=== PATIENT | male | born 1975 ===

== ENCOUNTER 2017-11-13 18:44 | Emergency (ER) | payer OTHER ==
[2017-11-13 18:44] VITALS: BMI 48.2
--- NOTE | 2017-11-13 19:42 | ED PDOC ---
HPI: General Adult Time Seen by Provider: 11/13/17 19:01 Chief Complaint (Nursing): Medical Clearance Chief Complaint (Provider): Brought in by [place] Police for Clearance History Per: Patient History/Exam Limitations: no limitations Onset/Duration Of Symptoms: Days Additional Complaint(s): 42 yo male wiht HTN, DM and osteomyolitis brought in by police for clearance for [facility]. Pt states he was at [facility] and getting IV andtibiocis twice a day. Officer asks if patient can have PICC line removed to be incarcerated. Pt reports improvement in right 3rd toe. PT denies HI/SI. Past Medical History Reviewed: Historical Data, Nursing Documentation, Vital Signs Vital Signs: Last Vital Signs Temp 98.5 F 11/13/17 18:51 Pulse 88 11/13/17 18:51 Resp 16 11/13/17 18:51 BP 141/104 H 11/13/17 18:51 Pulse Ox 97 11/13/17 18:51 - Medical History PMH: Arthritis (hands), Asthma, Bronchitis, CVA (3x), Diabetes, HTN, Hypercholesterolemia Denies: Depression, Hepatitis, Chronic Kidney Disease, Sexually Transmitted Disease - Surgical History Surgical History: Denies: Pacemaker - Family History Family History: States: Diabetes, Hypertension - Living Arrangements Living Arrangements: With Family - Social History Current smoker - smoking cessation education provided: No - Immunization History Hx Tetanus Toxoid Vaccination: Yes Hx Influenza Vaccination: Yes Hx Pneumococcal Vaccination: Yes - Home Medications Home Medications: Ambulatory Orders Medication Instructions Recorded Methadone 150 mg PO DAILY 05/26/17 - Allergies Allergies/Adverse Reactions: Allergies Allergy/AdvReac Type Severity Reaction Status Date / Time morphine AdvReac ITCHING Verified 11/13/17 18:51 Review of Systems ROS Statement: Except As Marked, All Systems Reviewed And Found Negative Constitutional: Negative for: Fever Musculoskeletal: Positive for: Other Physical Exam - Reviewed Nursing Documentation Reviewed: Yes Vital Signs Reviewed: Yes - Physical Exam Appears: Positive for: Well, Non-toxic, No Acute Distress Head Exam: Positive for: ATRAUMATIC, NORMAL INSPECTION, NORMOCEPHALIC Skin: Positive for: Warm. Negative for: Normal Color (erythema of the right 3rd toe without drainage ) Eye Exam: Positive for: Normal appearance ENT: Positive for: Normal ENT Inspection Neck: Positive for: Normal, Painless ROM Cardiovascular/Chest: Positive for: Regular Rate, Rhythm Respiratory: Positive for: Normal Breath Sounds. Negative for: Accessory Muscle Use, Respiratory Distress Back: Positive for: Normal Inspection Extremity: Positive for: Normal ROM Neurologic/Psych: Positive for: Alert, Oriented - ECG O2 Sat by Pulse Oximetry: 97 Medical Decision Making Medical Decision Making: Flora discussed case with Charge Nurse (Ranulfo) in the medical unit at the [facility]. Pt able to go to the medical unit for continued antibiotics. PICC line to remain in place. Disposition - Clinical Impression Clinical Impression: Osteomyelitis - Patient ED Disposition Is Patient to be Admitted: No - Disposition Disposition: Discharged/Transfer to Law Enforcement Disposition Time: 20:16 Condition: STABLE Additional Instructions: Please continue antibiotic, cefepime IV, twice a day. Pt is medically and psychiatrically cleared for incarceration on the medical unit to continue administration of IV antibiotics. Instructions: General (DC), Osteomyelitis (DC)
[2017-11-13 20:20] VITALS: RESP 18; TEMP 98.4
[2017-11-13 22:55] VITALS: BP 135/85; PULSE 83; O2SAT 98
== END 2017-11-13 21:29 ==
LOC: H.ER 18:44
DX: M86.9 Osteomyelitis, unspecified (principal); E11.69 Type 2 diabetes mellitus with other specified complication; E78.00 Pure hypercholesterolemia, unspecified; I10 Essential (primary) hypertension; J45.909 Unspecified asthma, uncomplicated; Z86.73 Personal history of transient ischemic attack (TIA), and cerebral infarction without residual deficits; Z88.5 Allergy status to narcotic agent

== ENCOUNTER 2017-11-14 | Inpatient (IN) | payer OTHER ==
[2017-11-14] VITALS: BMI 48.2
--- NOTE | 2017-11-14 00:22 | ED PDOC ---
Lower Extremity Pain/Injury Time Seen by Provider: 11/14/17 00:07 Chief Complaint (Nursing): Medical Clearance Chief Complaint (Provider): Medical Clearance History Per: Patient History/Exam Limitations: no limitations Onset/Duration Of Symptoms: Hrs ([employer]) Additional Complaint(s): 42 year old male with a history of HTN, DM, and morbid obesity reports to the ED for medical clearance. Patient was recently admitted to [facility] , diagnosed with osteomyelitis of right foot. He was placed at [facility] for IV antibiotic treatment via PICC and is prescribed cefepime 2 mg Q12 daily. correction staff called the police when he left the facility to smoke. Law enforcement arrested patient on outstanding warrants and brought him to [facility]. Arrangements were made to treat him with IV antibiotics but decided he should be referred to [facility] for treatment. He denies any other medical complaints. PMD: Dr. Semaj Xavier Past Medical History Reviewed: Historical Data, Nursing Documentation, Vital Signs Vital Signs: Last Vital Signs Temp 98.4 F 11/14/17 00:03 Pulse 90 11/14/17 00:03 Resp 16 11/14/17 00:03 BP 151/84 H 11/14/17 00:03 Pulse Ox 98 11/14/17 00:03 - Medical History PMH: Arthritis (hands), Asthma, Bronchitis, CVA (3x), Diabetes, HTN, Hypercholesterolemia Denies: Depression, Hepatitis, Chronic Kidney Disease, Sexually Transmitted Disease - Surgical History Surgical History: Denies: Pacemaker Other surgeries: LLE below the knee amputation - Family History Family History: States: Diabetes, Hypertension - Social History Current smoker - smoking cessation education provided: Yes Drugs: Other (heroin, methadone dependance ) - Immunization History Hx Tetanus Toxoid Vaccination: Yes Hx Influenza Vaccination: Yes Hx Pneumococcal Vaccination: Yes - Home Medications Home Medications: Ambulatory Orders Medication Instructions Recorded Methadone 150 mg PO DAILY PRN 05/26/17 Acetaminophen [Tylenol 325mg tab] 650 mg PO Q4H 11/14/17 Albuterol/Ipratropium [Duoneb 3 3 ml INH Q6H 11/14/17 mg/0.5 mg (3 ml) UD] Allopurinol [Zyloprim] 300 mg PO DAILY 11/14/17 Aluminum Hydroxide [Aluminum 30 ml PO Q4H 11/14/17 Hydroxide] Amlodipine Besylate/Benazepril 5 mg PO Q12H 11/14/17 [Amlodipine-Benazepril 2.5-10] Bacitracin Ointment [Bacitracin] 500 unit TOP QSHIFT 11/14/17 Cefepime IV 2 gm in NS [Maxipime 2 gm IV Q12H 11/14/17 2gm] Clonidine HCl [Catapres] 0.2 mg PO Q8H 11/14/17 DULoxetine [Cymbalta] 60 mg PO DAILY 11/14/17 Dicloxacillin Sodium 500 mg PO Q6H 11/14/17 [Dicloxacillin Sodium] Enoxaparin Sodium [Enoxaparin 40 mg SQ DAILY 11/14/17 Sodium] Gabapentin [Neurontin] 300 mg PO TID 11/14/17 Gemfibrozil [Lopid] 600 mg PO BID 11/14/17 Insulin Aspart [Novolog Flexpen] 100 units SQ AC 11/14/17 Insulin Detemir [Levemir] 100 unit SC Q12H 11/14/17 Lidocaine 5% [Lidoderm] 1 patch TOP Q12H 11/14/17 Lipase/Protease/Amylase [Creon Dr 1 cap PO TID 11/14/17 6,000 Units Capsule] Losartan Potassium [Losartan 50 mg PO Q12H 11/14/17 Potassium] Magnesium Hydroxide [Milk of 30 ml PO DAILY 11/14/17 Magnesia] Probenecid/Colchicine 1 each PO DAILY 11/14/17 [Probenecid-Colchicine Tabs] Silver Sulfadiazine 1% [Silvadene 1 appl TOP DAILY 11/14/17 1%] - Allergies Allergies/Adverse Reactions: Allergies Allergy/AdvReac Type Severity Reaction Status Date / Time morphine AdvReac ITCHING Verified 11/14/17 00:03 - Laboratory Results Result Diagrams: 11/14/17 01:00 11/14/17 01:00 - ECG O2 Sat by Pulse Oximetry: 98 (RA) Pulse Ox Interpretation: Normal Medical Decision Making Medical Decision Making: Time: 00:08 Initial Impression: 42 y/o male needing IV antibiotics treatment Initial Plan: --EKG --Alcohol Serum --CMP --Urine Drug Screen --Lact acid, plasma --CBC with differentials --PTT --Prothrombin --CXR --Cefepime 2mg IVBP Q12 Time: 00:26 --Podiatry Consult --Case discussed with Jamison Walker, nurse practioner at [place]. Patient was under Dr. Ria Cueto's care at [facility]. Scribe Attestation: Documented by Paris Melgar, acting as a scribe for Tim Da Silva MD Provider Scribe Attestation: All medical record entries made by the Scribe were at my direction and personally dictated by me. I have reviewed the chart and agree that the record accurately reflects my personal performance of the history, physical exam, medical decision making, and the department course for this patient. I have also personally directed, reviewed, and agree with the discharge instructions and disposition. Disposition - Clinical Impression Clinical Impression: Osteomyelitis - Patient ED Disposition Is Patient to be Admitted: Yes Comment: Saniya Walker NP. [facility] Group Doctor Will See Patient In The: Hospital - Disposition Disposition Time: 00:00 Condition: FAIR
[2017-11-14] MEDS ORDERED: Cefepime 2 GM in Sodium Chloride 0.9% 100 ML IVPB STA (00:25)
[2017-11-14 00:55] LABS: BARBITURATES, UR NEGATIVE (NEGATIVE); PHENCYCLIDINE, UR NEGATIVE (NEGATIVE)
[2017-11-14 00:56] LABS: BENZODIAZEPINES, UR NEGATIVE (NEGATIVE); OPIATES, UR NEGATIVE (NEGATIVE)
[2017-11-14 01:28] LABS: BASO % 0.9 % (0.0-2.0); EOS % 0.8 % (0.0-4.0); HEMOGLOBIN 10.8 g/dL (12.0-18.0); LYMPH # 1.1 K/uL (1.0-4.3); LYMPH % 21.8 % (20.0-40.0); MEAN CELL VOLUME 83.8 fl (80.0-94.0); MEAN CORPUSCULAR HEMOGLOBIN 27.3 pg (27.0-31.0); MEAN CORPUSCULAR HGB CONC 32.6 g/dL (33.0-37.0); MEAN PLATELET VOLUME 8.9 fl (7.2-11.7); MONO # 0.3 K/uL (0.0-0.8); MONO % 6.2 % (0.0-10.0); NEUT # 3.6 K/uL (1.8-7.0); NEUT % 70.3 % (50.0-75.0); RBC 3.97 Mil/uL (4.40-5.90); RED CELL DISTRIBUTION WIDTH 15.6 % (11.5-14.5); WHITE BLOOD COUNT 5.1 K/uL (4.8-10.8)
[2017-11-14 01:37] LABS: INR 1.1 (0.9-1.2); PARTIAL THROMBOPLASTIN TIME 38.8 Seconds (25.6-37.1); PROTHROMBIN TIME 12.5 Seconds (9.8-13.1)
[2017-11-14 01:39] LABS: ALB/GLOB RATIO 0.9 (1.0-2.1); ALBUMIN 3.5 g/dL (3.5-5.0); ALT/SGPT 24 U/L (21-72); AST/SGOT 21 U/L (17-59); BLOOD UREA NITROGEN 26 mg/dl (9-20); CALCIUM 9.4 mg/dL (8.4-10.2); GFR AFRICAN-AMERICAN > 60; GFR NON-AFRICAN AMERICAN > 60
--- NOTE | 2017-11-14 05:31 | PCM.RRT ---
<lFash Cedeno - Last Filed: 11/14/17 05:32> Plan - Assessment of Findings&Treatment Plan [employer]CIAL [employer]STRUCTION SUPERINTENDENT Time: 04:59 COMMERCIAL CONSTRUCTION SUPERINTENDENT Location: [facility] [employer] SUPERINTENDENT Arrival: 05:00 [employer]ERCIAL CONSTRUCTION SUPERINTENDENT Reason: Hypertension S: 42 yo M with pmhx of HTN, DM, Asthma, CVA x3 and L lower extremity amputation was recently transferred from the ER and found to have Elevated BP. Pt denied Chest pain, headaches, blurred vision, epigastric pain O: BP: 229/114. Repeat was 205/159; Manual was 210/110. [employer]ER[employer]STRUCTION SUPERINTENDENT Vitals: HR: 87 RR: 18 General: AAOx3 HEENT: normocephalic, atraumatic, EOMI Cardiac: S1 S2 Resp: clear to auscultation bilaterally Abdo: soft, nontender with active bowel sounds L Lower extremity: amputation COMMERCIAL CONSTRUCTION SUPERINTENDENT intervention: A/P: 42 yo M with pmhx of HTN, DM, Asthma, CVA x3 and L lower extremity amputation; found to have HTN -EKG ordered and read by Dr. Ferrell -Reggie and allergies reviewed with nurses -Clonidine: 0.2 mg ordered and administered -Of note; tox screen positive for: methadone and cocaine COMMERCIAL CONSTRUCTION SUPERINTENDENT Outcome: BP lowered with no CP/CASE/SOB/blurred vision, or epigastric pain COMMERCIAL [employer]STRUCTION SUPERINTENDENT vitals: 147/101, 87 bpm, 98% on RA, RR: 16 COMMERCIAL CONSTRUCTION SUPERINTENDENT end: 05:07 COMMERCIAL CONSTRUCTION SUPERINTENDENT Leader: Dr. Ferrell COMMERCIAL CONSTRUCTION SUPERINTENDENT residents: Flash Cedeno MD PGY1; Naa Brantley MD PGY2 <Pawan Ferrell - Last Filed: 11/14/17 05:49> COMMERCIAL CONSTRUCTION SUPERINTENDENT Nurse Assessment - Vital Signs Vital Signs: Rapid Response Vital Sign Blood Pressure 174/99 Pulse Rate 99 Respiratory Rate 15 Temperature 98.3 F Oxygen Saturation 100 - Vital Signs at end of COMMERCIAL CONSTRUCTION SUPERINTENDENT Vital Signs at end of COMMERCIAL CONSTRUCTION SUPERINTENDENT: Rapid Response End Vital Sign Blood Pressure 147/101 Pulse Rate 99 Respiratory Rate 14 Temperature 98.2 F O2 Sat by Pulse Oximetry 99
[2017-11-14] MEDS ORDERED: METHADONE 150 MG PO PRN (06:28)
[2017-11-14] MEDS ORDERED: BENAZEPRIL PO SCH (06:30)
[2017-11-14] MEDS ORDERED: Bacitracin 500 Units/gm Oint Foilpak UD TOP SCH (06:30)
[2017-11-14] MEDS ORDERED: INSULIN DETEMIR 100 UNIT SC SCH (06:30)
[2017-11-14] MEDS ORDERED: AMLODIPINE BESYLATE PO SCH (06:30)
[2017-11-14] MEDS ORDERED: Albuterol-Ipratrop 3 mg / 0.5 (3 ml) UD INH SCH (06:30)
[2017-11-14] MEDS ORDERED: ALUMINUM HYDROXIDE 320 MG/5 ML PO PRN (06:30)
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
--- NOTE | 2017-11-14 07:47 | RAD ---
HISTORY: admit COMPARISON: No prior. FINDINGS: LUNGS: Portable chest 01/18/2016. PLEURA: No significant pleural effusion identified, no pneumothorax apparent. CARDIOVASCULAR: Normal. OSSEOUS STRUCTURES: No significant abnormalities. VISUALIZED UPPER ABDOMEN: Normal. OTHER FINDINGS: None. IMPRESSION: No interval acute cardiopulmonary disease appreciated.
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
[2017-11-14] MEDS: Insulin Detemir 100 Units/ml Inj SC SCH ×2 (10:30→21:28)
[2017-11-14] MEDS: Amylase/Lipase/Protease 5,000 Units ECC PO SCH ×3 (11:12→17:02)
[2017-11-14] MEDS: Lidocaine 5% Patch TD SCH ×2 (11:26→18:59)
[2017-11-14] MEDS: Magnesium Hydroxide Susp 30 ml UD PO SCH (11:29)
[2017-11-14] MEDS: Enoxaparin 40 mg Syringe SC SCH (11:32)
[2017-11-14] MEDS: Cefepime 2 GM in Sodium Chloride 0.9% 100 ML IVPB SCH ×2 (12:06→21:15)
[2017-11-14] MEDS: Insulin Lispro (humaLOG) 100 Units/ml Inj SC SCH ×2 (12:52→17:06)
[2017-11-14] MEDS: Silver Sulfadiazine 1% Cream (20 gm) TOP SCH (17:05)
--- NOTE | 2017-11-14 17:07 | CARD ---
APPROVED REPORT EKG Measurement Heart [id number] <Conclusion> Poor data quality, interpretation may be adversely affected Normal sinus rhythm Prolonged QT Abnormal ECG
--- NOTE | 2017-11-14 17:08 | CARD ---
APPROVED REPORT EKG Measurement Heart [id number] <Conclusion> Normal sinus rhythm Prolonged QT Abnormal ECG
[2017-11-14] MEDS: Albuterol-Ipratrop 3 mg / 0.5 (3 ml) UD INH SCH (19:10)
[2017-11-15] MEDS: Albuterol-Ipratrop 3 mg / 0.5 (3 ml) UD INH SCH ×4 (01:54→19:18)
[2017-11-15] MEDS: Lidocaine 5% Patch TD SCH ×2 (06:55→18:47)
--- NOTE | 2017-11-15 08:00 | RAD ---
PROCEDURE: Right Foot Radiographs. HISTORY: 3rd digit ulcer COMPARISON: None. FINDINGS: BONES: Erosive changes are identified the distal segment of proximal phalanx right 3rd digit this patient with the right 3rd digit ulcer. The pattern is therefore suspicious for osteomyelitis. No other cortical loss is appreciate throughout the remainder of the right foot including the middle phalanx right 3rd digit. No definite subluxation or dislocation. MRI may be useful for greater characterization. Mild soft tissue edema is seen throughout the right 3rd digit without emphysematous changes, best seen in the frontal view. OTHER FINDINGS: None. IMPRESSION: Erosive changes at the proximal phalanx right 3rd digit suggest osteomyelitis. Diffuse soft tissue edema seen throughout the right 3rd digit as well. Further clinical correlation is recommended. MRI is available for further characterization as clinically warranted.
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
[2017-11-15] MEDS: Insulin Lispro (humaLOG) 100 Units/ml Inj SC SCH ×3 (08:46→17:48)
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
[2017-11-15] MEDS: Amylase/Lipase/Protease 5,000 Units ECC PO SCH ×3 (10:30→18:43)
[2017-11-15] MEDS: Enoxaparin 40 mg Syringe SC SCH (10:31)
[2017-11-15] MEDS: Insulin Detemir 100 Units/ml Inj SC SCH ×2 (10:43→21:46)
[2017-11-15] MEDS: Magnesium Hydroxide Susp 30 ml UD PO SCH (10:47)
[2017-11-15] MEDS: Silver Sulfadiazine 1% Cream (20 gm) TOP SCH (10:47)
[2017-11-15] MEDS: Cefepime 2 GM in Sodium Chloride 0.9% 100 ML IVPB SCH ×2 (11:08→21:43)
[2017-11-16] MEDS: Albuterol-Ipratrop 3 mg / 0.5 (3 ml) UD INH SCH ×4 (02:10→19:02)
[2017-11-16] MEDS: Lidocaine 5% Patch TD SCH ×2 (06:14→17:59)
[2017-11-16] MEDS: Insulin Lispro (humaLOG) 100 Units/ml Inj SC SCH ×3 (06:33→17:15)
--- NOTE | 2017-11-16 07:51 | CP.PCM.PN ---
Subjective - Date & Time of Evaluation Date of Evaluation: 11/16/17 Time of Evaluation: 08:20 - Subjective Subjective: patient doing well. Remains in bed with corrections officers at bedside. no fever, chills, nausea, vomiting or diarrhea. Denies any complaints at this time. left aka noted, no tremors while pt is sleeping Objective - Vital Signs/Intake and Output Vital Signs (last 24 hours): Temp Pulse Resp BP Pulse Ox 97.7 F 74 20 156/74 H 97 11/15/17 23:31 11/16/17 06:13 11/15/17 23:31 11/16/17 06:13 11/15/17 23:31 - Medications Medications: Current Medications Acetaminophen (Tylenol 325mg Tab) 650 mg PO Q4 PRN PRN Reason: T>100.4 Albuterol/Ipratropium (Duoneb 3 Mg/0.5 Mg (3 Ml) Ud) 3 ml INH RQ6 [facility] Last Admin: 11/16/17 07:14 Dose: Not Given Allopurinol (Zyloprim) 300 mg PO DAILY [facility] Last Admin: 11/15/17 10:32 Dose: 300 mg Aluminum Hydroxide (Amphogel) 640 mg PO Q6 PRN PRN Reason: Indigestion Amlodipine Besylate (Norvasc) 5 mg PO Q12 [facility] Last Admin: 11/15/17 21:45 Dose: 5 mg Amylase (Pancrease 05353 U-5000 U-[id number] U) 5,000 unit PO TID [facility] Last Admin: 11/15/17 18:43 Dose: 5,000 unit Bacitracin (Bacitracin) 1 ea TOP QSHIFT [facility] Clonidine HCl (Catapres) 0.2 mg PO Q8H [facility] Last Admin: 11/16/17 06:11 Dose: 0.2 mg Colchicine (Colocrys) 0.6 mg PO DAILY [facility] Last Admin: 11/15/17 10:30 Dose: 0.6 mg Dicloxacillin Sodium (Dynapen) 500 mg PO Q6 [facility] Last Admin: 11/16/17 04:11 Dose: 500 mg Duloxetine HCl (Cymbalta) 60 mg PO DAILY [facility] Last Admin: 11/15/17 10:30 Dose: 60 mg Enoxaparin Sodium (Lovenox) 40 mg SC DAILY [facility] Last Admin: 11/15/17 10:31 Dose: 40 mg Gabapentin (Neurontin) 300 mg PO TID [facility] Last Admin: 11/15/17 18:48 Dose: 300 mg Gemfibrozil (Lopid) 600 mg PO BID [facility] Last Admin: 11/15/17 18:46 Dose: 600 mg Cefepime HCl 2 gm/ Sodium (Chloride) 100 mls @ 100 mls/hr IVPB Q12 [facility] PRN Reason: Protocol Last Admin: 11/15/17 21:43 Dose: 100 mls/hr Insulin Detemir (Levemir) 20 units SC Q12H [facility] Last Admin: 11/15/17 21:46 Dose: 20 units Insulin Human Lispro (Humalog) 0 units SC AC [facility] PRN Reason: Protocol Last Admin: 11/16/17 06:33 Dose: 2 units Lidocaine (Lidoderm) 1 ea TD Q12H [facility] Last Admin: 11/16/17 06:14 Dose: 1 ea Losartan Potassium (Cozaar) 50 mg PO Q12H [facility] Last Admin: 11/16/17 06:13 Dose: 50 mg Magnesium Hydroxide (Milk Of Magnesia) 30 ml PO DAILY [facility] Last Admin: 11/15/17 10:47 Dose: 30 ml Methadone HCl (Methadone) 150 mg PO DAILY [facility] Last Admin: 11/15/17 11:06 Dose: 150 mg Nystatin (Nystop Topical Powder) 1 applic TOP TID [facility] Last Admin: 11/15/17 21:57 Dose: Not Given Probenecid (Probenecid) 500 mg PO DAILY [facility] Last Admin: 11/15/17 10:29 Dose: 500 mg Silver Sulfadiazine (Silvadene 1% 20 Gm) 1 ea TOP DAILY [facility] Last Admin: 11/15/17 10:47 Dose: 1 applic - Labs Labs: 11/14/17 01:00 11/14/17 01:00 PT 12.5 Seconds (9.8-13.1) 11/14/17 01:00 INR 1.1 (0.9-1.2) 11/14/17 01:00 APTT 38.8 Seconds (25.6-37.1) H 11/14/17 01:00 - Constitutional Appears: Well, Non-toxic, No Acute Distress - Head Exam Head Exam: ATRAUMATIC, NORMAL INSPECTION, NORMOCEPHALIC - Eye Exam Eye Exam: EOMI, Normal appearance, PERRL Pupil Exam: NORMAL ACCOMODATION, PERRL - ENT Exam ENT Exam: Mucous Membranes Moist, Normal Exam - Neck Exam Neck Exam: Full ROM, Normal Inspection. absent: Lymphadenopathy - Respiratory Exam Respiratory Exam: Clear to Ausculation Bilateral, NORMAL BREATHING PATTERN - Cardiovascular Exam Cardiovascular Exam: REGULAR RHYTHM, RRR, +S1, +S2. absent: Murmur - GI/Abdominal Exam GI & Abdominal Exam: Soft, Normal Bowel Sounds. absent: Tenderness - Extremities Exam Extremities Exam: Full ROM, Normal Capillary Refill, Normal Inspection. absent : Joint Swelling, Pedal Edema Additional comments: dsg to r foot c/d/i - Back Exam Back Exam: NORMAL INSPECTION - Neurological Exam Neurological Exam: Abnormal Gait, Alert, Awake, CN II-XII Intact, Oriented x3 - Psychiatric Exam Psychiatric exam: Normal Affect, Normal Mood - Skin Skin Exam: Dry, Intact, Normal Color, Warm Assessment and Plan (1) DVT prophylaxis Status: Acute (2) Osteomyelitis Status: Acute (3) Diabetes mellitus type 2, uncontrolled Status: Acute - Assessment and Plan (Free Text) Assessment: (1) DVT prophylaxis Assessment and Plan: lovenox no scd/ae hose r/t infectious process Status: Acute (2) Osteomyelitis Assessment and Plan: cefepeime 2 gm podiatry to follow xr w/ om still, mri for saturday Status: Acute (3) Diabetes mellitus type 2, uncontrolled Assessment and Plan: novolog ss, fsbg dietary control home meds Status: Acute 4-tremor/cva-cont home meds, glucose control
[2017-11-16] MEDS: Insulin Detemir 100 Units/ml Inj SC SCH ×2 (08:24→21:02)
[2017-11-16] MEDS: Enoxaparin 40 mg Syringe SC SCH (08:25)
[2017-11-16] MEDS: Cefepime 2 GM in Sodium Chloride 0.9% 100 ML IVPB SCH ×2 (08:26→21:58)
[2017-11-16] MEDS: Magnesium Hydroxide Susp 30 ml UD PO SCH (08:28)
[2017-11-16] MEDS: Amylase/Lipase/Protease 5,000 Units ECC PO SCH ×3 (08:30→17:18)
[2017-11-16] MEDS: Silver Sulfadiazine 1% Cream (20 gm) TOP SCH (08:31)
--- NOTE | 2017-11-16 14:04 | CP.PCM.PN ---
Subjective - Date & Time of Evaluation Date of Evaluation: 11/16/17 Time of Evaluation: 14:02 - Subjective Subjective: 42 y/o male seen at bedside this afternoon regarding right foot 3rd digit ulcer with osteomyelitis. Patient is seen resting comfortably in bed, in NAD, and AA0x3. Patient reports that he slept fine. No acute overnight events. Denies any pain at this time to his right foot. Denies F/C/N/V/CP/SOB. Dressing remains clean and intact to right foot Objective - Vital Signs/Intake and Output Vital Signs (last 24 hours): Temp Pulse Resp BP Pulse Ox 98.2 F 78 20 145/68 99 11/16/17 08:01 11/16/17 08:28 11/16/17 08:01 11/16/17 08:28 11/16/17 08:01 - Medications Medications: Current Medications Acetaminophen (Tylenol 325mg Tab) 650 mg PO Q4 PRN PRN Reason: T>100.4 Albuterol/Ipratropium (Duoneb 3 Mg/0.5 Mg (3 Ml) Ud) 3 ml INH RQ6 [facility] Last Admin: 11/16/17 13:03 Dose: 3 ml Allopurinol (Zyloprim) 300 mg PO DAILY [facility] Last Admin: 11/16/17 08:31 Dose: 300 mg Aluminum Hydroxide (Amphogel) 640 mg PO Q6 PRN PRN Reason: Indigestion Amlodipine Besylate (Norvasc) 5 mg PO Q12 [facility] Last Admin: 11/16/17 08:28 Dose: 5 mg Amylase (Pancrease 69573 U-5000 U-[id number] U) 5,000 unit PO TID [facility] Last Admin: 11/16/17 12:14 Dose: 5,000 unit Bacitracin (Bacitracin) 1 ea TOP QSHIFT [facility] Clonidine HCl (Catapres) 0.2 mg PO Q8H [facility] Last Admin: 11/16/17 06:11 Dose: 0.2 mg Colchicine (Colocrys) 0.6 mg PO DAILY [facility] Last Admin: 11/16/17 08:21 Dose: 0.6 mg Dicloxacillin Sodium (Dynapen) 500 mg PO Q6 [facility] Last Admin: 11/16/17 09:49 Dose: 500 mg Duloxetine HCl (Cymbalta) 60 mg PO DAILY [facility] Last Admin: 11/16/17 08:22 Dose: 60 mg Enoxaparin Sodium (Lovenox) 40 mg SC DAILY [facility] Last Admin: 11/16/17 08:25 Dose: 40 mg Gabapentin (Neurontin) 300 mg PO TID [facility] Last Admin: 11/16/17 12:14 Dose: 300 mg Gemfibrozil (Lopid) 600 mg PO BID [facility] Last Admin: 11/16/17 08:25 Dose: 600 mg Cefepime HCl 2 gm/ Sodium (Chloride) 100 mls @ 100 mls/hr IVPB Q12 [facility] PRN Reason: Protocol Last Admin: 11/16/17 08:26 Dose: 100 mls/hr Insulin Detemir (Levemir) 20 units SC Q12H [facility] Last Admin: 11/16/17 08:24 Dose: 20 units Insulin Human Lispro (Humalog) 0 units SC AC [facility] PRN Reason: Protocol Last Admin: 11/16/17 12:22 Dose: 4 units Lidocaine (Lidoderm) 1 ea TD Q12H [facility] Last Admin: 11/16/17 06:14 Dose: 1 ea Losartan Potassium (Cozaar) 50 mg PO Q12H [facility] Last Admin: 11/16/17 06:13 Dose: 50 mg Magnesium Hydroxide (Milk Of Magnesia) 30 ml PO DAILY [facility] Last Admin: 11/16/17 08:28 Dose: 30 ml Methadone HCl (Methadone) 150 mg PO DAILY [facility] Last Admin: 11/16/17 08:26 Dose: 150 mg Nystatin (Nystop Topical Powder) 1 applic TOP TID [facility] Last Admin: 11/15/17 21:57 Dose: Not Given Probenecid (Probenecid) 500 mg PO DAILY [facility] Last Admin: 11/16/17 08:30 Dose: 500 mg Silver Sulfadiazine (Silvadene 1% 20 Gm) 1 ea TOP DAILY [facility] Last Admin: 11/16/17 08:31 Dose: 1 applic - Labs Labs: 11/14/17 01:00 11/14/17 01:00 PT 12.5 Seconds (9.8-13.1) 11/14/17 01:00 INR 1.1 (0.9-1.2) 11/14/17 01:00 APTT 38.8 Seconds (25.6-37.1) H 11/14/17 01:00 - Constitutional Appears: Well, Non-toxic, No Acute Distress - Extremities Exam Additional comments: Dressing intact to R foot 3rd toe with mild serosanguinous strikethrough noted VASC: DP and PT palpation, CFT < 3 seconds x 5 digits, temperature gradient WNL , very mild nonpitting localized edema noted to the 3rd digit ORTHO: left AKA noted, tenderness with palpation to the third digit NEURO: gross sensation intact and protective sensation diminished DERM: circular ulceration noted to the dorsum of the right 3rd digit measuring approximately 1 cm x 1 cm x .2 cm, wound base mainly granular, no notable erythema (<.5 cm in margins), no streaking, no tunneling, no undermining, no purulence, no malodor, no bone exposed noted. Hyperpigmented skin discoloration/ noted to the entire 3rd digit - Neurological Exam Neurological Exam: Alert, Awake, Oriented x3 - Psychiatric Exam Psychiatric exam: Normal Affect, Normal Mood Assessment and Plan - Assessment and Plan (Free Text) Assessment: 42M with right foot 3rd digit ulcer with osteomyelitis Plan: Patient seen and evaluated Discussed plan with attending Dr. Rose Right foot X-ray reviewed - erosive changes noted to 3rd digit proximal phalanx suggestive of osteomyelitis Podiatry recommending surgical intervention at this time to remove infected bone Pt refusing surgery at this time, states he wishes to continue course of IV abx , but will consider the option MRI to be performed Saturday for further evaluation of extent of osteomyelitis Will continue provide local wound care while patient receives IV abx Cleansed ulceration with saline solution and applied Silvadene, 4x4 gauze and paper tape dressing Patient may be full WB to the right foot with use of surgical shoe
[2017-11-17] MEDS: Albuterol-Ipratrop 3 mg / 0.5 (3 ml) UD INH SCH ×4 (01:23→19:15)
[2017-11-17] MEDS: Lidocaine 5% Patch TD SCH (06:20)
[2017-11-17 07:39] LABS: EOS % 0.9 % (0.0-4.0); HEMOGLOBIN 11.1 g/dL (12.0-18.0); LYMPH # 1.4 K/uL (1.0-4.3); MEAN CORPUSCULAR HEMOGLOBIN 27.3 pg (27.0-31.0); MEAN CORPUSCULAR HGB CONC 32.5 g/dL (33.0-37.0); MEAN PLATELET VOLUME 8.9 fl (7.2-11.7); MONO # 0.5 K/uL (0.0-0.8); MONO % 12.1 % (0.0-10.0); NEUT # 1.8 K/uL (1.8-7.0); NRBC % 0.1 % (0.0-0.0); RBC 4.05 Mil/uL (4.40-5.90); RED CELL DISTRIBUTION WIDTH 15.4 % (11.5-14.5); WHITE BLOOD COUNT 3.7 K/uL (4.8-10.8)
[2017-11-17 08:00] LABS: ALB/GLOB RATIO 0.9 (1.0-2.1); ALBUMIN 3.5 g/dL (3.5-5.0); ALT/SGPT 34 U/L (21-72); AST/SGOT 26 U/L (17-59); BLOOD UREA NITROGEN 22 mg/dl (9-20); CALCIUM 9.2 mg/dL (8.4-10.2); GFR AFRICAN-AMERICAN > 60; GFR NON-AFRICAN AMERICAN > 60
[2017-11-17] MEDS: Silver Sulfadiazine 1% Cream (20 gm) TOP SCH (09:36)
[2017-11-17] MEDS: Enoxaparin 40 mg Syringe SC SCH (09:37)
[2017-11-17] MEDS: Insulin Detemir 100 Units/ml Inj SC SCH ×2 (09:40→23:08)
[2017-11-17] MEDS: Insulin Lispro (humaLOG) 100 Units/ml Inj SC SCH ×3 (09:40→19:16)
[2017-11-17] MEDS: Amylase/Lipase/Protease 5,000 Units ECC PO SCH ×3 (09:44→16:04)
[2017-11-17] MEDS: Cefepime 2 GM in Sodium Chloride 0.9% 100 ML IVPB SCH ×2 (09:46→23:04)
[2017-11-17] MEDS: Magnesium Hydroxide Susp 30 ml UD PO SCH (09:47)
--- NOTE | 2017-11-17 11:41 | CP.PCM.PN ---
Subjective - Date & Time of Evaluation Date of Evaluation: 11/17/17 Time of Evaluation: 11:41 - Subjective Subjective: 42 y/o male seen today regarding right foot 3rd digit dorsal PIPJ ulcer with osteomyelitis. Patient is seen resting comfortably in bed, in NAD, and AA0x3. Police at bedside for monitoring. Patient reports that he slept ok and has no pain in the right foot. No acute overnight events. Denies F/C/N/V/CP/SOB. Dressing remains clean and intact to right foot Objective - Vital Signs/Intake and Output Vital Signs (last 24 hours): Temp Pulse Resp BP Pulse Ox 98.4 F 68 20 149/57 L 99 11/17/17 08:23 11/17/17 08:23 11/17/17 08:23 11/17/17 09:43 11/17/17 08:23 - Medications Medications: Current Medications Acetaminophen (Tylenol 325mg Tab) 650 mg PO Q4 PRN PRN Reason: T>100.4 Albuterol/Ipratropium (Duoneb 3 Mg/0.5 Mg (3 Ml) Ud) 3 ml INH RQ6 [facility] Last Admin: 11/17/17 07:41 Dose: 3 ml Allopurinol (Zyloprim) 300 mg PO DAILY [facility] Last Admin: 11/17/17 09:44 Dose: 300 mg Aluminum Hydroxide (Amphogel) 640 mg PO Q6 PRN PRN Reason: Indigestion Amlodipine Besylate (Norvasc) 5 mg PO Q12 [facility] Last Admin: 11/17/17 09:43 Dose: 5 mg Amylase (Pancrease 62229 U-5000 U-[id number] U) 5,000 unit PO TID [facility] Last Admin: 11/17/17 09:44 Dose: 5,000 unit Bacitracin (Bacitracin) 1 ea TOP QSHIFT [facility] Last Admin: 11/17/17 09:42 Dose: 1 ea Clonidine HCl (Catapres) 0.2 mg PO Q8H [facility] Last Admin: 11/17/17 06:19 Dose: 0.2 mg Colchicine (Colocrys) 0.6 mg PO DAILY [facility] Last Admin: 11/17/17 09:43 Dose: 0.6 mg Dicloxacillin Sodium (Dynapen) 500 mg PO Q6 [facility] Last Admin: 11/17/17 09:42 Dose: 500 mg Duloxetine HCl (Cymbalta) 60 mg PO DAILY [facility] Last Admin: 11/17/17 09:44 Dose: 60 mg Enoxaparin Sodium (Lovenox) 40 mg SC DAILY [facility] Last Admin: 11/17/17 09:37 Dose: 40 mg Gabapentin (Neurontin) 300 mg PO TID [facility] Last Admin: 11/17/17 09:42 Dose: 300 mg Gemfibrozil (Lopid) 600 mg PO BID [facility] Last Admin: 11/17/17 09:37 Dose: 600 mg Cefepime HCl 2 gm/ Sodium (Chloride) 100 mls @ 100 mls/hr IVPB Q12 [facility] PRN Reason: Protocol Last Admin: 11/17/17 09:46 Dose: 100 mls/hr Insulin Detemir (Levemir) 20 units SC Q12H [facility] Last Admin: 11/17/17 09:40 Dose: 20 units Insulin Human Lispro (Humalog) 0 units SC AC [facility] PRN Reason: Protocol Last Admin: 11/17/17 09:40 Dose: 4 units Lidocaine (Lidoderm) 1 ea TD Q12H [facility] Last Admin: 11/17/17 06:20 Dose: Not Given Losartan Potassium (Cozaar) 50 mg PO Q12H [facility] Last Admin: 11/17/17 06:19 Dose: 50 mg Magnesium Hydroxide (Milk Of Magnesia) 30 ml PO DAILY [facility] Last Admin: 11/17/17 09:47 Dose: Not Given Methadone HCl (Methadone) 150 mg PO DAILY [facility] Last Admin: 11/17/17 09:32 Dose: 150 mg Nystatin (Nystop Topical Powder) 1 applic TOP TID [facility] Last Admin: 11/17/17 09:35 Dose: 1 applic Probenecid (Probenecid) 500 mg PO DAILY [facility] Last Admin: 11/17/17 09:42 Dose: 500 mg Silver Sulfadiazine (Silvadene 1% 20 Gm) 1 ea TOP DAILY [facility] Last Admin: 11/17/17 09:36 Dose: 1 applic - Labs Labs: 11/17/17 05:20 11/17/17 05:20 PT 12.5 Seconds (9.8-13.1) 11/14/17 01:00 INR 1.1 (0.9-1.2) 11/14/17 01:00 APTT 38.8 Seconds (25.6-37.1) H 11/14/17 01:00 - Constitutional Appears: Well, Non-toxic, No Acute Distress - Extremities Exam Additional comments: Dressing intact to R foot 3rd toe with mild serosanguinous strikethrough noted VASC: DP and PT palpation, CFT < 3 seconds x 5 digits, temperature gradient WNL , very mild nonpitting localized edema noted to the 3rd digit ORTHO: left AKA noted, tenderness with palpation to the third digit NEURO: gross sensation intact and protective sensation diminished DERM: circular ulceration noted to the dorsum of the right 3rd digit measuring approximately 1 cm x 1 cm x .2 cm, wound base mainly granular, no notable erythema (<.5 cm in margins), no streaking, no tunneling, no undermining, no purulence, no malodor, no bone exposed noted. Hyperpigmented skin discoloration/ noted to the entire 3rd digit - Neurological Exam Neurological Exam: Alert, Awake, Oriented x3 - Psychiatric Exam Psychiatric exam: Normal Affect, Normal Mood Assessment and Plan - Assessment and Plan (Free Text) Assessment: 42 y/o male with right foot 3rd digit dorsal PIPJ ulcer with osteomyelitis Plan: Patient seen and evaluated Discussed plan with attending Dr. Rose Right foot X-ray reviewed - erosive changes noted to 3rd digit proximal phalanx suggestive of osteomyelitis Podiatry recommending surgical intervention at this time to remove infected bone Pt states he is considering his treatment options on IV abx vs amputation Will undergo MRI tomorrow for further evaluation Podiatry to continue provide local wound care with Silvadene, 4x4 gauze to right 3rd toe Patient may be full WB to the right foot with use of surgical shoe Will continue to follow patient in house
--- NOTE | 2017-11-17 13:15 | CP.PCM.PN ---
Subjective - Date & Time of Evaluation Date of Evaluation: 11/17/17 Time of Evaluation: 13:14 - Subjective Subjective: pt doing well, glucose still elevated. tremor noted. corrections officers at bedside. podiatry recommending amputation of r foot 3rd digit vs further anbx. mri for am. no f/c, n/v/d. labs noted. a1c pending Objective - Vital Signs/Intake and Output Vital Signs (last 24 hours): Temp Pulse Resp BP Pulse Ox 98.4 F 68 20 149/57 L 99 11/17/17 08:23 11/17/17 08:23 11/17/17 08:23 11/17/17 09:43 11/17/17 08:23 - Medications Medications: Current Medications Acetaminophen (Tylenol 325mg Tab) 650 mg PO Q4 PRN PRN Reason: T>100.4 Albuterol/Ipratropium (Duoneb 3 Mg/0.5 Mg (3 Ml) Ud) 3 ml INH RQ6 [facility] Last Admin: 11/17/17 07:41 Dose: 3 ml Allopurinol (Zyloprim) 300 mg PO DAILY [facility] Last Admin: 11/17/17 09:44 Dose: 300 mg Aluminum Hydroxide (Amphogel) 640 mg PO Q6 PRN PRN Reason: Indigestion Amlodipine Besylate (Norvasc) 5 mg PO Q12 [facility] Last Admin: 11/17/17 09:43 Dose: 5 mg Amylase (Pancrease 97679 U-5000 U-40144 U) 5,000 unit PO TID [facility] Last Admin: 11/17/17 12:23 Dose: 5,000 unit Bacitracin (Bacitracin) 1 ea TOP QSHIFT [facility] Last Admin: 11/17/17 09:42 Dose: 1 ea Clonidine HCl (Catapres) 0.2 mg PO Q8H [facility] Last Admin: 11/17/17 06:19 Dose: 0.2 mg Colchicine (Colocrys) 0.6 mg PO DAILY [facility] Last Admin: 11/17/17 09:43 Dose: 0.6 mg Dicloxacillin Sodium (Dynapen) 500 mg PO Q6 [facility] Last Admin: 11/17/17 09:42 Dose: 500 mg Duloxetine HCl (Cymbalta) 60 mg PO DAILY [facility] Last Admin: 11/17/17 09:44 Dose: 60 mg Enoxaparin Sodium (Lovenox) 40 mg SC DAILY [facility] Last Admin: 11/17/17 09:37 Dose: 40 mg Gabapentin (Neurontin) 300 mg PO TID [facility] Last Admin: 11/17/17 12:22 Dose: 300 mg Gemfibrozil (Lopid) 600 mg PO BID [facility] Last Admin: 11/17/17 09:37 Dose: 600 mg Cefepime HCl 2 gm/ Sodium (Chloride) 100 mls @ 100 mls/hr IVPB Q12 [facility] PRN Reason: Protocol Last Admin: 11/17/17 09:46 Dose: 100 mls/hr Insulin Detemir (Levemir) 20 units SC Q12H [facility] Last Admin: 11/17/17 09:40 Dose: 20 units Insulin Human Lispro (Humalog) 0 units SC AC [facility] PRN Reason: Protocol Last Admin: 11/17/17 12:23 Dose: 3 units Lidocaine (Lidoderm) 1 ea TD Q12H [facility] Last Admin: 11/17/17 06:20 Dose: Not Given Losartan Potassium (Cozaar) 50 mg PO Q12H [facility] Last Admin: 11/17/17 06:19 Dose: 50 mg Magnesium Hydroxide (Milk Of Magnesia) 30 ml PO DAILY [facility] Last Admin: 11/17/17 09:47 Dose: Not Given Methadone HCl (Methadone) 150 mg PO DAILY [facility] Last Admin: 11/17/17 09:32 Dose: 150 mg Nystatin (Nystop Topical Powder) 1 applic TOP TID [facility] Last Admin: 11/17/17 09:35 Dose: 1 applic Probenecid (Probenecid) 500 mg PO DAILY [facility] Last Admin: 11/17/17 09:42 Dose: 500 mg Silver Sulfadiazine (Silvadene 1% 20 Gm) 1 ea TOP DAILY [facility] Last Admin: 11/17/17 09:36 Dose: 1 applic - Labs Labs: 11/17/17 05:20 11/17/17 05:20 PT 12.5 Seconds (9.8-13.1) 11/14/17 01:00 INR 1.1 (0.9-1.2) 11/14/17 01:00 APTT 38.8 Seconds (25.6-37.1) H 11/14/17 01:00 - Constitutional Appears: Well, Non-toxic, No Acute Distress - Head Exam Head Exam: ATRAUMATIC, NORMAL INSPECTION, NORMOCEPHALIC - Eye Exam Eye Exam: EOMI, Normal appearance, PERRL Pupil Exam: NORMAL ACCOMODATION, PERRL - ENT Exam ENT Exam: Mucous Membranes Moist, Normal Exam - Neck Exam Neck Exam: Full ROM, Normal Inspection. absent: Lymphadenopathy - Respiratory Exam Respiratory Exam: Clear to Ausculation Bilateral, NORMAL BREATHING PATTERN - Cardiovascular Exam Cardiovascular Exam: REGULAR RHYTHM, +S1, +S2. absent: Murmur - GI/Abdominal Exam GI & Abdominal Exam: Soft, Normal Bowel Sounds. absent: Tenderness - Extremities Exam Extremities Exam: Full ROM, Normal Capillary Refill, Normal Inspection. absent : Joint Swelling, Pedal Edema Additional comments: r foot 3rd digit dsg c/d/i. per podiatry note still w/ ulceration - Back Exam Back Exam: NORMAL INSPECTION - Neurological Exam Neurological Exam: Abnormal Gait, Alert, Awake, CN II-XII Intact, Oriented x3 - Psychiatric Exam Psychiatric exam: Normal Affect, Normal Mood - Skin Skin Exam: Dry, Intact, Normal Color, Warm Assessment and Plan (1) DVT prophylaxis Status: Acute (2) Osteomyelitis Status: Acute (3) Diabetes mellitus type 2, uncontrolled Status: Acute - Assessment and Plan (Free Text) Assessment: (1) DVT prophylaxis Assessment and Plan: lovenox no scd/ae hose r/t infectious process Status: Acute (2) Osteomyelitis Assessment and Plan: cefepeime 2 gm podiatry to follow xr w/ om still, mri for saturday d/c at [facility] amputation vs anbx. pt will "think about it" Status: Acute (3) Diabetes mellitus type 2, uncontrolled Assessment and Plan: novolog ss, fsbg dietary control home meds Status: Acute 4-tremor/cva-cont home meds, glucose control
[2017-11-18] MEDS: Albuterol-Ipratrop 3 mg / 0.5 (3 ml) UD INH SCH ×4 (01:15→19:06)
[2017-11-18] MEDS: Lidocaine 5% Patch TD SCH (06:36)
--- NOTE | 2017-11-18 07:11 | CP.PCM.PN ---
Subjective - Date & Time of Evaluation Date of Evaluation: 11/18/17 Time of Evaluation: 08:14 - Subjective Subjective: patient doing well no f/c nvd pensing mri today. dsg c/d/i glucose noted Objective - Vital Signs/Intake and Output Vital Signs (last 24 hours): Temp Pulse Resp BP Pulse Ox 97.7 F 66 19 114/65 95 11/18/17 00:00 11/18/17 05:32 11/18/17 00:00 11/18/17 05:32 11/18/17 00:00 - Medications Medications: Current Medications Acetaminophen (Tylenol 325mg Tab) 650 mg PO Q4 PRN PRN Reason: T>100.4 Albuterol/Ipratropium (Duoneb 3 Mg/0.5 Mg (3 Ml) Ud) 3 ml INH RQ6 [facility] Last Admin: 11/18/17 01:15 Dose: 3 ml Allopurinol (Zyloprim) 300 mg PO DAILY [facility] Last Admin: 11/17/17 09:44 Dose: 300 mg Aluminum Hydroxide (Amphogel) 640 mg PO Q6 PRN PRN Reason: Indigestion Amlodipine Besylate (Norvasc) 5 mg PO Q12 [facility] Last Admin: 11/17/17 23:05 Dose: 5 mg Amylase (Pancrease 04990 U-5000 U-[id number] U) 5,000 unit PO TID [facility] Last Admin: 11/17/17 16:04 Dose: 5,000 unit Bacitracin (Bacitracin) 1 ea TOP QSHIFT [facility] Last Admin: 11/17/17 09:42 Dose: 1 ea Clonidine HCl (Catapres) 0.2 mg PO Q8H [facility] Last Admin: 11/18/17 05:32 Dose: 0.2 mg Colchicine (Colocrys) 0.6 mg PO DAILY [facility] Last Admin: 11/17/17 09:43 Dose: 0.6 mg Dicloxacillin Sodium (Dynapen) 500 mg PO Q6 [facility] Last Admin: 11/18/17 05:31 Dose: 500 mg Duloxetine HCl (Cymbalta) 60 mg PO DAILY [facility] Last Admin: 11/17/17 09:44 Dose: 60 mg Enoxaparin Sodium (Lovenox) 40 mg SC DAILY [facility] Last Admin: 11/17/17 09:37 Dose: 40 mg Gabapentin (Neurontin) 300 mg PO TID [facility] Last Admin: 11/17/17 16:04 Dose: 300 mg Gemfibrozil (Lopid) 600 mg PO BID [facility] Last Admin: 11/17/17 16:04 Dose: 600 mg Cefepime HCl 2 gm/ Sodium (Chloride) 100 mls @ 100 mls/hr IVPB Q12 [facility] PRN Reason: Protocol Last Admin: 11/17/17 23:04 Dose: 100 mls/hr Insulin Detemir (Levemir) 20 units SC Q12H [facility] Last Admin: 11/17/17 23:08 Dose: 20 units Insulin Human Lispro (Humalog) 0 units SC AC [facility] PRN Reason: Protocol Last Admin: 11/17/17 19:16 Dose: Not Given Lidocaine (Lidoderm) 1 ea TD Q12H [facility] Last Admin: 11/18/17 06:36 Dose: Not Given Losartan Potassium (Cozaar) 50 mg PO Q12H [facility] Last Admin: 11/18/17 05:31 Dose: 50 mg Magnesium Hydroxide (Milk Of Magnesia) 30 ml PO DAILY [facility] Last Admin: 11/17/17 09:47 Dose: Not Given Methadone HCl (Methadone) 150 mg PO DAILY [facility] Last Admin: 11/17/17 09:32 Dose: 150 mg Nystatin (Nystop Topical Powder) 1 applic TOP TID [facility] Last Admin: 11/17/17 16:05 Dose: 1 applic Probenecid (Probenecid) 500 mg PO DAILY [facility] Last Admin: 11/17/17 09:42 Dose: 500 mg Silver Sulfadiazine (Silvadene 1% 20 Gm) 1 ea TOP DAILY [facility] Last Admin: 11/17/17 09:36 Dose: 1 applic - Labs Labs: 11/17/17 05:20 11/17/17 05:20 PT 12.5 Seconds (9.8-13.1) 11/14/17 01:00 INR 1.1 (0.9-1.2) 11/14/17 01:00 APTT 38.8 Seconds (25.6-37.1) H 11/14/17 01:00 - Constitutional Appears: Well, Non-toxic, No Acute Distress - Head Exam Head Exam: ATRAUMATIC, NORMAL INSPECTION, NORMOCEPHALIC - Eye Exam Eye Exam: EOMI, Normal appearance, PERRL Pupil Exam: NORMAL ACCOMODATION, PERRL - ENT Exam ENT Exam: Mucous Membranes Moist, Normal Exam - Neck Exam Neck Exam: Full ROM, Normal Inspection. absent: Lymphadenopathy - Respiratory Exam Respiratory Exam: Clear to Ausculation Bilateral, NORMAL BREATHING PATTERN - Cardiovascular Exam Cardiovascular Exam: REGULAR RHYTHM, RRR, +S1, +S2. absent: Murmur - GI/Abdominal Exam GI & Abdominal Exam: Soft, Normal Bowel Sounds. absent: Tenderness - Extremities Exam Extremities Exam: Full ROM, Normal Capillary Refill, Normal Inspection. absent : Joint Swelling, Pedal Edema Additional comments: dsg c/d/i - Back Exam Back Exam: NORMAL INSPECTION - Neurological Exam Neurological Exam: Abnormal Gait, Alert, Awake, CN II-XII Intact, Oriented x3 - Psychiatric Exam Psychiatric exam: Normal Affect, Normal Mood - Skin Skin Exam: Dry, Intact, Normal Color, Warm Assessment and Plan (1) DVT prophylaxis Status: Acute (2) Osteomyelitis Status: Acute (3) Diabetes mellitus type 2, uncontrolled Status: Acute - Assessment and Plan (Free Text) Assessment: (1) DVT prophylaxis Assessment and Plan: lovenox no scd/ae hose r/t infectious process Status: Acute (2) Osteomyelitis Assessment and Plan: cefepeime 2 gm podiatry to follow xr w/ om still, mri for saturday d/c at [facility] amputation vs anbx. pt will "think about it" Status: Acute (3) Diabetes mellitus type 2, uncontrolled Assessment and Plan: novolog ss, fsbg dietary control home meds incr levemir to 25u bid Status: Acute 4-tremor/cva-cont home meds, glucose control
[2017-11-18] MEDS: Insulin Lispro (humaLOG) 100 Units/ml Inj SC SCH ×3 (08:35→17:17)
[2017-11-18] MEDS: Enoxaparin 40 mg Syringe SC SCH (08:37)
[2017-11-18] MEDS: Cefepime 2 GM in Sodium Chloride 0.9% 100 ML IVPB SCH ×2 (08:37→22:11)
[2017-11-18] MEDS: Amylase/Lipase/Protease 5,000 Units ECC PO SCH ×3 (08:39→17:18)
[2017-11-18] MEDS: Silver Sulfadiazine 1% Cream (20 gm) TOP SCH (08:39)
[2017-11-18] MEDS: Insulin Detemir 100 Units/ml Inj SC SCH ×2 (09:30→22:14)
--- NOTE | 2017-11-18 13:53 | CP.PCM.PN ---
Subjective - Date & Time of Evaluation Date of Evaluation: 11/18/17 Time of Evaluation: 13:00 - Subjective Subjective: Podiatry Progress Note- Dr. Rose 42 year old male seen and evaluated with attending Dr. Rose for right foot 3rd digit dorsal PIPJ ulcer with osteomyelitis. Patient is seen resting comfortably in bed, in NAD, and AA0x3. Denies acute events overnight. Patient reports that he is considering his treatment options including conservative treatment and amputation 3rd digit vs partial resection of the infected bone. Patient reports he is considering amputation and would like time to finalize his decision. Denies F/C/N/V/CP/SOB. Dressing remains clean and intact to right foot Objective - Vital Signs/Intake and Output Vital Signs (last 24 hours): Temp Pulse Resp BP Pulse Ox 97.6 F 61 20 127/81 97 11/18/17 09:00 11/18/17 09:00 11/18/17 09:00 11/18/17 09:00 11/18/17 09:00 - Medications Medications: Current Medications Acetaminophen (Tylenol 325mg Tab) 650 mg PO Q4 PRN PRN Reason: T>100.4 Albuterol/Ipratropium (Duoneb 3 Mg/0.5 Mg (3 Ml) Ud) 3 ml INH RQ6 [facility] Last Admin: 11/18/17 13:33 Dose: Not Given Allopurinol (Zyloprim) 300 mg PO DAILY [facility] Last Admin: 11/18/17 08:39 Dose: 300 mg Aluminum Hydroxide (Amphogel) 640 mg PO Q6 PRN PRN Reason: Indigestion Amlodipine Besylate (Norvasc) 5 mg PO Q12 [facility] Last Admin: 11/18/17 08:38 Dose: 5 mg Amylase (Pancrease 08091 [id number] [id number] U) 5,000 unit PO TID [facility] Last Admin: 11/18/17 12:33 Dose: 5,000 unit Bacitracin (Bacitracin) 1 ea TOP QSHIFT [facility] Last Admin: 11/17/17 09:42 Dose: 1 ea Clonidine HCl (Catapres) 0.2 mg PO Q8H [facility] Last Admin: 11/18/17 05:32 Dose: 0.2 mg Colchicine (Colocrys) 0.6 mg PO DAILY [facility] Last Admin: 11/18/17 08:34 Dose: 0.6 mg Dicloxacillin Sodium (Dynapen) 500 mg PO Q6 [facility] Last Admin: 11/18/17 11:41 Dose: 500 mg Duloxetine HCl (Cymbalta) 60 mg PO DAILY [facility] Last Admin: 11/18/17 08:34 Dose: 60 mg Enoxaparin Sodium (Lovenox) 40 mg SC DAILY [facility] Last Admin: 11/18/17 08:37 Dose: 40 mg Gabapentin (Neurontin) 300 mg PO TID [facility] Last Admin: 11/18/17 12:32 Dose: 300 mg Gemfibrozil (Lopid) 600 mg PO BID [facility] Last Admin: 11/18/17 08:37 Dose: 600 mg Cefepime HCl 2 gm/ Sodium (Chloride) 100 mls @ 100 mls/hr IVPB Q12 [facility] PRN Reason: Protocol Last Admin: 11/18/17 08:37 Dose: 100 mls/hr Insulin Detemir (Levemir) 25 units SC Q12H [facility] Last Admin: 11/18/17 09:30 Dose: 25 u Insulin Human Lispro (Humalog) 0 units SC AC [facility] PRN Reason: Protocol Last Admin: 11/18/17 12:32 Dose: 3 units Losartan Potassium (Cozaar) 50 mg PO Q12H [facility] Last Admin: 11/18/17 05:31 Dose: 50 mg Magnesium Hydroxide (Milk Of Magnesia) 30 ml PO DAILY [facility] Last Admin: 11/17/17 09:47 Dose: Not Given Methadone HCl (Methadone) 150 mg PO DAILY [facility] Last Admin: 11/18/17 08:42 Dose: 150 mg Nystatin (Nystop Topical Powder) 1 applic TOP TID [facility] Last Admin: 11/18/17 12:33 Dose: 1 applic Probenecid (Probenecid) 500 mg PO DAILY [facility] Last Admin: 11/18/17 08:39 Dose: 500 mg Silver Sulfadiazine (Silvadene 1% 20 Gm) 1 ea TOP DAILY [facility] Last Admin: 11/18/17 08:39 Dose: 1 applic - Labs Labs: 11/17/17 05:20 11/17/17 05:20 PT 12.5 Seconds (9.8-13.1) 11/14/17 01:00 INR 1.1 (0.9-1.2) 11/14/17 01:00 APTT 38.8 Seconds (25.6-37.1) H 11/14/17 01:00 - Constitutional Appears: Well, Non-toxic, No Acute Distress - Extremities Exam Extremities Exam: absent: Calf Tenderness Additional comments: Dressing intact to R foot 3rd toe with mild serosanguinous strikethrough noted VASC: DP and PT palpation, CFT < 3 seconds x 5 digits, temperature gradient WNL , very mild nonpitting localized edema noted to the 3rd digit ORTHO: left AKA noted, tenderness with palpation to the third digit NEURO: gross sensation intact and protective sensation diminished DERM: circular ulceration noted to the dorsum of the right 3rd digit measuring approximately 1 cm x 1 cm x .2 cm, wound base mainly granular, no notable erythema (<.5 cm in margins), no streaking, no tunneling, no undermining, no purulence, no malodor, no bone exposed noted. Hyperpigmented skin discoloration/ noted to the entire 3rd digit - Neurological Exam Neurological Exam: Alert, Awake, Oriented x3 - Psychiatric Exam Psychiatric exam: Normal Affect, Normal Mood Assessment and Plan - Assessment and Plan (Free Text) Assessment: 42 y/o male with right foot 3rd digit dorsal PIPJ ulcer with osteomyelitis Plan: Patient seen and evaluated Discussed plan with attending Dr. Rose Right foot X-ray reviewed - erosive changes noted to 3rd digit proximal phalanx suggestive of osteomyelitis Podiatry recommending surgical intervention at this time to remove infected bone Pt states he is considering his treatment options on IV abx vs amputation MRI ordered Podiatry to continue provide local wound care with Silvadene, 4x4 gauze to right 3rd toe Patient may be full WB to the right foot with use of surgical shoe Will continue to follow patient in house
[2017-11-18] MEDS: Magnesium Hydroxide Susp 30 ml UD PO SCH (17:19)
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
[2017-11-19] MEDS: Albuterol-Ipratrop 3 mg / 0.5 (3 ml) UD INH SCH ×4 (01:01→19:06)
[2017-11-19] MEDS: Insulin Lispro (humaLOG) 100 Units/ml Inj SC SCH ×3 (07:30→16:59)
[2017-11-19] MEDS: Insulin Detemir 100 Units/ml Inj SC SCH ×2 (08:20→20:41)
--- NOTE | 2017-11-19 08:57 | CP.PCM.PN ---
Subjective - Date & Time of Evaluation Date of Evaluation: 11/19/17 Time of Evaluation: 08:55 - Subjective Subjective: pt doing well, feels tired. no f/c, n/v/d. no new complaints to foot. unable to tolerate mri yesterday r/t tremor. cardio clearance obtained and pt is for mri w / sedation today. ID consult ordered nad is pending. pt still unsure about amputation Objective - Vital Signs/Intake and Output Vital Signs (last 24 hours): Temp Pulse Resp BP Pulse Ox 98.3 F 64 20 148/87 92 L 11/19/17 06:00 11/19/17 08:00 11/19/17 08:00 11/19/17 08:00 11/19/17 08:00 - Medications Medications: Current Medications Acetaminophen (Tylenol 325mg Tab) 650 mg PO Q4 PRN PRN Reason: T>100.4 Albuterol/Ipratropium (Duoneb 3 Mg/0.5 Mg (3 Ml) Ud) 3 ml INH RQ6 [facility] Last Admin: 11/19/17 07:17 Dose: 3 ml Allopurinol (Zyloprim) 300 mg PO DAILY [facility] Last Admin: 11/18/17 08:39 Dose: 300 mg Aluminum Hydroxide (Amphogel) 640 mg PO Q6 PRN PRN Reason: Indigestion Amlodipine Besylate (Norvasc) 5 mg PO Q12 [facility] Last Admin: 11/18/17 22:10 Dose: 5 mg Amylase (Pancrease 65007 U-5000 U-[id number] U) 5,000 unit PO TID [facility] Last Admin: 11/18/17 17:18 Dose: 5,000 unit Bacitracin (Bacitracin) 1 ea TOP QSHIFT [facility] Last Admin: 11/17/17 09:42 Dose: 1 ea Clonidine HCl (Catapres) 0.2 mg PO Q8H [facility] Last Admin: 11/19/17 06:44 Dose: 0.2 mg Colchicine (Colocrys) 0.6 mg PO DAILY [facility] Last Admin: 11/18/17 08:34 Dose: 0.6 mg Dicloxacillin Sodium (Dynapen) 500 mg PO Q6 [facility] Last Admin: 11/19/17 06:44 Dose: 500 mg Duloxetine HCl (Cymbalta) 60 mg PO DAILY [facility] Last Admin: 11/18/17 08:34 Dose: 60 mg Enoxaparin Sodium (Lovenox) 40 mg SC DAILY [facility] Last Admin: 11/18/17 08:37 Dose: 40 mg Gabapentin (Neurontin) 300 mg PO TID [facility] Last Admin: 11/18/17 17:18 Dose: 300 mg Gemfibrozil (Lopid) 600 mg PO BID [facility] Last Admin: 11/18/17 17:18 Dose: 600 mg Cefepime HCl 2 gm/ Sodium (Chloride) 100 mls @ 100 mls/hr IVPB Q12 [facility] PRN Reason: Protocol Last Admin: 11/18/17 22:11 Dose: 100 mls/hr Insulin Detemir (Levemir) 25 units SC Q12H [facility] Last Admin: 11/18/17 22:14 Dose: 25 u Insulin Human Lispro (Humalog) 0 units SC AC [facility] PRN Reason: Protocol Last Admin: 11/18/17 17:17 Dose: 2 units Losartan Potassium (Cozaar) 50 mg PO Q12H [facility] Last Admin: 11/19/17 06:44 Dose: 50 mg Magnesium Hydroxide (Milk Of Magnesia) 30 ml PO DAILY [facility] Last Admin: 11/18/17 17:19 Dose: Not Given Methadone HCl (Methadone) 150 mg PO DAILY [facility] Last Admin: 11/18/17 08:42 Dose: 150 mg Nystatin (Nystop Topical Powder) 1 applic TOP TID [facility] Last Admin: 11/18/17 17:18 Dose: Not Given Probenecid (Probenecid) 500 mg PO DAILY [facility] Last Admin: 11/18/17 08:39 Dose: 500 mg Silver Sulfadiazine (Silvadene 1% 20 Gm) 1 ea TOP DAILY [facility] Last Admin: 11/18/17 08:39 Dose: 1 applic - Labs Labs: 11/17/17 05:20 11/17/17 05:20 PT 12.5 Seconds (9.8-13.1) 11/14/17 01:00 INR 1.1 (0.9-1.2) 11/14/17 01:00 APTT 38.8 Seconds (25.6-37.1) H 11/14/17 01:00 - Constitutional Appears: Well, Non-toxic, No Acute Distress, Chronically Ill - Head Exam Head Exam: ATRAUMATIC, NORMAL INSPECTION, NORMOCEPHALIC - Eye Exam Eye Exam: EOMI, Normal appearance, PERRL Pupil Exam: NORMAL ACCOMODATION, PERRL - ENT Exam ENT Exam: Mucous Membranes Moist, Normal Exam - Neck Exam Neck Exam: Full ROM, Normal Inspection. absent: Lymphadenopathy - Respiratory Exam Respiratory Exam: Clear to Ausculation Bilateral, NORMAL BREATHING PATTERN - Cardiovascular Exam Cardiovascular Exam: REGULAR RHYTHM, RRR, +S1, +S2. absent: Murmur - GI/Abdominal Exam GI & Abdominal Exam: Soft, Normal Bowel Sounds. absent: Tenderness - Extremities Exam Extremities Exam: Full ROM, Normal Capillary Refill, Normal Inspection. absent : Joint Swelling, Pedal Edema - Back Exam Back Exam: NORMAL INSPECTION - Neurological Exam Neurological Exam: Alert, Awake, CN II-XII Intact, Normal Gait, Oriented x3 - Psychiatric Exam Psychiatric exam: Normal Affect, Normal Mood - Skin Skin Exam: Dry, Intact, Normal Color, Warm Assessment and Plan (1) DVT prophylaxis Status: Acute (2) Osteomyelitis Status: Acute (3) Diabetes mellitus type 2, uncontrolled Status: Acute - Assessment and Plan (Free Text) Assessment: (1) DVT prophylaxis Assessment and Plan: lovenox no scd/ae hose r/t infectious process Status: Acute (2) Osteomyelitis Assessment and Plan: cefepeime 2 gm podiatry to follow xr w/ om still, mri w/ sedation today, cardio cleared d/c at [facility] amputation vs anbx. pt will "think about it"-still unsure Status: Acute (3) Diabetes mellitus type 2, uncontrolled Assessment and Plan: novolog ss, fsbg dietary control home meds incr levemir to 25u bid Status: Acute 4-tremor/cva-cont home meds, glucose control
[2017-11-19] MEDS: Cefepime 2 GM in Sodium Chloride 0.9% 100 ML IVPB SCH ×2 (10:18→20:41)
[2017-11-19] MEDS: Amylase/Lipase/Protease 5,000 Units ECC PO SCH ×3 (10:19→16:54)
[2017-11-19] MEDS: Magnesium Hydroxide Susp 30 ml UD PO SCH (10:22)
[2017-11-19] MEDS: Enoxaparin 40 mg Syringe SC SCH (10:23)
[2017-11-19] MEDS: Silver Sulfadiazine 1% Cream (20 gm) TOP SCH (10:26)
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
[2017-11-19] MEDS ORDERED: Propofol 10 mg/ml Inj (20 ML) ONE (10:45)
[2017-11-19] MEDS ORDERED: Etomidate 20 mg/10ml Inj IV ONE (10:45)
[2017-11-19] MEDS ORDERED: Midazolam 5 MG/ML ONE (10:46)
[2017-11-19] MEDS ORDERED: Ketamine 50 mg/ml Inj (10 ml) ONE (10:46)
--- NOTE | 2017-11-19 12:10 | CP.PCM.PN ---
Subjective - Date & Time of Evaluation Date of Evaluation: 11/19/17 Time of Evaluation: 07:30 - Subjective Subjective: Podiatry Progress Note- Dr. Rose 42 year old male seen and evaluated for right foot 3rd digit dorsal PIPJ ulcer with osteomyelitis. Patient is seen resting comfortably in bed. Denies acute events overnight. Patient has not decided his treatment options: wound care and IV abx vs amputation/resection of the infected bone with abx. Denies F/C/N/V/CP/ SOB. Dressing remains clean and intact to right foot. Will be going for a MRI in AM Objective - Vital Signs/Intake and Output Vital Signs (last 24 hours): Temp Pulse Resp BP Pulse Ox 98.3 F 64 20 148/87 92 L 11/19/17 06:00 11/19/17 10:25 11/19/17 08:00 11/19/17 10:25 11/19/17 08:00 - Medications Medications: Current Medications Acetaminophen (Tylenol 325mg Tab) 650 mg PO Q4 PRN PRN Reason: T>100.4 Albuterol/Ipratropium (Duoneb 3 Mg/0.5 Mg (3 Ml) Ud) 3 ml INH RQ6 [facility] Last Admin: 11/19/17 07:17 Dose: 3 ml Allopurinol (Zyloprim) 300 mg PO DAILY [facility] Last Admin: 11/19/17 10:21 Dose: 300 mg Aluminum Hydroxide (Amphogel) 640 mg PO Q6 PRN PRN Reason: Indigestion Amlodipine Besylate (Norvasc) 5 mg PO Q12 [facility] Last Admin: 11/19/17 10:25 Dose: 5 mg Amylase (Pancrease [id number] U-5000 U-[id number] U) 5,000 unit PO TID [facility] Last Admin: 11/19/17 10:19 Dose: 5,000 unit Bacitracin (Bacitracin) 1 ea TOP QSHIFT [facility] Last Admin: 11/17/17 09:42 Dose: 1 ea Clonidine HCl (Catapres) 0.2 mg PO Q8H [facility] Last Admin: 11/19/17 06:44 Dose: 0.2 mg Colchicine (Colocrys) 0.6 mg PO DAILY [facility] Last Admin: 11/19/17 10:20 Dose: 0.6 mg Dicloxacillin Sodium (Dynapen) 500 mg PO Q6 [facility] Last Admin: 11/19/17 10:19 Dose: 500 mg Duloxetine HCl (Cymbalta) 60 mg PO DAILY [facility] Last Admin: 11/19/17 10:19 Dose: 60 mg Enoxaparin Sodium (Lovenox) 40 mg SC DAILY [facility] Last Admin: 11/19/17 10:23 Dose: 40 mg Gabapentin (Neurontin) 300 mg PO TID [facility] Last Admin: 11/19/17 10:21 Dose: 300 mg Gemfibrozil (Lopid) 600 mg PO BID [facility] Last Admin: 11/19/17 10:20 Dose: 600 mg Cefepime HCl 2 gm/ Sodium (Chloride) 100 mls @ 100 mls/hr IVPB Q12 [facility] PRN Reason: Protocol Last Admin: 11/19/17 10:18 Dose: 100 mls/hr Insulin Detemir (Levemir) 25 units SC Q12H [facility] Last Admin: 11/19/17 08:20 Dose: Not Given Insulin Human Lispro (Humalog) 0 units SC AC [facility] PRN Reason: Protocol Last Admin: 11/18/17 17:17 Dose: 2 units Losartan Potassium (Cozaar) 50 mg PO Q12H [facility] Last Admin: 11/19/17 06:44 Dose: 50 mg Magnesium Hydroxide (Milk Of Magnesia) 30 ml PO DAILY [facility] Last Admin: 11/19/17 10:22 Dose: 30 ml Methadone HCl (Methadone) 150 mg PO DAILY [facility] Last Admin: 11/19/17 09:43 Dose: 150 mg Nystatin (Nystop Topical Powder) 1 applic TOP TID [facility] Last Admin: 11/19/17 10:26 Dose: 1 applic Probenecid (Probenecid) 500 mg PO DAILY [facility] Last Admin: 11/19/17 10:20 Dose: 500 mg Silver Sulfadiazine (Silvadene 1% 20 Gm) 1 ea TOP DAILY [facility] Last Admin: 11/19/17 10:26 Dose: 1 applic - Labs Labs: 11/17/17 05:20 11/17/17 05:20 PT 12.5 Seconds (9.8-13.1) 11/14/17 01:00 INR 1.1 (0.9-1.2) 11/14/17 01:00 APTT 38.8 Seconds (25.6-37.1) H 11/14/17 01:00 - Constitutional Appears: Well, Non-toxic, No Acute Distress - Extremities Exam Extremities Exam: absent: Calf Tenderness Additional comments: Dressing intact to R foot 3rd toe with mild serosanguinous strikethrough noted VASC: DP and PT palpation, CFT < 3 seconds x 5 digits, temperature gradient WNL , very mild nonpitting localized edema noted to the 3rd digit ORTHO: left AKA noted, tenderness with palpation to the third digit NEURO: gross sensation intact and protective sensation diminished DERM: circular ulceration noted to the dorsum of the right 3rd digit measuring approximately 1 cm x 1 cm x .2 cm, wound base mainly granular, no notable erythema (<.5 cm in margins), no streaking, no tunneling, no undermining, no purulence, no malodor, no bone exposed noted. Hyperpigmented skin discoloration/ noted to the entire 3rd digit - Neurological Exam Neurological Exam: Alert, Awake, Oriented x3 - Psychiatric Exam Psychiatric exam: Normal Affect, Normal Mood Assessment and Plan - Assessment and Plan (Free Text) Assessment: 42 y/o male with right foot 3rd digit dorsal PIPJ ulcer with osteomyelitis Plan: Patient seen and evaluated Discussed plan with attending Dr. Rose Right foot X-ray reviewed - erosive changes noted to 3rd digit proximal phalanx suggestive of osteomyelitis Podiatry recommending surgical intervention at this time to remove infected bone Pt states he is considering his treatment options on IV abx vs amputation MRI ordered Podiatry to continue provide local wound care with Silvadene, 4x4 gauze to right 3rd toe Patient may be full WB to the right foot with use of surgical shoe Will continue to follow patient in house
[2017-11-19] MEDS ORDERED: Sodium Chloride 0.9% 250 ML IV ONE (12:20)
--- NOTE | 2017-11-19 16:15 | MRI ---
PROCEDURE: RIGHT FOOT MRI WITHOUT CONTRAST HISTORY: osteomilitis COMPARISON: Right Foot radiographs 11/14/2017. TECHNIQUE: Multiplanar multisequential MR imaging of the right foot is performed without intravenous contrast. Exam includes the forefoot midfoot and the anterior portion of the hindfoot. FINDINGS: There is abnormal increased long TR signal identified at the proximal, middle and distal phalanges of the 3rd digit with cortical loss of the tip of the proximal phalanx representing erosive change. Local soft tissue edema is included in this pattern including the dermis without definite abscess formation. The findings positive for osteomyelitis here. No additional osteomyelitis pattern throughout the remainder of the forefoot or the midfoot. The anterior segment of the hindfoot is also not inflammatory. Cellulitis soft tissue changes are seen at the mid to lateral dorsal forefoot with remaining dermal and subcutaneous soft tissues normal. An MR sensitive markers and placed at the dorsal medial forefoot in the plane of the distal metatarsals with no suspicious bony findings underlying it. The 3rd digit findings described above are separate from this area. Degenerative cortical sclerosis and joint space narrowing appears minimal at the talonavicular and tibiotalar joints with remaining joints unremarkable. Tenosynovitis is identified affecting the flexor digitorum longus tendon with remaining tendons unremarkable including the extensor tendon complex. Plantar fascia appears unremarkable grossly. IMPRESSION: In the proper clinical setting, the findings are compatible with osteomyelitis of the 3rd digit diffusely including erosive changes at the distal segment proximal phalanx as suspected in prior right foot radiograph 11/14/2017. Mild dorsal soft tissue cellulitis pattern without abscess. Tenosynovitis flexor digitorum longus tendon.
[2017-11-20] MEDS: Albuterol-Ipratrop 3 mg / 0.5 (3 ml) UD INH SCH ×5 (01:03→19:08)
[2017-11-20 06:42] LABS: HEMOGLOBIN 10.7 g/dL (12.0-18.0); MEAN CELL VOLUME 84.2 fl (80.0-94.0); MEAN CORPUSCULAR HEMOGLOBIN 27.8 pg (27.0-31.0); MEAN CORPUSCULAR HGB CONC 33.1 g/dL (33.0-37.0); RBC 3.83 Mil/uL (4.40-5.90); RED CELL DISTRIBUTION WIDTH 15.2 % (11.5-14.5); WHITE BLOOD COUNT 4.1 K/uL (4.8-10.8)
[2017-11-20 07:45] LABS: BLOOD UREA NITROGEN 43 mg/dl (9-20); CALCIUM 9.1 mg/dL (8.4-10.2); GFR AFRICAN-AMERICAN > 60; GFR NON-AFRICAN AMERICAN > 60
--- NOTE | 2017-11-20 08:24 | CP.PCM.PN ---
Subjective - Date & Time of Evaluation Date of Evaluation: 11/20/17 Time of Evaluation: 08:26 - Subjective Subjective: pt doing well. no complaints. mri noted. podiatry and ID consultnoted. no f/c n/v/d. bw noted, elev bun/k noted. Objective - Vital Signs/Intake and Output Vital Signs (last 24 hours): Temp Pulse Resp BP Pulse Ox 98.2 F 69 19 145/89 99 11/20/17 00:40 11/20/17 05:56 11/20/17 00:40 11/20/17 05:56 11/20/17 00:40 - Medications Medications: Current Medications Acetaminophen (Tylenol 325mg Tab) 650 mg PO Q4 PRN PRN Reason: T>100.4 Albuterol/Ipratropium (Duoneb 3 Mg/0.5 Mg (3 Ml) Ud) 3 ml INH RQ6 [facility] Last Admin: 11/20/17 07:47 Dose: 3 ml Allopurinol (Zyloprim) 300 mg PO DAILY [facility] Last Admin: 11/19/17 10:21 Dose: 300 mg Aluminum Hydroxide (Amphogel) 640 mg PO Q6 PRN PRN Reason: Indigestion Amlodipine Besylate (Norvasc) 5 mg PO Q12 [facility] Last Admin: 11/19/17 20:40 Dose: 5 mg Amylase (Pancrease 92816 U-5000 U-[id number] U) 5,000 unit PO TID [facility] Last Admin: 11/19/17 16:54 Dose: 5,000 unit Bacitracin (Bacitracin) 1 ea TOP QSHIFT [facility] Last Admin: 11/17/17 09:42 Dose: 1 ea Clonidine HCl (Catapres) 0.2 mg PO Q8H [facility] Last Admin: 11/20/17 05:56 Dose: 0.2 mg Colchicine (Colocrys) 0.6 mg PO DAILY [facility] Last Admin: 11/19/17 10:20 Dose: 0.6 mg Dicloxacillin Sodium (Dynapen) 500 mg PO Q6 [facility] Last Admin: 11/20/17 04:04 Dose: 500 mg Duloxetine HCl (Cymbalta) 60 mg PO DAILY [facility] Last Admin: 11/19/17 10:19 Dose: 60 mg Enoxaparin Sodium (Lovenox) 40 mg SC DAILY [facility] Last Admin: 11/19/17 10:23 Dose: 40 mg Gabapentin (Neurontin) 300 mg PO TID [facility] Last Admin: 11/19/17 16:56 Dose: 300 mg Gemfibrozil (Lopid) 600 mg PO BID [facility] Last Admin: 11/19/17 16:56 Dose: 600 mg Cefepime HCl 2 gm/ Sodium (Chloride) 100 mls @ 100 mls/hr IVPB Q12 [facility] PRN Reason: Protocol Last Admin: 11/19/17 20:41 Dose: 100 mls/hr Sodium Chloride (Sodium Chloride 0.9%) 1,000 mls @ 100 mls/hr IV .Q10H [facility] Stop: 11/21/17 08:11 Insulin Detemir (Levemir) 25 units SC Q12H [facility] Last Admin: 11/19/17 20:41 Dose: 25 u Insulin Human Lispro (Humalog) 0 units SC AC [facility] PRN Reason: Protocol Last Admin: 11/19/17 16:59 Dose: 4 units Losartan Potassium (Cozaar) 50 mg PO Q12H [facility] Last Admin: 11/20/17 05:56 Dose: 50 mg Magnesium Hydroxide (Milk Of Magnesia) 30 ml PO DAILY [facility] Last Admin: 11/19/17 10:22 Dose: 30 ml Methadone HCl (Methadone) 150 mg PO DAILY [facility] Last Admin: 11/19/17 09:43 Dose: 150 mg Nystatin (Nystop Topical Powder) 1 applic TOP TID [facility] Last Admin: 11/19/17 16:54 Dose: 1 applic Probenecid (Probenecid) 500 mg PO DAILY [facility] Last Admin: 11/19/17 10:20 Dose: 500 mg Silver Sulfadiazine (Silvadene 1% 20 Gm) 1 ea TOP DAILY [facility] Last Admin: 11/19/17 10:26 Dose: 1 applic - Labs Labs: 11/20/17 05:45 11/20/17 05:45 PT 12.5 Seconds (9.8-13.1) 11/14/17 01:00 INR 1.1 (0.9-1.2) 11/14/17 01:00 APTT 38.8 Seconds (25.6-37.1) H 11/14/17 01:00 - Constitutional Appears: Well, Non-toxic, No Acute Distress - Head Exam Head Exam: ATRAUMATIC, NORMAL INSPECTION, NORMOCEPHALIC - Eye Exam Eye Exam: EOMI, Normal appearance, PERRL Pupil Exam: NORMAL ACCOMODATION, PERRL - ENT Exam ENT Exam: Mucous Membranes Moist, Normal Exam - Neck Exam Neck Exam: Full ROM, Normal Inspection. absent: Lymphadenopathy - Respiratory Exam Respiratory Exam: Clear to Ausculation Bilateral, NORMAL BREATHING PATTERN - Cardiovascular Exam Cardiovascular Exam: REGULAR RHYTHM, RRR, +S1, +S2. absent: Murmur - GI/Abdominal Exam GI & Abdominal Exam: Soft, Normal Bowel Sounds. absent: Tenderness - Extremities Exam Extremities Exam: Full ROM, Normal Capillary Refill, Normal Inspection. absent : Joint Swelling, Pedal Edema Additional comments: dsg to r foot c/d/i left aka noted - Back Exam Back Exam: NORMAL INSPECTION - Neurological Exam Neurological Exam: Abnormal Gait, Alert, Awake, CN II-XII Intact, Oriented x3 - Psychiatric Exam Psychiatric exam: Normal Affect, Normal Mood - Skin Skin Exam: Dry, Intact, Normal Color, Warm Assessment and Plan (1) DVT prophylaxis Assessment & Plan: scd and aehose lovenox Status: Acute (2) Osteomyelitis Assessment & Plan: cont anbx for now Podiatry/ID mri and xr noted. pt considering amputation, wishes to talk to [facility] Status: Acute (3) Diabetes mellitus type 2, uncontrolled Assessment & Plan: riss, homd meds, diet control levemir fsbg Status: Acute (4) Tremor Assessment & Plan: glucose control chronic from 3x cva Status: Acute (5) Hyperkalemia Assessment & Plan: ?? r/t dehydration. saline then repeat bmp. kayexalate prn Status: Acute (6) Dehydration Assessment & Plan: ivf repeta bw 1600 Status: Acute (7) PAD (peripheral artery disease) Status: Acute
[2017-11-20] MEDS: Enoxaparin 40 mg Syringe SC SCH (08:57)
[2017-11-20] MEDS: Cefepime 2 GM in Sodium Chloride 0.9% 100 ML IVPB SCH ×2 (08:57→20:36)
[2017-11-20] MEDS: Magnesium Hydroxide Susp 30 ml UD PO SCH ×2 (08:58→09:33)
[2017-11-20] MEDS: Amylase/Lipase/Protease 5,000 Units ECC PO SCH ×3 (09:00→17:21)
[2017-11-20] MEDS: Insulin Lispro (humaLOG) 100 Units/ml Inj SC SCH ×3 (09:09→17:20)
[2017-11-20] MEDS: Insulin Detemir 100 Units/ml Inj SC SCH ×2 (09:25→20:37)
--- NOTE | 2017-11-20 10:57 | CP.PCM.PN ---
Subjective - Date & Time of Evaluation Date of Evaluation: 11/20/17 Time of Evaluation: 07:00 - Subjective Subjective: Podiatry Progress Note- Dr. Rose 42 year old male seen and evaluated for right foot 3rd digit dorsal PIPJ ulcer with osteomyelitis. Patient is seen resting comfortably in bed. Denies acute events overnight. Patient reports he wants to continue IV abx and conservative treatment for his osteomyelitis. Reports wants to speak to family members prior amputation, but at this time would like to continue conservative treatment. No other pedal complaints. Denies nausea, fever, shortness of breath , chest pain or chills. Objective - Vital Signs/Intake and Output Vital Signs (last 24 hours): Temp Pulse Resp BP Pulse Ox 98.3 F 87 20 120/75 97 11/20/17 08:38 11/20/17 08:59 11/20/17 08:38 11/20/17 08:59 11/20/17 08:38 - Medications Medications: Current Medications Acetaminophen (Tylenol 325mg Tab) 650 mg PO Q4 PRN PRN Reason: T>100.4 Albuterol/Ipratropium (Duoneb 3 Mg/0.5 Mg (3 Ml) Ud) 3 ml INH RQ6 [facility] Last Admin: 11/20/17 07:47 Dose: 3 ml Allopurinol (Zyloprim) 300 mg PO DAILY [facility] Last Admin: 11/20/17 09:00 Dose: 300 mg Aluminum Hydroxide (Amphogel) 640 mg PO Q6 PRN PRN Reason: Indigestion Amlodipine Besylate (Norvasc) 5 mg PO Q12 [facility] Last Admin: 11/20/17 08:59 Dose: 5 mg Amylase (Pancrease 69110 U-5000 U-[id number] U) 5,000 unit PO TID [facility] Last Admin: 11/20/17 09:00 Dose: 5,000 unit Bacitracin (Bacitracin) 1 ea TOP QSHIFT [facility] Last Admin: 11/17/17 09:42 Dose: 1 ea Clonidine HCl (Catapres) 0.2 mg PO Q8H [facility] Last Admin: 11/20/17 05:56 Dose: 0.2 mg Colchicine (Colocrys) 0.6 mg PO DAILY [facility] Last Admin: 11/20/17 08:55 Dose: 0.6 mg Dicloxacillin Sodium (Dynapen) 500 mg PO Q6 [facility] Last Admin: 11/20/17 09:01 Dose: 500 mg Duloxetine HCl (Cymbalta) 60 mg PO DAILY [facility] Last Admin: 11/20/17 08:55 Dose: 60 mg Enoxaparin Sodium (Lovenox) 40 mg SC DAILY [facility] Last Admin: 11/20/17 08:57 Dose: 40 mg Gabapentin (Neurontin) 300 mg PO TID [facility] Last Admin: 11/20/17 08:58 Dose: 300 mg Gemfibrozil (Lopid) 600 mg PO BID [facility] Last Admin: 11/20/17 08:57 Dose: 600 mg Cefepime HCl 2 gm/ Sodium (Chloride) 100 mls @ 100 mls/hr IVPB Q12 [facility] PRN Reason: Protocol Last Admin: 11/20/17 08:57 Dose: 100 mls/hr Sodium Chloride (Sodium Chloride 0.9%) 1,000 mls @ 100 mls/hr IV .Q10H [facility] Stop: 11/21/17 08:11 Insulin Detemir (Levemir) 25 units SC Q12H [facility] Last Admin: 11/20/17 09:25 Dose: 25 u Insulin Human Lispro (Humalog) 0 units SC AC [facility] PRN Reason: Protocol Last Admin: 11/20/17 09:09 Dose: 4 units Losartan Potassium (Cozaar) 50 mg PO Q12H [facility] Last Admin: 11/20/17 05:56 Dose: 50 mg Magnesium Hydroxide (Milk Of Magnesia) 30 ml PO DAILY [facility] Last Admin: 11/20/17 09:33 Dose: Not Given Methadone HCl (Methadone) 150 mg PO DAILY [facility] Last Admin: 11/20/17 09:16 Dose: 150 mg Nystatin (Nystop Topical Powder) 1 applic TOP TID [facility] Last Admin: 11/20/17 09:00 Dose: 1 applic Probenecid (Probenecid) 500 mg PO DAILY [facility] Last Admin: 11/20/17 09:00 Dose: 500 mg Silver Sulfadiazine (Silvadene 1% 20 Gm) 1 ea TOP DAILY [facility] Last Admin: 11/19/17 10:26 Dose: 1 applic - Labs Labs: 11/20/17 05:45 11/20/17 05:45 PT 12.5 Seconds (9.8-13.1) 11/14/17 01:00 INR 1.1 (0.9-1.2) 11/14/17 01:00 APTT 38.8 Seconds (25.6-37.1) H 11/14/17 01:00 - Constitutional Appears: Well, Non-toxic, No Acute Distress - Extremities Exam Extremities Exam: Calf Tenderness Additional comments: Dressing intact to R foot 3rd toe with mild serosanguinous strikethrough noted VASC: DP and PT palpation, CFT < 3 seconds x 5 digits, temperature gradient WNL , very mild nonpitting localized edema noted to the 3rd digit ORTHO: left AKA noted, tenderness with palpation to the third digit NEURO: gross sensation intact and protective sensation diminished DERM: circular ulceration noted to the dorsum of the right 3rd digit measuring approximately 1 cm x 1 cm x .2 cm, wound base mainly granular, no notable erythema (<.5 cm in margins), no streaking, no tunneling, no undermining, no purulence, no malodor, no bone exposed noted. Hyperpigmented skin discoloration/ noted to the entire 3rd digit - Neurological Exam Neurological Exam: Alert, Awake, Oriented x3 - Psychiatric Exam Psychiatric exam: Normal Affect, Normal Mood Assessment and Plan - Assessment and Plan (Free Text) Assessment: 42 y/o male with right foot 3rd digit dorsal PIPJ ulcer with osteomyelitis Plan: Patient seen and evaluated Discussed plan with attending Dr. Rose Right foot X-ray reviewed - erosive changes noted to 3rd digit proximal phalanx suggestive of osteomyelitis MRI-osteomyelitis of 3rd digit diffusely including erosive changes at the distal segment proximal phalanx Podiatry recommending surgical intervention at this time to remove infected bone Pt reports he wants continue IV abx at this time with no amputation. Podiatry to continue provide local wound care with Silvadene, 4x4 gauze to right 3rd toe while in house Patient may be full WB to the right foot with use of surgical shoe Will continue to follow patient in house Patient may follow up with Dr. Rose as outpatient in podiatry clinic Please call for an appointment Continue to change dressing daily with saroj and dsd.
--- NOTE | 2017-11-20 12:24 | CP.PCM.PN ---
Subjective - Date & Time of Evaluation Date of Evaluation: 11/20/17 Time of Evaluation: 08:00 - Subjective Subjective: no change afeb refusing amputation Objective - Vital Signs/Intake and Output Vital Signs (last 24 hours): Temp Pulse Resp BP Pulse Ox 98.3 F 87 20 120/75 97 11/20/17 08:38 11/20/17 08:59 11/20/17 08:38 11/20/17 08:59 11/20/17 08:38 - Medications Medications: Current Medications Acetaminophen (Tylenol 325mg Tab) 650 mg PO Q4 PRN PRN Reason: T>100.4 Albuterol/Ipratropium (Duoneb 3 Mg/0.5 Mg (3 Ml) Ud) 3 ml INH RQ6 [facility] Last Admin: 11/20/17 07:47 Dose: 3 ml Allopurinol (Zyloprim) 300 mg PO DAILY [facility] Last Admin: 11/20/17 09:00 Dose: 300 mg Aluminum Hydroxide (Amphogel) 640 mg PO Q6 PRN PRN Reason: Indigestion Amlodipine Besylate (Norvasc) 5 mg PO Q12 [facility] Last Admin: 11/20/17 08:59 Dose: 5 mg Amylase (Pancrease 43489 U-5000 U-[id number] U) 5,000 unit PO TID [facility] Last Admin: 11/20/17 09:00 Dose: 5,000 unit Bacitracin (Bacitracin) 1 ea TOP QSHIFT [facility] Last Admin: 11/17/17 09:42 Dose: 1 ea Clonidine HCl (Catapres) 0.2 mg PO Q8H [facility] Last Admin: 11/20/17 05:56 Dose: 0.2 mg Colchicine (Colocrys) 0.6 mg PO DAILY [facility] Last Admin: 11/20/17 08:55 Dose: 0.6 mg Dicloxacillin Sodium (Dynapen) 500 mg PO Q6 [facility] Last Admin: 11/20/17 09:01 Dose: 500 mg Duloxetine HCl (Cymbalta) 60 mg PO DAILY [facility] Last Admin: 11/20/17 08:55 Dose: 60 mg Enoxaparin Sodium (Lovenox) 40 mg SC DAILY [facility] Last Admin: 11/20/17 08:57 Dose: 40 mg Gabapentin (Neurontin) 300 mg PO TID [facility] Last Admin: 11/20/17 08:58 Dose: 300 mg Gemfibrozil (Lopid) 600 mg PO BID [facility] Last Admin: 11/20/17 08:57 Dose: 600 mg Cefepime HCl 2 gm/ Sodium (Chloride) 100 mls @ 100 mls/hr IVPB Q12 [facility] PRN Reason: Protocol Last Admin: 11/20/17 08:57 Dose: 100 mls/hr Sodium Chloride (Sodium Chloride 0.9%) 1,000 mls @ 100 mls/hr IV .Q10H [facility] Stop: 11/21/17 08:11 Insulin Detemir (Levemir) 25 units SC Q12H [facility] Last Admin: 11/20/17 09:25 Dose: 25 u Insulin Human Lispro (Humalog) 0 units SC AC [facility] PRN Reason: Protocol Last Admin: 11/20/17 09:09 Dose: 4 units Losartan Potassium (Cozaar) 50 mg PO Q12H [facility] Last Admin: 11/20/17 05:56 Dose: 50 mg Magnesium Hydroxide (Milk Of Magnesia) 30 ml PO DAILY [facility] Last Admin: 11/20/17 09:33 Dose: Not Given Methadone HCl (Methadone) 150 mg PO DAILY [facility] Last Admin: 11/20/17 09:16 Dose: 150 mg Nystatin (Nystop Topical Powder) 1 applic TOP TID [facility] Last Admin: 11/20/17 09:00 Dose: 1 applic Probenecid (Probenecid) 500 mg PO DAILY [facility] Last Admin: 11/20/17 09:00 Dose: 500 mg Silver Sulfadiazine (Silvadene 1% 20 Gm) 1 ea TOP DAILY [facility] Last Admin: 11/19/17 10:26 Dose: 1 applic - Labs Labs: 11/20/17 05:45 11/20/17 05:45 PT 12.5 Seconds (9.8-13.1) 11/14/17 01:00 INR 1.1 (0.9-1.2) 11/14/17 01:00 APTT 38.8 Seconds (25.6-37.1) H 11/14/17 01:00 - Constitutional Appears: Non-toxic, Chronically Ill - Head Exam Head Exam: NORMOCEPHALIC - Eye Exam Eye Exam: PERRL - ENT Exam ENT Exam: Mucous Membranes Dry - Neck Exam Neck Exam: absent: Lymphadenopathy - Respiratory Exam Respiratory Exam: Decreased Breath Sounds - Cardiovascular Exam Cardiovascular Exam: REGULAR RHYTHM - GI/Abdominal Exam GI & Abdominal Exam: Distended - Rectal Exam Rectal Exam: Deferred - Exam Exam: NORMAL INSPECTION - Extremities Exam Extremities Exam: Pedal Edema Additional comments: left aka - Back Exam Back Exam: absent: CVA tenderness (L), CVA tenderness (R) Assessment and Plan (1) Osteomyelitis Status: Acute (2) PAD (peripheral artery disease) Status: Acute - Assessment and Plan (Free Text) Assessment: cont iv rx cefepime for now needs amp of digit but refuses [facility] with [facility] therapy once a day- cubicin IV and Cipro PO ? no available cultures poor prognosis await vascular input
[2017-11-20] MEDS: Sodium Chloride 0.9% 1,000 ML IV SCH (13:40)
[2017-11-20] MEDS: Silver Sulfadiazine 1% Cream (20 gm) TOP SCH (13:41)
[2017-11-21] MEDS: Albuterol-Ipratrop 3 mg / 0.5 (3 ml) UD INH SCH ×4 (02:41→19:11)
[2017-11-21] MEDS: Sodium Chloride 0.9% 1,000 ML IV SCH (04:00)
[2017-11-21 06:22] LABS: BASO % 0.9 % (0.0-2.0); EOS # 0.1 K/uL (0.0-0.7); EOS % 1.7 % (0.0-4.0); HEMOGLOBIN 10.4 g/dL (12.0-18.0); LYMPH # 1.8 K/uL (1.0-4.3); LYMPH % 38.2 % (20.0-40.0); MEAN CELL VOLUME 83.2 fl (80.0-94.0); MEAN CORPUSCULAR HEMOGLOBIN 27.9 pg (27.0-31.0); MEAN CORPUSCULAR HGB CONC 33.6 g/dL (33.0-37.0); MEAN PLATELET VOLUME 9.3 fl (7.2-11.7); MONO # 0.5 K/uL (0.0-0.8); MONO % 10.1 % (0.0-10.0); NEUT # 2.3 K/uL (1.8-7.0); NEUT % 49.1 % (50.0-75.0); NRBC % 0.1 % (0.0-0.0); RBC 3.72 Mil/uL (4.40-5.90); RED CELL DISTRIBUTION WIDTH 15.6 % (11.5-14.5); WHITE BLOOD COUNT 4.6 K/uL (4.8-10.8)
[2017-11-21 06:24] LABS: BLOOD UREA NITROGEN 51 mg/dl (9-20); CALCIUM 9.3 mg/dL (8.4-10.2); GFR AFRICAN-AMERICAN > 60; GFR NON-AFRICAN AMERICAN > 60
[2017-11-21] MEDS ORDERED: Sod Polystyrene Sulf 15 gm/60 ml Susp PO ONE (06:29)
--- NOTE | 2017-11-21 07:53 | CP.PCM.PN ---
Subjective - Date & Time of Evaluation Date of Evaluation: 11/21/17 Time of Evaluation: 07:53 - Subjective Subjective: remains as assessed. no f/c, n/v/d. k 5.2 pt still thinking about amputation. all consults appriciated Objective - Vital Signs/Intake and Output Vital Signs (last 24 hours): Temp Pulse Resp BP Pulse Ox 97.7 F 70 18 115/73 95 11/21/17 00:18 11/21/17 06:09 11/21/17 00:18 11/21/17 06:09 11/21/17 00:18 - Medications Medications: Current Medications Acetaminophen (Tylenol 325mg Tab) 650 mg PO Q4 PRN PRN Reason: T>100.4 Albuterol/Ipratropium (Duoneb 3 Mg/0.5 Mg (3 Ml) Ud) 3 ml INH RQ6 [facility] Last Admin: 11/21/17 07:13 Dose: 3 ml Allopurinol (Zyloprim) 300 mg PO DAILY [facility] Last Admin: 11/20/17 09:00 Dose: 300 mg Aluminum Hydroxide (Amphogel) 640 mg PO Q6 PRN PRN Reason: Indigestion Amlodipine Besylate (Norvasc) 5 mg PO Q12 [facility] Last Admin: 11/20/17 20:36 Dose: 5 mg Amylase (Pancrease 63961 U-5000 U-[id number] U) 5,000 unit PO TID [facility] Last Admin: 11/20/17 17:21 Dose: 5,000 unit Bacitracin (Bacitracin) 1 ea TOP QSHIFT [facility] Last Admin: 11/17/17 09:42 Dose: 1 ea Clonidine HCl (Catapres) 0.2 mg PO Q8H [facility] Last Admin: 11/21/17 06:09 Dose: 0.2 mg Colchicine (Colocrys) 0.6 mg PO DAILY [facility] Last Admin: 11/20/17 08:55 Dose: 0.6 mg Dicloxacillin Sodium (Dynapen) 500 mg PO Q6 [facility] Last Admin: 11/21/17 04:31 Dose: 500 mg Duloxetine HCl (Cymbalta) 60 mg PO DAILY [facility] Last Admin: 11/20/17 08:55 Dose: 60 mg Enoxaparin Sodium (Lovenox) 40 mg SC DAILY [facility] Last Admin: 11/20/17 08:57 Dose: 40 mg Gabapentin (Neurontin) 300 mg PO TID [facility] Last Admin: 11/20/17 17:21 Dose: 300 mg Gemfibrozil (Lopid) 600 mg PO BID [facility] Last Admin: 11/20/17 17:22 Dose: 600 mg Cefepime HCl 2 gm/ Sodium (Chloride) 100 mls @ 100 mls/hr IVPB Q12 [facility] PRN Reason: Protocol Last Admin: 11/20/17 20:36 Dose: 100 mls/hr Sodium Chloride (Sodium Chloride 0.9%) 1,000 mls @ 100 mls/hr IV .Q10H [facility] Stop: 11/21/17 08:11 Last Admin: 11/21/17 04:00 Dose: Not Given Insulin Detemir (Levemir) 25 units SC Q12H [facility] Last Admin: 11/20/17 20:37 Dose: 25 u Insulin Human Lispro (Humalog) 0 units SC AC [facility] PRN Reason: Protocol Last Admin: 11/20/17 17:20 Dose: 3 units Losartan Potassium (Cozaar) 50 mg PO Q12H [facility] Last Admin: 11/21/17 06:09 Dose: 50 mg Magnesium Hydroxide (Milk Of Magnesia) 30 ml PO DAILY [facility] Last Admin: 11/20/17 09:33 Dose: Not Given Methadone HCl (Methadone) 150 mg PO DAILY [facility] Last Admin: 11/20/17 09:16 Dose: 150 mg Nystatin (Nystop Topical Powder) 1 applic TOP TID [facility] Last Admin: 11/20/17 17:22 Dose: 1 applic Probenecid (Probenecid) 500 mg PO DAILY [facility] Last Admin: 11/20/17 09:00 Dose: 500 mg Silver Sulfadiazine (Silvadene 1% 20 Gm) 1 ea TOP DAILY [facility] Last Admin: 11/20/17 13:41 Dose: 1 applic - Labs Labs: 11/21/17 05:30 11/21/17 05:30 PT 12.5 Seconds (9.8-13.1) 11/14/17 01:00 INR 1.1 (0.9-1.2) 11/14/17 01:00 APTT 38.8 Seconds (25.6-37.1) H 11/14/17 01:00 - Constitutional Appears: Well, Non-toxic, No Acute Distress - Head Exam Head Exam: ATRAUMATIC, NORMAL INSPECTION, NORMOCEPHALIC - Eye Exam Eye Exam: EOMI, Normal appearance, PERRL Pupil Exam: NORMAL ACCOMODATION, PERRL - ENT Exam ENT Exam: Mucous Membranes Moist, Normal Exam - Neck Exam Neck Exam: Full ROM, Normal Inspection. absent: Lymphadenopathy - Respiratory Exam Respiratory Exam: Clear to Ausculation Bilateral, NORMAL BREATHING PATTERN - Cardiovascular Exam Cardiovascular Exam: REGULAR RHYTHM, RRR, +S1, +S2. absent: Murmur - GI/Abdominal Exam GI & Abdominal Exam: Soft, Normal Bowel Sounds. absent: Tenderness - Extremities Exam Extremities Exam: Full ROM, Normal Capillary Refill, Normal Inspection. absent : Joint Swelling, Pedal Edema Additional comments: dsg to rfoot c/d/i left aka noted - Back Exam Back Exam: NORMAL INSPECTION - Neurological Exam Neurological Exam: Alert, Awake, CN II-XII Intact, Normal Gait, Oriented x3 - Psychiatric Exam Psychiatric exam: Normal Affect, Normal Mood - Skin Skin Exam: Dry, Intact, Normal Color, Warm Assessment and Plan (1) DVT prophylaxis Status: Acute (2) Osteomyelitis Status: Acute (3) Diabetes mellitus type 2, uncontrolled Status: Acute (4) Tremor Status: Acute (5) Hyperkalemia Status: Acute (6) Dehydration Status: Acute (7) PAD (peripheral artery disease) Status: Acute - Assessment and Plan (Free Text) Assessment: (1) DVT prophylaxis Assessment & Plan: scd and aehose lovenox Status: Acute (2) Osteomyelitis Assessment & Plan: cont anbx for now Podiatry/ID mri and xr noted. pt considering amputation, wishes to talk to family first Status: Acute (3) Diabetes mellitus type 2, uncontrolled Assessment & Plan: riss, homd meds, diet control levemir fsbg Status: Acute (4) Tremor Assessment & Plan: glucose control chronic from 3x cva Status: Acute (5) Hyperkalemia Assessment & Plan: ?? r/t dehydration. saline then repeat bmp. kayexalate Status: Acute (6) Dehydration Assessment & Plan: ivf Status: Acute (7) PAD (peripheral artery disease) cardio vascular prn Status: Acute
[2017-11-21] MEDS: Insulin Lispro (humaLOG) 100 Units/ml Inj SC SCH ×3 (08:34→17:45)
[2017-11-21] MEDS: Insulin Detemir 100 Units/ml Inj SC SCH ×2 (08:36→21:13)
[2017-11-21] MEDS: Enoxaparin 40 mg Syringe SC SCH (08:38)
[2017-11-21] MEDS: Amylase/Lipase/Protease 5,000 Units ECC PO SCH ×3 (08:39→17:47)
[2017-11-21] MEDS: Cefepime 2 GM in Sodium Chloride 0.9% 100 ML IVPB SCH ×2 (08:44→21:22)
--- NOTE | 2017-11-21 09:04 | PQF DECUBI ---
Saniya Walker TELEHEALTH DIRECTOR, In agreement with measurement superintendent and or Wound engine house helper as listed below?: 11/15 measurement superintendent: Pressure Ulcer Assessment t: Lt. Posterior Buttock: Partial thickness loss of dermis presenting as a shallow open ulcer 11/15 Wound RN: presents to unit with small open wound to his left medial buttocks possibly caused by moisture 11/18 Wound RN: Right medial buttock has a 1 cm wound that patient states was an abscess that was I&D'ed and hasn't fully healed OR: Disagree OR: Other explanation of clinical finding H and P: Skin Exam: Dry, Intact, Normal Color, Warm This form is a permanent part of the medical record Clarification of your documentation is requested to better reflect the severity of illness and intensity of treatment of your patient. Indicators present [] Documented diagnosis of decubitus/pressure ulcer agree w/ wound RN note of wounds to b/l buttocks Location in the medical record that reflects the above clinical findings: [] Treatment Provided: PHYSICIAN'S RESPONSE Based on your medical judgment can you define the stage of the decubitus/ pressure ulcer as: Present On Admission [] Stage 1 Pressure Ulcer: Specify Location: [] Yes [] No Intact Skin with non-blanching erhythema (reddened area on skin) Painful or Itchy When compared to adjacent tissue may be firmer/softer or warmer/cooler [] Stage 2 Pressure Ulcer: Specify Location: xYes []No Partial thickness loss of dermis Abrasion, blister or shallow open crater Red/pink wound bed without slough [] Stage 3 Pressure Ulcer: Specify Location: []Yes [] No Full thickness skin loss (bone, tendon, muscle are not exposed) Damage or necrosis into subcutaneous soft tissues Slough present but does not obscure the depth of tissue loss Undermining and/or tunneling [] Stage 4 Pressure Ulcer: Specify Location: []Yes [] No Full thickness skin loss with exposed bone, tendon or muscle Slough Undermining and/or tunneling Extend into muscle and/or supporting structure (e.g. fascia, tendon, or joint capsule) [] Unstageable: Specify Location: [] []Yes [] No per wound nurse appers to be moisture wound and old I/D site. no obvious pressure sores. woulds were present on arrival In responding to this query, please exercise your independent professional judgment. The fact that a question is asked does not imply that any particular answer is desired or expected. Thank you for your clarification on this documentation. If you have any questions please call. * Thank you, Beatriz Castro RN ext. #[phone] [facility]TD[facility]
[2017-11-21] MEDS: Magnesium Hydroxide Susp 30 ml UD PO SCH (10:26)
[2017-11-21] MEDS: Silver Sulfadiazine 1% Cream (20 gm) TOP SCH (10:26)
--- NOTE | 2017-11-21 12:08 | CP.PCM.PN ---
Subjective - Date & Time of Evaluation Date of Evaluation: 11/21/17 Time of Evaluation: 08:00 - Subjective Subjective: Podiatry Progress Note- Dr. Rose 42 year old male seen and evaluated for right foot 3rd digit dorsal PIPJ ulcer with osteomyelitis. Patient is seen resting comfortably in bed, in NAD, and AA0x3. Patient reports he still wants to continue conservative treatment, however reports thinking about amputation. Will speak to family members to discuss. No other pedal complaints. Denies nausea, fever, shortness of breath, chest pain or chills. Objective - Vital Signs/Intake and Output Vital Signs (last 24 hours): Temp Pulse Resp BP Pulse Ox 98.6 F 70 20 121/78 98 11/21/17 08:18 11/21/17 08:38 11/21/17 08:18 11/21/17 08:38 11/21/17 08:18 - Medications Medications: Current Medications Acetaminophen (Tylenol 325mg Tab) 650 mg PO Q4 PRN PRN Reason: T>100.4 Albuterol/Ipratropium (Duoneb 3 Mg/0.5 Mg (3 Ml) Ud) 3 ml INH RQ6 [facility] Last Admin: 11/21/17 07:13 Dose: 3 ml Allopurinol (Zyloprim) 300 mg PO DAILY [facility] Last Admin: 11/21/17 08:40 Dose: 300 mg Aluminum Hydroxide (Amphogel) 640 mg PO Q6 PRN PRN Reason: Indigestion Amlodipine Besylate (Norvasc) 5 mg PO Q12 [facility] Last Admin: 11/21/17 08:38 Dose: 5 mg Amylase (Pancrease 96879 U-5000 U-[id number] U) 5,000 unit PO TID [facility] Last Admin: 11/21/17 08:39 Dose: 5,000 unit Bacitracin (Bacitracin) 1 ea TOP QSHIFT [facility] Last Admin: 11/17/17 09:42 Dose: 1 ea Clonidine HCl (Catapres) 0.2 mg PO Q8H [facility] Last Admin: 11/21/17 06:09 Dose: 0.2 mg Colchicine (Colocrys) 0.6 mg PO DAILY [facility] Last Admin: 11/21/17 10:24 Dose: 0.6 mg Dicloxacillin Sodium (Dynapen) 500 mg PO Q6 [facility] Last Admin: 11/21/17 10:24 Dose: 500 mg Duloxetine HCl (Cymbalta) 60 mg PO DAILY [facility] Last Admin: 11/21/17 08:33 Dose: 60 mg Enoxaparin Sodium (Lovenox) 40 mg SC DAILY [facility] Last Admin: 11/21/17 08:38 Dose: 40 mg Gabapentin (Neurontin) 300 mg PO TID [facility] Last Admin: 11/21/17 08:38 Dose: 300 mg Gemfibrozil (Lopid) 600 mg PO BID [facility] Last Admin: 11/21/17 08:37 Dose: 600 mg Cefepime HCl 2 gm/ Sodium (Chloride) 100 mls @ 100 mls/hr IVPB Q12 [facility] PRN Reason: Protocol Last Admin: 11/21/17 08:44 Dose: 100 mls/hr Insulin Detemir (Levemir) 25 units SC Q12H [facility] Last Admin: 11/21/17 08:36 Dose: 25 u Insulin Human Lispro (Humalog) 0 units SC AC [facility] PRN Reason: Protocol Last Admin: 11/21/17 08:34 Dose: 2 units Losartan Potassium (Cozaar) 50 mg PO Q12H [facility] Last Admin: 11/21/17 06:09 Dose: 50 mg Magnesium Hydroxide (Milk Of Magnesia) 30 ml PO DAILY [facility] Last Admin: 11/21/17 10:26 Dose: Not Given Methadone HCl (Methadone) 150 mg PO DAILY [facility] Last Admin: 11/21/17 10:24 Dose: 150 mg Nystatin (Nystop Topical Powder) 1 applic TOP TID [facility] Last Admin: 11/21/17 08:39 Dose: 1 applic Probenecid (Probenecid) 500 mg PO DAILY [facility] Last Admin: 11/21/17 08:40 Dose: 500 mg Silver Sulfadiazine (Silvadene 1% 20 Gm) 1 ea TOP DAILY [facility] Last Admin: 11/21/17 10:26 Dose: 1 applic - Labs Labs: 11/21/17 05:30 11/21/17 05:30 PT 12.5 Seconds (9.8-13.1) 11/14/17 01:00 INR 1.1 (0.9-1.2) 11/14/17 01:00 APTT 38.8 Seconds (25.6-37.1) H 11/14/17 01:00 - Constitutional Appears: Well, Non-toxic, No Acute Distress - Extremities Exam Extremities Exam: absent: Calf Tenderness Additional comments: Dressing intact to R foot 3rd toe with mild serosanguinous strikethrough noted VASC: DP and PT palpable, CFT < 3 seconds x 5 digits, temperature gradient WNL, very mild nonpitting localized edema noted to the 3rd digit ORTHO: left AKA noted, tenderness with palpation to the third digit NEURO: gross sensation intact and protective sensation diminished DERM: circular ulceration noted to the dorsum of the right 3rd digit measuring approximately 1 cm x 1 cm x .2 cm, wound base mainly granular with fibrotic tissue noted, there was a bony fragment from the proximal phalanx protruding from the distal aspect of the wound, maceration noted to the periwound, no notable erythema (<.5 cm in margins), no streaking, no tunneling, no undermining , no purulence, no malodor, no bone exposed noted. Hyperpigmented skin discoloration/noted to the entire 3rd digit - Neurological Exam Neurological Exam: Alert, Awake, Oriented x3 - Psychiatric Exam Psychiatric exam: Normal Affect, Normal Mood Assessment and Plan - Assessment and Plan (Free Text) Assessment: 42 y/o male with right foot 3rd digit dorsal PIPJ ulcer with osteomyelitis Plan: Patient seen and evaluated Discussed plan with attending Dr. Rose Right foot X-ray reviewed - erosive changes noted to 3rd digit proximal phalanx suggestive of osteomyelitis MRI-osteomyelitis of 3rd digit diffusely including erosive changes at the distal segment proximal phalanx Podiatry recommending surgical intervention at this time to remove infected bone Pt reports he wants continue IV abx at this time with no amputation. Cleansed ulceration with saline. Bony fragment chip that was protruding from ulceration site was removed during flushing of the wound. Explained to patient given bone infection, bone quality is poor with bony erosion and bone breakdown. Patient understands. Reports no pain with flushing, Dressed ulceration with thin layer of silvadene, dsd, and tape Podiatry to continue provide local wound care with Silvadene, 4x4 gauze to right 3rd toe while in house Will order Santyl for the wound Patient may be full WB to the right foot with use of surgical shoe Will continue to follow patient in house Patient may follow up with Dr. Rose as outpatient in podiatry clinic Please call for an appointment Continue to change dressing daily with scarlet.
[2017-11-22] MEDS: Albuterol-Ipratrop 3 mg / 0.5 (3 ml) UD INH SCH ×4 (00:59→19:27)
[2017-11-22 06:59] LABS: BLOOD UREA NITROGEN 45 mg/dl (9-20); CALCIUM 9.1 mg/dL (8.4-10.2); GFR AFRICAN-AMERICAN > 60; GFR NON-AFRICAN AMERICAN > 60
[2017-11-22] MEDS ORDERED: Sod Polystyrene Sulf 15 gm/60 ml Susp PO ONE (07:33)
[2017-11-22] MEDS ORDERED: Insulin Detemir 100 Units/ml Inj SC SCH ×2 (07:45→22:00)
--- NOTE | 2017-11-22 08:50 | CP.PCM.PN ---
Subjective - Date & Time of Evaluation Date of Evaluation: 11/22/17 Time of Evaluation: 08:48 - Subjective Subjective: pt doing well. no f/c, n/v/d.bw noted. k 5.3. gluocse 300s pt agreeable to amputation r foot 3rd digit. for picc line revision today Objective - Vital Signs/Intake and Output Vital Signs (last 24 hours): Temp Pulse Resp BP Pulse Ox 98.1 F 62 20 112/76 99 11/22/17 08:17 11/22/17 08:17 11/22/17 08:17 11/22/17 08:17 11/22/17 08:17 - Medications Medications: Current Medications Acetaminophen (Tylenol 325mg Tab) 650 mg PO Q4 PRN PRN Reason: T>100.4 Albuterol/Ipratropium (Duoneb 3 Mg/0.5 Mg (3 Ml) Ud) 3 ml INH RQ6 [facility] Last Admin: 11/22/17 07:38 Dose: 3 ml Allopurinol (Zyloprim) 300 mg PO DAILY [facility] Last Admin: 11/21/17 08:40 Dose: 300 mg Aluminum Hydroxide (Amphogel) 640 mg PO Q6 PRN PRN Reason: Indigestion Amlodipine Besylate (Norvasc) 5 mg PO Q12 [facility] Last Admin: 11/21/17 21:25 Dose: 5 mg Amylase (Pancrease 02387 U-5000 U-[id number] U) 5,000 unit PO TID [facility] Last Admin: 11/21/17 17:47 Dose: 5,000 unit Bacitracin (Bacitracin) 1 ea TOP QSHIFT [facility] Last Admin: 11/17/17 09:42 Dose: 1 ea Clonidine HCl (Catapres) 0.2 mg PO Q8H [facility] Last Admin: 11/22/17 06:25 Dose: 0.2 mg Colchicine (Colocrys) 0.6 mg PO DAILY [facility] Last Admin: 11/21/17 10:24 Dose: 0.6 mg Dicloxacillin Sodium (Dynapen) 500 mg PO Q6 [facility] Last Admin: 11/22/17 04:15 Dose: 500 mg Duloxetine HCl (Cymbalta) 60 mg PO DAILY [facility] Last Admin: 11/21/17 08:33 Dose: 60 mg Enoxaparin Sodium (Lovenox) 40 mg SC DAILY [facility] Last Admin: 11/21/17 08:38 Dose: 40 mg Gabapentin (Neurontin) 300 mg PO TID [facility] Last Admin: 11/21/17 17:47 Dose: 300 mg Gemfibrozil (Lopid) 600 mg PO BID [facility] Last Admin: 11/21/17 17:48 Dose: 600 mg Cefepime HCl 2 gm/ Sodium (Chloride) 100 mls @ 100 mls/hr IVPB Q12 [facility] PRN Reason: Protocol Last Admin: 11/21/17 21:22 Dose: 100 mls/hr Sodium Chloride (Sodium Chloride 0.9%) 1,000 mls @ 100 mls/hr IV .Q10H [facility] Stop: 11/23/17 07:33 Insulin Detemir (Levemir) 30 units SC Q12H [facility] Insulin Human Lispro (Humalog) 0 units SC AC [facility] PRN Reason: Protocol Last Admin: 11/21/17 17:45 Dose: 3 units Losartan Potassium (Cozaar) 50 mg PO Q12H [facility] Last Admin: 11/22/17 06:25 Dose: 50 mg Magnesium Hydroxide (Milk Of Magnesia) 30 ml PO DAILY [facility] Last Admin: 11/21/17 10:26 Dose: Not Given Methadone HCl (Methadone) 150 mg PO DAILY [facility] Last Admin: 11/21/17 10:24 Dose: 150 mg Nystatin (Nystop Topical Powder) 1 applic TOP TID [facility] Last Admin: 11/21/17 17:47 Dose: 1 applic Probenecid (Probenecid) 500 mg PO DAILY [facility] Last Admin: 11/21/17 08:40 Dose: 500 mg Silver Sulfadiazine (Silvadene 1% 20 Gm) 1 ea TOP DAILY [facility] Last Admin: 11/21/17 10:26 Dose: 1 applic - Labs Labs: 11/21/17 05:30 11/22/17 05:55 PT 12.5 Seconds (9.8-13.1) 11/14/17 01:00 INR 1.1 (0.9-1.2) 11/14/17 01:00 APTT 38.8 Seconds (25.6-37.1) H 11/14/17 01:00 - Constitutional Appears: Well, Non-toxic, No Acute Distress - Head Exam Head Exam: ATRAUMATIC, NORMAL INSPECTION, NORMOCEPHALIC - Eye Exam Eye Exam: EOMI, Normal appearance, PERRL Pupil Exam: NORMAL ACCOMODATION, PERRL - ENT Exam ENT Exam: Mucous Membranes Moist, Normal Exam - Neck Exam Neck Exam: Full ROM, Normal Inspection. absent: Lymphadenopathy - Respiratory Exam Respiratory Exam: Clear to Ausculation Bilateral, NORMAL BREATHING PATTERN - Cardiovascular Exam Cardiovascular Exam: REGULAR RHYTHM, +S1, +S2. absent: Murmur - GI/Abdominal Exam GI & Abdominal Exam: Soft, Normal Bowel Sounds. absent: Tenderness - Extremities Exam Extremities Exam: Full ROM, Normal Capillary Refill, Normal Inspection. absent : Joint Swelling, Pedal Edema Additional comments: dsg c/d/i left aka noted - Back Exam Back Exam: NORMAL INSPECTION - Neurological Exam Neurological Exam: Abnormal Gait, Alert, Awake, CN II-XII Intact, Oriented x3 - Psychiatric Exam Psychiatric exam: Normal Affect, Normal Mood - Skin Skin Exam: Dry, Intact, Normal Color, Warm Assessment and Plan (1) DVT prophylaxis Status: Acute (2) Osteomyelitis Status: Acute (3) Diabetes mellitus type 2, uncontrolled Status: Acute (4) Tremor Status: Acute (5) Hyperkalemia Status: Acute (6) Dehydration Status: Acute (7) PAD (peripheral artery disease) Status: Acute - Assessment and Plan (Free Text) Assessment: (1) DVT prophylaxis Assessment & Plan: scd and aehose lovenox Status: Acute (2) Osteomyelitis Assessment & Plan: cont anbx for now Podiatry/ID mri and xr noted. pt agree to amputation Status: Acute (3) Diabetes mellitus type 2, uncontrolled Assessment & Plan: riss, homd meds, diet control levemir fsbg endo Status: Acute (4) Tremor Assessment & Plan: glucose control chronic from 3x cva Status: Acute (5) Hyperkalemia Assessment & Plan: ?? r/t dehydration. saline kayexalate monitor bmp Status: Acute (6) Dehydration Assessment & Plan: ivf Status: Acute (7) PAD (peripheral artery disease) cardio vascular prn Status: Acute
[2017-11-22] MEDS: Amylase/Lipase/Protease 5,000 Units ECC PO SCH ×3 (08:53→17:19)
[2017-11-22] MEDS: Enoxaparin 40 mg Syringe SC SCH (08:55)
[2017-11-22] MEDS: Insulin Lispro (humaLOG) 100 Units/ml Inj SC SCH ×4 (08:57→21:47)
[2017-11-22] MEDS: Magnesium Hydroxide Susp 30 ml UD PO SCH (09:04)
[2017-11-22] MEDS: Cefepime 2 GM in Sodium Chloride 0.9% 100 ML IVPB SCH ×2 (09:05→21:45)
--- NOTE | 2017-11-22 12:02 | CP.PCM.PN ---
Subjective - Date & Time of Evaluation Date of Evaluation: 11/22/17 Time of Evaluation: 08:00 - Subjective Subjective: undecided on surgery Objective - Vital Signs/Intake and Output Vital Signs (last 24 hours): Temp Pulse Resp BP Pulse Ox 98.1 F 62 20 112/76 99 11/22/17 08:17 11/22/17 08:52 11/22/17 08:17 11/22/17 08:52 11/22/17 08:17 - Medications Medications: Current Medications Acetaminophen (Tylenol 325mg Tab) 650 mg PO Q4 PRN PRN Reason: T>100.4 Albuterol/Ipratropium (Duoneb 3 Mg/0.5 Mg (3 Ml) Ud) 3 ml INH RQ6 [facility] Last Admin: 11/22/17 07:38 Dose: 3 ml Allopurinol (Zyloprim) 300 mg PO DAILY [facility] Last Admin: 11/22/17 08:53 Dose: 300 mg Aluminum Hydroxide (Amphogel) 640 mg PO Q6 PRN PRN Reason: Indigestion Amlodipine Besylate (Norvasc) 5 mg PO Q12 [facility] Last Admin: 11/22/17 08:52 Dose: 5 mg Amylase (Pancrease 99413 U-5000 U-[id number] U) 5,000 unit PO TID [facility] Last Admin: 11/22/17 08:53 Dose: 5,000 unit Bacitracin (Bacitracin) 1 ea TOP QSHIFT [facility] Last Admin: 11/17/17 09:42 Dose: 1 ea Clonidine HCl (Catapres) 0.2 mg PO Q8H [facility] Last Admin: 11/22/17 06:25 Dose: 0.2 mg Colchicine (Colocrys) 0.6 mg PO DAILY [facility] Last Admin: 11/22/17 08:50 Dose: 0.6 mg Dicloxacillin Sodium (Dynapen) 500 mg PO Q6 [facility] Last Admin: 11/22/17 08:59 Dose: 500 mg Duloxetine HCl (Cymbalta) 60 mg PO DAILY [facility] Last Admin: 11/21/17 08:33 Dose: 60 mg Enoxaparin Sodium (Lovenox) 40 mg SC DAILY [facility] Last Admin: 11/22/17 08:55 Dose: 40 mg Gabapentin (Neurontin) 300 mg PO TID [facility] Last Admin: 11/22/17 08:52 Dose: 300 mg Gemfibrozil (Lopid) 600 mg PO BID [facility] Last Admin: 11/22/17 08:52 Dose: 600 mg Cefepime HCl 2 gm/ Sodium (Chloride) 100 mls @ 100 mls/hr IVPB Q12 [facility] PRN Reason: Protocol Last Admin: 11/22/17 09:05 Dose: 100 mls/hr Sodium Chloride (Sodium Chloride 0.9%) 1,000 mls @ 100 mls/hr IV .Q10H [facility] Stop: 11/23/17 07:33 Insulin Detemir (Levemir) 30 units SC Q12H [facility] Last Admin: 11/22/17 08:54 Dose: 30 u Insulin Human Lispro (Humalog) 0 units SC AC [facility] PRN Reason: Protocol Last Admin: 11/22/17 08:57 Dose: Not Given Losartan Potassium (Cozaar) 50 mg PO Q12H [facility] Last Admin: 11/22/17 06:25 Dose: 50 mg Magnesium Hydroxide (Milk Of Magnesia) 30 ml PO DAILY [facility] Last Admin: 11/22/17 09:04 Dose: Not Given Methadone HCl (Methadone) 150 mg PO DAILY [facility] Last Admin: 11/22/17 09:03 Dose: 150 mg Nystatin (Nystop Topical Powder) 1 applic TOP TID [facility] Last Admin: 11/22/17 08:53 Dose: 1 applic Probenecid (Probenecid) 500 mg PO DAILY [facility] Last Admin: 11/22/17 08:53 Dose: 500 mg Silver Sulfadiazine (Silvadene 1% 20 Gm) 1 ea TOP DAILY [facility] Last Admin: 11/21/17 10:26 Dose: 1 applic - Labs Labs: 11/21/17 05:30 11/22/17 05:55 PT 12.5 Seconds (9.8-13.1) 11/14/17 01:00 INR 1.1 (0.9-1.2) 11/14/17 01:00 APTT 38.8 Seconds (25.6-37.1) H 11/14/17 01:00 - Constitutional Appears: Non-toxic, Chronically Ill - Eye Exam Eye Exam: PERRL - ENT Exam ENT Exam: Mucous Membranes Dry - Neck Exam Neck Exam: absent: Lymphadenopathy - Respiratory Exam Respiratory Exam: Decreased Breath Sounds - Cardiovascular Exam Cardiovascular Exam: REGULAR RHYTHM - GI/Abdominal Exam GI & Abdominal Exam: Distended, Soft - Rectal Exam Rectal Exam: Deferred - Exam Exam: NORMAL INSPECTION - Extremities Exam Extremities Exam: Pedal Edema Additional comments: left aka - Back Exam Back Exam: absent: CVA tenderness (L), CVA tenderness (R) - Neurological Exam Neurological Exam: Alert, Awake, CN II-XII Intact - Psychiatric Exam Psychiatric exam: Normal Mood - Skin Skin Exam: Dry Assessment and Plan (1) Osteomyelitis Status: Acute (2) PAD (peripheral artery disease) Status: Acute - Assessment and Plan (Free Text) Assessment: cont iv rx for now
[2017-11-22] MEDS ORDERED: Lidocaine 1% Inj (20ml) ONE (13:30)
--- NOTE | 2017-11-22 14:01 | PCM.SURG1 ---
Surgeon's Initial Post Op Note - Surgeon's Notes Surgeon: Roman Bedolla MD Extruder Operator: None Type of Anesthesia: Local Pre-Operative Diagnosis: PICC malfunction Operative Findings: indwelling LUE PICC. duplicated SVC. exchange for new 4 ku[place]i single lumen PICC. catheter length: 47 cm. catheter tip: LEFT cavoatrial junction Post-Operative Diagnosis: same Operation Performed: LUE PICC Exchange Specimen/Specimens Removed: n/a Estimated Blood Loss: EBL {In ML}: 3 Date of Surgery/Procedure: 11/22/17 Time of Surgery/Procedure: 13:45
[2017-11-22] MEDS: Sodium Chloride 0.9% 1,000 ML IV SCH ×3 (14:53→17:20)
[2017-11-22] MEDS: Silver Sulfadiazine 1% Cream (20 gm) TOP SCH (14:56)
--- NOTE | 2017-11-22 16:20 | VASCULAR ---
PROCEDURE: PERIPHERALLY INSERTED CENTRAL VENOUS CATHETER INSERTION CLINICAL HISTORY: 42-year-old male requiring testing director intravenous antibiotics with PICC malfunction is referred to Interventional Radiology for PICC assessment of possible replacement. COMPARISON: None. PROCEDURE: 1. Focused ultrasound of the left upper extremity vasculature. 2. Ultrasound-guided access. 3. Insertion of peripherally inserted central venous catheter. 4. Fluoroscopic localization of catheter tip. PRE-PROCEDURE FINDINGS: 1. Indwelling left upper extremity PICC with catheter tip in duplicated left-sided SVC. 2. Patent left basilic vein. POST-PROCEDURE FINDINGS: 1. Placement of 4 Malagasy single-lumen PICC. 2. Catheter length: 47 cm. 3. Catheter tip at cavoatrial junction. INTERVENTIONAL RADIOLOGIST: Roman Bedolla M.D. (the attending was present for the entire procedure) ANESTHESIA: None. MEDICATION: Lidocaine 1% for local subcutaneous analgesia. COMPLICATIONS: None. RADIATION DOSE: Fluoroscopy Time: 60.1 seconds Cumulative Dose: 17.39 mGy PROCEDURE DESCRIPTION AND FINDINGS: The risks, benefits, alternatives and possible complications of the procedure were fully discussed; all questions were answered and informed consent was obtained. The patient was brought into the interventional suite and a pre-procedure 'time-out' was performed. The patient was placed on the fluoroscopy table in the supine position. The left upper extremity was prepped and draped in the usual sterile fashion. Maximum sterile barrier precautions were maintained throughout the entire procedure. Preliminary fluoroscopic inspector plating image demonstrates an indwelling left upper extremity. The catheter tip in the distal portion of a duplicated left-sided IVC. Attempts to pass 0.018 guidewire through the indwelling PICC were unsuccessful. Focused ultrasound images of the left upper extremity vasculature demonstrate patency of the left basilic vein. Following subcutaneous infiltration of 1% lidocaine for local analgesia, under ultrasound guidance, a 21-gauge needle was advanced into the left basilic vein with real-time visualization of needle entry. The ultrasound images were permanently recorded and submitted to the PACS. A 0.018 guidewire was advanced centrally to the cavoatrial junction. A 4.5 Malagasy peel-away sheath was advanced over the guidewire. After obtaining length measurement, a 4 Malagasy single-lumen PICC was placed with the tip of the catheter at the cavoatrial junction. The total length of the catheter is 47 cm. The hub of the PICC was secured to the skin using a sterile adhesive bandage. The patient tolerated the procedure well without immediate post-procedure complications and was transferred back to the floor in stable condition. IMPRESSION: SUCCESSFUL INSERTION OF LEFT UPPER EXTREMITY PICC. PICC OK TO USE.
[2017-11-22] MEDS ORDERED: Insulin Lispro (humaLOG) 100 Units/ml Inj SC SCH (16:30)
[2017-11-22] MEDS: Insulin Detemir 100 Units/ml Inj SC SCH (22:34)
[2017-11-23] MEDS: Albuterol-Ipratrop 3 mg / 0.5 (3 ml) UD INH SCH ×4 (02:11→18:59)
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
[2017-11-23] MEDS: Sodium Chloride 0.9% 1,000 ML IV SCH (04:41)
[2017-11-23 04:54] LABS: HEMOGLOBIN 10.1 g/dL (12.0-18.0); MEAN CELL VOLUME 84.5 fl (80.0-94.0); MEAN CORPUSCULAR HEMOGLOBIN 27.4 pg (27.0-31.0); MEAN CORPUSCULAR HGB CONC 32.4 g/dL (33.0-37.0); RBC 3.69 Mil/uL (4.40-5.90); RED CELL DISTRIBUTION WIDTH 15.4 % (11.5-14.5)
[2017-11-23 05:38] LABS: ALBUMIN 3.4 g/dL (3.5-5.0); ALT/SGPT 27 U/L (21-72); AST/SGOT 29 U/L (17-59); BLOOD UREA NITROGEN 42 mg/dl (9-20); CALCIUM 9.3 mg/dL (8.4-10.2); GFR AFRICAN-AMERICAN > 60; GFR NON-AFRICAN AMERICAN > 60
[2017-11-23] MEDS ORDERED: Sod Polystyrene Sulf 15 gm/60 ml Susp PO ONE (06:54)
[2017-11-23] MEDS: Insulin Lispro (humaLOG) 100 Units/ml Inj SC SCH ×7 (06:58→22:07)
[2017-11-23] MEDS: Enoxaparin 40 mg Syringe SC SCH (09:02)
[2017-11-23] MEDS: Amylase/Lipase/Protease 5,000 Units ECC PO SCH ×3 (09:03→17:25)
[2017-11-23] MEDS: Silver Sulfadiazine 1% Cream (20 gm) TOP SCH (09:05)
[2017-11-23] MEDS: Cefepime 2 GM in Sodium Chloride 0.9% 100 ML IVPB SCH ×2 (09:07→20:58)
--- NOTE | 2017-11-23 09:38 | CP.PCM.PN ---
Subjective - Date & Time of Evaluation Date of Evaluation: 11/23/17 Time of Evaluation: 09:37 - Subjective Subjective: pt doing well. no f/c, n/v/d. k still 5.3 pt has not had bm for amputation mon/tu, cardi clearance on file. pt in no distress. glucose noted. endo consult noted. pod consult appriciated. Objective - Vital Signs/Intake and Output Vital Signs (last 24 hours): Temp Pulse Resp BP Pulse Ox 97.8 F 72 18 156/82 H 100 11/23/17 09:00 11/23/17 09:04 11/23/17 09:00 11/23/17 09:04 11/23/17 09:00 - Medications Medications: Current Medications Acetaminophen (Tylenol 325mg Tab) 650 mg PO Q4 PRN PRN Reason: T>100.4 Albuterol/Ipratropium (Duoneb 3 Mg/0.5 Mg (3 Ml) Ud) 3 ml INH RQ6 [facility] Last Admin: 11/23/17 07:45 Dose: 3 ml Allopurinol (Zyloprim) 300 mg PO DAILY [facility] Last Admin: 11/23/17 09:04 Dose: 300 mg Aluminum Hydroxide (Amphogel) 640 mg PO Q6 PRN PRN Reason: Indigestion Amlodipine Besylate (Norvasc) 5 mg PO Q12 [facility] Last Admin: 11/23/17 09:04 Dose: 5 mg Amylase (Pancrease 71562 U-5000 U-[id number] U) 5,000 unit PO TID [facility] Last Admin: 11/23/17 09:03 Dose: 5,000 unit Bacitracin (Bacitracin) 1 ea TOP QSHIFT [facility] Last Admin: 11/17/17 09:42 Dose: 1 ea Clonidine HCl (Catapres) 0.2 mg PO Q8H [facility] Last Admin: 11/23/17 06:53 Dose: 0.2 mg Colchicine (Colocrys) 0.6 mg PO DAILY [facility] Last Admin: 11/23/17 09:10 Dose: 0.6 mg Dicloxacillin Sodium (Dynapen) 500 mg PO Q6 [facility] Last Admin: 11/23/17 09:03 Dose: 500 mg Docusate Sodium (Colace) 100 mg PO BID [facility] Last Admin: 11/23/17 09:02 Dose: 100 mg Duloxetine HCl (Cymbalta) 60 mg PO DAILY [facility] Last Admin: 11/23/17 09:04 Dose: 60 mg Enoxaparin Sodium (Lovenox) 40 mg SC DAILY [facility] Last Admin: 11/23/17 09:02 Dose: 40 mg Gabapentin (Neurontin) 300 mg PO TID [facility] Last Admin: 11/23/17 09:03 Dose: 300 mg Gemfibrozil (Lopid) 600 mg PO BID [facility] Last Admin: 11/22/17 17:23 Dose: 600 mg Cefepime HCl 2 gm/ Sodium (Chloride) 100 mls @ 100 mls/hr IVPB Q12 [facility] PRN Reason: Protocol Last Admin: 11/23/17 09:07 Dose: 100 mls/hr Insulin Detemir (Levemir) 20 units SC HS [facility] Last Admin: 11/22/17 22:34 Dose: Not Given Insulin Human Lispro (Humalog) 0 units SC ACHS [facility] PRN Reason: Protocol Last Admin: 11/23/17 06:58 Dose: Not Given Insulin Human Lispro (Humalog) 6 units SC AC [facility] Last Admin: 11/23/17 09:13 Dose: 6 units Losartan Potassium (Cozaar) 50 mg PO Q12H [facility] Last Admin: 11/23/17 06:51 Dose: 50 mg Magnesium Hydroxide (Milk Of Magnesia) 30 ml PO DAILY [facility] Last Admin: 11/22/17 09:04 Dose: Not Given Methadone HCl (Methadone) 150 mg PO DAILY [facility] Last Admin: 11/23/17 09:06 Dose: 150 mg Nystatin (Nystop Topical Powder) 1 applic TOP TID [facility] Last Admin: 11/23/17 09:05 Dose: 1 applic Probenecid (Probenecid) 500 mg PO DAILY [facility] Last Admin: 11/23/17 09:04 Dose: 500 mg Silver Sulfadiazine (Silvadene 1% 20 Gm) 1 ea TOP DAILY [facility] Last Admin: 11/23/17 09:05 Dose: 1 applic - Labs Labs: 11/23/17 04:50 11/23/17 04:50 PT 12.5 Seconds (9.8-13.1) 11/14/17 01:00 INR 1.1 (0.9-1.2) 11/14/17 01:00 APTT 38.8 Seconds (25.6-37.1) H 11/14/17 01:00 - Constitutional Appears: Well, Non-toxic, No Acute Distress - Head Exam Head Exam: ATRAUMATIC, NORMAL INSPECTION, NORMOCEPHALIC - Eye Exam Eye Exam: EOMI, Normal appearance, PERRL Pupil Exam: NORMAL ACCOMODATION, PERRL - ENT Exam ENT Exam: Mucous Membranes Moist, Normal Exam - Neck Exam Neck Exam: Full ROM, Normal Inspection. absent: Lymphadenopathy - Respiratory Exam Respiratory Exam: Clear to Ausculation Bilateral, NORMAL BREATHING PATTERN - Cardiovascular Exam Cardiovascular Exam: REGULAR RHYTHM, RRR, +S1, +S2. absent: Murmur - GI/Abdominal Exam GI & Abdominal Exam: Soft, Normal Bowel Sounds. absent: Tenderness - Extremities Exam Extremities Exam: Full ROM, Normal Capillary Refill, Normal Inspection. absent : Joint Swelling, Pedal Edema Additional comments: dsg r foot c/d/i left aka - Back Exam Back Exam: NORMAL INSPECTION - Neurological Exam Neurological Exam: Abnormal Gait, Alert, Awake, CN II-XII Intact, Oriented x3 - Psychiatric Exam Psychiatric exam: Normal Affect, Normal Mood - Skin Skin Exam: Dry, Intact, Normal Color, Warm Assessment and Plan (1) DVT prophylaxis Status: Acute (2) Osteomyelitis Status: Acute (3) Diabetes mellitus type 2, uncontrolled Status: Acute (4) Tremor Status: Acute (5) Hyperkalemia Status: Acute (6) Dehydration Status: Acute (7) PAD (peripheral artery disease) Status: Acute - Assessment and Plan (Free Text) Assessment: (1) DVT prophylaxis Assessment & Plan: scd and aehose lovenox Status: Acute (2) Osteomyelitis Assessment & Plan: cont anbx for now Podiatry/ID mri and xr noted. pt agree to amputation to be scheduled m/tu Status: Acute (3) Diabetes mellitus type 2, uncontrolled Assessment & Plan: riss, homd meds, diet control levemir fsbg endo Status: Acute (4) Tremor Assessment & Plan: glucose control chronic from 3x cva Status: Acute (5) Hyperkalemia Assessment & Plan: ?? r/t dehydration. saline kayexalate monitor bmp if no reduction in k tomorrow am, will get specialist consult Status: Acute (6) Dehydration Assessment & Plan: ivf Status: Acute (7) PAD (peripheral artery disease) cardio vascular prn Status: Acute
--- NOTE | 2017-11-23 09:46 | CP.PCM.PN ---
Subjective - Date & Time of Evaluation Date of Evaluation: 11/23/17 Time of Evaluation: 09:42 - Subjective Subjective: Podiatry Progress Note- Dr. Rose 42 year old male seen and evaluated for right foot 3rd digit dorsal PIPJ ulcer with osteomyelitis. Patient is seen resting comfortably in bed, in NAD, and AA0x3. Denies of any pain today. No F/N/V/C/SOB/CP/headache. No other pedal complains at this time. Objective - Vital Signs/Intake and Output Vital Signs (last 24 hours): Temp Pulse Resp BP Pulse Ox 97.8 F 72 18 156/82 H 100 11/23/17 09:00 11/23/17 09:04 11/23/17 09:00 11/23/17 09:04 11/23/17 09:00 - Medications Medications: Current Medications Acetaminophen (Tylenol 325mg Tab) 650 mg PO Q4 PRN PRN Reason: T>100.4 Albuterol/Ipratropium (Duoneb 3 Mg/0.5 Mg (3 Ml) Ud) 3 ml INH RQ6 [facility] Last Admin: 11/23/17 07:45 Dose: 3 ml Allopurinol (Zyloprim) 300 mg PO DAILY [facility] Last Admin: 11/23/17 09:04 Dose: 300 mg Aluminum Hydroxide (Amphogel) 640 mg PO Q6 PRN PRN Reason: Indigestion Amlodipine Besylate (Norvasc) 5 mg PO Q12 [facility] Last Admin: 11/23/17 09:04 Dose: 5 mg Amylase (Pancrease 23349 U-5000 U-85052 U) 5,000 unit PO TID [facility] Last Admin: 11/23/17 09:03 Dose: 5,000 unit Bacitracin (Bacitracin) 1 ea TOP QSHIFT [facility] Last Admin: 11/17/17 09:42 Dose: 1 ea Clonidine HCl (Catapres) 0.2 mg PO Q8H [facility] Last Admin: 11/23/17 06:53 Dose: 0.2 mg Colchicine (Colocrys) 0.6 mg PO DAILY [facility] Last Admin: 11/23/17 09:10 Dose: 0.6 mg Dicloxacillin Sodium (Dynapen) 500 mg PO Q6 [facility] Last Admin: 11/23/17 09:03 Dose: 500 mg Docusate Sodium (Colace) 100 mg PO BID [facility] Last Admin: 11/23/17 09:02 Dose: 100 mg Duloxetine HCl (Cymbalta) 60 mg PO DAILY [facility] Last Admin: 11/23/17 09:04 Dose: 60 mg Gabapentin (Neurontin) 300 mg PO TID [facility] Last Admin: 11/23/17 09:03 Dose: 300 mg Gemfibrozil (Lopid) 600 mg PO BID [facility] Last Admin: 11/22/17 17:23 Dose: 600 mg Cefepime HCl 2 gm/ Sodium (Chloride) 100 mls @ 100 mls/hr IVPB Q12 [facility] PRN Reason: Protocol Last Admin: 11/23/17 09:07 Dose: 100 mls/hr Insulin Detemir (Levemir) 20 units SC HS [facility] Last Admin: 11/22/17 22:34 Dose: Not Given Insulin Human Lispro (Humalog) 0 units SC ACHS [facility] PRN Reason: Protocol Last Admin: 11/23/17 06:58 Dose: Not Given Insulin Human Lispro (Humalog) 6 units SC AC [facility] Last Admin: 11/23/17 09:13 Dose: 6 units Losartan Potassium (Cozaar) 50 mg PO Q12H [facility] Last Admin: 11/23/17 06:51 Dose: 50 mg Magnesium Hydroxide (Milk Of Magnesia) 30 ml PO DAILY [facility] Last Admin: 11/22/17 09:04 Dose: Not Given Methadone HCl (Methadone) 150 mg PO DAILY [facility] Last Admin: 11/23/17 09:06 Dose: 150 mg Nystatin (Nystop Topical Powder) 1 applic TOP TID [facility] Last Admin: 11/23/17 09:05 Dose: 1 applic Probenecid (Probenecid) 500 mg PO DAILY [facility] Last Admin: 11/23/17 09:04 Dose: 500 mg Silver Sulfadiazine (Silvadene 1% 20 Gm) 1 ea TOP DAILY [facility] Last Admin: 11/23/17 09:05 Dose: 1 applic - Labs Labs: 11/23/17 04:50 11/23/17 04:50 PT 12.5 Seconds (9.8-13.1) 11/14/17 01:00 INR 1.1 (0.9-1.2) 11/14/17 01:00 APTT 38.8 Seconds (25.6-37.1) H 11/14/17 01:00 - Constitutional Appears: Well, Non-toxic, No Acute Distress - Extremities Exam Additional comments: Dressing intact to R foot 3rd toe with mild serosanguinous strikethrough noted VASC: DP and PT palpable, CFT < 3 seconds x 5 digits, temperature gradient WNL, very mild nonpitting localized edema noted to the 3rd digit ORTHO: left AKA noted, tenderness with palpation to the third digit NEURO: gross sensation intact and protective sensation diminished DERM: circular ulceration noted to the dorsum of the right 3rd digit measuring approximately 1 cm x 1 cm x .2 cm, wound base mainly granular with fibrotic tissue noted, there was a bony fragment from the proximal phalanx protruding from the distal aspect of the wound, maceration noted to the periwound, no notable erythema (<.5 cm in margins), no streaking, no tunneling, no undermining , no purulence, no malodor, no bone exposed noted. Hyperpigmented skin discoloration/noted to the entire 3rd digit - Neurological Exam Neurological Exam: Alert, Awake, Oriented x3 - Psychiatric Exam Psychiatric exam: Normal Affect, Normal Mood Assessment and Plan - Assessment and Plan (Free Text) Assessment: 42 y/o male with right foot 3rd digit dorsal PIPJ ulcer with osteomyelitis Plan: Patient seen and evaluated Discussed plan with attending Dr. Rose Right foot X-ray reviewed - erosive changes noted to 3rd digit proximal phalanx suggestive of osteomyelitis MRI-osteomyelitis of 3rd digit diffusely including erosive changes at the distal segment proximal phalanx Podiatry recommending surgical intervention at this time to remove infected bone - Pt reports he wants continue IV abx at this time with no amputation. Podiatry to continue provide local wound care with Silvadene, 4x4 gauze to right 3rd toe while in house Patient may be full WB to the right foot with use of surgical shoe Will continue to follow patient in house Patient to follow up with Dr. Rose as outpatient in podiatry clinic up on discharge
[2017-11-23] MEDS: Magnesium Hydroxide Susp 30 ml UD PO SCH (11:12)
--- NOTE | 2017-11-23 19:18 | PN ---
DATE: 11/23/2017 ENDO FOLLOWUP NOTE LOCATION: In room 658. SUBJECTIVE: This is a 42-year-old male with recent uncontrolled type 2 insulin-requiring diabetes, presenting here with marked hyperglycemic accelerations and is now being followed closely for metabolic management. He is undergoing IV antibiotic management and local debridement for right foot osteomyelitis as noted thereof. His oral intake remains quite variable as per the nursing staff and today's glucose values are fluctuating, but improved and have ranged from 179 to 236 mg/dL. His latest chemistry showed a BUN of 42, sodium 139, potassium 5.3, chloride 104, CO2 of 25, glucose 221 and creatinine 1. His TSH is 4.95, which is actually slightly elevated. ASSESSMENT: This is a 42-year-old male with recent uncontrolled type 2 insulin-requiring diabetes with marked hyperglycemic accelerations with intercurrent uncontrolled type 2 insulin-requiring diabetes as noted above. He also has ongoing intravenous antibiotics for right foot cellulitis as noted thereof. PLAN OF MANAGEMENT: We will modify his current insulin regimen and lower the Humalog down to 6 units subcu t.i.d. before meals as ordered and we will lower also the Levemir to 20 units subcu at bedtime daily to start tonight. We will modify the Humalog insulin as given with a very low dose algorithm to obviate hypoglycemia and detailed orders have been given. We will obtain serial chemistries and supplement accordingly needed. We will follow. Gaye Llamas MD
[2017-11-23] MEDS: Insulin Detemir 100 Units/ml Inj SC SCH (22:07)
[2017-11-24] MEDS: Albuterol-Ipratrop 3 mg / 0.5 (3 ml) UD INH SCH ×4 (01:27→19:22)
[2017-11-24 05:19] LABS: BASO % 0.7 % (0.0-2.0); EOS # 0.1 K/uL (0.0-0.7); EOS % 3.3 % (0.0-4.0); HEMOGLOBIN 10.1 g/dL (12.0-18.0); LYMPH # 1.5 K/uL (1.0-4.3); LYMPH % 39.2 % (20.0-40.0); MEAN CELL VOLUME 84.3 fl (80.0-94.0); MEAN CORPUSCULAR HEMOGLOBIN 27.5 pg (27.0-31.0); MEAN CORPUSCULAR HGB CONC 32.6 g/dL (33.0-37.0); MEAN PLATELET VOLUME 9.4 fl (7.2-11.7); MONO # 0.3 K/uL (0.0-0.8); MONO % 9.1 % (0.0-10.0); NEUT # 1.8 K/uL (1.8-7.0); NEUT % 47.7 % (50.0-75.0); RBC 3.67 Mil/uL (4.40-5.90); RED CELL DISTRIBUTION WIDTH 15.2 % (11.5-14.5); WHITE BLOOD COUNT 3.8 K/uL (4.8-10.8)
[2017-11-24 05:27] LABS: ALB/GLOB RATIO 0.9 (1.0-2.1); ALBUMIN 3.2 g/dL (3.5-5.0); ALT/SGPT 27 U/L (21-72); AST/SGOT 28 U/L (17-59); BLOOD UREA NITROGEN 26 mg/dl (9-20); GFR AFRICAN-AMERICAN > 60; GFR NON-AFRICAN AMERICAN > 60
[2017-11-24] MEDS: Insulin Lispro (humaLOG) 100 Units/ml Inj SC SCH ×7 (08:32→21:36)
[2017-11-24] MEDS: Cefepime 2 GM in Sodium Chloride 0.9% 100 ML IVPB SCH ×2 (08:33→21:38)
[2017-11-24] MEDS: Magnesium Hydroxide Susp 30 ml UD PO SCH (08:34)
[2017-11-24] MEDS: Amylase/Lipase/Protease 5,000 Units ECC PO SCH ×3 (08:36→17:07)
[2017-11-24] MEDS: Silver Sulfadiazine 1% Cream (20 gm) TOP SCH (08:36)
--- NOTE | 2017-11-24 10:55 | CP.PCM.PN ---
Subjective - Date & Time of Evaluation Date of Evaluation: 11/24/17 Time of Evaluation: 10:53 - Subjective Subjective: pt doing well. no f/c, n/v/d. k remains 5.3 no bm no s/s hyperkalemia glucos enoted. no complaints/distress. Objective - Vital Signs/Intake and Output Vital Signs (last 24 hours): Temp Pulse Resp BP Pulse Ox 97.8 F 62 20 149/81 99 11/24/17 09:01 11/24/17 09:01 11/24/17 09:01 11/24/17 09:01 11/24/17 09:01 - Medications Medications: Current Medications Acetaminophen (Tylenol 325mg Tab) 650 mg PO Q4 PRN PRN Reason: T>100.4 Albuterol/Ipratropium (Duoneb 3 Mg/0.5 Mg (3 Ml) Ud) 3 ml INH RQ6 [facility] Last Admin: 11/24/17 07:13 Dose: 3 ml Allopurinol (Zyloprim) 300 mg PO DAILY [facility] Last Admin: 11/24/17 08:37 Dose: 300 mg Aluminum Hydroxide (Amphogel) 640 mg PO Q6 PRN PRN Reason: Indigestion Amlodipine Besylate (Norvasc) 5 mg PO Q12 [facility] Last Admin: 11/24/17 08:34 Dose: 5 mg Amylase (Pancrease 12068 U-5000 U-[id number] U) 5,000 unit PO TID [facility] Last Admin: 11/24/17 08:36 Dose: 5,000 unit Bacitracin (Bacitracin) 1 ea TOP QSHIFT [facility] Last Admin: 11/17/17 09:42 Dose: 1 ea Clonidine HCl (Catapres) 0.2 mg PO Q8H [facility] Last Admin: 11/24/17 05:40 Dose: 0.2 mg Colchicine (Colocrys) 0.6 mg PO DAILY [facility] Last Admin: 11/24/17 08:28 Dose: 0.6 mg Dicloxacillin Sodium (Dynapen) 500 mg PO Q6 [facility] Last Admin: 11/24/17 09:21 Dose: 500 mg Docusate Sodium (Colace) 100 mg PO BID [facility] Last Admin: 11/24/17 08:28 Dose: 100 mg Duloxetine HCl (Cymbalta) 60 mg PO DAILY [facility] Last Admin: 11/24/17 08:30 Dose: 60 mg Gabapentin (Neurontin) 300 mg PO TID [facility] Last Admin: 11/24/17 08:34 Dose: 300 mg Gemfibrozil (Lopid) 600 mg PO BID [facility] Last Admin: 11/24/17 08:33 Dose: 600 mg Cefepime HCl 2 gm/ Sodium (Chloride) 100 mls @ 100 mls/hr IVPB Q12 [facility] PRN Reason: Protocol Last Admin: 11/24/17 08:33 Dose: 100 mls/hr Sodium Chloride (Sodium Chloride 0.9%) 1,000 mls @ 100 mls/hr IV .Q10H [facility] Stop: 11/25/17 09:50 Insulin Detemir (Levemir) 20 units SC HS [facility] Last Admin: 11/23/17 22:07 Dose: 20 units Insulin Human Lispro (Humalog) 0 units SC ACHS [facility] PRN Reason: Protocol Last Admin: 11/24/17 08:32 Dose: Not Given Insulin Human Lispro (Humalog) 6 units SC AC [facility] Last Admin: 11/24/17 08:32 Dose: 6 units Losartan Potassium (Cozaar) 50 mg PO Q12@0600,1800 [facility] Last Admin: 11/24/17 05:40 Dose: 50 mg Magnesium Hydroxide (Milk Of Magnesia) 30 ml PO DAILY [facility] Last Admin: 11/24/17 08:34 Dose: Not Given Methadone HCl (Methadone) 150 mg PO DAILY [facility] Last Admin: 11/24/17 08:27 Dose: 150 mg Nystatin (Nystop Topical Powder) 1 applic TOP TID [facility] Last Admin: 11/24/17 08:36 Dose: Not Given Probenecid (Probenecid) 500 mg PO DAILY [facility] Last Admin: 11/24/17 08:36 Dose: 500 mg Silver Sulfadiazine (Silvadene 1% 20 Gm) 1 ea TOP DAILY [facility] Last Admin: 11/24/17 08:36 Dose: 1 applic - Labs Labs: 11/24/17 05:00 11/24/17 05:00 PT 12.5 Seconds (9.8-13.1) 11/14/17 01:00 INR 1.1 (0.9-1.2) 11/14/17 01:00 APTT 38.8 Seconds (25.6-37.1) H 11/14/17 01:00 - Constitutional Appears: Well, Non-toxic, No Acute Distress - Head Exam Head Exam: ATRAUMATIC, NORMAL INSPECTION, NORMOCEPHALIC - Eye Exam Eye Exam: EOMI, Normal appearance, PERRL Pupil Exam: NORMAL ACCOMODATION, PERRL - ENT Exam ENT Exam: Mucous Membranes Moist, Normal Exam - Neck Exam Neck Exam: Full ROM, Normal Inspection. absent: Lymphadenopathy - Respiratory Exam Respiratory Exam: Clear to Ausculation Bilateral, NORMAL BREATHING PATTERN - Cardiovascular Exam Cardiovascular Exam: REGULAR RHYTHM, RRR, +S1, +S2. absent: Murmur - GI/Abdominal Exam GI & Abdominal Exam: Soft, Normal Bowel Sounds. absent: Tenderness - Extremities Exam Extremities Exam: Full ROM, Normal Capillary Refill, Normal Inspection. absent : Joint Swelling, Pedal Edema - Back Exam Back Exam: NORMAL INSPECTION - Neurological Exam Neurological Exam: Abnormal Gait, Alert, Awake, CN II-XII Intact, Oriented x3 - Psychiatric Exam Psychiatric exam: Normal Affect, Normal Mood - Skin Skin Exam: Dry, Intact, Normal Color, Warm Assessment and Plan (1) DVT prophylaxis Status: Acute (2) Osteomyelitis Status: Acute (3) Diabetes mellitus type 2, uncontrolled Status: Acute (4) Tremor Status: Acute (5) Hyperkalemia Status: Acute (6) Dehydration Status: Acute (7) PAD (peripheral artery disease) Status: Acute - Assessment and Plan (Free Text) Assessment: (1) DVT prophylaxis Assessment & Plan: scd and aehose lovenox-hold for surgery Status: Acute (2) Osteomyelitis Assessment & Plan: cont anbx for now Podiatry/ID mri and xr noted. pt agree to amputation to be scheduled m/tu Status: Acute (3) Diabetes mellitus type 2, uncontrolled Assessment & Plan: riss, homd meds, diet control levemir fsbg endo Status: Acute (4) Tremor Assessment & Plan: glucose control chronic from 3x cva Status: Acute (5) Hyperkalemia Assessment & Plan: ?? r/t dehydration. saline kayexalate give x 3 doses monitor bmp if no reduction in k tomorrow am, will get specialist consult no muscle cramping or any other complaint Status: Acute (6) Dehydration Assessment & Plan: ivf Status: Acute (7) PAD (peripheral artery disease) cardio vascular prn Status: Acute
[2017-11-24] MEDS: Sodium Chloride 0.9% 1,000 ML IV SCH ×2 (11:06→21:24)
--- NOTE | 2017-11-24 12:52 | CP.PCM.PN ---
Subjective - Date & Time of Evaluation Date of Evaluation: 11/24/17 Time of Evaluation: 06:00 - Subjective Subjective: afeb on iv rx for possible amputation Objective - Vital Signs/Intake and Output Vital Signs (last 24 hours): Temp Pulse Resp BP Pulse Ox 97.8 F 62 20 149/81 99 11/24/17 09:01 11/24/17 09:01 11/24/17 09:01 11/24/17 09:01 11/24/17 09:01 - Medications Medications: Current Medications Acetaminophen (Tylenol 325mg Tab) 650 mg PO Q4 PRN PRN Reason: T>100.4 Albuterol/Ipratropium (Duoneb 3 Mg/0.5 Mg (3 Ml) Ud) 3 ml INH RQ6 [facility] Last Admin: 11/24/17 07:13 Dose: 3 ml Allopurinol (Zyloprim) 300 mg PO DAILY [facility] Last Admin: 11/24/17 08:37 Dose: 300 mg Aluminum Hydroxide (Amphogel) 640 mg PO Q6 PRN PRN Reason: Indigestion Amlodipine Besylate (Norvasc) 5 mg PO Q12 [facility] Last Admin: 11/24/17 08:34 Dose: 5 mg Amylase (Pancrease 64961 U-5000 U-23027 U) 5,000 unit PO TID [facility] Last Admin: 11/24/17 12:42 Dose: 5,000 unit Bacitracin (Bacitracin) 1 ea TOP QSHIFT [facility] Last Admin: 11/17/17 09:42 Dose: 1 ea Clonidine HCl (Catapres) 0.2 mg PO Q8H [facility] Last Admin: 11/24/17 05:40 Dose: 0.2 mg Colchicine (Colocrys) 0.6 mg PO DAILY [facility] Last Admin: 11/24/17 08:28 Dose: 0.6 mg Dicloxacillin Sodium (Dynapen) 500 mg PO Q6 [facility] Last Admin: 11/24/17 09:21 Dose: 500 mg Docusate Sodium (Colace) 100 mg PO BID [facility] Last Admin: 11/24/17 08:28 Dose: 100 mg Duloxetine HCl (Cymbalta) 60 mg PO DAILY [facility] Last Admin: 11/24/17 08:30 Dose: 60 mg Gabapentin (Neurontin) 300 mg PO TID [facility] Last Admin: 11/24/17 12:41 Dose: 300 mg Gemfibrozil (Lopid) 600 mg PO BID [facility] Last Admin: 11/24/17 08:33 Dose: 600 mg Cefepime HCl 2 gm/ Sodium (Chloride) 100 mls @ 100 mls/hr IVPB Q12 [facility] PRN Reason: Protocol Last Admin: 11/24/17 08:33 Dose: 100 mls/hr Sodium Chloride (Sodium Chloride 0.9%) 1,000 mls @ 100 mls/hr IV .Q10H [facility] Stop: 11/25/17 09:50 Last Admin: 11/24/17 11:06 Dose: 100 mls/hr Insulin Detemir (Levemir) 20 units SC HS [facility] Last Admin: 11/23/17 22:07 Dose: 20 units Insulin Human Lispro (Humalog) 0 units SC ACHS [facility] PRN Reason: Protocol Last Admin: 11/24/17 12:41 Dose: Not Given Insulin Human Lispro (Humalog) 6 units SC AC [facility] Last Admin: 11/24/17 12:40 Dose: 6 units Losartan Potassium (Cozaar) 50 mg PO Q12@0600,1800 [facility] Last Admin: 11/24/17 05:40 Dose: 50 mg Magnesium Hydroxide (Milk Of Magnesia) 30 ml PO DAILY [facility] Last Admin: 11/24/17 08:34 Dose: Not Given Methadone HCl (Methadone) 150 mg PO DAILY [facility] Last Admin: 11/24/17 08:27 Dose: 150 mg Nystatin (Nystop Topical Powder) 1 applic TOP TID [facility] Last Admin: 11/24/17 12:42 Dose: Not Given Probenecid (Probenecid) 500 mg PO DAILY [facility] Last Admin: 11/24/17 08:36 Dose: 500 mg Silver Sulfadiazine (Silvadene 1% 20 Gm) 1 ea TOP DAILY [facility] Last Admin: 11/24/17 08:36 Dose: 1 applic - Labs Labs: 11/24/17 05:00 11/24/17 05:00 PT 12.5 Seconds (9.8-13.1) 11/14/17 01:00 INR 1.1 (0.9-1.2) 11/14/17 01:00 APTT 38.8 Seconds (25.6-37.1) H 11/14/17 01:00 - Constitutional Appears: Non-toxic - Head Exam Head Exam: NORMOCEPHALIC - Eye Exam Eye Exam: PERRL - ENT Exam ENT Exam: Mucous Membranes Dry - Neck Exam Neck Exam: absent: Lymphadenopathy - Respiratory Exam Respiratory Exam: Decreased Breath Sounds - Cardiovascular Exam Cardiovascular Exam: REGULAR RHYTHM - GI/Abdominal Exam GI & Abdominal Exam: Distended Assessment and Plan (1) Osteomyelitis Status: Acute (2) PAD (peripheral artery disease) Status: Acute
--- NOTE | 2017-11-24 13:32 | CP.PCM.PN ---
Subjective - Date & Time of Evaluation Date of Evaluation: 11/24/17 Time of Evaluation: 13:30 - Subjective Subjective: Podiatry Progress Note- Dr. Rose 42 year old male seen and evaluated for right foot 3rd digit dorsal PIPJ ulcer with osteomyelitis. Patient is seen resting comfortably in bed, in NAD, and AA0x3. Denies of any pain today. Reports that he does not want surgery at this time. No F/N/V/C/SOB/CP/headache. No other pedal complains at this time. Objective - Vital Signs/Intake and Output Vital Signs (last 24 hours): Temp Pulse Resp BP Pulse Ox 97.8 F 62 20 149/81 99 11/24/17 09:01 11/24/17 09:01 11/24/17 09:01 11/24/17 09:01 11/24/17 09:01 - Medications Medications: Current Medications Acetaminophen (Tylenol 325mg Tab) 650 mg PO Q4 PRN PRN Reason: T>100.4 Albuterol/Ipratropium (Duoneb 3 Mg/0.5 Mg (3 Ml) Ud) 3 ml INH RQ6 [facility] Last Admin: 11/24/17 13:01 Dose: Not Given Allopurinol (Zyloprim) 300 mg PO DAILY [facility] Last Admin: 11/24/17 08:37 Dose: 300 mg Aluminum Hydroxide (Amphogel) 640 mg PO Q6 PRN PRN Reason: Indigestion Amlodipine Besylate (Norvasc) 5 mg PO Q12 [facility] Last Admin: 11/24/17 08:34 Dose: 5 mg Amylase (Pancrease 92367 U-5000 [id number] U) 5,000 unit PO TID [facility] Last Admin: 11/24/17 12:42 Dose: 5,000 unit Bacitracin (Bacitracin) 1 ea TOP QSHIFT [facility] Last Admin: 11/17/17 09:42 Dose: 1 ea Clonidine HCl (Catapres) 0.2 mg PO Q8H [facility] Last Admin: 11/24/17 05:40 Dose: 0.2 mg Colchicine (Colocrys) 0.6 mg PO DAILY [facility] Last Admin: 11/24/17 08:28 Dose: 0.6 mg Dicloxacillin Sodium (Dynapen) 500 mg PO Q6 [facility] Last Admin: 11/24/17 09:21 Dose: 500 mg Docusate Sodium (Colace) 100 mg PO BID [facility] Last Admin: 11/24/17 08:28 Dose: 100 mg Duloxetine HCl (Cymbalta) 60 mg PO DAILY [facility] Last Admin: 11/24/17 08:30 Dose: 60 mg Gabapentin (Neurontin) 300 mg PO TID [facility] Last Admin: 11/24/17 12:41 Dose: 300 mg Gemfibrozil (Lopid) 600 mg PO BID [facility] Last Admin: 11/24/17 08:33 Dose: 600 mg Cefepime HCl 2 gm/ Sodium (Chloride) 100 mls @ 100 mls/hr IVPB Q12 [facility] PRN Reason: Protocol Last Admin: 11/24/17 08:33 Dose: 100 mls/hr Sodium Chloride (Sodium Chloride 0.9%) 1,000 mls @ 100 mls/hr IV .Q10H [facility] Stop: 11/25/17 09:50 Last Admin: 11/24/17 11:06 Dose: 100 mls/hr Insulin Detemir (Levemir) 20 units SC HS [facility] Last Admin: 11/23/17 22:07 Dose: 20 units Insulin Human Lispro (Humalog) 0 units SC ACHS [facility] PRN Reason: Protocol Last Admin: 11/24/17 12:41 Dose: Not Given Insulin Human Lispro (Humalog) 6 units SC AC [facility] Last Admin: 11/24/17 12:40 Dose: 6 units Losartan Potassium (Cozaar) 50 mg PO Q12@0600,1800 [facility] Last Admin: 11/24/17 05:40 Dose: 50 mg Magnesium Hydroxide (Milk Of Magnesia) 30 ml PO DAILY [facility] Last Admin: 11/24/17 08:34 Dose: Not Given Methadone HCl (Methadone) 150 mg PO DAILY [facility] Last Admin: 11/24/17 08:27 Dose: 150 mg Nystatin (Nystop Topical Powder) 1 applic TOP TID [facility] Last Admin: 11/24/17 12:42 Dose: Not Given Probenecid (Probenecid) 500 mg PO DAILY [facility] Last Admin: 11/24/17 08:36 Dose: 500 mg Silver Sulfadiazine (Silvadene 1% 20 Gm) 1 ea TOP DAILY [facility] Last Admin: 11/24/17 08:36 Dose: 1 applic - Labs Labs: 11/24/17 05:00 11/24/17 05:00 PT 12.5 Seconds (9.8-13.1) 11/14/17 01:00 INR 1.1 (0.9-1.2) 11/14/17 01:00 APTT 38.8 Seconds (25.6-37.1) H 11/14/17 01:00 - Constitutional Appears: Well, Non-toxic, No Acute Distress - Extremities Exam Additional comments: Dressing intact to R foot 3rd toe with mild serosanguinous strikethrough noted VASC: DP and PT palpable, CFT < 3 seconds x 5 digits, temperature gradient WNL, very mild nonpitting localized edema noted to the 3rd digit ORTHO: left AKA noted, tenderness with palpation to the third digit NEURO: gross sensation intact and protective sensation diminished DERM: circular ulceration noted to the dorsum of the right 3rd digit measuring approximately 1 cm x 1 cm x .2 cm, wound base mainly granular with fibrotic tissue noted, there was a bony fragment from the proximal phalanx protruding from the distal aspect of the wound, maceration noted to the periwound, no notable erythema (<.5 cm in margins), no streaking, no tunneling, no undermining , no purulence, no malodor, no bone exposed noted. Hyperpigmented skin discoloration/noted to the entire 3rd digit - Neurological Exam Neurological Exam: Alert, Awake, Oriented x3 - Psychiatric Exam Psychiatric exam: Normal Affect, Normal Mood Assessment and Plan - Assessment and Plan (Free Text) Assessment: 42 y/o male with right foot 3rd digit dorsal PIPJ ulcer with osteomyelitis Plan: Patient seen and evaluated Discussed plan with attending Dr. Rose Right foot X-ray reviewed - erosive changes noted to 3rd digit proximal phalanx suggestive of osteomyelitis MRI-osteomyelitis of 3rd digit diffusely including erosive changes at the distal segment proximal phalanx Podiatry recommending surgical intervention at this time to remove infected bone - Pt reports he wants continue IV abx at this time with no amputation. Podiatry to continue provide local wound care with Silvadene, 4x4 gauze to right 3rd toe while in house Patient may be full WB to the right foot with use of surgical shoe Will continue to follow patient in house Patient to follow up with Dr. Rose as outpatient in podiatry clinic up on discharge
[2017-11-24] MEDS ORDERED: Dextrose 5%/0.9% NS 1,000 ML IV SCH (18:30)
--- NOTE | 2017-11-24 18:44 | PN ---
DATE: 11/24/2017 ENDO FOLLOWUP NOTE LOCATION: In room 658. SUBJECTIVE: This is a 42-year-old male with recent uncontrolled type 2 insulin-requiring diabetes IV antibiotic and local debridement of his lower extremity osteomyelitis and is being followed closely now also for metabolic management. His glycemic levels are fluctuating, but improved and the glucose levels have ranged from 172 to 268 mg/dL. His latest chemistry showed a BUN of 26, sodium 138, potassium 5.3, chloride 102, CO2 of 25, glucose 175, and creatinine 0.8. ASSESSMENT AND PLAN: So at this time, we will continue the same basal and bolus insulin regimen to allow for dose equilibration and keep him on the Humalog given as 6 units subcu t.i.d. before meals as ordered. We will continue the Levemir given as 20 units subcu at bedtime daily as given. We will obtain serial chemistries and supplement accordingly as needed. We will follow up with you. Gaye Llamas MD
[2017-11-24] MEDS: Insulin Detemir 100 Units/ml Inj SC SCH (21:37)
[2017-11-25] MEDS: Albuterol-Ipratrop 3 mg / 0.5 (3 ml) UD INH SCH ×4 (02:39→19:24)
[2017-11-25] MEDS: Sodium Chloride 0.9% 1,000 ML IV SCH (06:08)
[2017-11-25 06:17] LABS: EOS # 0.1 K/uL (0.0-0.7); EOS % 2.5 % (0.0-4.0); LYMPH # 1.3 K/uL (1.0-4.3); LYMPH % 35.3 % (20.0-40.0); MEAN CELL VOLUME 83.6 fl (80.0-94.0); MEAN CORPUSCULAR HEMOGLOBIN 27.8 pg (27.0-31.0); MEAN CORPUSCULAR HGB CONC 33.2 g/dL (33.0-37.0); MEAN PLATELET VOLUME 9.5 fl (7.2-11.7); MONO # 0.3 K/uL (0.0-0.8); MONO % 8.1 % (0.0-10.0); NEUT % 53.1 % (50.0-75.0); NRBC % 0.1 % (0.0-0.0); RBC 3.58 Mil/uL (4.40-5.90); RED CELL DISTRIBUTION WIDTH 15.6 % (11.5-14.5); WHITE BLOOD COUNT 3.8 K/uL (4.8-10.8)
[2017-11-25 06:33] LABS: ALB/GLOB RATIO 0.9 (1.0-2.1); ALBUMIN 3.2 g/dL (3.5-5.0); ALT/SGPT 24 U/L (21-72); AST/SGOT 24 U/L (17-59); BLOOD UREA NITROGEN 22 mg/dl (9-20); GFR AFRICAN-AMERICAN > 60; GFR NON-AFRICAN AMERICAN > 60; INR 1.1 (0.9-1.2); PARTIAL THROMBOPLASTIN TIME 35.2 Seconds (25.6-37.1); PROTHROMBIN TIME 12.4 Seconds (9.8-13.1)
--- NOTE | 2017-11-25 06:56 | CP.PCM.PN ---
Subjective - Date & Time of Evaluation Date of Evaluation: 11/25/17 Time of Evaluation: 06:52 - Subjective Subjective: Podiatry progress note for Dr. Rose: 42 yo male seen and evaluated for right foot 3rd digit dorsal PIPJ ulcer w/ osteomyelitis. Patient is AAOx3, NAD, and resting comfortably in bed. Pt denies pain today and reports a hard piece of tissue came out of his wound overnight. He reports he does not want surgery at this time. Denies F/N//V/C/SOB/CP/ headache and has no other pedal complaints at this time. Dressing was not clean dry and intact on right foot as patient reports it came off while in bed overnight, nurse reports covering with 4x4 and tape overnight. Objective - Vital Signs/Intake and Output Vital Signs (last 24 hours): Temp Pulse Resp BP Pulse Ox 97.7 F 67 20 169/80 H 99 11/24/17 23:39 11/25/17 05:44 11/24/17 23:39 11/25/17 05:44 11/24/17 23:39 - Medications Medications: Current Medications Acetaminophen (Tylenol 325mg Tab) 650 mg PO Q4 PRN PRN Reason: T>100.4 Albuterol/Ipratropium (Duoneb 3 Mg/0.5 Mg (3 Ml) Ud) 3 ml INH RQ6 [facility] Last Admin: 11/25/17 02:39 Dose: Not Given Allopurinol (Zyloprim) 300 mg PO DAILY [facility] Last Admin: 11/24/17 08:37 Dose: 300 mg Aluminum Hydroxide (Amphogel) 640 mg PO Q6 PRN PRN Reason: Indigestion Amlodipine Besylate (Norvasc) 5 mg PO Q12 [facility] Last Admin: 11/24/17 21:38 Dose: 5 mg Amylase (Pancrease 32483 U-5000 U-70833 U) 5,000 unit PO TID [facility] Last Admin: 11/24/17 17:07 Dose: 5,000 unit Bacitracin (Bacitracin) 1 ea TOP QSHIFT [facility] Last Admin: 11/17/17 09:42 Dose: 1 ea Clonidine HCl (Catapres) 0.2 mg PO Q8H [facility] Last Admin: 11/25/17 05:44 Dose: 0.2 mg Colchicine (Colocrys) 0.6 mg PO DAILY [facility] Last Admin: 11/24/17 08:28 Dose: 0.6 mg Dicloxacillin Sodium (Dynapen) 500 mg PO Q6 [facility] Last Admin: 11/25/17 04:24 Dose: 500 mg Docusate Sodium (Colace) 100 mg PO BID [facility] Last Admin: 11/24/17 17:04 Dose: 100 mg Duloxetine HCl (Cymbalta) 60 mg PO DAILY [facility] Last Admin: 11/24/17 08:30 Dose: 60 mg Gabapentin (Neurontin) 300 mg PO TID [facility] Last Admin: 11/24/17 17:06 Dose: 300 mg Gemfibrozil (Lopid) 600 mg PO BID [facility] Last Admin: 11/24/17 17:06 Dose: 600 mg Cefepime HCl 2 gm/ Sodium (Chloride) 100 mls @ 100 mls/hr IVPB Q12 [facility] PRN Reason: Protocol Last Admin: 11/24/17 21:38 Dose: 100 mls/hr Sodium Chloride (Sodium Chloride 0.9%) 1,000 mls @ 100 mls/hr IV .Q10H [facility] Stop: 11/25/17 09:50 Last Admin: 11/25/17 06:08 Dose: Not Given Insulin Detemir (Levemir) 20 units SC HS [facility] Last Admin: 11/24/17 21:37 Dose: 20 units Insulin Human Lispro (Humalog) 0 units SC ACHS [facility] PRN Reason: Protocol Last Admin: 11/24/17 21:36 Dose: Not Given Insulin Human Lispro (Humalog) 6 units SC AC [facility] Last Admin: 11/24/17 17:06 Dose: 6 units Losartan Potassium (Cozaar) 50 mg PO Q12@0600,1800 [facility] Last Admin: 11/25/17 05:44 Dose: 50 mg Magnesium Hydroxide (Milk Of Magnesia) 30 ml PO DAILY [facility] Last Admin: 11/24/17 08:34 Dose: Not Given Methadone HCl (Methadone) 150 mg PO DAILY [facility] Last Admin: 11/24/17 08:27 Dose: 150 mg Nystatin (Nystop Topical Powder) 1 applic TOP TID [facility] Last Admin: 11/24/17 17:06 Dose: Not Given Probenecid (Probenecid) 500 mg PO DAILY [facility] Last Admin: 11/24/17 08:36 Dose: 500 mg Silver Sulfadiazine (Silvadene 1% 20 Gm) 1 ea TOP DAILY [facility] Last Admin: 11/24/17 08:36 Dose: 1 applic - Labs Labs: 11/25/17 05:35 11/25/17 05:35 PT 12.4 Seconds (9.8-13.1) 11/25/17 05:35 INR 1.1 (0.9-1.2) 11/25/17 05:35 APTT 35.2 Seconds (25.6-37.1) 11/25/17 05:35 - Constitutional Appears: Well, Non-toxic, No Acute Distress - Head Exam Head Exam: ATRAUMATIC, NORMOCEPHALIC - Extremities Exam Additional comments: Dressing not intact to R foot 3rd toe with mild serosanguinous strikethrough noted, 4x4 and tape applied by nurse overnight VASC: DP and PT palpable, CFT < 3 seconds x 5 digits, temperature gradient WNL, very mild nonpitting localized edema noted to the 3rd digit ORTHO: left AKA noted, tenderness with palpation to the third digit NEURO: gross sensation intact and protective sensation diminished DERM: circular ulceration noted to the dorsum of the right 3rd digit measuring approximately 1 cm x 1 cm x .2 cm, wound base mainly granular with fibrotic tissue noted, bony fragment from day prior came out and placed in cup at bedside by patient, maceration noted to the periwound, no notable erythema (<.5 cm in margins), no streaking, no tunneling, no undermining, no purulence, no malodor, no bone exposed noted. Hyperpigmented skin discoloration/noted to the entire 3rd digit - Psychiatric Exam Psychiatric exam: Normal Affect, Normal Mood Assessment and Plan - Assessment and Plan (Free Text) Assessment: 42 yo male with right foot 3rd digit dorsal PIPJ ulceration with osteomyelitis Plan: Patient seen and evaluated with Dr. Rose Right foot X-ray reviewed - erosive changes noted to 3rd digit proximal phalanx suggestive of osteomyelitis MRI-osteomyelitis of 3rd digit diffusely including erosive changes at the distal segment proximal phalanx Podiatry recommending surgical intervention at this time to remove infected bone - Pt reports he wants continue IV abx at this time with no amputation. Therefore, no surgical intervention planned at this time Podiatry to continue provide local wound care with Silvadene, 4x4 gauze to right 3rd toe while in house Patient may be full WB to the right foot with use of surgical shoe Will continue to follow patient in house Continue IV abx per ID Patient to follow up with Dr. Rose as outpatient in podiatry clinic upon discharge
--- NOTE | 2017-11-25 07:22 | CP.PCM.PN ---
Subjective - Date & Time of Evaluation Date of Evaluation: 11/25/17 Time of Evaluation: 07:22 - Subjective Subjective: pt doingw ell. no f/c, n/v/d. k down to 5.1 no s/s hyperkalemia. Objective - Vital Signs/Intake and Output Vital Signs (last 24 hours): Temp Pulse Resp BP Pulse Ox 97.7 F 67 20 169/80 H 99 11/24/17 23:39 11/25/17 05:44 11/24/17 23:39 11/25/17 05:44 11/24/17 23:39 - Medications Medications: Current Medications Acetaminophen (Tylenol 325mg Tab) 650 mg PO Q4 PRN PRN Reason: T>100.4 Albuterol/Ipratropium (Duoneb 3 Mg/0.5 Mg (3 Ml) Ud) 3 ml INH RQ6 [facility] Last Admin: 11/25/17 02:39 Dose: Not Given Allopurinol (Zyloprim) 300 mg PO DAILY [facility] Last Admin: 11/24/17 08:37 Dose: 300 mg Aluminum Hydroxide (Amphogel) 640 mg PO Q6 PRN PRN Reason: Indigestion Amlodipine Besylate (Norvasc) 5 mg PO Q12 [facility] Last Admin: 11/24/17 21:38 Dose: 5 mg Amylase (Pancrease 12076 U-5000 U-[id number] U) 5,000 unit PO TID [facility] Last Admin: 11/24/17 17:07 Dose: 5,000 unit Bacitracin (Bacitracin) 1 ea TOP QSHIFT [facility] Last Admin: 11/17/17 09:42 Dose: 1 ea Clonidine HCl (Catapres) 0.2 mg PO Q8H [facility] Last Admin: 11/25/17 05:44 Dose: 0.2 mg Colchicine (Colocrys) 0.6 mg PO DAILY [facility] Last Admin: 11/24/17 08:28 Dose: 0.6 mg Dicloxacillin Sodium (Dynapen) 500 mg PO Q6 [facility] Last Admin: 11/25/17 04:24 Dose: 500 mg Docusate Sodium (Colace) 100 mg PO BID [facility] Last Admin: 11/24/17 17:04 Dose: 100 mg Duloxetine HCl (Cymbalta) 60 mg PO DAILY [facility] Last Admin: 06/17/18 08:30 Dose: 60 mg Gabapentin (Neurontin) 300 mg PO TID [facility] Last Admin: 11/24/17 17:06 Dose: 300 mg Gemfibrozil (Lopid) 600 mg PO BID [facility] Last Admin: 11/24/17 17:06 Dose: 600 mg Cefepime HCl 2 gm/ Sodium (Chloride) 100 mls @ 100 mls/hr IVPB Q12 [facility] PRN Reason: Protocol Last Admin: 11/24/17 21:38 Dose: 100 mls/hr Sodium Chloride (Sodium Chloride 0.9%) 1,000 mls @ 100 mls/hr IV .Q10H [facility] Stop: 11/25/17 09:50 Last Admin: 11/25/17 06:08 Dose: Not Given Insulin Detemir (Levemir) 20 units SC HS [facility] Last Admin: 11/24/17 21:37 Dose: 20 units Insulin Human Lispro (Humalog) 0 units SC ACHS [facility] PRN Reason: Protocol Last Admin: 11/24/17 21:36 Dose: Not Given Insulin Human Lispro (Humalog) 6 units SC AC [facility] Last Admin: 11/24/17 17:06 Dose: 6 units Losartan Potassium (Cozaar) 50 mg PO Q12@0600,1800 [facility] Last Admin: 11/25/17 05:44 Dose: 50 mg Magnesium Hydroxide (Milk Of Magnesia) 30 ml PO DAILY [facility] Last Admin: 11/24/17 08:34 Dose: Not Given Methadone HCl (Methadone) 150 mg PO DAILY [facility] Last Admin: 11/24/17 08:27 Dose: 150 mg Nystatin (Nystop Topical Powder) 1 applic TOP TID [facility] Last Admin: 11/24/17 17:06 Dose: Not Given Probenecid (Probenecid) 500 mg PO DAILY [facility] Last Admin: 11/24/17 08:36 Dose: 500 mg Silver Sulfadiazine (Silvadene 1% 20 Gm) 1 ea TOP DAILY [facility] Last Admin: 11/24/17 08:36 Dose: 1 applic - Labs Labs: 11/25/17 05:35 11/25/17 05:35 PT 12.4 Seconds (9.8-13.1) 11/25/17 05:35 INR 1.1 (0.9-1.2) 11/25/17 05:35 APTT 35.2 Seconds (25.6-37.1) 11/25/17 05:35 - Constitutional Appears: Well, Non-toxic, No Acute Distress - Head Exam Head Exam: ATRAUMATIC, NORMAL INSPECTION, NORMOCEPHALIC - Eye Exam Eye Exam: EOMI, Normal appearance, PERRL Pupil Exam: NORMAL ACCOMODATION, PERRL - ENT Exam ENT Exam: Mucous Membranes Moist, Normal Exam - Neck Exam Neck Exam: Full ROM, Normal Inspection. absent: Lymphadenopathy - Respiratory Exam Respiratory Exam: Clear to Ausculation Bilateral, NORMAL BREATHING PATTERN - Cardiovascular Exam Cardiovascular Exam: REGULAR RHYTHM, RRR, +S1, +S2. absent: Murmur - GI/Abdominal Exam GI & Abdominal Exam: Soft, Normal Bowel Sounds. absent: Tenderness - Rectal Exam Rectal Exam: NORMAL INSPECTION - Extremities Exam Extremities Exam: Full ROM, Normal Capillary Refill, Normal Inspection. absent : Joint Swelling, Pedal Edema Additional comments: dsg c/d/i left aka - Back Exam Back Exam: NORMAL INSPECTION - Neurological Exam Neurological Exam: Abnormal Gait, Alert, Awake, CN II-XII Intact, Oriented x3 - Psychiatric Exam Psychiatric exam: Normal Affect, Normal Mood - Skin Skin Exam: Dry, Intact, Normal Color, Warm Assessment and Plan (1) DVT prophylaxis Status: Acute (2) Osteomyelitis Status: Acute (3) Diabetes mellitus type 2, uncontrolled Status: Acute (4) Tremor Status: Acute (5) Hyperkalemia Status: Acute (6) Dehydration Status: Acute (7) PAD (peripheral artery disease) Status: Acute - Assessment and Plan (Free Text) Assessment: (1) DVT prophylaxis Assessment & Plan: scd and aehose lovenox-hold for surgery Status: Acute (2) Osteomyelitis Assessment & Plan: cont anbx for now Podiatry/ID mri and xr noted. pt agree to amputation to be scheduled m/tu Status: Acute (3) Diabetes mellitus type 2, uncontrolled Assessment & Plan: riss, homd meds, diet control levemir fsbg endo Status: Acute (4) Tremor Assessment & Plan: glucose control chronic from 3x cva Status: Acute (5) Hyperkalemia Assessment & Plan: ?? r/t dehydration. saline kayexalate give x 3 doses monitor bmp trending down, will monitor no muscle cramping or any other complaint Status: Acute (6) Dehydration Assessment & Plan: ivf Status: Acute (7) PAD (peripheral artery disease) cardio vascular prn Status: Acute
[2017-11-25] MEDS: Cefepime 2 GM in Sodium Chloride 0.9% 100 ML IVPB SCH ×2 (08:17→21:47)
[2017-11-25] MEDS: Silver Sulfadiazine 1% Cream (20 gm) TOP SCH (08:21)
[2017-11-25] MEDS: Amylase/Lipase/Protease 5,000 Units ECC PO SCH ×3 (08:22→17:26)
[2017-11-25] MEDS: Insulin Lispro (humaLOG) 100 Units/ml Inj SC SCH ×7 (08:24→22:20)
[2017-11-25] MEDS: Magnesium Hydroxide Susp 30 ml UD PO SCH (08:28)
--- NOTE | 2017-11-25 11:37 | CP.PCM.PCO ---
Physician Communication Note - Physician Communication Note Physician Communication Note: Per Dr. Newman, patient will require IV Cefepime 2g Q12 hrs x 6 weeks
--- NOTE | 2017-11-25 18:37 | PN ---
DATE: 11/25/2017 This is a 42-year-old male presenting here with right foot cellulitis and underlying osteomyelitis and is now receiving intensive IV antibiotics with ongoing debridement and is also being followed closely for metabolic management. His glycemic levels are fluctuating but improved, and the latest glucose values have ranged from 152-260 mg/dL. His latest chemistry showed a BUN of 22, sodium 137, potassium 5.1, chloride 103, CO2 of 24, glucose 287, and creatinine 0.8. At this time, we will modify once again his basal and bolus insulin regimen and increase the Humalog to 80 units subcu t.i.d. before meals to start at dinnertime today as ordered. We will continue also the low-dose correction scale using Humalog insulin as given to obviate hypoglycemia and detailed orders have been given. We will increase and titrate his basal insulin with Levemir to be given as 26 units subcu at bedtime daily to start tonight. We will titrate incrementally as indicated to optimize metabolic control. We will obtain serial chemistries and supplement accordingly as needed. We will follow. Gaye Llamas MD
[2017-11-25] MEDS ORDERED: Insulin Detemir 100 Units/ml Inj SC SCH (22:00)
[2017-11-26] MEDS: Albuterol-Ipratrop 3 mg / 0.5 (3 ml) UD INH SCH ×3 (01:00→13:19)
[2017-11-26 06:10] LABS: BASO # 0.1 K/uL (0.0-0.2); EOS # 0.1 K/uL (0.0-0.7); EOS % 1.8 % (0.0-4.0); HEMOGLOBIN 10.5 g/dL (12.0-18.0); LYMPH # 1.5 K/uL (1.0-4.3); LYMPH % 30.9 % (20.0-40.0); MEAN CELL VOLUME 83.5 fl (80.0-94.0); MEAN CORPUSCULAR HEMOGLOBIN 27.4 pg (27.0-31.0); MEAN CORPUSCULAR HGB CONC 32.8 g/dL (33.0-37.0); MONO # 0.4 K/uL (0.0-0.8); MONO % 7.2 % (0.0-10.0); NEUT # 2.9 K/uL (1.8-7.0); NEUT % 59.1 % (50.0-75.0); RBC 3.83 Mil/uL (4.40-5.90); RED CELL DISTRIBUTION WIDTH 15.5 % (11.5-14.5)
[2017-11-26 06:20] LABS: ALB/GLOB RATIO 0.9 (1.0-2.1); ALBUMIN 3.3 g/dL (3.5-5.0); ALT/SGPT 24 U/L (21-72); AST/SGOT 23 U/L (17-59); BLOOD UREA NITROGEN 19 mg/dl (9-20); CALCIUM 9.2 mg/dL (8.4-10.2); GFR AFRICAN-AMERICAN > 60; GFR NON-AFRICAN AMERICAN > 60
[2017-11-26] MEDS: Insulin Lispro (humaLOG) 100 Units/ml Inj SC SCH ×6 (07:30→16:35)
[2017-11-26] MEDS: Amylase/Lipase/Protease 5,000 Units ECC PO SCH ×2 (08:28→12:44)
[2017-11-26] MEDS: Silver Sulfadiazine 1% Cream (20 gm) TOP SCH (08:29)
[2017-11-26] MEDS: Magnesium Hydroxide Susp 30 ml UD PO SCH (08:48)
--- NOTE | 2017-11-26 09:18 | CP.PCM.PN ---
Subjective - Date & Time of Evaluation Date of Evaluation: 11/26/17 Time of Evaluation: 09:17 - Subjective Subjective: pt doing well. nof /c, n/v/d. no change in status, k 5.0 now pt for dc today to longterm. per momo lucero MD can go on cipro po until iv cefepime ready spoke to pts mother phil, made aware of situation Objective - Vital Signs/Intake and Output Vital Signs (last 24 hours): Temp Pulse Resp BP Pulse Ox 97.4 F L 73 20 156/80 H 96 11/26/17 09:00 11/26/17 09:00 11/26/17 09:00 11/26/17 09:00 11/26/17 09:00 - Medications Medications: Current Medications Acetaminophen (Tylenol 325mg Tab) 650 mg PO Q4 PRN PRN Reason: T>100.4 Albuterol/Ipratropium (Duoneb 3 Mg/0.5 Mg (3 Ml) Ud) 3 ml INH RQ6 [facility] Last Admin: 11/26/17 07:22 Dose: 3 ml Allopurinol (Zyloprim) 300 mg PO DAILY [facility] Last Admin: 11/26/17 08:31 Dose: 300 mg Aluminum Hydroxide (Amphogel) 640 mg PO Q6 PRN PRN Reason: Indigestion Amlodipine Besylate (Norvasc) 5 mg PO Q12 [facility] Last Admin: 11/26/17 08:30 Dose: 5 mg Amylase (Pancrease 88802 U-5000 U-[id number] U) 5,000 unit PO TID [facility] Last Admin: 11/26/17 08:28 Dose: 5,000 unit Bacitracin (Bacitracin) 1 ea TOP QSHIFT [facility] Last Admin: 11/17/17 09:42 Dose: 1 ea Clonidine HCl (Catapres) 0.2 mg PO Q8H [facility] Last Admin: 11/26/17 05:54 Dose: 0.2 mg Colchicine (Colocrys) 0.6 mg PO DAILY [facility] Last Admin: 11/26/17 08:28 Dose: 0.6 mg Dicloxacillin Sodium (Dynapen) 500 mg PO Q6 [facility] Last Admin: 11/26/17 03:32 Dose: Not Given Docusate Sodium (Colace) 100 mg PO BID [facility] Last Admin: 11/26/17 08:29 Dose: 100 mg Duloxetine HCl (Cymbalta) 60 mg PO DAILY [facility] Last Admin: 11/26/17 08:29 Dose: 60 mg Gabapentin (Neurontin) 300 mg PO TID [facility] Last Admin: 11/26/17 08:28 Dose: 300 mg Gemfibrozil (Lopid) 600 mg PO BID [facility] Last Admin: 11/26/17 08:31 Dose: 600 mg Cefepime HCl 2 gm/ Sodium (Chloride) 100 mls @ 100 mls/hr IVPB Q12 [facility] PRN Reason: Protocol Last Admin: 11/25/17 21:47 Dose: 100 mls/hr Insulin Detemir (Levemir) 30 units SC HS [facility] Insulin Human Lispro (Humalog) 0 units SC ACHS [facility] PRN Reason: Protocol Last Admin: 11/25/17 22:20 Dose: Not Given Insulin Human Lispro (Humalog) 10 units SC AC [facility] Losartan Potassium (Cozaar) 50 mg PO Q12@0600,1800 [facility] Last Admin: 11/26/17 05:53 Dose: 50 mg Magnesium Hydroxide (Milk Of Magnesia) 30 ml PO DAILY [facility] Last Admin: 11/26/17 08:48 Dose: 30 ml Methadone HCl (Methadone) 150 mg PO DAILY [facility] Last Admin: 11/26/17 08:46 Dose: 150 mg Nystatin (Nystop Topical Powder) 1 applic TOP TID [facility] Last Admin: 11/26/17 08:31 Dose: 1 applic Probenecid (Probenecid) 500 mg PO DAILY [facility] Last Admin: 11/26/17 08:29 Dose: 500 mg Silver Sulfadiazine (Silvadene 1% 20 Gm) 1 ea TOP DAILY [facility] Last Admin: 11/26/17 08:29 Dose: 1 applic - Labs Labs: 11/26/17 05:55 11/26/17 05:55 PT 12.4 Seconds (9.8-13.1) 11/25/17 05:35 INR 1.1 (0.9-1.2) 11/25/17 05:35 APTT 35.2 Seconds (25.6-37.1) 11/25/17 05:35 - Constitutional Appears: Well, Non-toxic, No Acute Distress - Head Exam Head Exam: ATRAUMATIC, NORMAL INSPECTION, NORMOCEPHALIC - Eye Exam Eye Exam: EOMI, Normal appearance, PERRL Pupil Exam: NORMAL ACCOMODATION, PERRL - ENT Exam ENT Exam: Mucous Membranes Moist, Normal Exam - Neck Exam Neck Exam: Full ROM, Normal Inspection. absent: Lymphadenopathy - Respiratory Exam Respiratory Exam: Clear to Ausculation Bilateral, NORMAL BREATHING PATTERN - Cardiovascular Exam Cardiovascular Exam: REGULAR RHYTHM, RRR, +S1, +S2. absent: Murmur - GI/Abdominal Exam GI & Abdominal Exam: Soft, Normal Bowel Sounds. absent: Tenderness - Extremities Exam Extremities Exam: Full ROM, Normal Capillary Refill, Normal Inspection. absent : Joint Swelling, Pedal Edema - Back Exam Back Exam: NORMAL INSPECTION - Neurological Exam Neurological Exam: Alert, Awake, CN II-XII Intact, Normal Gait, Oriented x3 - Psychiatric Exam Psychiatric exam: Normal Affect, Normal Mood - Skin Skin Exam: Dry, Intact, Normal Color, Warm Assessment and Plan (1) DVT prophylaxis Status: Acute (2) Osteomyelitis Status: Acute (3) Diabetes mellitus type 2, uncontrolled Status: Acute (4) Tremor Status: Acute (5) Hyperkalemia Status: Acute (6) Dehydration Status: Acute (7) PAD (peripheral artery disease) Status: Acute - Assessment and Plan (Free Text) Assessment: (1) DVT prophylaxis Assessment & Plan: scd and aehose lovenox to be held starting wednesday 11/29 for surgery 12/02 Status: Acute (2) Osteomyelitis Assessment & Plan: cont anbx for now Podiatry/ID mri and xr noted. pt had refused surgery, to be operated outpt 12/02-saturday to be scheduled / Status: Acute (3) Diabetes mellitus type 2, uncontrolled Assessment & Plan: riss, homd meds, diet control levemir fsbg endo Status: Acute (4) Tremor Assessment & Plan: glucose control chronic from 3x cva Status: Acute (5) Hyperkalemia Assessment & Plan: resolved, cont k restriction and hydration Status: Acute (6) Dehydration Assessment & Plan: ivf Status: Acute (7) PAD (peripheral artery disease) cardio vascular prn Status: Acute
[2017-11-26] MEDS: Cefepime 2 GM in Sodium Chloride 0.9% 100 ML IVPB SCH (09:51)
--- NOTE | 2017-11-26 10:14 | CP.PCM.PN ---
Subjective - Date & Time of Evaluation Date of Evaluation: 11/26/17 Time of Evaluation: 08:00 - Subjective Subjective: for d/c to [facility] nad Objective - Vital Signs/Intake and Output Vital Signs (last 24 hours): Temp Pulse Resp BP Pulse Ox 97.4 F L 73 20 156/80 H 96 11/26/17 09:00 11/26/17 09:00 11/26/17 09:00 11/26/17 09:00 11/26/17 09:00 - Medications Medications: Current Medications Acetaminophen (Tylenol 325mg Tab) 650 mg PO Q4 PRN PRN Reason: T>100.4 Albuterol/Ipratropium (Duoneb 3 Mg/0.5 Mg (3 Ml) Ud) 3 ml INH RQ6 [facility] Last Admin: 11/26/17 07:22 Dose: 3 ml Allopurinol (Zyloprim) 300 mg PO DAILY [facility] Last Admin: 11/26/17 08:31 Dose: 300 mg Aluminum Hydroxide (Amphogel) 640 mg PO Q6 PRN PRN Reason: Indigestion Amlodipine Besylate (Norvasc) 5 mg PO Q12 [facility] Last Admin: 11/26/17 08:30 Dose: 5 mg Amylase (Pancrease 61654 U-5000 U-[id number] U) 5,000 unit PO TID [facility] Last Admin: 11/26/17 08:28 Dose: 5,000 unit Bacitracin (Bacitracin) 1 ea TOP QSHIFT [facility] Last Admin: 11/17/17 09:42 Dose: 1 ea Clonidine HCl (Catapres) 0.2 mg PO Q8H [facility] Last Admin: 11/26/17 05:54 Dose: 0.2 mg Colchicine (Colocrys) 0.6 mg PO DAILY [facility] Last Admin: 11/26/17 08:28 Dose: 0.6 mg Dicloxacillin Sodium (Dynapen) 500 mg PO Q6 [facility] Last Admin: 11/26/17 09:53 Dose: 500 mg Docusate Sodium (Colace) 100 mg PO BID [facility] Last Admin: 11/26/17 08:29 Dose: 100 mg Duloxetine HCl (Cymbalta) 60 mg PO DAILY [facility] Last Admin: 11/26/17 08:29 Dose: 60 mg Gabapentin (Neurontin) 300 mg PO TID [facility] Last Admin: 11/26/17 08:28 Dose: 300 mg Gemfibrozil (Lopid) 600 mg PO BID [facility] Last Admin: 11/26/17 08:31 Dose: 600 mg Cefepime HCl 2 gm/ Sodium (Chloride) 100 mls @ 100 mls/hr IVPB Q12 [facility] PRN Reason: Protocol Last Admin: 11/26/17 09:51 Dose: 100 mls/hr Insulin Detemir (Levemir) 30 units SC HS [facility] Insulin Human Lispro (Humalog) 0 units SC ACHS [facility] PRN Reason: Protocol Last Admin: 11/26/17 07:30 Dose: Not Given Insulin Human Lispro (Humalog) 10 units SC AC [facility] Losartan Potassium (Cozaar) 50 mg PO Q12@0600,1800 [facility] Last Admin: 11/26/17 05:53 Dose: 50 mg Magnesium Hydroxide (Milk Of Magnesia) 30 ml PO DAILY [facility] Last Admin: 11/26/17 08:48 Dose: 30 ml Methadone HCl (Methadone) 150 mg PO DAILY [facility] Last Admin: 11/26/17 08:46 Dose: 150 mg Nystatin (Nystop Topical Powder) 1 applic TOP TID [facility] Last Admin: 11/26/17 08:31 Dose: 1 applic Probenecid (Probenecid) 500 mg PO DAILY [facility] Last Admin: 11/26/17 08:29 Dose: 500 mg Silver Sulfadiazine (Silvadene 1% 20 Gm) 1 ea TOP DAILY [facility] Last Admin: 11/26/17 08:29 Dose: 1 applic - Labs Labs: 11/26/17 05:55 11/26/17 05:55 PT 12.4 Seconds (9.8-13.1) 11/25/17 05:35 INR 1.1 (0.9-1.2) 11/25/17 05:35 APTT 35.2 Seconds (25.6-37.1) 11/25/17 05:35 - Constitutional Appears: Non-toxic, Chronically Ill - Head Exam Head Exam: NORMOCEPHALIC - Eye Exam Eye Exam: PERRL - ENT Exam ENT Exam: Mucous Membranes Dry - Neck Exam Neck Exam: absent: Lymphadenopathy, Thyromegaly - Respiratory Exam Respiratory Exam: Decreased Breath Sounds Assessment and Plan (1) Osteomyelitis Status: Acute (2) PAD (peripheral artery disease) Status: Acute
--- NOTE | 2017-11-26 11:09 | CP.PCM.PN ---
Subjective - Date & Time of Evaluation Date of Evaluation: 11/26/17 Time of Evaluation: 11:06 - Subjective Subjective: Podiatry Progress Note for Dr. Rose 42M seen and evaluated at bedside for open ulceration with underlying OM of right third digit. Patient is AAO x 3 and NAD, resting in bed. States that overnight, two small pieces of bone came out of his ulcer site. States that pain is well controlled. Denies any new pedal complaints at this time. Denies any recent N/V/F/C/CP/SOB/D/posterior calf pain when squeezed Objective - Vital Signs/Intake and Output Vital Signs (last 24 hours): Temp Pulse Resp BP Pulse Ox 97.4 F L 73 20 156/80 H 96 11/26/17 09:00 11/26/17 09:00 11/26/17 09:00 11/26/17 09:00 11/26/17 09:00 - Medications Medications: Current Medications Acetaminophen (Tylenol 325mg Tab) 650 mg PO Q4 PRN PRN Reason: T>100.4 Albuterol/Ipratropium (Duoneb 3 Mg/0.5 Mg (3 Ml) Ud) 3 ml INH RQ6 [facility] Last Admin: 11/26/17 07:22 Dose: 3 ml Allopurinol (Zyloprim) 300 mg PO DAILY [facility] Last Admin: 11/26/17 08:31 Dose: 300 mg Aluminum Hydroxide (Amphogel) 640 mg PO Q6 PRN PRN Reason: Indigestion Amlodipine Besylate (Norvasc) 5 mg PO Q12 [facility] Last Admin: 11/26/17 08:30 Dose: 5 mg Amylase (Pancrease 32261 U-5000 U-[id number] U) 5,000 unit PO TID [facility] Last Admin: 11/26/17 08:28 Dose: 5,000 unit Bacitracin (Bacitracin) 1 ea TOP QSHIFT [facility] Last Admin: 11/17/17 09:42 Dose: 1 ea Clonidine HCl (Catapres) 0.2 mg PO Q8H [facility] Last Admin: 11/26/17 05:54 Dose: 0.2 mg Colchicine (Colocrys) 0.6 mg PO DAILY [facility] Last Admin: 11/26/17 08:28 Dose: 0.6 mg Dicloxacillin Sodium (Dynapen) 500 mg PO Q6 [facility] Last Admin: 11/26/17 09:53 Dose: 500 mg Docusate Sodium (Colace) 100 mg PO BID [facility] Last Admin: 11/26/17 08:29 Dose: 100 mg Duloxetine HCl (Cymbalta) 60 mg PO DAILY [facility] Last Admin: 11/26/17 08:29 Dose: 60 mg Gabapentin (Neurontin) 300 mg PO TID [facility] Last Admin: 11/26/17 08:28 Dose: 300 mg Gemfibrozil (Lopid) 600 mg PO BID [facility] Last Admin: 11/26/17 08:31 Dose: 600 mg Cefepime HCl 2 gm/ Sodium (Chloride) 100 mls @ 100 mls/hr IVPB Q12 [facility] PRN Reason: Protocol Last Admin: 11/26/17 09:51 Dose: 100 mls/hr Insulin Detemir (Levemir) 30 units SC HS [facility] Insulin Human Lispro (Humalog) 0 units SC ACHS [facility] PRN Reason: Protocol Last Admin: 11/26/17 07:30 Dose: Not Given Insulin Human Lispro (Humalog) 10 units SC AC [facility] Losartan Potassium (Cozaar) 50 mg PO Q12@0600,1800 [facility] Last Admin: 11/26/17 05:53 Dose: 50 mg Magnesium Hydroxide (Milk Of Magnesia) 30 ml PO DAILY [facility] Last Admin: 11/26/17 08:48 Dose: 30 ml Methadone HCl (Methadone) 150 mg PO DAILY [facility] Last Admin: 11/26/17 08:46 Dose: 150 mg Nystatin (Nystop Topical Powder) 1 applic TOP TID [facility] Last Admin: 11/26/17 08:31 Dose: 1 applic Probenecid (Probenecid) 500 mg PO DAILY [facility] Last Admin: 11/26/17 08:29 Dose: 500 mg Silver Sulfadiazine (Silvadene 1% 20 Gm) 1 ea TOP DAILY [facility] Last Admin: 11/26/17 08:29 Dose: 1 applic - Labs Labs: 11/26/17 05:55 11/26/17 05:55 PT 12.4 Seconds (9.8-13.1) 11/25/17 05:35 INR 1.1 (0.9-1.2) 11/25/17 05:35 APTT 35.2 Seconds (25.6-37.1) 11/25/17 05:35 - Constitutional Appears: Well, Non-toxic, No Acute Distress - Head Exam Head Exam: ATRAUMATIC, NORMOCEPHALIC - Extremities Exam Additional comments: RLE focused exam: Dressing C/D/I to right foot VASC: DP and PT palpable, CFT < 3 seconds x 5 digits, temperature gradient WNL, very mild nonpitting localized edema noted to the 3rd digit periwound area ORTHO: left AKA noted, tenderness with palpation to the right third digit NEURO: Epicritic and protective sensation grossly diminished b/l DERM: circular ulceration noted to the dorsum of the right 3rd digit measuring approximately 1 cm x 1 cm x .2 cm, wound base mainly granular with fibrotic tissue noted, two new bony fragments from overnight placed in cup at bedside by patient, maceration noted to the periwound, no notable erythema (<.5 cm in margins), no streaking, no tunneling, no undermining, no purulence, no malodor, no bone exposed noted. Hyperpigmented skin discoloration/noted to the entire 3rd digit - Neurological Exam Neurological Exam: Alert, Awake, Oriented x3 - Psychiatric Exam Psychiatric exam: Normal Affect, Normal Mood Assessment and Plan - Assessment and Plan (Free Text) Assessment: 42M seen and evaluated at bedside for open ulceration with underlying OM of right third digit Plan: Patient seen and evaluated Plan discussed with Dr. Rose Afebrile, absent leukocytosis Continue IV abx per ID Right foot X-ray reviewed - erosive changes noted to 3rd digit proximal phalanx suggestive of osteomyelitis MRI-osteomyelitis of 3rd digit diffusely including erosive changes at the distal segment proximal phalanx No surgical intervention planned at this time Wound dressed with Telfa, gauze and tape Podiatry will continue to follow while patient in house Patient will need to follow up for wound care after discharge
--- NOTE | 2017-11-26 14:57 | CP.PCM.DIS ---
Provider - Provider Date of Admission: 11/14/17 00:09 Attending physician: Miranda Rivers MD Time Spent in preparation of Discharge (in minutes): 30 Diagnosis - Discharge Diagnosis (1) DVT prophylaxis Status: Acute (2) Osteomyelitis Status: Acute (3) Diabetes mellitus type 2, uncontrolled Status: Acute (4) Tremor Status: Acute (5) Hyperkalemia Status: Acute (6) Dehydration Status: Acute (7) PAD (peripheral artery disease) Status: Acute Hospital Course - Lab Results Lab Results: Micro Results 11/14/17 01:15 Blood Blood Culture - Final NO GROWTH AFTER 5 DAYS 11/14/17 01:15 Blood Gram Stain - Final TEST NOT PERFORMED 11/14/17 01:00 Blood Blood Culture - Final NO GROWTH AFTER 5 DAYS 11/14/17 01:00 Blood Gram Stain - Final TEST NOT PERFORMED Most Recent Lab Values WBC 5.0 K/uL (4.8-10.8) 11/26/17 05:55 RBC 3.83 Mil/uL (4.40-5.90) L 11/26/17 05:55 Hgb 10.5 g/dL (12.0-18.0) L 11/26/17 05:55 Hct 32.0 % (35.0-51.0) L 11/26/17 05:55 MCV 83.5 fl (80.0-94.0) 11/26/17 05:55 MCH 27.4 pg (27.0-31.0) 11/26/17 05:55 MCHC 32.8 g/dL (33.0-37.0) L 11/26/17 05:55 RDW 15.5 % (11.5-14.5) H 11/26/17 05:55 Plt Count 150 K/uL (130-400) 11/26/17 05:55 MPV 9.0 fl (7.2-11.7) 11/26/17 05:55 Neut % (Auto) 59.1 % (50.0-75.0) 11/26/17 05:55 Lymph % (Auto) 30.9 % (20.0-40.0) 11/26/17 05:55 Leon % (Auto) 7.2 % (0.0-10.0) 11/26/17 05:55 Eos % (Auto) 1.8 % (0.0-4.0) 11/26/17 05:55 Baso % (Auto) 1.0 % (0.0-2.0) 11/26/17 05:55 Neut # (Auto) 2.9 K/uL (1.8-7.0) 11/26/17 05:55 Lymph # (Auto) 1.5 K/uL (1.0-4.3) 11/26/17 05:55 Leon # (Auto) 0.4 K/uL (0.0-0.8) 11/26/17 05:55 Eos # (Auto) 0.1 K/uL (0.0-0.7) 11/26/17 05:55 Baso # (Auto) 0.1 K/uL (0.0-0.2) 11/26/17 05:55 PT 12.4 Seconds (9.8-13.1) 11/25/17 05:35 INR 1.1 (0.9-1.2) 11/25/17 05:35 APTT 35.2 Seconds (25.6-37.1) 11/25/17 05:35 Sodium 137 mmol/l (132-148) 11/26/17 05:55 Potassium 5.0 MMOL/L (3.6-5.0) 11/26/17 05:55 Chloride 103 mmol/L (98-107) 11/26/17 05:55 Carbon Dioxide 24 mmol/L (22-30) 11/26/17 05:55 Anion Gap 15 (10-20) 11/26/17 05:55 BUN 19 mg/dl (9-20) 11/26/17 05:55 Creatinine 0.7 mg/dl (0.8-1.5) L 11/26/17 05:55 Est GFR ( Amer) > 60 11/26/17 05:55 Est GFR (Non-Af Amer) > 60 11/26/17 05:55 POC Glucose (mg/dL) 229 mg/dL (65-110) H 11/26/17 10:52 Random Glucose 278 mg/dL (75-110) H 11/26/17 05:55 Hemoglobin A1c 8.8 % (4.2-6.5) H 11/16/17 05:20 Lactic Acid 1.2 MMOL/L (0.7-2.1) 11/14/17 01:00 Calcium 9.2 mg/dL (8.4-10.2) 11/26/17 05:55 Total Bilirubin 0.5 mg/dl (0.2-1.3) 11/26/17 05:55 AST 23 U/L (17-59) 11/26/17 05:55 ALT 24 U/L (21-72) 11/26/17 05:55 Alkaline Phosphatase 108 U/L (38-126) 11/26/17 05:55 Total Protein 6.9 G/DL (6.3-8.2) 11/26/17 05:55 Albumin 3.3 g/dL (3.5-5.0) L 11/26/17 05:55 Globulin 3.6 gm/dL (2.2-3.9) 11/26/17 05:55 Albumin/Globulin Ratio 0.9 (1.0-2.1) L 11/26/17 05:55 Triglycerides 132 mg/DL (0-149) 11/23/17 04:50 Cholesterol 189 mg/dL (0-199) 11/23/17 04:50 LDL Cholesterol Direct 104 mg/dL (0-129) 11/23/17 04:50 HDL Cholesterol 25 MG/DL (30-70) L 11/23/17 04:50 TSH 3rd Generation 4.95 mIU/ML (0.46-4.68) H 11/23/17 04:50 Urine Opiates Screen Negative (NEGATIVE) 11/14/17 00:30 Urine Methadone Screen Positive (NEGATIVE) H 11/14/17 00:30 Ur Barbiturates Screen Negative (NEGATIVE) 11/14/17 00:30 Ur Phencyclidine Scrn Negative (NEGATIVE) 11/14/17 00:30 Ur Amphetamines Screen Negative (NEGATIVE) 11/14/17 00:30 U Benzodiazepines Scrn Negative (NEGATIVE) 11/14/17 00:30 U Oth Cocaine Metabols Positive (NEGATIVE) H 11/14/17 00:30 U Cannabinoids Screen Negative (NEGATIVE) 11/14/17 00:30 Alcohol, Quantitative < 10 mg/dl (0-10) 11/14/17 01:00 - Hospital Course Hospital Course: iv anbx podiatry ID and cardio consults wound care Discharge Exam - Head Exam Head Exam: ATRAUMATIC, NORMOCEPHALIC Discharge Plan - Discharge Medications Prescriptions: Ciprofloxacin HCl [Cipro] 500 mg PO BID #10 tab Insulin Aspart [Novolog] 10 units SC AC #10 ml - Follow Up Plan Condition: FAIR Disposition: HOME/ ROUTINE Instructions: Osteomyelitis (DC) Additional Instructions: pt for outpt surgery-r foot 3rd digit amputation saturday 12/02 w/ dr donny nichole final dx r foot 3rd digit osteomyelitis, uncontrolled dm2, hyperkalemia-resolved , morbid obesity meds per med rec, cont anbx x 6 wks-cefepime 2gm iv q12 x 6 wks Referrals: Semaj Xavier DO [Non-Staff] - Donny Nichole DPM [Staff Provider] -
[2017-11-26 16:52] VITALS: BP 134/86; PULSE 96; RESP 18; TEMP 98.2; O2SAT 98
--- NOTE | 2017-11-26 17:59 | PN ---
DATE: 11/26/2017 ENDOCRINOLOGY FOLLOWUP NOTE LOCATION: In room 658. SUBJECTIVE: This is a 42-year-old male with recent uncontrolled type-2 insulin-requiring diabetes, currently undergoing IV antibiotic management for lower extremity osteomyelitis and is now being followed closely for metabolic management. His glycemic levels are fluctuating, but improved and the latest glucose levels have ranged from 163 to 192 and 280 mg/dL. LABORATORY DATA: His latest chemistry showed a BUN of 19, sodium 137, potassium 5, chloride 103, CO2 of 24, glucose 278, and creatinine 0.7. ASSESSMENT AND PLAN: So at this time, we will modify once again his basal and bolus insulin regimen to allow for dose equilibration and increase the Humalog to 10 units subcutaneous t.i.d. before meals to start today as ordered. We will also increase the basal insulin with Levemir to be given as 30 units subcutaneous at bedtime daily to start tonight. We will titrate incremental as indicated to optimize metabolic control. We will follow. Gaye Llamas MD
[2017-11-26] MEDS ORDERED: Insulin Detemir 100 Units/ml Inj SC SCH (22:00)
== END 2017-11-26 17:30 | DRG 566 ==
LOC: H.ER → H.ERHOLD 00:09 → H.MEDSURG1 04:41
PROVIDERS: ADMIT Family Medicine; ATTEND Family Medicine
PROC: BQ3LZZZ Magnetic Resonance Imaging (MRI) of Right Foot (ICD-10-PCS; 2017-11-19)
PROC: 02HV33Z Insertion of Infusion Device into Superior Vena Cava, Percutaneous Approach (ICD-10-PCS; principal; 2017-11-21)
PROC: B548ZZA Ultrasonography of Superior Vena Cava, Guidance (ICD-10-PCS; 2017-11-21)
PROC: 3E04329 Introduction of Other Anti-infective into Central Vein, Percutaneous Approach (ICD-10-PCS; 2017-11-21)
DX: E11.69 Type 2 diabetes mellitus with other specified complication (principal); M86.171 Other acute osteomyelitis, right ankle and foot; E11.51 Type 2 diabetes mellitus with diabetic peripheral angiopathy without gangrene; E87.5 Hyperkalemia; L97.519 Non-pressure chronic ulcer of other part of right foot with unspecified severity; E11.319 Type 2 diabetes mellitus with unspecified diabetic retinopathy without macular edema; E86.0 Dehydration; F11.20 Opioid dependence, uncomplicated; E11.621 Type 2 diabetes mellitus with foot ulcer; E11.65 Type 2 diabetes mellitus with hyperglycemia; E11.42 Type 2 diabetes mellitus with diabetic polyneuropathy; E66.01 Morbid (severe) obesity due to excess calories; Z68.35 Body mass index [BMI] 35.0-35.9, adult; E78.5 Hyperlipidemia, unspecified; I10 Essential (primary) hypertension; J45.909 Unspecified asthma, uncomplicated; E78.00 Pure hypercholesterolemia, unspecified; Z89.612 Acquired absence of left leg above knee; F17.210 Nicotine dependence, cigarettes, uncomplicated; Z79.4 Long term (current) use of insulin; Z86.73 Personal history of transient ischemic attack (TIA), and cerebral infarction without residual deficits; Z88.6 Allergy status to analgesic agent

== ENCOUNTER 2017-11-28 18:16 | Inpatient (IN) | payer OTHER ==
[2017-11-28 18:16] VITALS: BMI 48.2
--- NOTE | 2017-11-28 18:40 | ED PDOC ---
Lower Extremity Pain/Injury Time Seen by Provider: 11/28/17 18:38 Chief Complaint (Nursing): Lower Extremity Problem/Injury Chief Complaint (Provider): right foot infection History Per: Patient (42 y/o male h/o DM h/o osteomyelitis recently discharged from hospital 11/26/2017 after admission with iv antibiotic therapy and ID evaluation. Patient was to continue cefipime 2gm iv q6/ and cipro po. Sent from facility at [facility] for treatment due to not having antibiotics available.) Past Medical History Reviewed: Historical Data, Nursing Documentation, Vital Signs Vital Signs: Last Vital Signs Temp 98.4 F 11/28/17 18:18 Pulse 96 H 11/28/17 18:18 Resp 18 11/28/17 18:18 BP 149/107 H 11/28/17 18:18 Pulse Ox 98 11/28/17 18:18 - Medical History PMH: Arthritis (hands), Asthma, Bronchitis, CVA (3x), Diabetes, HTN, Hypercholesterolemia Denies: Depression, Hepatitis, Chronic Kidney Disease, Sexually Transmitted Disease - Surgical History Surgical History: Denies: Pacemaker - Family History Family History: States: Diabetes, Hypertension - Immunization History Hx Tetanus Toxoid Vaccination: Yes Hx Influenza Vaccination: Yes Hx Pneumococcal Vaccination: Yes - Home Medications Home Medications: Ambulatory Orders Medication Instructions Recorded Acetaminophen [Tylenol 325mg tab] 650 mg PO Q4H PRN 11/14/17 Allopurinol [Zyloprim] 300 mg PO DAILY 11/14/17 Bacitracin Ointment [Bacitracin] 1 appl TOP Q12 11/14/17 Cefepime IV 2 gm in NS [Maxipime 2 gm IV Q12H 11/14/17 2gm] DULoxetine [Cymbalta] 60 mg PO DAILY 11/14/17 Dicloxacillin Sodium 500 mg PO Q6H 11/14/17 Gabapentin [Neurontin] 300 mg PO TID 11/14/17 Gemfibrozil [Lopid] 600 mg PO BID 11/14/17 Lipase/Protease/Amylase [Creon Dr 1 cap PO TID 11/14/17 6,000 Units Capsule] Losartan Potassium 50 mg PO Q12H 11/14/17 Magnesium Hydroxide [Milk of 30 ml PO DAILY 11/14/17 Magnesia] Probenecid/Colchicine 1 tab PO DAILY 11/14/17 [Probenecid-Colchicine Tabs] Silver Sulfadiazine 1% [Silvadene 1 appl TOP DAILY 11/14/17 1%] Ciprofloxacin HCl [Cipro] 500 mg PO BID #10 tab 11/26/17 Docusate [Colace] 100 mg PO BID cap 11/26/17 Insulin Aspart [Novolog] 10 units SC AC #10 ml 11/26/17 Insulin Detemir [Levemir] 30 units SC HS vial 11/26/17 Methadone 150 mg PO DAILY tab 11/26/17 Nystatin [Nystop Topical Powder] 1 applic TOP TID bottle 11/26/17 Albuterol 0.083% [Albuterol 0.083% 3 ml IH Q6 PRN 11/28/17 Inhal Melonie (2.5 mg/3 ml) UD] Bismuth Subsalicylate 30 ml PO BID PRN 11/28/17 [Pepto-Bismol] Folic Acid [Folic Acid] 1 mg PO DAILY 11/28/17 Ibuprofen [Motrin Tab] 400 mg PO BID PRN 11/28/17 Loperamide [Imodium] 2 mg PO BID PRN 11/28/17 Multivitamin [Multi-Vitamin Daily] 1 tab PO DAILY 11/28/17 amLODIPine [Norvasc] 5 mg PO DAILY 11/28/17 chlordiazePOXIDE [Librium] 50 mg PO BID 11/28/17 - Allergies Allergies/Adverse Reactions: Allergies Allergy/AdvReac Type Severity Reaction Status Date / Time morphine AdvReac ITCHING Verified 11/14/17 00:03 Review of Systems ROS Statement: Except As Marked, All Systems Reviewed And Found Negative Physical Exam - Reviewed Nursing Documentation Reviewed: Yes Vital Signs Reviewed: Yes - Physical Exam Appears: Positive for: Well, Non-toxic, No Acute Distress Head Exam: Positive for: ATRAUMATIC, NORMAL INSPECTION, NORMOCEPHALIC Skin: Positive for: Normal Color, Warm, DRY Eye Exam: Positive for: EOMI, Normal appearance, PERRL ENT: Positive for: Normal ENT Inspection Neck: Positive for: Normal, Painless ROM Cardiovascular/Chest: Positive for: Regular Rate, Rhythm Respiratory: Positive for: CNT, Normal Breath Sounds Gastrointestinal/Abdominal: Positive for: Normal Exam, Soft Back: Positive for: Normal Inspection Extremity: Positive for: Normal ROM Neurologic/Psych: Positive for: Alert, Oriented - Laboratory Results Result Diagrams: 11/28/17 19:20 11/28/17 19:20 - ECG O2 Sat by Pulse Oximetry: 98 - Progress ED Course And Treament: SEEN BY PODIATRY RECOMMENDS IV ANTIBIOTICS CEFEPIME 2 GM IV ORDERED; DILAUDID 0.5 MG IV X 1 DOSE D/W DR. HALL Disposition - Clinical Impression Clinical Impression: Osteomyelitis - Patient ED Disposition Is Patient to be Admitted: Yes - Disposition Disposition Time: 20:54 Condition: FAIR Forms: [employer] ([place]ron[place]) - Pt Status Changed To: Hospital Disposition Of: Observation
[2017-11-28] MEDS ORDERED: Cefepime 2 GM in Sodium Chloride 0.9% 100 ML IVPB ONE (19:00)
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
[2017-11-28 19:34] LABS: VENOUS BLOOD GAS BASE EXCESS -0.8 mmol/L (0.0-2.0); VENOUS BLOOD GAS PCO2 41 mmHg (40-60); VENOUS BLOOD GAS PO2 54 mm/Hg (30-55); VENOUS BLOOD PH 7.38 (7.32-7.43)
[2017-11-28 19:38] LABS: BASO # 0.1 K/uL (0.0-0.2); BASO % 0.9 % (0.0-2.0); EOS # 0.1 K/uL (0.0-0.7); EOS % 1.1 % (0.0-4.0); HEMOGLOBIN 11.3 g/dL (12.0-18.0); LYMPH # 1.6 K/uL (1.0-4.3); LYMPH % 26.8 % (20.0-40.0); MEAN CELL VOLUME 82.7 fl (80.0-94.0); MEAN CORPUSCULAR HEMOGLOBIN 27.3 pg (27.0-31.0); MEAN PLATELET VOLUME 9.2 fl (7.2-11.7); MONO # 0.4 K/uL (0.0-0.8); MONO % 6.8 % (0.0-10.0); NEUT # 3.9 K/uL (1.8-7.0); NEUT % 64.4 % (50.0-75.0); RBC 4.14 Mil/uL (4.40-5.90); RED CELL DISTRIBUTION WIDTH 15.3 % (11.5-14.5)
[2017-11-28 19:49] LABS: BLOOD UREA NITROGEN 30 mg/dl (9-20); CALCIUM 9.4 mg/dL (8.4-10.2); GFR AFRICAN-AMERICAN > 60; GFR NON-AFRICAN AMERICAN > 60
[2017-11-28] MEDS ORDERED: HYDROmorphone 0.5 mg/0.5 ml ISec IVP STA (19:59)
[2017-11-28] MEDS ORDERED: Cefepime 2 GM in Sodium Chloride 0.9% 100 ML IVPB SCH (22:00)
[2017-11-28] MEDS ORDERED: Bismuth Subsalicylate 262 mg Chew Tab PO PRN (22:48)
[2017-11-29] MEDS ORDERED: HYDROmorphone 0.5 mg/0.5 ml ISec IVP ONE (01:01)
[2017-11-29] MEDS: Sodium Chloride 0.9% 1,000 ML IV SCH ×3 (01:13→18:54)
[2017-11-29 06:42] LABS: HEMOGLOBIN 10.5 g/dL (12.0-18.0); MEAN CELL VOLUME 83.8 fl (80.0-94.0); MEAN CORPUSCULAR HEMOGLOBIN 27.5 pg (27.0-31.0); MEAN CORPUSCULAR HGB CONC 32.8 g/dL (33.0-37.0); RBC 3.81 Mil/uL (4.40-5.90); RED CELL DISTRIBUTION WIDTH 15.1 % (11.5-14.5); WHITE BLOOD COUNT 5.2 K/uL (4.8-10.8)
[2017-11-29 06:58] LABS: ALBUMIN 3.3 g/dL (3.5-5.0); ALT/SGPT 27 U/L (21-72); AST/SGOT 29 U/L (17-59); BLOOD UREA NITROGEN 29 mg/dl (9-20); CALCIUM 8.9 mg/dL (8.4-10.2); GFR AFRICAN-AMERICAN > 60; GFR NON-AFRICAN AMERICAN > 60
--- NOTE | 2017-11-29 07:37 | RAD ---
PROCEDURE: Right Foot Radiographs. HISTORY: foot pain COMPARISON: Right foot 11/14/2017. FINDINGS: BONES: Further erosive changes are identified with the distal epiphysis and metaphysis proximal phalanx right 3rd digit nearly completely eroded. Mild erosion is developing at the base of the middle phalanx 2nd digit. A small chronic erosion is seen the distal segment proximal phalanx right great toe. No acute fracture dislocation appreciable. Local soft tissues reflect trace emphysematous changes at the proximal 3rd digit. JOINTS: As above. SOFT TISSUES: As above. OTHER FINDINGS: None. IMPRESSION: Further erosive changes are developing surrounding the PIP joint right 3rd digit as discussed above with local soft tissue emphysema. Findings suggest osteomyelitis persisting. Alternatively, there may have been postoperative change. Clinically correlate further.
--- NOTE | 2017-11-29 08:18 | CARD ---
APPROVED REPORT EKG Measurement Heart [id number] <Conclusion> Normal sinus rhythm Cannot rule out Anterior infarct, age undetermined(poor R wave progression V2 to V3) Prolonged QT Abnormal ECG
--- NOTE | 2017-11-29 08:35 | RAD ---
HISTORY: routine COMPARISON: Portable chest 11/14/2017. FINDINGS: LUNGS: No active pulmonary disease. Diminished inspiratory volume noted. PLEURA: No significant pleural effusion identified, no pneumothorax apparent. CARDIOVASCULAR: Normal. OSSEOUS STRUCTURES: No significant abnormalities. VISUALIZED UPPER ABDOMEN: Normal. OTHER FINDINGS: None. IMPRESSION: Diminished inspiratory volume. No acute infiltrate, pleural effusion or pneumothorax identified. No pulmonary vascular congestion.
[2017-11-29] MEDS: Bacitracin OINT 15GM TOP SCH (08:41)
[2017-11-29] MEDS: Insulin Lispro (humaLOG) 100 Units/ml Inj SC SCH ×4 (08:44→22:30)
[2017-11-29] MEDS: Enoxaparin 40 mg Syringe SC SCH (08:46)
[2017-11-29] MEDS: Cefepime 2 GM in Sodium Chloride 0.9% 100 ML IVPB SCH ×2 (08:47→21:57)
[2017-11-29] MEDS: Amylase/Lipase/Protease 5,000 Units ECC PO SCH ×3 (08:52→17:03)
[2017-11-29] MEDS: Silver Sulfadiazine 1% Cream (20 gm) TOP SCH (08:53)
[2017-11-29] MEDS: Multivitamin With Minerals Tab PO SCH (08:54)
[2017-11-29] MEDS ORDERED: MULTIVITAMIN PO SCH (09:00)
[2017-11-29] MEDS ORDERED: Cefepime 2 GM in Sodium Chloride 0.9% 100 ML IVPB SCH (10:00)
[2017-11-29] MEDS: Magnesium Hydroxide Susp 30 ml UD PO SCH (10:23)
--- NOTE | 2017-11-29 11:18 | CP.PCM.PN ---
Subjective - Date & Time of Evaluation Date of Evaluation: 11/29/17 Time of Evaluation: 11:16 - Subjective Subjective: Podiatry Progress Note - Dr. Rose 42M seen and evaluated for right 3rd digit wound with underlying osteomyelitis. Patient was sent from [facility] for treatment of IV antibiotics as facility did not have the antibiotics available. Per chart, patient was to continue antibiotics for 6 weeks, Cefepime 2g IV q12 and follow up for outpatient surgery on 12/02/17 right foot 3rd digit amputation. At present, patient complains of 8/10 pain localized to 3rd digit, worsened since he was discharged. Denies N/V/F/D/C/SOB. Offers no other complaints. Objective - Vital Signs/Intake and Output Vital Signs (last 24 hours): Temp Pulse Resp BP Pulse Ox 97.3 F L 87 20 185/98 H 97 11/29/17 08:39 11/29/17 08:51 11/29/17 08:39 11/29/17 08:51 11/29/17 08:39 - Medications Medications: Current Medications Albuterol Sulfate (Albuterol 0.083% Inhal Melonie (2.5 Mg/3 Ml) Ud) 2.5 mg INH Q6H PRN PRN Reason: Cough Allopurinol (Zyloprim) 300 mg PO DAILY [facility] Last Admin: 11/29/17 08:54 Dose: 300 mg Amlodipine Besylate (Norvasc) 5 mg PO DAILY [facility] Last Admin: 11/29/17 08:51 Dose: 5 mg Amylase (Pancrease 27326 U-5000 U-16550 U) 5,000 unit PO TID [facility] Last Admin: 11/29/17 08:52 Dose: 5,000 unit Bacitracin (Bacitracin Oint) 1 applic TOP DAILY [facility] Last Admin: 11/29/17 08:41 Dose: 1 applic Dicloxacillin Sodium (Dynapen) 500 mg PO Q6H [facility] PRN Reason: Protocol Last Admin: 11/29/17 06:16 Dose: 500 mg Docusate Sodium (Colace) 100 mg PO BID [facility] Last Admin: 11/29/17 08:42 Dose: 100 mg Duloxetine HCl (Cymbalta) 60 mg PO TID [facility] Last Admin: 11/29/17 08:43 Dose: 60 mg Enoxaparin Sodium (Lovenox) 40 mg SC DAILY [facility] PRN Reason: Protocol Last Admin: 11/29/17 08:46 Dose: 40 mg Gabapentin (Neurontin) 300 mg PO TID [facility] Last Admin: 11/29/17 08:50 Dose: 300 mg Gemfibrozil (Lopid) 600 mg PO BID [facility] Last Admin: 11/29/17 10:22 Dose: 600 mg Sodium Chloride (Sodium Chloride 0.9%) 1,000 mls @ 100 mls/hr IV .Q10H [facility] Stop: 11/29/17 23:54 Last Admin: 11/29/17 08:54 Dose: Not Given Cefepime HCl 2 gm/ Sodium (Chloride) 100 mls @ 100 mls/hr IVPB Q12 [facility] PRN Reason: Protocol Last Admin: 11/29/17 08:47 Dose: 100 mls/hr Insulin Detemir (Levemir) 30 units SC HS [facility] Insulin Human Lispro (Humalog) 0 units SC ACHS [facility] PRN Reason: Protocol Last Admin: 11/29/17 08:44 Dose: 3 units Losartan Potassium (Cozaar) 50 mg PO Q12H [facility] Last Admin: 11/29/17 01:12 Dose: Not Given Magnesium Hydroxide (Milk Of Magnesia) 15 ml PO DAILY [facility] Last Admin: 11/29/17 10:23 Dose: 15 ml Methadone HCl (Methadone) 150 mg PO DAILY [facility] Last Admin: 11/29/17 08:48 Dose: 150 mg Multivitamins/Minerals (Therapeutic-M Tab) 1 tab PO DAILY [facility] Last Admin: 11/29/17 08:54 Dose: 1 tab Nystatin (Nystop Topical Powder) 1 applic TOP TID [facility] Last Admin: 11/29/17 08:51 Dose: 1 applic Probenecid (Probenecid) 500 mg PO DAILY [facility] Last Admin: 11/29/17 08:53 Dose: 500 mg Silver Sulfadiazine (Silvadene 1% 20 Gm) 1 ea TOP DAILY [facility] Last Admin: 11/29/17 08:53 Dose: 1 applic - Labs Labs: 11/29/17 06:31 11/29/17 06:31 - Constitutional Appears: Well, Non-toxic, No Acute Distress - Head Exam Head Exam: ATRAUMATIC, NORMOCEPHALIC - Extremities Exam Additional comments: RLE focused physical exam: VASC: DP and PT palpable, CFT < 3 seconds x 5 digits, temperature gradient WNL, mild nonpitting edema localized to 3rd digit ORTHO: left AKA noted, tenderness with palpation to the right third digit NEURO: Epicritic and protective sensation grossly diminished DERM: circular full-thickness ulceration noted to the dorsum of the right 3rd digit measuring approximately 1 cm x 1 cm x 0.2 cm, wound base 100% granular, erythema noted to entire 3rd digit, no streaking, no tunneling, no undermining, no purulence, no malodor. no other lesions present. - Neurological Exam Neurological Exam: Alert, Awake, Oriented x3 - Psychiatric Exam Psychiatric exam: Normal Affect, Normal Mood Assessment and Plan - Assessment and Plan (Free Text) Assessment: 42M with right 3rd digit ulceration with underlying osteomyelitis Plan: Patient seen and evaluated Discussed with attending, Dr. Rose Afebrile, WBC WNL 5.2 Right foot XR reviewed: erosive changes noted to 3rd digit proximal phalanx Continuation of IV abx, Cefepime 2g IV q12 Pain control per medicine Plan for OR Saturday right 3rd digit amputation Wound cleansed with saline and dressed with EVANS ngo Podiatry will continue to follow
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
[2017-11-29] MEDS ORDERED: Insulin Lispro (humaLOG) 100 Units/ml Inj SC SCH (16:30)
--- NOTE | 2017-11-29 21:39 | CON ---
DATE: 11/29/2017 ENDOCRINOLOGY CONSULT LOCATION: Room 658. HISTORY OF PRESENT ILLNESS: This is a 42-year-old male with known history of type 2 insulin-requiring diabetes who was transferred here from the [facility] for management of osteomyelitis with IV antibiotics and also possibly scheduled for a right third toe amputation this coming week and is being referred now for diabetic evaluation because of persistent hyperglycemic accelerations as noted thereof. PAST MEDICAL HISTORY: As mentioned above, history of type 2 insulin-requiring diabetes, currently on a combination of Levemir given as 30 units at bedtime with Humalog given three times a day as ordered. History of hypertension and dyslipidemia, history of diabetic retinopathy and polyneuropathy. He also has a previous history of CVA with transient ischemic event, history of coronary artery disease and peripheral arterial disease and vasculopathy. He also has a prior left below-knee amputation as noted. FAMILY HISTORY: Positive for hypertension and diabetes. SOCIAL HISTORY: The patient has a supportive family. Has known history of polysubstance abuse with nicotine dependence and smokes a pack a day for many years. He also has significant history of heroin and cocaine abuse and currently on methadone maintenance program. REVIEW OF SYSTEMS: As mentioned above. Admits to generalized body weakness with episodic dizziness and lightheadedness, worse on the day of admission. No chest pains, palpitations or PND. His oral intake is variable with occasional dyspepsia and vague upper abdominal pain. Also admits to marked polyuria, nocturia and polydipsia with lower extremity painful paresthesias. PHYSICAL EXAMINATION: GENERAL: This is an overweight male in no apparent distress with a blood pressure of 140/80, pulse of 70 beats per minute regular, temperature 98, respirations 20. Height is 6 feet 2 inches 2. Weight is 274 pounds. HEENT: Head is normocephalic. Eyes anicteric with pink conjunctivae. Funduscopy is not possible at this time. Ears, nose and throat otherwise normal. NECK: Supple. Thyroid gland is normal in size. No carotid bruits or cervical adenopathy. CARDIOPULMONARY: Some adynamic precordium. S1, S2 are rapid and regular. LUNGS: Clear to auscultation. ABDOMEN: Flat, soft with positive bowel sounds. EXTREMITIES: No peripheral edema. Pulses are +2 bilaterally. The left below-knee amputation stump is healed, and the right foot shows evidence of cellulitis with gangrene in the right third toe as noted. LABORATORY DATA: His chemistry showed a BUN of 29, sodium 139, potassium 4.3, chloride 102, CO2 of 28, glucose 283 and creatinine 1. ASSESSMENT: This is a 42-year-old male with uncontrolled and decompensated type 2 insulin-requiring diabetes with marked hyperglycemic accelerations related to a subtherapeutic insulin regimen with superimposed acute osteomyelitis in the right third toe and scheduled for possible amputation thereof. He also has diabetic microvascular complications of retinopathy and polyneuropathy with macrovascular complications of cerebrovascular disease, coronary artery disease and peripheral arterial disease and vasculopathy. PLAN OF MANAGEMENT: As discussed with the patient and staff. We will modify his current insulin regimen to a more physiologic basal and bolus insulin drug combination as ordered. We will start Humalog given as 80 units subcu t.i.d. before meals to start today. We will modify the coverage scale to obviate hypoglycemia and detailed orders have been given. We will also continue the basal insulin given as Levemir at 30 units subcu at bedtime daily, and we will titrate incrementally as indicated to optimize metabolic control. We will obtain serial chemistries and supplement accordingly as needed. We will follow with you. aGye Llamas MD
[2017-11-29] MEDS ORDERED: Insulin Detemir 100 Units/ml Inj SC SCH (22:00)
[2017-11-30] MEDS: Insulin Lispro (humaLOG) 100 Units/ml Inj SC SCH ×7 (09:30→21:54)
[2017-11-30] MEDS: Cefepime 2 GM in Sodium Chloride 0.9% 100 ML IVPB SCH ×2 (09:35→21:51)
[2017-11-30] MEDS: Bacitracin OINT 15GM TOP SCH (09:38)
[2017-11-30] MEDS: Silver Sulfadiazine 1% Cream (20 gm) TOP SCH (09:38)
[2017-11-30] MEDS: Multivitamin With Minerals Tab PO SCH (09:40)
[2017-11-30] MEDS: Enoxaparin 40 mg Syringe SC SCH (09:41)
[2017-11-30] MEDS: Amylase/Lipase/Protease 5,000 Units ECC PO SCH ×3 (09:42→17:30)
[2017-11-30] MEDS: Magnesium Hydroxide Susp 30 ml UD PO SCH (09:49)
--- NOTE | 2017-11-30 10:56 | CP.PCM.PN ---
Subjective - Date & Time of Evaluation Date of Evaluation: 11/30/17 Time of Evaluation: 10:53 - Subjective Subjective: Podiatry Progress Note for Dr. Rose 42YO male seen and evaluated for right 3rd digit wound with underlying osteomyelitis. Per chart, patient was to continue antibiotics for 6 weeks, Cefepime 2g IV q12 and follow up for outpatient surgery on 12/02/17 right foot 3rd digit amputation. At present, patient complains of 8/10 pain localized to 3rd digit, worsened since he was discharged. Denies N/V/F/D/C/SOB. No other complaints. Objective - Vital Signs/Intake and Output Vital Signs (last 24 hours): Temp Pulse Resp BP Pulse Ox 97.5 F L 89 19 189/97 H 94 L 11/30/17 08:46 11/30/17 09:39 11/30/17 08:46 11/30/17 09:39 11/30/17 08:46 - Medications Medications: Current Medications Albuterol Sulfate (Albuterol 0.083% Inhal Melonie (2.5 Mg/3 Ml) Ud) 2.5 mg INH Q6H PRN PRN Reason: Cough Allopurinol (Zyloprim) 300 mg PO DAILY [facility] Last Admin: 11/30/17 09:42 Dose: 300 mg Amlodipine Besylate (Norvasc) 5 mg PO DAILY [facility] Last Admin: 11/30/17 09:39 Dose: 5 mg Amylase (Pancrease 52694 [id number] [id number] U) 5,000 unit PO TID [facility] Last Admin: 11/30/17 09:42 Dose: 5,000 unit Bacitracin (Bacitracin Oint) 1 applic TOP DAILY [facility] Last Admin: 11/30/17 09:38 Dose: 1 applic Docusate Sodium (Colace) 100 mg PO BID [facility] Last Admin: 11/30/17 09:40 Dose: 100 mg Duloxetine HCl (Cymbalta) 60 mg PO DAILY [facility] Last Admin: 11/30/17 09:40 Dose: 60 mg Enoxaparin Sodium (Lovenox) 40 mg SC DAILY [facility] PRN Reason: Protocol Last Admin: 11/30/17 09:41 Dose: 40 mg Gabapentin (Neurontin) 300 mg PO TID [facility] Last Admin: 11/30/17 09:38 Dose: 300 mg Gemfibrozil (Lopid) 600 mg PO BID [facility] Last Admin: 11/30/17 09:40 Dose: 600 mg Cefepime HCl 2 gm/ Sodium (Chloride) 100 mls @ 100 mls/hr IVPB Q12 [facility] PRN Reason: Protocol Last Admin: 11/30/17 09:35 Dose: 100 mls/hr Insulin Detemir (Levemir) 30 units SC HS [facility] Last Admin: 11/29/17 21:57 Dose: 40 u Insulin Human Lispro (Humalog) 0 units SC ACHS EVA PRN Reason: Protocol Last Admin: 11/30/17 09:30 Dose: Not Given Insulin Human Lispro (Humalog) 12 units SC AC [facility] Last Admin: 11/30/17 09:41 Dose: 12 units Losartan Potassium (Cozaar) 50 mg PO Q12H [facility] Last Admin: 11/29/17 22:00 Dose: 50 mg Magnesium Hydroxide (Milk Of Magnesia) 15 ml PO DAILY [facility] Last Admin: 11/30/17 09:49 Dose: Not Given Methadone HCl (Methadone) 150 mg PO DAILY [facility] Last Admin: 11/30/17 09:36 Dose: 150 mg Multivitamins/Minerals (Therapeutic-M Tab) 1 tab PO DAILY [facility] Last Admin: 11/30/17 09:40 Dose: 1 tab Nystatin (Nystop Topical Powder) 1 applic TOP TID [facility] Last Admin: 11/30/17 09:38 Dose: 1 unit Probenecid (Probenecid) 500 mg PO DAILY [facility] Last Admin: 11/30/17 09:42 Dose: 500 mg Silver Sulfadiazine (Silvadene 1% 20 Gm) 1 ea TOP DAILY [facility] Last Admin: 11/30/17 09:38 Dose: 1 applic - Labs Labs: 11/29/17 06:31 11/29/17 06:31 - Constitutional Appears: Well, Non-toxic, No Acute Distress - Head Exam Head Exam: ATRAUMATIC, NORMOCEPHALIC - Extremities Exam Additional comments: RLE focused physical exam: VASC: DP and PT palpable, CFT < 3 seconds x 5 digits, temperature gradient WNL, mild nonpitting edema localized to 3rd digit ORTHO: left above knee amputation noted, tenderness with palpation to the right third digit NEURO: Protective sensation grossly diminished DERM: circular full-thickness ulceration noted to the dorsum of the right 3rd digit measuring approximately 1 cm x 1 cm x 0.2 cm, wound base 100% granular, erythema and swelling noted to entire 3rd digit, no streaking, no tunneling, no undermining, no purulence, no malodor. no other lesions noted - Neurological Exam Neurological Exam: Alert, Awake, Normal Gait - Psychiatric Exam Psychiatric exam: Normal Affect, Normal Mood - Skin Skin Exam: Normal Color Assessment and Plan - Assessment and Plan (Free Text) Assessment: 42YO male with right 3rd digit ulceration with underlying osteomyelitis Plan: Patient seen and evaluated Discussed in detail with attending, Dr. Rose Chart, lab and vitals reviewed; Afebrile, WBC 5.2 Right foot XR reviewed: erosive changes noted to 3rd digit proximal phalanx Continuation of IV abx, Cefepime 2g IV q12 Pain control per medicine Plan for OR Saturday right 3rd digit amputation at 7:45 AM Wound dressed with telfa, gauze, and paper tape. Podiatry will continue to follow
--- NOTE | 2017-11-30 13:48 | PN ---
DATE: 11/30/2017 SUBJECTIVE: The patient is seen and examined. Interim events noted. Consults noted and appreciated. Infectious Disease followup and interventions noted and appreciated. The patient remains in regular medical floor with . The patient is sleepy, arousable, although does not want to get into conversation. According to nursing staff, the patient's pain was adequately controlled. PHYSICAL EXAMINATION: GENERAL: The patient is in no acute distress. VITAL SIGNS: Stable. HEART: S1 and S2, normal and regular. LUNGS: Good bilateral air exchange. ABDOMEN: Soft and nontender. EXTREMITIES: No calf swelling. No tenderness. No acute ischemia. [employer] AGENT: Exam is essentially unchanged. Surgical dressing. No . Rojelio Lentz MD
[2017-11-30 20:33] LABS: SQUAMOUS EPITHIAL 1 /hpf (0-5); URINE BILIRUBIN NEGATIVE (NEGATIVE); URINE BLOOD NEGATIVE (NEGATIVE); URINE CLARITY SLIGHTY-CLOUDY (Clear); URINE COLOR YELLOW (YELLOW); URINE GLUCOSE (UA) 150 mg/dL (Normal); URINE LEUKOCYTE ESTERASE SMALL Leu/uL (Negative); URINE PROTEIN >=500 mg/dL (NEGATIVE); URINE UROBILINOGEN 0.2-1.0 mg/dL (0.2-1.0)
[2017-11-30] MEDS: Insulin Detemir 100 Units/ml Inj SC SCH (21:52)
--- NOTE | 2017-11-30 23:20 | PN ---
DATE: 11/30/2017 LOCATION: Room 658. SUBJECTIVE: This is a 42-year-old male with recent uncontrolled type 2 insulin-requiring diabetes, currently receiving IV antibiotic management for lower extremity osteomyelitis on the right foot and associated local debridement procedures undertaken thereof. His glycemic levels are still fluctuating as noted and today's glucose levels have ranged from 206-210 and 232 mg/dL. LABORATORY DATA: His latest chemistry showed a BUN of 29, sodium 139, potassium 4.3, chloride 102, CO2 28, glucose 283 and creatinine 1. ASSESSMENT AND PLAN: So at this time, we will modify once again his basal and bolus insulin regimen and increase the Humalog to 14 units subcu t.i.d. before meals to start at dinnertime today as ordered. We will also increase his basal insulin to be given as Levemir at 34 units subcu at bedtime daily to start tonight. We will titrate incremental as indicated to optimize metabolic control. We will also continue the modified lower dose algorithm for the Humalog insulin coverage scale as given to obviate hypoglycemia. We will obtain serial chemistries and supplement accordingly needed. We will follow. Gaye Llamas MD
[2017-12-01 07:27] LABS: HEMOGLOBIN 10.2 g/dL (12.0-18.0); MEAN CELL VOLUME 83.6 fl (80.0-94.0); MEAN CORPUSCULAR HEMOGLOBIN 28.2 pg (27.0-31.0); MEAN CORPUSCULAR HGB CONC 33.7 g/dL (33.0-37.0); RBC 3.62 Mil/uL (4.40-5.90); RED CELL DISTRIBUTION WIDTH 15.2 % (11.5-14.5); WHITE BLOOD COUNT 5.7 K/uL (4.8-10.8)
[2017-12-01 07:32] LABS: ALB/GLOB RATIO 0.9 (1.0-2.1); ALBUMIN 3.2 g/dL (3.5-5.0); ALT/SGPT 28 U/L (21-72); AST/SGOT 25 U/L (17-59); BLOOD UREA NITROGEN 24 mg/dl (9-20); CALCIUM 8.9 mg/dL (8.4-10.2); GFR AFRICAN-AMERICAN > 60; GFR NON-AFRICAN AMERICAN > 60
[2017-12-01] MEDS: Insulin Lispro (humaLOG) 100 Units/ml Inj SC SCH ×7 (08:32→22:31)
[2017-12-01] MEDS: Enoxaparin 40 mg Syringe SC SCH (08:33)
[2017-12-01] MEDS: Cefepime 2 GM in Sodium Chloride 0.9% 100 ML IVPB SCH ×2 (09:36→21:58)
[2017-12-01] MEDS: Amylase/Lipase/Protease 5,000 Units ECC PO SCH ×3 (09:38→17:01)
[2017-12-01] MEDS: Silver Sulfadiazine 1% Cream (20 gm) TOP SCH (09:38)
[2017-12-01] MEDS: Multivitamin With Minerals Tab PO SCH (09:38)
[2017-12-01] MEDS: Magnesium Hydroxide Susp 30 ml UD PO SCH (10:18)
--- NOTE | 2017-12-01 11:10 | CP.PCM.PN ---
Subjective - Date & Time of Evaluation Date of Evaluation: 12/01/17 Time of Evaluation: 11:08 - Subjective Subjective: Podiatry Progress Note for attending, Dr. Rose 42 y/o male seen and evaluated for right 3rd digit wound with underlying osteomyelitis. Per chart, patient was to continue antibiotics for 6 weeks, Cefepime 2g IV q12 and follow up for outpatient surgery on 12/02/17 right foot 3rd digit amputation. Patient is now scheduled for surgery on at 7:[address] Rose. Patient instructed to be NPO after midnight. At present, patient complains of 8/10 pain localized to 3rd digit, worsened since he was discharged. Denies N/V/F/D/C/SOB. Patient denies any other pedal complaints at this time. Objective - Vital Signs/Intake and Output Vital Signs (last 24 hours): Temp Pulse Resp BP Pulse Ox 98.5 F 91 H 20 152/90 H 95 12/01/17 07:50 12/01/17 09:37 12/01/17 07:50 12/01/17 09:37 12/01/17 07:50 - Medications Medications: Current Medications Albuterol Sulfate (Albuterol 0.083% Inhal Melonie (2.5 Mg/3 Ml) Ud) 2.5 mg INH Q6H PRN PRN Reason: Cough Allopurinol (Zyloprim) 300 mg PO DAILY [facility] Last Admin: 12/01/17 09:38 Dose: 300 mg Amlodipine Besylate (Norvasc) 5 mg PO DAILY [facility] Last Admin: 12/01/17 09:37 Dose: 5 mg Amylase (Pancrease 10436 U-5000 [id number] U) 5,000 unit PO TID [facility] Last Admin: 12/01/17 09:38 Dose: 5,000 unit Bacitracin (Bacitracin Oint) 1 applic TOP DAILY [facility] Last Admin: 11/30/17 09:38 Dose: 1 applic Docusate Sodium (Colace) 100 mg PO BID [facility] Last Admin: 12/01/17 09:34 Dose: 100 mg Duloxetine HCl (Cymbalta) 60 mg PO DAILY [facility] Last Admin: 12/01/17 09:36 Dose: 60 mg Enoxaparin Sodium (Lovenox) 40 mg SC DAILY [facility] PRN Reason: Protocol Last Admin: 12/01/17 08:33 Dose: 40 mg Gabapentin (Neurontin) 300 mg PO TID [facility] Last Admin: 12/01/17 09:37 Dose: 300 mg Gemfibrozil (Lopid) 600 mg PO BID [facility] Last Admin: 12/01/17 09:36 Dose: 600 mg Cefepime HCl 2 gm/ Sodium (Chloride) 100 mls @ 100 mls/hr IVPB Q12 [facility] PRN Reason: Protocol Last Admin: 12/01/17 09:36 Dose: 100 mls/hr Insulin Detemir (Levemir) 34 units SC HS [facility] Last Admin: 11/30/17 21:52 Dose: 34 units Insulin Human Lispro (Humalog) 0 units SC ACHS [facility] PRN Reason: Protocol Last Admin: 12/01/17 08:33 Dose: Not Given Insulin Human Lispro (Humalog) 14 units SC AC [facility] Last Admin: 12/01/17 08:32 Dose: 14 units Losartan Potassium (Cozaar) 50 mg PO Q12H [facility] Last Admin: 11/30/17 22:00 Dose: 50 mg Magnesium Hydroxide (Milk Of Magnesia) 15 ml PO DAILY [facility] Last Admin: 12/01/17 10:18 Dose: Not Given Methadone HCl (Methadone) 150 mg PO DAILY [facility] Last Admin: 12/01/17 10:16 Dose: 150 mg Multivitamins/Minerals (Therapeutic-M Tab) 1 tab PO DAILY [facility] Last Admin: 12/01/17 09:38 Dose: 1 tab Nystatin (Nystop Topical Powder) 1 applic TOP TID [facility] Last Admin: 12/01/17 09:38 Dose: Not Given Probenecid (Probenecid) 500 mg PO DAILY [facility] Last Admin: 12/01/17 09:38 Dose: 500 mg Silver Sulfadiazine (Silvadene 1% 20 Gm) 1 ea TOP DAILY [facility] Last Admin: 12/01/17 09:38 Dose: 1 applic - Labs Labs: 12/01/17 05:30 12/01/17 05:30 - Constitutional Appears: Well, Non-toxic, No Acute Distress - Head Exam Head Exam: ATRAUMATIC, NORMOCEPHALIC - Extremities Exam Additional comments: Right Lower Extremity focused physical exam: VASC: DP and PT palpable, CFT < 3 seconds x 5 digits, temperature gradient WNL, mild nonpitting edema localized to 3rd digit NEURO: Protective sensation grossly diminished DERM: circular full-thickness ulceration noted to the dorsum of the right 3rd digit measuring approximately 1 cm x 1 cm x 0.2 cm, wound base 100% granular, erythema and swelling noted to entire 3rd digit, no streaking, no tunneling, no undermining, no purulence, no malodor. no other lesions noted ORTHO: left above knee amputation noted, tenderness with palpation to the right third digit - Neurological Exam Neurological Exam: Alert, Awake, Oriented x3 - Psychiatric Exam Psychiatric exam: Normal Affect, Normal Mood Assessment and Plan - Assessment and Plan (Free Text) Assessment: 42 y/o male seen and evaluated for right 3rd digit wound with underlying osteomyelitis. Plan: Patient seen and evaluated Discussed in detail with attending, Dr. Rose Chart, lab and vitals reviewed; Afebrile, WBC 5.7 (12/01/17) Right foot XR reviewed: erosive changes noted to 3rd digit proximal phalanx Wound dressed with telfa, gauze, and paper tape Continuation of IV abx, Cefepime 2g IV q12 Pain control per medicine Podiatry Plan: Patient scheduled for OR Saturday AM right 3rd digit amputation at 7:45 AM NPO order placed for patient Future Hold placed for Lovenox to be d/c prior to surgery Podiatry will continue to follow
--- NOTE | 2017-12-01 12:01 | CP.PCM.PN ---
Subjective - Date & Time of Evaluation Date of Evaluation: 12/01/17 Time of Evaluation: 10:00 - Subjective Subjective: pt scheduled for OR in am afeb on IV antibiotics Objective - Vital Signs/Intake and Output Vital Signs (last 24 hours): Temp Pulse Resp BP Pulse Ox 98.5 F 91 H 20 152/90 H 95 12/01/17 07:50 12/01/17 09:37 12/01/17 07:50 12/01/17 09:37 12/01/17 07:50 - Medications Medications: Current Medications Albuterol Sulfate (Albuterol 0.083% Inhal Melonie (2.5 Mg/3 Ml) Ud) 2.5 mg INH Q6H PRN PRN Reason: Cough Allopurinol (Zyloprim) 300 mg PO DAILY [facility] Last Admin: 12/01/17 09:38 Dose: 300 mg Amlodipine Besylate (Norvasc) 5 mg PO DAILY [facility] Last Admin: 12/01/17 09:37 Dose: 5 mg Amylase (Pancrease 45252 U-5000 U-[id number] U) 5,000 unit PO TID [facility] Last Admin: 12/01/17 09:38 Dose: 5,000 unit Bacitracin (Bacitracin Oint) 1 applic TOP DAILY [facility] Last Admin: 11/30/17 09:38 Dose: 1 applic Docusate Sodium (Colace) 100 mg PO BID [facility] Last Admin: 12/01/17 09:34 Dose: 100 mg Duloxetine HCl (Cymbalta) 60 mg PO DAILY [facility] Last Admin: 12/01/17 09:36 Dose: 60 mg Enoxaparin Sodium (Lovenox) 40 mg SC DAILY [facility] PRN Reason: Protocol Last Admin: 12/01/17 08:33 Dose: 40 mg Gabapentin (Neurontin) 300 mg PO TID [facility] Last Admin: 12/01/17 09:37 Dose: 300 mg Gemfibrozil (Lopid) 600 mg PO BID [facility] Last Admin: 12/01/17 09:36 Dose: 600 mg Cefepime HCl 2 gm/ Sodium (Chloride) 100 mls @ 100 mls/hr IVPB Q12 [facility] PRN Reason: Protocol Last Admin: 12/01/17 09:36 Dose: 100 mls/hr Insulin Detemir (Levemir) 34 units SC [facility] Last Admin: 11/30/17 21:52 Dose: 34 units Insulin Human Lispro (Humalog) 0 units SC ACHS [facility] PRN Reason: Protocol Last Admin: 12/01/17 08:33 Dose: Not Given Insulin Human Lispro (Humalog) 14 units SC AC [facility] Last Admin: 12/01/17 08:32 Dose: 14 units Losartan Potassium (Cozaar) 50 mg PO Q12H [facility] Last Admin: 11/30/17 22:00 Dose: 50 mg Magnesium Hydroxide (Milk Of Magnesia) 15 ml PO DAILY [facility] Last Admin: 12/01/17 10:18 Dose: Not Given Methadone HCl (Methadone) 150 mg PO DAILY [facility] Last Admin: 12/01/17 10:16 Dose: 150 mg Multivitamins/Minerals (Therapeutic-M Tab) 1 tab PO DAILY [facility] Last Admin: 12/01/17 09:38 Dose: 1 tab Nystatin (Nystop Topical Powder) 1 applic TOP TID [facility] Last Admin: 12/01/17 09:38 Dose: Not Given Probenecid (Probenecid) 500 mg PO DAILY [facility] Last Admin: 12/01/17 09:38 Dose: 500 mg Silver Sulfadiazine (Silvadene 1% 20 Gm) 1 ea TOP DAILY [facility] Last Admin: 12/01/17 09:38 Dose: 1 applic - Labs Labs: 12/01/17 05:30 12/01/17 05:30 - Constitutional Appears: Non-toxic, Chronically Ill - Head Exam Head Exam: NORMOCEPHALIC - Eye Exam Eye Exam: PERRL - ENT Exam ENT Exam: Mucous Membranes Dry - Neck Exam Neck Exam: absent: Lymphadenopathy - Respiratory Exam Respiratory Exam: Decreased Breath Sounds - Cardiovascular Exam Cardiovascular Exam: REGULAR RHYTHM - GI/Abdominal Exam GI & Abdominal Exam: Distended, Soft - Rectal Exam Rectal Exam: Deferred - Exam Exam: NORMAL INSPECTION - Extremities Exam Extremities Exam: Pedal Edema. absent: Tenderness Additional comments: left aka RLE focused physical exam: VASC: DP and PT palpable, CFT < 3 seconds x 5 digits, temperature gradient WNL, mild nonpitting edema localized to 3rd digit ORTHO: left above knee amputation noted, tenderness with palpation to the right third digit NEURO: Protective sensation grossly diminished DERM: circular full-thickness ulceration noted to the dorsum of the right 3rd digit measuring approximately 1 cm x 1 cm x 0.2 cm, wound base 100% granular, erythema and swelling noted to entire 3rd digit, no streaking, no tunneling, no undermining, no purulence, no malodor. no other lesions noted - Back Exam Back Exam: absent: CVA tenderness (L), CVA tenderness (R) - Neurological Exam Neurological Exam: Alert, Awake, Oriented x3 - Psychiatric Exam Psychiatric exam: Normal Mood - Skin Skin Exam: Dry Assessment and Plan (1) Osteomyelitis Status: Acute - Assessment and Plan (Free Text) Assessment: cont RX for 7 days post op
[2017-12-01] MEDS: Bacitracin OINT 15GM TOP SCH (17:02)
[2017-12-01] MEDS: Insulin Detemir 100 Units/ml Inj SC SCH (21:59)
[2017-12-02] MEDS: Potassium Ch 20mEq in D5-1/2NS 1,000 ML IV SCH ×2 (00:07→06:24)
[2017-12-02 06:27] LABS: HEMOGLOBIN 9.4 g/dL (12.0-18.0); MEAN CELL VOLUME 84.3 fl (80.0-94.0); MEAN CORPUSCULAR HEMOGLOBIN 28.2 pg (27.0-31.0); MEAN CORPUSCULAR HGB CONC 33.4 g/dL (33.0-37.0); RBC 3.33 Mil/uL (4.40-5.90); RED CELL DISTRIBUTION WIDTH 15.2 % (11.5-14.5); WHITE BLOOD COUNT 6.6 K/uL (4.8-10.8)
[2017-12-02 06:45] LABS: ALB/GLOB RATIO 0.9 (1.0-2.1); ALBUMIN 2.9 g/dL (3.5-5.0); ALT/SGPT 26 U/L (21-72); AST/SGOT 24 U/L (17-59); BLOOD UREA NITROGEN 29 mg/dl (9-20); CALCIUM 8.9 mg/dL (8.4-10.2); GFR AFRICAN-AMERICAN > 60; GFR NON-AFRICAN AMERICAN > 60
[2017-12-02] MEDS ORDERED: Propofol 10 mg/ml Inj (20 ML) ONE ×2 (07:21→08:20)
[2017-12-02] MEDS ORDERED: Midazolam 2 MG/2 ML VIAL ONE ×3 (07:21→08:37)
[2017-12-02] MEDS ORDERED: Rocuronium 10 mg/ml (5 ml) ONE (07:21)
[2017-12-02] MEDS ORDERED: ePHEDrine 50 mg/ml Inj ONE (07:21)
[2017-12-02] MEDS ORDERED: Succinylcholine 200 mg/10 ml Inj IV ONE (07:21)
[2017-12-02] MEDS ORDERED: Phenylephrine 10 mg/ml Inj ONE (07:22)
[2017-12-02] MEDS ORDERED: Lidocaine 2% MPF (5 ml) Inj ONE (07:30)
[2017-12-02] MEDS ORDERED: Bupivacaine HCl 0.5% PF (10 ml) Inj ONE (07:30)
[2017-12-02] MEDS: Insulin Lispro (humaLOG) 100 Units/ml Inj SC SCH ×7 (07:30→22:42)
[2017-12-02] MEDS ORDERED: Cefepime (Maxipime) 2 g Inj IVPB ONE (08:21)
[2017-12-02] MEDS ORDERED: Sodium Chloride 0.9% 500 ML IV ONE (08:50)
[2017-12-02] MEDS: Multivitamin With Minerals Tab PO SCH (09:00)
[2017-12-02] MEDS: Magnesium Hydroxide Susp 30 ml UD PO SCH (09:00)
[2017-12-02] MEDS: Amylase/Lipase/Protease 5,000 Units ECC PO SCH ×3 (09:00→17:44)
--- NOTE | 2017-12-02 09:09 | PN ---
DATE: 12/01/2017 SUBJECTIVE: The patient seen and examined. Interim events noted. Consults noted and appreciated. Podiatry followup and intervention noted and appreciated. The patient remains in regular medical floor . PHYSICAL EXAMINATION: GENERAL: The patient is in no acute distress. VITAL SIGNS: Stable. HEART: S1 and S2, normal and regular. LUNGS: Good bilateral air exchange. ABDOMEN: Soft, nontender. EXTREMITIES: The patient's foot is under podiatry dressing. Ulcer is healing. No sign of distal complication. No edema. No calf swelling. No tenderness. No acute ischemia. HEALTH CENTER ASSOCIATE: Essentially unchanged. DIAGNOSTIC DATA: Available diagnostic data reviewed. ASSESSMENT AND PLAN: Overall, the patient's general medical condition is stable. Plan as ordered.. Rojelio Lentz MD
--- NOTE | 2017-12-02 09:36 | PCM.SURG1 ---
Surgeon's Initial Post Op Note - Surgeon's Notes Surgeon: MARCIA BlancoM Lens Generator: Riddhi Simmons, PGY-2; Hermilo Crandall, PGY-2 Type of Anesthesia: IV Sedation, Local Anesthesia Administered By: Dr. Arti MD Pre-Operative Diagnosis: Right foot 3rd digit osteomyelitis Operative Findings: See dictation Post-Operative Diagnosis: Right foot 3rd digit osteomyelitis Operation Performed: Right foot 3rd digit partial amputation Specimen/Specimens Removed: right foot 3rd digit bone and soft tissue Estimated Blood Loss: EBL {In ML}: 1 Blood Products Given: N/A Drains Used: No Drains Post-Op Condition: Good Date of Surgery/Procedure: 12/02/17 Time of Surgery/Procedure: 09:36
[2017-12-02] MEDS ORDERED: HYDROmorphone 0.5 mg/0.5 ml ISec IVP PRN (09:46)
[2017-12-02] MEDS: Silver Sulfadiazine 1% Cream (20 gm) TOP SCH (11:03)
[2017-12-02] MEDS: Bacitracin OINT 15GM TOP SCH (12:45)
[2017-12-02] MEDS ORDERED: HYDROmorphone 1 mg/ml ISec IVP ONE (13:22)
--- NOTE | 2017-12-02 14:43 | RAD ---
PROCEDURE: Right Foot Radiographs. HISTORY: s/p right foot surgery COMPARISON: Right foot radiographs 11/28/2017. FINDINGS: BONES: Interval subtotal ostectomy of the right 3rd digit is appreciated with only the base of the proximal phalanx right 3rd digit remaining. JOINTS: Mild degenerative changes seen throughout the right foot otherwise. SOFT TISSUES: Limited postoperative edema identified at the operative site. . OTHER FINDINGS: None. IMPRESSION: Subtotal right 3rd digit amputation with limited local soft edema identified operative site.
[2017-12-02] MEDS: Albuterol 0.083% Inhal Sol (2.5 mg/3 mL) UD INH PRN (15:41)
[2017-12-02] MEDS ORDERED: Cefepime 2 GM in Sodium Chloride 0.9% 100 ML IVPB ONE (21:25)
[2017-12-02] MEDS ORDERED: Insulin Detemir 100 Units/ml Inj SC SCH (22:00)
--- NOTE | 2017-12-03 02:21 | PN ---
DATE: 12/02/2017 ENDO FOLLOWUP NOTE LOCATION: Room 658. SUBJECTIVE: This is a 42-year-old male with recent uncontrolled type 2 insulin-requiring diabetes, now being followed closely for metabolic management. He underwent today an amputation of the right third toe as noted thereof. LABORATORY DATA: His glycemic levels are fluctuating but improved, and the glucose values have ranged from 239 to 296 mg/dL. His latest chemistry showed a BUN of 29, sodium 139, potassium 4.3, chloride 102, CO2 of 28, glucose 283 and creatinine 1. The glucose levels overnight showed a glucose level of 193 to 217 mg/dL. ASSESSMENT AND PLAN: So at this time, we will modify once again his basal and bolus insulin regimen and increase the Humalog to 14 units subcu t.i.d. before meals to start today as ordered. We will also increase the basal insulin with Levemir to 38 units subcu at bedtime daily to start tonight. We will continue the low-dose correction scale using Humalog insulin as given. We will obtain serial chemistries and supplement accordingly as needed. We will follow with you. Gaye Llamas MD
[2017-12-03 06:02] LABS: HEMOGLOBIN 10.9 g/dL (12.0-18.0); MEAN CELL VOLUME 85.1 fl (80.0-94.0); MEAN CORPUSCULAR HEMOGLOBIN 28.1 pg (27.0-31.0); RBC 3.9 Mil/uL (4.40-5.90); RED CELL DISTRIBUTION WIDTH 15.4 % (11.5-14.5); WHITE BLOOD COUNT 6.9 K/uL (4.8-10.8)
[2017-12-03 06:24] LABS: ALBUMIN 3.7 g/dL (3.5-5.0); ALT/SGPT 22 U/L (21-72); AST/SGOT 25 U/L (17-59); BLOOD UREA NITROGEN 28 mg/dl (9-20); CALCIUM 9.5 mg/dL (8.4-10.2); GFR AFRICAN-AMERICAN > 60; GFR NON-AFRICAN AMERICAN > 60
[2017-12-03] MEDS: Albuterol 0.083% Inhal Sol (2.5 mg/3 mL) UD INH PRN (07:46)
[2017-12-03] MEDS: Insulin Lispro (humaLOG) 100 Units/ml Inj SC SCH ×7 (07:58→22:08)
[2017-12-03] MEDS: Bacitracin OINT 15GM TOP SCH (08:22)
[2017-12-03] MEDS: Multivitamin With Minerals Tab PO SCH (08:23)
[2017-12-03] MEDS: Amylase/Lipase/Protease 5,000 Units ECC PO SCH ×3 (08:23→16:43)
[2017-12-03] MEDS: Magnesium Hydroxide Susp 30 ml UD PO SCH (08:25)
--- NOTE | 2017-12-03 08:45 | PN ---
DATE: 12/02/2017 SUBJECTIVE: The patient is seen and examined. Interim events noted. Consult noted and appreciated. Podiatry followup and intervention noted and appreciated. The patient is scheduled for surgery today. The patient feels okay. Foot pain is present, but controlled. No complaint of chest pain, shortness of breath or palpitations. PHYSICAL EXAMINATION: GENERAL: The patient is in no acute distress. VITAL SIGNS: Stable. HEART: S1 and S2, normal and regular. LUNGS: Good bilateral air exchange. ABDOMEN: Soft . EXTREMITIES: The patient is status post amputation on left side. Right foot with open ulcer and osteomyelitis. No edema. No calf swelling. No tenderness. No acute ischemia. CENTRAL NERVOUS SYSTEM: Exam is essentially unchanged. DIAGNOSTIC DATA: Available diagnostic data reviewed. IMPRESSION AND PLAN: The patient is medically stable and in optimum condition for proposed surgery. There is no medical contraindication for same. The patient is at moderate surgical risk. Plan as ordered. Rojelio Lentz MD
[2017-12-03] MEDS: Cefepime 2 GM in Sodium Chloride 0.9% 100 ML IVPB SCH ×3 (09:00→20:40)
--- NOTE | 2017-12-03 09:10 | CP.PCM.PN ---
Subjective - Date & Time of Evaluation Date of Evaluation: 12/03/17 Time of Evaluation: 09:08 - Subjective Subjective: Podiatry Progress Note for Dr. Rose 42yo male seen 1 day s/p right 3rd digit amputation. Patient is AAO x 3 and NAD. Patient states that he is in 9/10 pain today but does not want to take any pain medication. He denies any other pedal complaints at this time. Denies N/V/F /SOB/CP/C. Per nursing patient was febrile overnight Objective - Vital Signs/Intake and Output Vital Signs (last 24 hours): Temp Pulse Resp BP Pulse Ox 98.8 F 117 H 19 166/75 H 92 L 12/03/17 08:05 12/03/17 08:25 12/03/17 08:05 12/03/17 08:25 12/03/17 08:05 - Medications Medications: Current Medications Acetaminophen (Tylenol 325mg Tab) 650 mg PO Q6 PRN PRN Reason: Pain, Mild (1-3) Albuterol/Ipratropium (Duoneb 3 Mg/0.5 Mg (3 Ml) Ud) 3 ml INH RQID [facility] Allopurinol (Zyloprim) 300 mg PO DAILY [facility] Last Admin: 12/03/17 08:23 Dose: 300 mg Amlodipine Besylate (Norvasc) 5 mg PO DAILY [facility] Last Admin: 12/03/17 08:25 Dose: 5 mg Amylase (Pancrease 12597 U-5000 U-[id number] U) 5,000 unit PO TID [facility] Last Admin: 12/03/17 08:23 Dose: 5,000 unit Bacitracin (Bacitracin Oint) 1 applic TOP DAILY [facility] Last Admin: 12/03/17 08:22 Dose: 1 applic Docusate Sodium (Colace) 100 mg PO BID [facility] Last Admin: 12/03/17 08:23 Dose: 100 mg Duloxetine HCl (Cymbalta) 60 mg PO DAILY [facility] Last Admin: 12/03/17 08:23 Dose: 60 mg Enoxaparin Sodium (Lovenox) 40 mg SC DAILY [facility] PRN Reason: Protocol Last Admin: 12/01/17 08:33 Dose: 40 mg Gabapentin (Neurontin) 300 mg PO TID [facility] Last Admin: 12/03/17 08:25 Dose: 300 mg Gemfibrozil (Lopid) 600 mg PO BID [facility] Last Admin: 12/03/17 08:24 Dose: 600 mg Cefepime HCl 2 gm/ Sodium (Chloride) 100 mls @ 100 mls/hr IVPB Q12 [facility] PRN Reason: Protocol Stop: 12/10/17 21:00 Insulin Detemir (Levemir) 38 units SC HS [facility] Last Admin: 12/02/17 22:41 Dose: 38 u Insulin Human Lispro (Humalog) 0 units SC ACHS [facility] PRN Reason: Protocol Last Admin: 12/03/17 07:58 Dose: Not Given Insulin Human Lispro (Humalog) 14 units SC AC [facility] Last Admin: 12/03/17 08:27 Dose: 14 u Losartan Potassium (Cozaar) 50 mg PO Q12H [facility] Last Admin: 12/02/17 22:01 Dose: 50 mg Magnesium Hydroxide (Milk Of Magnesia) 15 ml PO DAILY [facility] Last Admin: 12/03/17 08:25 Dose: Not Given Methadone HCl (Methadone) 150 mg PO DAILY [facility] Last Admin: 12/03/17 08:20 Dose: 150 mg Multivitamins/Minerals (Therapeutic-M Tab) 1 tab PO DAILY [facility] Last Admin: 12/03/17 08:23 Dose: 1 tab Nystatin (Nystop Topical Powder) 1 applic TOP TID [facility] Last Admin: 12/03/17 08:23 Dose: 1 unit Ondansetron HCl (Zofran Inj) 4 mg IVP Q4 PRN PRN Reason: Nausea/Vomiting Last Admin: 12/03/17 06:57 Dose: 4 mg Probenecid (Probenecid) 500 mg PO DAILY [facility] Last Admin: 12/03/17 08:23 Dose: 500 mg Silver Sulfadiazine (Silvadene 1% 20 Gm) 1 ea TOP DAILY [facility] Last Admin: 12/02/17 11:03 Dose: Not Given - Labs Labs: 12/03/17 05:30 12/03/17 05:30 - Constitutional Appears: Well, No Acute Distress - Head Exam Head Exam: ATRAUMATIC, NORMOCEPHALIC - Extremities Exam Additional comments: RLE focused exam: Vascular: DP and PT 2/4. CFT <3 seconds to all 4 digits, TG WNL, mild edema noted to surgical site Ortho: right 3rd digit amputation, left above knee amputation, mild tenderness to palpation around surgical incision WNL given postoperative status Neuro: Gross sensation intact, protective sensation diminished Derm: Sutures intact, skin edges well coapted with no signs of dehiscence, no clinical signs of infection, no malodor, no erythema, no purulence noted - Neurological Exam Neurological Exam: Alert, Awake, Oriented x3 - Psychiatric Exam Psychiatric exam: Normal Affect, Normal Mood Assessment and Plan - Assessment and Plan (Free Text) Assessment: 42yo male 1 day s/p right 3rd digit amputation. Plan: Patient seen and evaluated Pt febrile overnight, absent leukocytosis CXR - B/l [place] R>L Urine cx - no growth Discussed with Dr. Rose Surgical site dressed with Telfa, DSD, and WILNER Continue IV abx per ID Patient stable from podiatric [facility] Podiatry will continue to follow while patient in house
--- NOTE | 2017-12-03 09:19 | PN ---
DATE: 12/01/2017 ENDO FOLLOWUP NOTE SUBJECTIVE: This is a 42-year-old male with recent uncontrolled type 2 insulin requiring diabetes, now being referred for diabetic management. his glucose values have ranged from 137 to . At this time, we will continue the same on board with insulin regimen. keeping on the Humalog given as 14 units subcu t.i.d. before meals . We will continue the Levemir given as 24 units subcu at bedtime daily as given. We will continue using Humalog insulin as ordered. His on-boarding IV antibiotic management and management of right foot osteomyelitis debridement as I dictated previous. Gaye Llamas MD
[2017-12-03] MEDS: Enoxaparin 40 mg Syringe SC SCH (10:00)
[2017-12-03] MEDS: Silver Sulfadiazine 1% Cream (20 gm) TOP SCH (10:33)
--- NOTE | 2017-12-03 10:40 | RAD ---
HISTORY: Fever COMPARISON: Frontal chest radiograph 11/29/2017 FINDINGS: LUNGS: Bilateral mid to inferior pulmonary infiltrates are identified, right greater than left. PLEURA: No significant pleural effusion identified, no pneumothorax apparent. CARDIOVASCULAR: Normal. OSSEOUS STRUCTURES: No significant abnormalities. VISUALIZED UPPER ABDOMEN: Normal. OTHER FINDINGS: None. IMPRESSION: Bilateral pneumonia, right greater than left. No pleural effusion or pneumothorax bilaterally.
[2017-12-03] MEDS: Albuterol-Ipratrop 3 mg / 0.5 (3 ml) UD INH SCH ×3 (11:42→19:02)
--- NOTE | 2017-12-03 14:31 | PN ---
DATE: 12/03/2017 SUBJECTIVE: The patient seen and examined. Interim events noted. Consults noted and appreciated. Podiatry followup and intervention and surgery noted and appreciated. The patient is status post surgery. The patient does have significant pain, but the patient refuses to take pain medicine as he had promised his daughter that he will not take pain medication ever. No chest pain or shortness of breath. PHYSICAL EXAMINATION: GENERAL: The patient is in no acute distress. VITAL SIGNS: Stable. HEART: S1 and S2, normal and regular. LUNGS: Good bilateral air exchange. ABDOMEN: Soft, nontender. EXTREMITIES: The patient is status post amputation. No sign of acute complication. No edema, no calf swelling, no tenderness. No acute ischemia. POSTAL CLERK: Exam is essentially unchanged. DIAGNOSTIC DATA: Available diagnostic data reviewed. ASSESSMENT AND PLAN: Overall, the patient's general medical condition is stable. Plan as ordered. Rojelio Lentz MD
[2017-12-03] MEDS: Piperacillin/Tazobact 3.375 GM in Sodium Chloride 0.9% 100 ML IVPB SCH (16:42)
--- NOTE | 2017-12-03 17:44 | PN ---
DATE: 12/03/2017 ENDO FOLLOWUP NOTE LOCATION: In room 658. SUBJECTIVE: This is a 42-year-old male with recent uncontrolled type 2 insulin-requiring diabetes, now being followed closely for metabolic management. His glycemic levels are fluctuating, but much improved overnight as noted. His glucose levels have ranged from 176 to 195 mg/dL. His latest chemistry showed a BUN of 28, sodium 137, potassium 4.5, chloride 101, CO2 of 26, glucose 187, and creatinine 0.8. ASSESSMENT AND PLAN: So at this time, we will modify once again his basal and bolus insulin regimen and increase the Levemir given as overnight basal insulin to 40 units subcutaneously at bedtime daily to start tonight. We will continue the low-dose correction scale using Humalog insulin as given. We will also continue the prandial insulin given as Humalog at 14 units subcutaneously t.i.d. before meals as ordered. We will titrate incremental as indicated to optimize metabolic control. We will also obtain serial chemistries and supplement accordingly as needed. We will follow with you. Gaye Llamas MD
[2017-12-03] MEDS: Insulin Detemir 100 Units/ml Inj SC SCH (22:08)
[2017-12-04] MEDS: Piperacillin/Tazobact 3.375 GM in Sodium Chloride 0.9% 100 ML IVPB SCH ×3 (00:08→17:29)
[2017-12-04 06:02] LABS: BASO % 0.4 % (0.0-2.0); EOS % 0.6 % (0.0-4.0); HEMOGLOBIN 8.4 g/dL (12.0-18.0); LYMPH # 1.2 K/uL (1.0-4.3); LYMPH % 13.7 % (20.0-40.0); MEAN CELL VOLUME 84.2 fl (80.0-94.0); MEAN CORPUSCULAR HEMOGLOBIN 27.9 pg (27.0-31.0); MEAN CORPUSCULAR HGB CONC 33.2 g/dL (33.0-37.0); MEAN PLATELET VOLUME 9.2 fl (7.2-11.7); MONO # 0.6 K/uL (0.0-0.8); MONO % 6.4 % (0.0-10.0); NEUT % 78.9 % (50.0-75.0); RBC 3.02 Mil/uL (4.40-5.90); RED CELL DISTRIBUTION WIDTH 15.3 % (11.5-14.5); WHITE BLOOD COUNT 8.9 K/uL (4.8-10.8)
[2017-12-04 06:35] LABS: ALB/GLOB RATIO 0.9 (1.0-2.1); ALBUMIN 3.1 g/dL (3.5-5.0); ALT/SGPT 25 U/L (21-72); AST/SGOT 25 U/L (17-59); BLOOD UREA NITROGEN 42 mg/dl (9-20); CALCIUM 8.7 mg/dL (8.4-10.2); GFR AFRICAN-AMERICAN > 60; GFR NON-AFRICAN AMERICAN 51
[2017-12-04] MEDS: Albuterol-Ipratrop 3 mg / 0.5 (3 ml) UD INH SCH ×4 (07:51→19:03)
[2017-12-04] MEDS: Insulin Lispro (humaLOG) 100 Units/ml Inj SC SCH ×7 (08:40→22:19)
[2017-12-04] MEDS: Enoxaparin 40 mg Syringe SC SCH (08:40)
[2017-12-04] MEDS: Multivitamin With Minerals Tab PO SCH (08:42)
[2017-12-04] MEDS: Bacitracin OINT 15GM TOP SCH (08:42)
[2017-12-04] MEDS: Amylase/Lipase/Protease 5,000 Units ECC PO SCH ×3 (08:42→17:29)
[2017-12-04] MEDS: Cefepime 2 GM in Sodium Chloride 0.9% 100 ML IVPB SCH ×2 (08:44→20:50)
[2017-12-04] MEDS: Silver Sulfadiazine 1% Cream (20 gm) TOP SCH (08:46)
[2017-12-04] MEDS: Magnesium Hydroxide Susp 30 ml UD PO SCH (08:46)
--- NOTE | 2017-12-04 08:51 | CP.PCM.PN ---
Subjective - Date & Time of Evaluation Date of Evaluation: 12/04/17 Time of Evaluation: 08:48 - Subjective Subjective: Podiatry Progress Note for Dr. Rose 42 yo male seen 2 days s/p right 3rd digit amputation. Patient is AAO x 3 NAD and seen with an oxygen mask as he has developed pneumonia. Patient states that he is in 7/10 pain today. He denies any other pedal complaints at this time. Denies N/V/F/SOB/CP/C/pain on palpation to the right calf. Objective - Vital Signs/Intake and Output Vital Signs (last 24 hours): Temp Pulse Resp BP Pulse Ox 98.3 F 101 H 20 115/64 94 L 12/04/17 08:06 12/04/17 08:06 12/04/17 08:06 12/04/17 08:06 12/04/17 08:06 - Medications Medications: Current Medications Acetaminophen (Tylenol 325mg Tab) 650 mg PO Q6 PRN PRN Reason: Pain, Mild (1-3) Acetaminophen (Tylenol 325mg Tab) 650 mg PO Q6 PRN PRN Reason: Fever >100.4 F Last Admin: 12/03/17 09:59 Dose: 650 mg Albuterol/Ipratropium (Duoneb 3 Mg/0.5 Mg (3 Ml) Ud) 3 ml INH RQID [facility] Last Admin: 12/04/17 07:51 Dose: 3 ml Allopurinol (Zyloprim) 300 mg PO DAILY [facility] Last Admin: 12/03/17 08:23 Dose: 300 mg Amlodipine Besylate (Norvasc) 5 mg PO DAILY [facility] Last Admin: 12/03/17 08:25 Dose: 5 mg Amylase (Pancrease 61768 U-5000 U-[id number] U) 5,000 unit PO TID [facility] Last Admin: 12/03/17 16:43 Dose: 5,000 unit Bacitracin (Bacitracin Oint) 1 applic TOP DAILY [facility] Last Admin: 12/03/17 08:22 Dose: 1 applic Docusate Sodium (Colace) 100 mg PO BID [facility] Last Admin: 12/03/17 16:43 Dose: 100 mg Duloxetine HCl (Cymbalta) 60 mg PO DAILY [facility] Last Admin: 12/03/17 08:23 Dose: 60 mg Enoxaparin Sodium (Lovenox) 40 mg SC DAILY [facility] PRN Reason: Protocol Last Admin: 12/03/17 10:00 Dose: 40 mg Gabapentin (Neurontin) 300 mg PO TID [facility] Last Admin: 12/03/17 16:43 Dose: 300 mg Gemfibrozil (Lopid) 600 mg PO BID [facility] Last Admin: 12/03/17 16:43 Dose: 600 mg Cefepime HCl 2 gm/ Sodium (Chloride) 100 mls @ 100 mls/hr IVPB Q12 [facility] PRN Reason: Protocol Stop: 12/10/17 21:00 Last Admin: 12/03/17 20:40 Dose: 100 mls/hr Vancomycin HCl 1 gm/ Sodium (Chloride) 250 mls @ 166.667 mls/hr IVPB Q12 [facility] PRN Reason: Protocol Last Admin: 12/03/17 22:20 Dose: Not Given Piperacillin Sod/Tazobactam (Sod 3.375 gm/ Sodium Chloride) 100 mls @ 100 mls/ hr IVPB Q8 [facility] PRN Reason: Protocol Last Admin: 12/04/17 00:08 Dose: 100 mls/hr Insulin Detemir (Levemir) 40 units SC HS [facility] Last Admin: 12/03/17 22:08 Dose: 40 u Insulin Human Lispro (Humalog) 0 units SC ACHS [facility] PRN Reason: Protocol Last Admin: 12/03/17 22:08 Dose: Not Given Insulin Human Lispro (Humalog) 14 units SC AC [facility] Last Admin: 12/03/17 17:32 Dose: 14 u Losartan Potassium (Cozaar) 50 mg PO Q12H [facility] Last Admin: 12/03/17 22:11 Dose: 50 mg Magnesium Hydroxide (Milk Of Magnesia) 15 ml PO DAILY [facility] Last Admin: 12/03/17 08:25 Dose: Not Given Methadone HCl (Methadone) 150 mg PO DAILY [facility] Last Admin: 12/03/17 08:20 Dose: 150 mg Multivitamins/Minerals (Therapeutic-M Tab) 1 tab PO DAILY [facility] Last Admin: 12/03/17 08:23 Dose: 1 tab Nystatin (Nystop Topical Powder) 1 applic TOP TID [facility] Last Admin: 12/03/17 16:44 Dose: 1 unit Ondansetron HCl (Zofran Inj) 4 mg IVP Q4 PRN PRN Reason: Nausea/Vomiting Last Admin: 12/03/17 06:57 Dose: 4 mg Probenecid (Probenecid) 500 mg PO DAILY [facility] Last Admin: 12/03/17 08:23 Dose: 500 mg Silver Sulfadiazine (Silvadene 1% 20 Gm) 1 ea TOP DAILY [facility] Last Admin: 12/03/17 10:33 Dose: Not Given - Labs Labs: 12/04/17 04:35 12/04/17 04:35 - Constitutional Appears: Well, Non-toxic, No Acute Distress - Head Exam Head Exam: ATRAUMATIC, NORMOCEPHALIC - Extremities Exam Additional comments: Right LE focused exam Vascular: DP and PT 2/4. CFT <3 seconds to all 4 digits, temp gradient is warm to warm from proximal to distal, minimal edema to the third digit surgical site Ortho: right 3rd digit amputation, left above knee amputation, mild tenderness to palpation around surgical incision WNL given postoperative status Neuro: Gross sensation intact, protective sensation diminished Derm: Sutures intact and skin edges well coapted, there are no signs of dehiscence, drainage, tunneling, malodor, no clinical signs of infection noted - Neurological Exam Neurological Exam: Alert, Awake, Oriented x3 - Psychiatric Exam Psychiatric exam: Normal Affect, Normal Mood Assessment and Plan - Assessment and Plan (Free Text) Assessment: 42 yo patient 2 day s/p right 3rd digit amputation. Plan: Patient seen and evaluated Discussed plan in detail with Dr. Rose Patient temperature went down overnight, still mildly febrile, absent leukocytosis CXR - B/l [place] R>L Urine cx - no growth Surgical site dressed with Telfa, DSD, and WILNER Continue IV abx per ID Patient stable from podiatric [facility] Podiatry will continue to follow while patient in house
[2017-12-04] MEDS ORDERED: Sodium Chloride 3% for Inhalation 4 ML VIAL.NEB IH PRN (09:13)
--- NOTE | 2017-12-04 13:38 | CP.PCM.PN ---
Subjective - Date & Time of Evaluation Date of Evaluation: 12/04/17 Time of Evaluation: 08:00 - Subjective Subjective: fever s/p amputation right 4th toe awake alert NAD IV rx in progress Vanco on hold Objective - Vital Signs/Intake and Output Vital Signs (last 24 hours): Temp Pulse Resp BP Pulse Ox 98.3 F 85 20 110/56 L 94 L 12/04/17 08:06 12/04/17 12:50 12/04/17 08:06 12/04/17 12:50 12/04/17 08:06 - Medications Medications: Current Medications Acetaminophen (Tylenol 325mg Tab) 650 mg PO Q6 PRN PRN Reason: Pain, Mild (1-3) Acetaminophen (Tylenol 325mg Tab) 650 mg PO Q6 PRN PRN Reason: Fever >100.4 F Last Admin: 12/03/17 09:59 Dose: 650 mg Albuterol/Ipratropium (Duoneb 3 Mg/0.5 Mg (3 Ml) Ud) 3 ml INH RQID [facility] Last Admin: 12/04/17 11:47 Dose: Not Given Allopurinol (Zyloprim) 300 mg PO DAILY [facility] Last Admin: 12/04/17 08:42 Dose: 300 mg Amlodipine Besylate (Norvasc) 5 mg PO DAILY [facility] Last Admin: 12/04/17 08:43 Dose: 5 mg Amylase (Pancrease 94694 U-5000 U-[id number] U) 5,000 unit PO TID [facility] Last Admin: 12/04/17 12:51 Dose: 5,000 unit Bacitracin (Bacitracin Oint) 1 applic TOP DAILY [facility] Last Admin: 12/04/17 08:42 Dose: 1 applic Docusate Sodium (Colace) 100 mg PO BID [facility] Last Admin: 12/04/17 08:39 Dose: 100 mg Duloxetine HCl (Cymbalta) 60 mg PO DAILY [facility] Last Admin: 12/04/17 08:42 Dose: 60 mg Enoxaparin Sodium (Lovenox) 40 mg SC DAILY [facility] PRN Reason: Protocol Last Admin: 12/04/17 08:40 Dose: 40 mg Gabapentin (Neurontin) 300 mg PO TID [facility] Last Admin: 12/04/17 12:51 Dose: 300 mg Gemfibrozil (Lopid) 600 mg PO BID [facility] Last Admin: 12/04/17 08:40 Dose: 600 mg Cefepime HCl 2 gm/ Sodium (Chloride) 100 mls @ 100 mls/hr IVPB Q12 [facility] PRN Reason: Protocol Stop: 12/10/17 21:00 Last Admin: 12/04/17 08:44 Dose: 100 mls/hr Vancomycin HCl 1 gm/ Sodium (Chloride) 250 mls @ 166.667 mls/hr IVPB Q12 [facility] PRN Reason: Protocol Last Admin: 12/03/17 22:20 Dose: Not Given Piperacillin Sod/Tazobactam (Sod 3.375 gm/ Sodium Chloride) 100 mls @ 100 mls/ hr IVPB Q8 [facility] PRN Reason: Protocol Last Admin: 12/04/17 08:47 Dose: 100 mls/hr Insulin Detemir (Levemir) 40 units SC HS [facility] Last Admin: 12/03/17 22:08 Dose: 40 u Insulin Human Lispro (Humalog) 0 units SC ACHS [facility] PRN Reason: Protocol Last Admin: 12/04/17 12:50 Dose: Not Given Insulin Human Lispro (Humalog) 14 units SC AC [facility] Last Admin: 12/04/17 12:49 Dose: 14 u Losartan Potassium (Cozaar) 50 mg PO Q12H [facility] Last Admin: 12/04/17 12:50 Dose: 50 mg Magnesium Hydroxide (Milk Of Magnesia) 15 ml PO DAILY [facility] Last Admin: 12/04/17 08:46 Dose: Not Given Methadone HCl (Methadone) 150 mg PO DAILY [facility] Last Admin: 12/04/17 08:41 Dose: 150 mg Multivitamins/Minerals (Therapeutic-M Tab) 1 tab PO DAILY [facility] Last Admin: 12/04/17 08:42 Dose: 1 tab Nystatin (Nystop Topical Powder) 1 applic TOP TID [facility] Last Admin: 12/04/17 12:51 Dose: 1 unit Ondansetron HCl (Zofran Inj) 4 mg IVP Q4 PRN PRN Reason: Nausea/Vomiting Last Admin: 12/03/17 06:57 Dose: 4 mg Probenecid (Probenecid) 500 mg PO DAILY [facility] Last Admin: 12/04/17 08:42 Dose: 500 mg Silver Sulfadiazine (Silvadene 1% 20 Gm) 1 ea TOP DAILY [facility] Last Admin: 12/04/17 08:46 Dose: Not Given - Labs Labs: 12/04/17 04:35 12/04/17 04:35 - Constitutional Appears: Non-toxic, Chronically Ill - Head Exam Head Exam: NORMOCEPHALIC - Eye Exam Eye Exam: absent: Scleral icterus - ENT Exam ENT Exam: Mucous Membranes Dry - Neck Exam Neck Exam: absent: Lymphadenopathy - Respiratory Exam Respiratory Exam: Decreased Breath Sounds - Cardiovascular Exam Cardiovascular Exam: REGULAR RHYTHM - GI/Abdominal Exam GI & Abdominal Exam: Distended - Rectal Exam Rectal Exam: Deferred - Exam Exam: NORMAL INSPECTION - Extremities Exam Extremities Exam: absent: Pedal Edema - Back Exam Back Exam: absent: CVA tenderness (L), CVA tenderness (R) - Neurological Exam Neurological Exam: Alert, Awake, Oriented x3 - Psychiatric Exam Psychiatric exam: Normal Mood - Skin Skin Exam: Dry Assessment and Plan (1) Osteomyelitis Status: Acute - Assessment and Plan (Free Text) Assessment: hx CVA DM CKD CAD Left AKA right hemiparesis Right 4th toe OM post op fever await cultures cont iv antiibotics
--- NOTE | 2017-12-04 20:06 | PN ---
DATE: 12/04/2017 ENDOCRINOLOGY FOLLOW UP LOCATION: Room 658. SUBJECTIVE: This is a 42-year-old male with recent uncontrolled type 2 insulin-requiring diabetes, now being followed closely for metabolic management. He has ongoing IV antibiotics for right lower extremity osteomyelitis and underwent a right third toe amputation as noted thereof. His glycemic levels are fluctuating but improved, and the glucose levels have ranged from 97 to 108 and 187 mg/dL. His latest chemistry showed a BUN of 42, sodium 137, potassium 5.3, chloride 102, CO2 of 27, glucose 140, and creatinine 1.5. So at this time, we will continue the same basal and bolus insulin regimen to allow for dose equilibration and keep him on the Humalog given as 14 units subcutaneous t.i.d. before meals as ordered. We will also continue the basal insulin given as Levemir at 34 units subcutaneous at bedtime daily as given. So at this time, we will continue the Levemir given as 40 units subcutaneous at bedtime daily as given. We will titrate incremental as indicated to optimize metabolic control. We will follow up with you. Gaye Llamas MD
[2017-12-04] MEDS: Insulin Detemir 100 Units/ml Inj SC SCH (22:45)
[2017-12-05] MEDS: Piperacillin/Tazobact 3.375 GM in Sodium Chloride 0.9% 100 ML IVPB SCH ×3 (00:27→16:40)
--- NOTE | 2017-12-05 06:03 | CP.PCM.PN ---
<Naa Brantley - Last Filed: 12/05/17 06:22> Subjective - Date & Time of Evaluation Date of Evaluation: 12/04/17 Time of Evaluation: 07:35 - Subjective Subjective: Patient seen and examined at bedside with Dr. Lentz. POD# 2 s/p amputation of 3rd digit-right foot. Reports moderate pain from amputation site. Cough persists. Denies chest pain, SOB, fevers , chills or dysuria. Is tolerating PO diet. Patient refuses PO pain medication as he reports dependance to them in the past and does not want to ever take them again. Objective - Vital Signs/Intake and Output Vital Signs (last 24 hours): Temp Pulse Resp BP Pulse Ox 98.1 F 101 H 20 106/66 92 L 12/05/17 00:08 12/05/17 00:08 12/05/17 00:08 12/05/17 00:08 12/05/17 00:08 - Medications Medications: Current Medications Acetaminophen (Tylenol 325mg Tab) 650 mg PO Q6 PRN PRN Reason: Pain, Mild (1-3) Acetaminophen (Tylenol 325mg Tab) 650 mg PO Q6 PRN PRN Reason: Fever >100.4 F Last Admin: 12/03/17 09:59 Dose: 650 mg Albuterol/Ipratropium (Duoneb 3 Mg/0.5 Mg (3 Ml) Ud) 3 ml INH RQID [facility] Last Admin: 12/04/17 19:03 Dose: 3 ml Allopurinol (Zyloprim) 300 mg PO DAILY [facility] Last Admin: 12/04/17 08:42 Dose: 300 mg Amlodipine Besylate (Norvasc) 5 mg PO DAILY [facility] Last Admin: 12/04/17 08:43 Dose: 5 mg Amylase (Pancrease 66900 U-5000 U-[id number] U) 5,000 unit PO TID [facility] Last Admin: 12/04/17 17:29 Dose: 5,000 unit Bacitracin (Bacitracin Oint) 1 applic TOP DAILY [facility] Last Admin: 12/04/17 08:42 Dose: 1 applic Docusate Sodium (Colace) 100 mg PO BID [facility] Last Admin: 12/04/17 17:27 Dose: 100 mg Duloxetine HCl (Cymbalta) 60 mg PO DAILY [facility] Last Admin: 12/04/17 08:42 Dose: 60 mg Enoxaparin Sodium (Lovenox) 40 mg SC DAILY [facility] PRN Reason: Protocol Last Admin: 12/04/17 08:40 Dose: 40 mg Gabapentin (Neurontin) 300 mg PO TID [facility] Last Admin: 12/04/17 17:29 Dose: 300 mg Gemfibrozil (Lopid) 600 mg PO BID [facility] Last Admin: 12/04/17 17:29 Dose: 600 mg Cefepime HCl 2 gm/ Sodium (Chloride) 100 mls @ 100 mls/hr IVPB Q12 [facility] PRN Reason: Protocol Stop: 12/10/17 21:00 Last Admin: 12/04/17 20:50 Dose: 100 mls/hr Vancomycin HCl 1 gm/ Sodium (Chloride) 250 mls @ 166.667 mls/hr IVPB Q12 [facility] PRN Reason: Protocol Last Admin: 12/04/17 17:31 Dose: Not Given Piperacillin Sod/Tazobactam (Sod 3.375 gm/ Sodium Chloride) 100 mls @ 100 mls/ hr IVPB Q8 [facility] PRN Reason: Protocol Last Admin: 12/05/17 00:27 Dose: 100 mls/hr Insulin Detemir (Levemir) 40 units SC HS [facility] Last Admin: 12/04/17 22:45 Dose: 40 u Insulin Human Lispro (Humalog) 0 units SC ACHS [facility] PRN Reason: Protocol Last Admin: 12/04/17 22:19 Dose: Not Given Insulin Human Lispro (Humalog) 14 units SC AC [facility] Last Admin: 12/04/17 17:28 Dose: 14 u Losartan Potassium (Cozaar) 50 mg PO Q12H [facility] Last Admin: 12/04/17 22:37 Dose: 50 mg Magnesium Hydroxide (Milk Of Magnesia) 15 ml PO DAILY [facility] Last Admin: 12/04/17 08:46 Dose: Not Given Methadone HCl (Methadone) 150 mg PO DAILY [facility] Last Admin: 12/04/17 08:41 Dose: 150 mg Multivitamins/Minerals (Therapeutic-M Tab) 1 tab PO DAILY [facility] Last Admin: 12/04/17 08:42 Dose: 1 tab Nystatin (Nystop Topical Powder) 1 applic TOP TID [facility] Last Admin: 12/04/17 17:29 Dose: Not Given Ondansetron HCl (Zofran Inj) 4 mg IVP Q4 PRN PRN Reason: Nausea/Vomiting Last Admin: 12/03/17 06:57 Dose: 4 mg Probenecid (Probenecid) 500 mg PO DAILY [facility] Last Admin: 12/04/17 08:42 Dose: 500 mg Silver Sulfadiazine (Silvadene 1% 20 Gm) 1 ea TOP DAILY [facility] Last Admin: 12/04/17 08:46 Dose: Not Given - Labs Labs: 12/04/17 04:35 12/04/17 04:35 - Constitutional Appears: No Acute Distress - ENT Exam ENT Exam: Mucous Membranes Moist - Neck Exam Neck Exam: Full ROM - Respiratory Exam Respiratory Exam: Rales (mild bilateral lower lobe) - Cardiovascular Exam Cardiovascular Exam: REGULAR RHYTHM, +S1, +S2 - GI/Abdominal Exam GI & Abdominal Exam: Normal Bowel Sounds - Extremities Exam Extremities Exam: absent: Calf Tenderness, Pedal Edema Additional comments: Right foot-3rd digit amputation site clean/dry/intact, sutures in place - Neurological Exam Neurological Exam: Alert, Awake - Psychiatric Exam Psychiatric exam: Normal Affect, Normal Mood - Skin Skin Exam: Dry, Warm Assessment and Plan - Assessment and Plan (Free Text) Assessment: 42 yr old M POD # 2 s/p amputation of 3rd digit-right foot for osteomylitis with PMHx including IDDM type 2, CVA, HTN, HLD, hx of osteomyelitis s/p left AKA , methadone dependance. Patient has bilateral pneumonia, afebrile. Plan: -continue present management -ID on board, will follow recommendations -Podiatry on board, will follow recommendations -Endocrinology on board, will follow recommendations -f/u sputum culture -PT/OT <Rojelio Lentz K - Last Filed: 12/07/17 12:44> Objective - Vital Signs/Intake and Output Vital Signs (last 24 hours): Temp Pulse Resp BP Pulse Ox 98.1 F 99 H 20 138/90 96 12/07/17 00:42 12/06/17 16:10 12/07/17 00:42 12/07/17 00:42 12/07/17 00:42 - Medications Medications: Current Medications Acetaminophen (Tylenol 325mg Tab) 650 mg PO Q6 PRN PRN Reason: Pain, Mild (1-3) Acetaminophen (Tylenol 325mg Tab) 650 mg PO Q6 PRN PRN Reason: Fever >100.4 F Last Admin: 12/03/17 09:59 Dose: 650 mg Albuterol/Ipratropium (Duoneb 3 Mg/0.5 Mg (3 Ml) Ud) 3 ml INH RQID [facility] Last Admin: 12/07/17 11:20 Dose: Not Given Allopurinol (Zyloprim) 300 mg PO DAILY [facility] Last Admin: 12/07/17 08:39 Dose: 300 mg Amlodipine Besylate (Norvasc) 5 mg PO DAILY [facility] Last Admin: 12/06/17 08:24 Dose: 5 mg Amylase (Pancrease 48614 U-5000 U-[id number] U) 5,000 unit PO TID [facility] Last Admin: 12/07/17 08:39 Dose: 5,000 unit Bacitracin (Bacitracin Oint) 1 applic TOP DAILY [facility] Last Admin: 12/07/17 08:33 Dose: Not Given Docusate Sodium (Colace) 100 mg PO BID [facility] Last Admin: 12/07/17 08:33 Dose: 100 mg Duloxetine HCl (Cymbalta) 60 mg PO DAILY [facility] Last Admin: 12/07/17 08:34 Dose: 60 mg Enoxaparin Sodium (Lovenox) 40 mg SC DAILY [facility] PRN Reason: Protocol Last Admin: 12/07/17 08:37 Dose: 40 mg Gabapentin (Neurontin) 300 mg PO TID [facility] Last Admin: 12/07/17 08:38 Dose: 300 mg Gemfibrozil (Lopid) 600 mg PO BID [facility] Last Admin: 12/07/17 08:35 Dose: 600 mg Cefepime HCl 2 gm/ Sodium (Chloride) 100 mls @ 100 mls/hr IVPB Q12 [facility] PRN Reason: Protocol Stop: 12/10/17 21:00 Last Admin: 12/07/17 08:38 Dose: 100 mls/hr Vancomycin HCl 1 gm/ Sodium (Chloride) 250 mls @ 166.667 mls/hr IVPB Q12 [facility] PRN Reason: Protocol Last Admin: 12/04/17 17:31 Dose: Not Given Piperacillin Sod/Tazobactam (Sod 3.375 gm/ Sodium Chloride) 100 mls @ 100 mls/ hr IVPB Q8 [facility] PRN Reason: Protocol Last Admin: 12/07/17 10:00 Dose: 100 mls/hr Insulin Detemir (Levemir) 40 units SC HS [facility] Last Admin: 12/06/17 22:37 Dose: 40 u Insulin Human Lispro (Humalog) 0 units SC ACHS [facility] PRN Reason: Protocol Last Admin: 12/07/17 08:34 Dose: Not Given Insulin Human Lispro (Humalog) 12 units SC AC [facility] Last Admin: 12/07/17 08:35 Dose: 12 u Losartan Potassium (Cozaar) 50 mg PO Q12H [facility] Last Admin: 12/05/17 12:30 Dose: Not Given Magnesium Hydroxide (Milk Of Magnesia) 15 ml PO DAILY [facility] Last Admin: 12/07/17 08:43 Dose: 15 ml Methadone HCl (Methadone) 150 mg PO DAILY [facility] Last Admin: 12/07/17 08:44 Dose: 150 mg Multivitamins/Minerals (Therapeutic-M Tab) 1 tab PO DAILY [facility] Last Admin: 12/07/17 08:39 Dose: 1 tab Nystatin (Nystop Topical Powder) 1 applic TOP TID [facility] Last Admin: 12/07/17 08:40 Dose: 1 applic Ondansetron HCl (Zofran Inj) 4 mg IVP Q4 PRN PRN Reason: Nausea/Vomiting Last Admin: 12/03/17 06:57 Dose: 4 mg Probenecid (Probenecid) 500 mg PO DAILY [facility] Last Admin: 12/07/17 08:39 Dose: 500 mg Silver Sulfadiazine (Silvadene 1% 20 Gm) 1 ea TOP DAILY [facility] Last Admin: 12/07/17 08:39 Dose: Not Given - Labs Labs: 12/05/17 10:14 12/05/17 20:00 Assessment and Plan - Assessment and Plan (Free Text) Assessment: Patient was personally seen and examined by me in rounds with residents. Available labs and diagnostic data reviewed. Case, Patient's condition and management plan discussed with residents in rounds. Agree with resident's progress note. Plan: As ordered.
[2017-12-05] MEDS: Albuterol-Ipratrop 3 mg / 0.5 (3 ml) UD INH SCH ×4 (07:43→21:00)
[2017-12-05] MEDS: Insulin Lispro (humaLOG) 100 Units/ml Inj SC SCH ×7 (07:46→21:58)
--- NOTE | 2017-12-05 08:00 | OP ---
PROCEDURE DATE: 11/28/2017 PREOPERATIVE DIAGNOSIS: Chronic ulceration with osteomyelitis of third digit, right foot. POSTOPERATIVE DIAGNOSIS: Chronic ulceration with osteomyelitis of third digit, right foot. PROCEDURE PERFORMED: Partial amputation of third digit, right foot. SURGEON: Donny Rose DPM HAND COUNTER: Kiersten Simmons DPM, PGY-2; Ann Crandall DPM, PGY-2. ANESTHESIA ADMINISTERED BY: Dr. Dent. ANESTHESIA: MAC IV sedation with local injection. INDICATIONS: The patient is a 42-year-old male with the above-mentioned diagnosis. The patient has been admitted to the hospital for a chronic diabetic foot infection with osteomyelitis of his third digit, right foot. The patient requires surgical intervention at this time. All risks, benefits, and possible complications to the proposed procedure have been explained to the patient at length. The patient verbalizes understanding and wishes to proceed. All questions were answered. No guarantees were given nor implied. Consent was signed and n.p.o. was confirmed prior to bring the patient into the operating room. DESCRIPTION OF PROCEDURE: The patient was brought into the operating room and placed in the operating room table in a supine position. A well-padded pneumatic ankle tourniquet was applied in a supramalleolar position to the patient's right ankle. Once IV sedation was achieved, a local injection consisting of 20 mL of 0.5% Marcaine plain was introduced via local block fashion to the patient's right forefoot. Once local anesthesia was achieved, the foot was then prepped and draped in the usual sterile manner and the procedure was begun. Please note, the patient is receiving IV cefepime on the floor. DESCRIPTION OF PROCEDURE: Partial amputation of third digit, right foot. Our attention was now directed to the third digit of the patient's right foot with full-thickness ulceration measuring approximately 0.5 x 0.5 x 0.4 cm was appreciated to the dorsal aspect of the proximal intraphalangeal joint of the patient's third digit. At this time, using a marking pen, our incision was then drawn at the level of the proximal intraphalangeal joint. Next, using a #15 blade, a racket type incision was made at the level of the proximal intraphalangeal joint and the third digit was disarticulated at the proximal intraphalangeal joint with the bone sent for pathology and culture. It should be noted that excisional debridement was performed in order to remove all nonviable tissue from the ulceration site. There appeared to be no drainage nor any abscess at the level of the ulceration. Next, using a sagittal saw, the remainder of the proximal phalanx was then resected at the level of the base, which was then passed from the surgical field and also sent to pathology and culture, and the remaining base of the proximal phalanx of the third digit did appear to be healthy on inspection. Additionally, the third metatarsal head did appear to be healthy at this time. Next, Using a fresh #15 blade, the amputation site was debulked of soft tissue and the skin flaps were then able to be reapproximated. Prior to this, the surgical site was flushed with copious amounts of normal sterile saline solution. The tendons were then resected both dorsally and plantarly and allowed to contract proximally. The deep subcutaneous tissue was reapproximated and coapted using 2-0 and 3-0 Vicryl, subcuticular tissue was reapproximated using 4-0 Vicryl and skin edges were reapproximated using 3-0 Prolene suture. The surgical site was then dressed with Betadine-soaked Adaptic, 4 x 4 gauze, Kerlix, Coban, and WILNER bandage. Next, the ankle tourniquet was then deflated and there did appear to be adequate capillary refill time noted to all digits including the third digit application site. POSTOPERATIVE CONDITION: The patient tolerated the procedure and anesthesia well with no apparent complications or concerns. The patient was escorted from the OR to the recovery room with all vital signs stable and neurovascular structures intact. The patient will be seen and followed daily on the floors and will follow up with Dr. Rose as an outpatient. Kiersten Simmons DPM Donny Rose DPM [facility]
--- NOTE | 2017-12-05 08:21 | CP.PCM.PN ---
Subjective - Date & Time of Evaluation Date of Evaluation: 12/05/17 Time of Evaluation: 08:17 - Subjective Subjective: Podiatry Progress Note for attending Dr. Rose 42 Y/O male seen and evaluated at the bedside 3 days s/p right 3rd digit amputation. Patient is AAO x 3 and in no acute distress. Patient states that his pain went down and it's tolerable since last night. He denies any other pedal complaints at this time. Patient denies N/V/F/CP/C/pain on palpation to the right calf. Patient states that he didn't have any acute events since last night. Patent states that his SOB still present but improving since last night. Objective - Vital Signs/Intake and Output Vital Signs (last 24 hours): Temp Pulse Resp BP Pulse Ox 98.5 F 93 H 18 109/72 91 L 12/05/17 07:45 12/05/17 07:45 12/05/17 07:45 12/05/17 07:45 12/05/17 07:45 - Medications Medications: Current Medications Acetaminophen (Tylenol 325mg Tab) 650 mg PO Q6 PRN PRN Reason: Pain, Mild (1-3) Acetaminophen (Tylenol 325mg Tab) 650 mg PO Q6 PRN PRN Reason: Fever >100.4 F Last Admin: 12/03/17 09:59 Dose: 650 mg Albuterol/Ipratropium (Duoneb 3 Mg/0.5 Mg (3 Ml) Ud) [address] [facility] Last Admin: 12/05/17 07:43 Dose: 3 ml Allopurinol (Zyloprim) [address] [facility] Last Admin: 12/04/17 08:42 Dose: 300 mg Amlodipine Besylate (Norvasc) [address] [facility] Last Admin: 12/04/17 08:43 Dose: 5 mg Amylase (Pancrease 30834 U-5000 U-[id number] U) 5,[address] [facility] Last Admin: 12/04/17 17:29 Dose: 5,000 unit Bacitracin (Bacitracin Oint) [address] [facility] Last Admin: 12/04/17 08:42 Dose: 1 applic Docusate Sodium (Colace) [address] [facility] Last Admin: 12/04/17 17:27 Dose: 100 mg Duloxetine HCl (Cymbalta) [address] [facility] Last Admin: 12/04/17 08:42 Dose: 60 mg Enoxaparin Sodium (Lovenox) [address] [facility] PRN Reason: Protocol Last Admin: 12/04/17 08:40 Dose: 40 mg Gabapentin (Neurontin) [address] [facility] Last Admin: 12/04/17 17:29 Dose: 300 mg Gemfibrozil (Lopid) [address] [facility] Last Admin: 12/04/17 17:29 Dose: 600 mg Cefepime HCl 2 gm/ Sodium (Chloride) 100 mls @ 100 mls/hr IVPB Q12 [facility] PRN Reason: Protocol Stop: 12/10/17 21:00 Last Admin: 12/04/17 20:50 Dose: 100 mls/hr Vancomycin HCl 1 gm/ Sodium (Chloride) 250 mls @ 166.667 mls/hr IVPB Q12 [facility] PRN Reason: Protocol Last Admin: 12/04/17 17:31 Dose: Not Given Piperacillin Sod/Tazobactam (Sod 3.375 gm/ Sodium Chloride) 100 mls @ 100 mls/ hr IVPB Q8 [facility] PRN Reason: Protocol Last Admin: 12/05/17 00:27 Dose: 100 mls/hr Insulin Detemir (Levemir) [address] [facility] Last Admin: 12/04/17 22:45 Dose: 40 u Insulin Human Lispro (Humalog) [address] [facility] PRN Reason: Protocol Last Admin: 12/05/17 07:46 Dose: Not Given Insulin Human Lispro (Humalog) [address] [facility] Last Admin: 12/04/17 17:28 Dose: 14 u Losartan Potassium (Cozaar) [address] [facility] Last Admin: 12/04/17 22:37 Dose: 50 mg Magnesium Hydroxide (Milk Of Magnesia) [address] [facility] Last Admin: 12/04/17 08:46 Dose: Not Given Methadone HCl (Methadone) [address] [facility] Last Admin: 12/04/17 08:41 Dose: 150 mg Multivitamins/Minerals (Therapeutic-M Tab) [address] [facility] Last Admin: 12/04/17 08:42 Dose: 1 tab Nystatin (Nystop Topical Powder) [address] [facility] Last Admin: 12/04/17 17:29 Dose: Not Given Ondansetron HCl (Zofran Inj) 4 mg IVP Q4 PRN PRN Reason: Nausea/Vomiting Last Admin: 12/03/17 06:57 Dose: 4 mg Probenecid (Probenecid) [address] [facility] Last Admin: 12/04/17 08:42 Dose: 500 mg Silver Sulfadiazine (Silvadene 1% 20 Gm) [address] [facility] Last Admin: 12/04/17 08:46 Dose: Not Given - Labs Labs: 12/04/17 04:35 12/04/17 04:35 - Constitutional Appears: Well, Non-toxic, No Acute Distress - Head Exam Head Exam: ATRAUMATIC, NORMOCEPHALIC - Extremities Exam Additional comments: Right LE focused exam Vascular: DP/PT 2/4. Cap refill <3 seconds to all 4 digits, temp gradient is warm to warm from proximal to distal, minimal edema at the third digit surgical site. Neuro: Gross sensation intact, protective sensation diminished Derm: Sutures intact and skin edges well coapted, Wound looks clean with no signs of dehiscence, no drainage, no tunneling, no malodor, no signs of wound dehiscence, no erythema and no clinical signs of active bacterial infection. MSK: right 3rd digit amputation, left above knee amputation, mild tenderness to palpation around surgical incision WNL given postoperative status - Neurological Exam Neurological Exam: Alert, Awake, Oriented x3 - Psychiatric Exam Psychiatric exam: Normal Affect, Normal Mood Assessment and Plan - Assessment and Plan (Free Text) Assessment: 42 yo patient 3 day s/p right 3rd digit amputation. Plan: Patient seen and evaluated at the bedside Discussed plan in detail with Dr. Rose Afebrile, absent leukocytosis at last CBC CXR - B/l [place] R>L Urine cx - no growth Surgical site dressed using Telfa, DSD, and WILNER Continue IV abx per ID Patient stable from podiatric stanpoint. Podiatry will continue to follow while patient in house.
[2017-12-05] MEDS: Bacitracin OINT 15GM TOP SCH (09:01)
[2017-12-05] MEDS: Multivitamin With Minerals Tab PO SCH (09:02)
[2017-12-05] MEDS: Amylase/Lipase/Protease 5,000 Units ECC PO SCH ×3 (09:02→16:39)
[2017-12-05] MEDS: Silver Sulfadiazine 1% Cream (20 gm) TOP SCH (09:02)
[2017-12-05] MEDS: Enoxaparin 40 mg Syringe SC SCH (09:04)
[2017-12-05] MEDS: Magnesium Hydroxide Susp 30 ml UD PO SCH (09:04)
[2017-12-05] MEDS: Cefepime 2 GM in Sodium Chloride 0.9% 100 ML IVPB SCH ×2 (09:06→21:22)
[2017-12-05 10:32] LABS: MEAN CELL VOLUME 85.4 fl (80.0-94.0); MEAN CORPUSCULAR HEMOGLOBIN 28.2 pg (27.0-31.0); RBC 2.82 Mil/uL (4.40-5.90); RED CELL DISTRIBUTION WIDTH 15.5 % (11.5-14.5); WHITE BLOOD COUNT 7.9 K/uL (4.8-10.8)
[2017-12-05 11:05] LABS: BLOOD UREA NITROGEN 43 mg/dl (9-20); GFR AFRICAN-AMERICAN > 60; GFR NON-AFRICAN AMERICAN > 60
[2017-12-05] MEDS ORDERED: Sod Polystyrene Sulf 15 gm/60 ml Susp PO ONE (11:10)
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
--- NOTE | 2017-12-05 13:57 | CARD ---
APPROVED REPORT EKG Measurement Heart [id number] <Conclusion> Normal sinus rhythm Normal ECG
[2017-12-05] MEDS ORDERED: Iodixanol 320 MG/ML 100 ML BOTTLE IV ONE (13:59)
[2017-12-05] MEDS ORDERED: Sodium Chloride 0.9% 50 ML IV ONE (13:59)
--- NOTE | 2017-12-05 15:32 | CT ---
PROCEDURE: CT Chest with contrast (Pulmonary Angiogram) HISTORY: Low O2 saturations, s/p toe amputation, Pneumonia COMPARISON: Comparison chest 12/03/2014. TECHNIQUE: Contiguous helical/transaxial computed tomography images were obtained of the chest in the pulmonary arterial phase of enhancement. Coronal and sagittal reformatted images were created and reviewed. Intravenous contrast dose: 99 cc Visipaque 320 Radiation dose: Total exam DLP = 489.32 mGy-cm. This CT exam was performed using one or more of the following dose reduction techniques: Automated exposure control, adjustment of the mA and/or kV according to patient size, and/or use of iterative reconstruction technique. FINDINGS: In situ left-sided PICC line within left-sided SV of the C. PULMONARY ARTERIES: Note that evaluation of the pulmonary artery is somewhat limited due to suboptimal opacification and large body habitus. The visualized pulmonary trunk, right and left main, lobar, segmental and proximal subsegmental branches of the pulmonary arteries are relatively well opacified. Note that the mid and distal subsegmental branches poorly seen due to large body habitus and suboptimal opacification. AORTA: No acute findings. No thoracic aortic aneurysm. LUNGS: Patchy bilateral alveolar-type infiltrates seen within the lower and to a lesser degree upper lobes bilaterally (latter of which is more pronounced in the right upper compared to the left lower. PLEURAL SPACES: Unremarkable. No effusion or pneumothorax. HEART: Heart appears of mildly enlarged. No significant pericardial effusion LYMPH NODES: . There is enlarged sub carinal lymph node measuring approximate 3.7 cm in greatest dimension. Borderline/mildly enlarged arm right hilar lymph nodes with 2 measuring approximately 2.3 and 1.7 cm adjacent to the distal right pulmonary artery and distal aspect right mainstem bronchus/bronchus intermedius junction (anterior to posterior respectively). There is a left-sided hilar lymph node measuring 16 mm. These lymph nodes could be reactive however given concurrent of findings of bilateral infiltrates followup CT scan following treatment recommended to assess for improvement and/or resolution and however exclude other pathology including neoplastic adenopathy. BONES, CHEST WALL: Mild multilevel degenerative spondylosis of the thoracic and upper lumbar spine. . Chronic anterior wedge deformity T11 segment. OTHER FINDINGS: Spleen is mildly enlarged measuring approximately 15.4 cm in AP dimension. IMPRESSION: Suboptimal study. No definitive evidence of acute central pulmonary embolus. Left-sided SVC. Bilateral lower and to a lesser degree upper lobe infiltrates as described. There are enlarged mediastinal and bilateral hilar lymph nodes. . These lymph nodes could be reactive however given concurrent of findings of bilateral infiltrates however followup CT scan following treatment recommended to assess for improvement and/or resolution and exclude other pathology including neoplastic adenopathy. . Splenomegaly.
[2017-12-05 16:31] LABS: FOLATE 14.4 ng/mL
--- NOTE | 2017-12-05 19:52 | CP.PCM.PN ---
<Naa Brantley - Last Filed: 12/05/17 19:47> Subjective - Date & Time of Evaluation Date of Evaluation: 12/05/17 Time of Evaluation: 07:40 - Subjective Subjective: Patient seen and examined at bedside with Dr. Lentz. Reports right foot pain persists at 3rd toe amputation site. Cough has minimally improved. Patient is tolerating PO diet. Objective - Vital Signs/Intake and Output Vital Signs (last 24 hours): Temp Pulse Resp BP Pulse Ox 99.8 F H 102 H 20 151/76 H 90 L 12/05/17 16:06 12/05/17 16:06 12/05/17 16:06 12/05/17 16:06 12/05/17 16:06 - Medications Medications: Current Medications Acetaminophen (Tylenol 325mg Tab) 650 mg PO Q6 PRN PRN Reason: Pain, Mild (1-3) Acetaminophen (Tylenol 325mg Tab) 650 mg PO Q6 PRN PRN Reason: Fever >100.4 F Last Admin: 12/03/17 09:59 Dose: 650 mg Albuterol/Ipratropium (Duoneb 3 Mg/0.5 Mg (3 Ml) Ud) 3 ml INH RQID [facility] Last Admin: 12/05/17 16:04 Dose: 3 ml Allopurinol (Zyloprim) 300 mg PO DAILY [facility] Last Admin: 12/05/17 09:01 Dose: 300 mg Amlodipine Besylate (Norvasc) 5 mg PO DAILY [facility] Last Admin: 12/05/17 09:04 Dose: 5 mg Amylase (Pancrease 98449 U-5000 U-54797 U) 5,000 unit PO TID [facility] Last Admin: 12/05/17 16:39 Dose: 5,000 unit Bacitracin (Bacitracin Oint) 1 applic TOP DAILY [facility] Last Admin: 12/05/17 09:01 Dose: Not Given Docusate Sodium (Colace) 100 mg PO BID [facility] Last Admin: 12/05/17 16:38 Dose: 100 mg Duloxetine HCl (Cymbalta) 60 mg PO DAILY [facility] Last Admin: 12/05/17 09:03 Dose: 60 mg Enoxaparin Sodium (Lovenox) 40 mg SC DAILY [facility] PRN Reason: Protocol Last Admin: 12/05/17 09:04 Dose: 40 mg Gabapentin (Neurontin) 300 mg PO TID [facility] Last Admin: 12/05/17 16:39 Dose: 300 mg Gemfibrozil (Lopid) 600 mg PO BID [facility] Last Admin: 12/05/17 16:39 Dose: 600 mg Cefepime HCl 2 gm/ Sodium (Chloride) 100 mls @ 100 mls/hr IVPB Q12 [facility] PRN Reason: Protocol Stop: 12/10/17 21:00 Last Admin: 12/05/17 09:06 Dose: 100 mls/hr Vancomycin HCl 1 gm/ Sodium (Chloride) 250 mls @ 166.667 mls/hr IVPB Q12 [facility] PRN Reason: Protocol Last Admin: 12/04/17 17:31 Dose: Not Given Piperacillin Sod/Tazobactam (Sod 3.375 gm/ Sodium Chloride) 100 mls @ 100 mls/ hr IVPB Q8 [facility] PRN Reason: Protocol Last Admin: 12/05/17 16:40 Dose: 100 mls/hr Insulin Detemir (Levemir) 40 units SC HS [facility] Last Admin: 12/04/17 22:45 Dose: 40 u Insulin Human Lispro (Humalog) 0 units SC ACHS [facility] PRN Reason: Protocol Last Admin: 12/05/17 16:38 Dose: Not Given Insulin Human Lispro (Humalog) 14 units SC AC [facility] Last Admin: 12/05/17 16:39 Dose: 14 u Losartan Potassium (Cozaar) 50 mg PO Q12H [facility] Last Admin: 12/05/17 12:30 Dose: Not Given Magnesium Hydroxide (Milk Of Magnesia) 15 ml PO DAILY [facility] Last Admin: 12/05/17 09:04 Dose: Not Given Methadone HCl (Methadone) 150 mg PO DAILY [facility] Last Admin: 12/05/17 09:19 Dose: 150 mg Multivitamins/Minerals (Therapeutic-M Tab) 1 tab PO DAILY [facility] Last Admin: 12/05/17 09:02 Dose: 1 tab Nystatin (Nystop Topical Powder) 1 applic TOP TID [facility] Last Admin: 12/05/17 16:40 Dose: Not Given Ondansetron HCl (Zofran Inj) 4 mg IVP Q4 PRN PRN Reason: Nausea/Vomiting Last Admin: 12/03/17 06:57 Dose: 4 mg Probenecid (Probenecid) 500 mg PO DAILY [facility] Last Admin: 12/05/17 09:02 Dose: 500 mg Silver Sulfadiazine (Silvadene 1% 20 Gm) 1 ea TOP DAILY [facility] Last Admin: 12/05/17 09:02 Dose: Not Given - Labs Labs: 12/05/17 10:14 12/05/17 10:14 - Constitutional Appears: No Acute Distress - Head Exam Head Exam: NORMAL INSPECTION - Eye Exam Eye Exam: EOMI - ENT Exam ENT Exam: Mucous Membranes Moist - Neck Exam Neck Exam: Full ROM. absent: Lymphadenopathy - Respiratory Exam Respiratory Exam: NORMAL BREATHING PATTERN - Cardiovascular Exam Cardiovascular Exam: REGULAR RHYTHM - GI/Abdominal Exam GI & Abdominal Exam: Soft, Normal Bowel Sounds - Extremities Exam Additional comments: right foot-3rd digit amputation site clean/dry/intact, no erythema, sutures in place - Neurological Exam Neurological Exam: Alert, Awake - Psychiatric Exam Psychiatric exam: Normal Affect, Normal Mood - Skin Skin Exam: Dry, Warm Assessment and Plan - Assessment and Plan (Free Text) Assessment: 42 yr old M POD # 3 s/p amputation of 3rd digit-right foot for osteomylitis with PMHx including IDDM type 2, CVA, HTN, HLD, hx of osteomyelitis s/p left AKA , methadone dependance. Patient has bilateral pneumonia, afebrile, no leukocytosis. Plan: -Pulmonology consult appreciated -continue present management -ID on board: continue IV antibiotics -Podiatry on board, will follow recommendations -Endocrinology on board, will follow recommendations -sputum culture: few gram positive cocci -PT/OT <Lentz,Rojelio K - Last Filed: 12/07/17 12:49> Objective - Vital Signs/Intake and Output Vital Signs (last 24 hours): Temp Pulse Resp BP Pulse Ox 98.1 F 99 H 20 138/90 96 12/07/17 00:42 12/06/17 16:10 12/07/17 00:42 12/07/17 00:42 12/07/17 00:42 - Medications Medications: Current Medications Acetaminophen (Tylenol 325mg Tab) 650 mg PO Q6 PRN PRN Reason: Pain, Mild (1-3) Acetaminophen (Tylenol 325mg Tab) 650 mg PO Q6 PRN PRN Reason: Fever >100.4 F Last Admin: 12/03/17 09:59 Dose: 650 mg Albuterol/Ipratropium (Duoneb 3 Mg/0.5 Mg (3 Ml) Ud) 3 ml INH RQID [facility] Last Admin: 12/07/17 11:20 Dose: Not Given Allopurinol (Zyloprim) 300 mg PO DAILY [facility] Last Admin: 12/07/17 08:39 Dose: 300 mg Amlodipine Besylate (Norvasc) 5 mg PO DAILY [facility] Last Admin: 12/06/17 08:24 Dose: 5 mg Amylase (Pancrease 31213 U-5000 U-18161 U) 5,000 unit PO TID [facility] Last Admin: 12/07/17 08:39 Dose: 5,000 unit Bacitracin (Bacitracin Oint) 1 applic TOP DAILY [facility] Last Admin: 12/07/17 08:33 Dose: Not Given Docusate Sodium (Colace) 100 mg PO BID [facility] Last Admin: 12/07/17 08:33 Dose: 100 mg Duloxetine HCl (Cymbalta) 60 mg PO DAILY [facility] Last Admin: 12/07/17 08:34 Dose: 60 mg Enoxaparin Sodium (Lovenox) 40 mg SC DAILY [facility] PRN Reason: Protocol Last Admin: 12/07/17 08:37 Dose: 40 mg Gabapentin (Neurontin) 300 mg PO TID [facility] Last Admin: 12/07/17 08:38 Dose: 300 mg Gemfibrozil (Lopid) 600 mg PO BID [facility] Last Admin: 12/07/17 08:35 Dose: 600 mg Cefepime HCl 2 gm/ Sodium (Chloride) 100 mls @ 100 mls/hr IVPB Q12 [facility] PRN Reason: Protocol Stop: 12/10/17 21:00 Last Admin: 12/07/17 08:38 Dose: 100 mls/hr Vancomycin HCl 1 gm/ Sodium (Chloride) 250 mls @ 166.667 mls/hr IVPB Q12 [facility] PRN Reason: Protocol Last Admin: 12/04/17 17:31 Dose: Not Given Piperacillin Sod/Tazobactam (Sod 3.375 gm/ Sodium Chloride) 100 mls @ 100 mls/ hr IVPB Q8 [facility] PRN Reason: Protocol Last Admin: 12/07/17 10:00 Dose: 100 mls/hr Insulin Detemir (Levemir) 40 units SC [facility] Last Admin: 12/06/17 22:37 Dose: 40 u Insulin Human Lispro (Humalog) 0 units SC ACHS [facility] PRN Reason: Protocol Last Admin: 12/07/17 08:34 Dose: Not Given Insulin Human Lispro (Humalog) 12 units SC AC [facility] Last Admin: 12/07/17 08:35 Dose: 12 u Losartan Potassium (Cozaar) 50 mg PO Q12H [facility] Last Admin: 12/05/17 12:30 Dose: Not Given Magnesium Hydroxide (Milk Of Magnesia) 15 ml PO DAILY [facility] Last Admin: 12/07/17 08:43 Dose: 15 ml Methadone HCl (Methadone) 150 mg PO DAILY [facility] Last Admin: 12/07/17 08:44 Dose: 150 mg Multivitamins/Minerals (Therapeutic-M Tab) 1 tab PO DAILY [facility] Last Admin: 12/07/17 08:39 Dose: 1 tab Nystatin (Nystop Topical Powder) 1 applic TOP TID [facility] Last Admin: 12/07/17 08:40 Dose: 1 applic Ondansetron HCl (Zofran Inj) 4 mg IVP Q4 PRN PRN Reason: Nausea/Vomiting Last Admin: 12/03/17 06:57 Dose: 4 mg Probenecid (Probenecid) 500 mg PO DAILY [facility] Last Admin: 12/07/17 08:39 Dose: 500 mg Silver Sulfadiazine (Silvadene 1% 20 Gm) 1 ea TOP DAILY [facility] Last Admin: 12/07/17 08:39 Dose: Not Given - Labs Labs: 12/05/17 10:14 12/05/17 20:00 Assessment and Plan - Assessment and Plan (Free Text) Assessment: Patient was personally seen and examined by me in rounds with residents. Available labs and diagnostic data reviewed. Case, Patient's condition and management plan discussed with residents in rounds. Agree with resident's progress note. Plan: As ordered.
--- NOTE | 2017-12-05 20:04 | PN ---
DATE: 12/05/2017 ENDO FOLLOWUP NOTE LOCATION: Room 658. SUBJECTIVE: This is a 42-year-old male with recent uncontrolled type 2 insulin-requiring diabetes with ongoing IV antibiotic management for lower extremity osteomyelitis with a recent right third toe amputation and is now being followed closely for metabolic management. His glycemic levels are fluctuating but improved and the latest glucose levels today have ranged from 135 to 256 mg/dL. His latest chemistry showed a BUN of 43, sodium 141, potassium 6.2, chloride 103, CO2 of 26, glucose 206, and creatinine 1.3. So at this time, we will continue the same basal and bolus insulin regimen to allow for dose equilibration and keep him on the Humalog given as 14 units subcu three times daily before meals to start today as ordered. We will also continue the basal insulin given as Levemir at 40 units subcu at bedtime daily as ordered. We will continue the low-dose correction scale using Humalog insulin as given. We will obtain serial chemistries and supplement accordingly as needed. We will follow. Gaye Llamas MD
[2017-12-05] MEDS: Insulin Detemir 100 Units/ml Inj SC SCH (21:57)
[2017-12-06] MEDS: Piperacillin/Tazobact 3.375 GM in Sodium Chloride 0.9% 100 ML IVPB SCH ×3 (00:06→17:05)
[2017-12-06] MEDS: Albuterol-Ipratrop 3 mg / 0.5 (3 ml) UD INH SCH ×4 (07:28→20:11)
--- NOTE | 2017-12-06 07:47 | CP.PCM.PN ---
<Naa Brantley - Last Filed: 12/06/17 17:47> Subjective - Date & Time of Evaluation Date of Evaluation: 12/06/17 Time of Evaluation: 07:47 - Subjective Subjective: Patient seen and examined at bedside with Dr. Lentz. Reports mild discomfort of right foot at amputation site and radiating to 2nd toe. Denies fevers, chills, SOB, weakness. Cough has improved. Objective - Vital Signs/Intake and Output Vital Signs (last 24 hours): Temp Pulse Resp BP Pulse Ox 98.2 F 97 H 18 131/87 93 L 12/06/17 00:01 12/06/17 00:01 12/06/17 00:01 12/06/17 00:01 12/06/17 00:01 - Medications Medications: Current Medications Acetaminophen (Tylenol 325mg Tab) 650 mg PO Q6 PRN PRN Reason: Pain, Mild (1-3) Acetaminophen (Tylenol 325mg Tab) 650 mg PO Q6 PRN PRN Reason: Fever >100.4 F Last Admin: 12/03/17 09:59 Dose: 650 mg Albuterol/Ipratropium (Duoneb 3 Mg/0.5 Mg (3 Ml) Ud) 3 ml INH RQID [facility] Last Admin: 12/06/17 07:28 Dose: 3 ml Allopurinol (Zyloprim) 300 mg PO DAILY [facility] Last Admin: 12/05/17 09:01 Dose: 300 mg Amlodipine Besylate (Norvasc) 5 mg PO DAILY [facility] Last Admin: 12/05/17 09:04 Dose: 5 mg Amylase (Pancrease 31581 U-5000 U-58621 U) 5,000 unit PO TID [facility] Last Admin: 12/05/17 16:39 Dose: 5,000 unit Bacitracin (Bacitracin Oint) 1 applic TOP DAILY [facility] Last Admin: 12/05/17 09:01 Dose: Not Given Docusate Sodium (Colace) 100 mg PO BID [facility] Last Admin: 12/05/17 16:38 Dose: 100 mg Duloxetine HCl (Cymbalta) 60 mg PO DAILY [facility] Last Admin: 12/05/17 09:03 Dose: 60 mg Enoxaparin Sodium (Lovenox) 40 mg SC DAILY [facility] PRN Reason: Protocol Last Admin: 12/05/17 09:04 Dose: 40 mg Gabapentin (Neurontin) 300 mg PO TID [facility] Last Admin: 12/05/17 16:39 Dose: 300 mg Gemfibrozil (Lopid) 600 mg PO BID [facility] Last Admin: 12/05/17 16:39 Dose: 600 mg Cefepime HCl 2 gm/ Sodium (Chloride) 100 mls @ 100 mls/hr IVPB Q12 [facility] PRN Reason: Protocol Stop: 12/10/17 21:00 Last Admin: 12/05/17 21:22 Dose: 100 mls/hr Vancomycin HCl 1 gm/ Sodium (Chloride) 250 mls @ 166.667 mls/hr IVPB Q12 [facility] PRN Reason: Protocol Last Admin: 12/04/17 17:31 Dose: Not Given Piperacillin Sod/Tazobactam (Sod 3.375 gm/ Sodium Chloride) 100 mls @ 100 mls/ hr IVPB Q8 [facility] PRN Reason: Protocol Last Admin: 12/06/17 00:06 Dose: 100 mls/hr Insulin Detemir (Levemir) 40 units SC [facility] Last Admin: 12/05/17 21:57 Dose: 40 u Insulin Human Lispro (Humalog) 0 units SC ACHS [facility] PRN Reason: Protocol Last Admin: 12/05/17 21:58 Dose: Not Given Insulin Human Lispro (Humalog) 12 units SC AC [facility] Losartan Potassium (Cozaar) 50 mg PO Q12H [facility] Last Admin: 12/05/17 12:30 Dose: Not Given Magnesium Hydroxide (Milk Of Magnesia) 15 ml PO DAILY [facility] Last Admin: 12/05/17 09:04 Dose: Not Given Methadone HCl (Methadone) 150 mg PO DAILY [facility] Last Admin: 12/05/17 09:19 Dose: 150 mg Multivitamins/Minerals (Therapeutic-M Tab) 1 tab PO DAILY [facility] Last Admin: 12/05/17 09:02 Dose: 1 tab Nystatin (Nystop Topical Powder) 1 applic TOP TID [facility] Last Admin: 12/05/17 16:40 Dose: Not Given Ondansetron HCl (Zofran Inj) 4 mg IVP Q4 PRN PRN Reason: Nausea/Vomiting Last Admin: 12/03/17 06:57 Dose: 4 mg Probenecid (Probenecid) 500 mg PO DAILY [facility] Last Admin: 12/05/17 09:02 Dose: 500 mg Silver Sulfadiazine (Silvadene 1% 20 Gm) 1 ea TOP DAILY [facility] Last Admin: 12/05/17 09:02 Dose: Not Given - Labs Labs: 12/05/17 10:14 12/05/17 20:00 - Constitutional Appears: No Acute Distress - Head Exam Head Exam: ATRAUMATIC, NORMOCEPHALIC - ENT Exam ENT Exam: Mucous Membranes Moist - Respiratory Exam Respiratory Exam: NORMAL BREATHING PATTERN - Cardiovascular Exam Cardiovascular Exam: REGULAR RHYTHM - GI/Abdominal Exam GI & Abdominal Exam: Normal Bowel Sounds - Extremities Exam Extremities Exam: absent: Normal Inspection (right foot-3rd digit amputation site clean and dry) - Neurological Exam Neurological Exam: Alert, Awake, Oriented x3 - Psychiatric Exam Psychiatric exam: Normal Affect, Normal Mood - Skin Skin Exam: Dry, Warm Assessment and Plan - Assessment and Plan (Free Text) Assessment: 42 yr old M POD # 4 s/p amputation of 3rd digit-right foot for osteomylitis with PMHx including IDDM type 2, CVA, HTN, HLD, hx of osteomyelitis s/p left AKA , methadone dependance. Patient has bilateral pneumonia, afebrile, no leukocytosis. Plan: -Pulmonology consult appreciated -continue present management -ID on board: continue IV antibiotics, PICC to be removed -Podiatry on board, will follow recommendations -Endocrinology on board, will follow recommendations -sputum culture: few gram positive cocci -PT/OT <Rojelio Lentz K - Last Filed: 12/07/17 12:52> Objective - Vital Signs/Intake and Output Vital Signs (last 24 hours): Temp Pulse Resp BP Pulse Ox 98.1 F 99 H 20 138/90 96 12/07/17 00:42 12/06/17 16:10 12/07/17 00:42 12/07/17 00:42 12/07/17 00:42 - Medications Medications: Current Medications Acetaminophen (Tylenol 325mg Tab) 650 mg PO Q6 PRN PRN Reason: Pain, Mild (1-3) Acetaminophen (Tylenol 325mg Tab) 650 mg PO Q6 PRN PRN Reason: Fever >100.4 F Last Admin: 12/03/17 09:59 Dose: 650 mg Albuterol/Ipratropium (Duoneb 3 Mg/0.5 Mg (3 Ml) Ud) 3 ml INH RQID [facility] Last Admin: 12/07/17 11:20 Dose: Not Given Allopurinol (Zyloprim) 300 mg PO DAILY [facility] Last Admin: 12/07/17 08:39 Dose: 300 mg Amlodipine Besylate (Norvasc) 5 mg PO DAILY [facility] Last Admin: 12/06/17 08:24 Dose: 5 mg Amylase (Pancrease 81650 U-5000 U-19878 U) 5,000 unit PO TID [facility] Last Admin: 12/07/17 08:39 Dose: 5,000 unit Bacitracin (Bacitracin Oint) 1 applic TOP DAILY [facility] Last Admin: 12/07/17 08:33 Dose: Not Given Docusate Sodium (Colace) 100 mg PO BID [facility] Last Admin: 12/07/17 08:33 Dose: 100 mg Duloxetine HCl (Cymbalta) 60 mg PO DAILY [facility] Last Admin: 12/07/17 08:34 Dose: 60 mg Enoxaparin Sodium (Lovenox) 40 mg SC DAILY [facility] PRN Reason: Protocol Last Admin: 12/07/17 08:37 Dose: 40 mg Gabapentin (Neurontin) 300 mg PO TID [facility] Last Admin: 12/07/17 08:38 Dose: 300 mg Gemfibrozil (Lopid) 600 mg PO BID [facility] Last Admin: 12/07/17 08:35 Dose: 600 mg Cefepime HCl 2 gm/ Sodium (Chloride) 100 mls @ 100 mls/hr IVPB Q12 [facility] PRN Reason: Protocol Stop: 12/10/17 21:00 Last Admin: 12/07/17 08:38 Dose: 100 mls/hr Vancomycin HCl 1 gm/ Sodium (Chloride) 250 mls @ 166.667 mls/hr IVPB Q12 [facility] PRN Reason: Protocol Last Admin: 12/04/17 17:31 Dose: Not Given Piperacillin Sod/Tazobactam (Sod 3.375 gm/ Sodium Chloride) 100 mls @ 100 mls/ hr IVPB Q8 [facility] PRN Reason: Protocol Last Admin: 12/07/17 10:00 Dose: 100 mls/hr Insulin Detemir (Levemir) 40 units SC [facility] Last Admin: 12/06/17 22:37 Dose: 40 u Insulin Human Lispro (Humalog) 0 units SC ACHS [facility] PRN Reason: Protocol Last Admin: 12/07/17 08:34 Dose: Not Given Insulin Human Lispro (Humalog) 12 units SC AC [facility] Last Admin: 12/07/17 08:35 Dose: 12 u Losartan Potassium (Cozaar) 50 mg PO Q12H [facility] Last Admin: 12/05/17 12:30 Dose: Not Given Magnesium Hydroxide (Milk Of Magnesia) 15 ml PO DAILY [facility] Last Admin: 12/07/17 08:43 Dose: 15 ml Methadone HCl (Methadone) 150 mg PO DAILY [facility] Last Admin: 12/07/17 08:44 Dose: 150 mg Multivitamins/Minerals (Therapeutic-M Tab) 1 tab PO DAILY [facility] Last Admin: 12/07/17 08:39 Dose: 1 tab Nystatin (Nystop Topical Powder) 1 applic TOP TID [facility] Last Admin: 12/07/17 08:40 Dose: 1 applic Ondansetron HCl (Zofran Inj) 4 mg IVP Q4 PRN PRN Reason: Nausea/Vomiting Last Admin: 12/03/17 06:57 Dose: 4 mg Probenecid (Probenecid) 500 mg PO DAILY [facility] Last Admin: 12/07/17 08:39 Dose: 500 mg Silver Sulfadiazine (Silvadene 1% 20 Gm) 1 ea TOP DAILY [facility] Last Admin: 12/07/17 08:39 Dose: Not Given - Labs Labs: 12/05/17 10:14 12/05/17 20:00 Assessment and Plan - Assessment and Plan (Free Text) Assessment: Patient was personally seen and examined by me in rounds with residents. Available labs and diagnostic data reviewed. Case, Patient's condition and management plan discussed with residents in rounds. Agree with resident's progress note. Plan: As ordered.
--- NOTE | 2017-12-06 08:11 | CP.PCM.PN ---
Subjective - Date & Time of Evaluation Date of Evaluation: 12/06/17 Time of Evaluation: 08:08 - Subjective Subjective: Podiatry Progress Note for Dr. Rose 42yo male 4 days s/p right 3rd digit amputation. Patient is AAOx3 and in NAD. He states that he is having mild pain to the top of his right foot by his first and second toe. He denies any acute events overnight. He denies any other pedal complaints at this time. Denies N/V/F/SOB/CP/C. Objective - Vital Signs/Intake and Output Vital Signs (last 24 hours): Temp Pulse Resp BP Pulse Ox 98.2 F 97 H 18 131/87 93 L 12/06/17 00:01 12/06/17 00:01 12/06/17 00:01 12/06/17 00:01 12/06/17 00:01 - Medications Medications: Current Medications Acetaminophen (Tylenol 325mg Tab) 650 mg PO Q6 PRN PRN Reason: Pain, Mild (1-3) Acetaminophen (Tylenol 325mg Tab) 650 mg PO Q6 PRN PRN Reason: Fever >100.4 F Last Admin: 12/03/17 09:59 Dose: 650 mg Albuterol/Ipratropium (Duoneb 3 Mg/0.5 Mg (3 Ml) Ud) 3 ml INH RQID [facility] Last Admin: 12/06/17 07:28 Dose: 3 ml Allopurinol (Zyloprim) 300 mg PO DAILY [facility] Last Admin: 12/05/17 09:01 Dose: 300 mg Amlodipine Besylate (Norvasc) 5 mg PO DAILY [facility] Last Admin: 12/05/17 09:04 Dose: 5 mg Amylase (Pancrease 90000 U-5000 [id number] U) 5,000 unit PO TID [facility] Last Admin: 12/05/17 16:39 Dose: 5,000 unit Bacitracin (Bacitracin Oint) 1 applic TOP DAILY [facility] Last Admin: 12/05/17 09:01 Dose: Not Given Docusate Sodium (Colace) 100 mg PO BID [facility] Last Admin: 12/05/17 16:38 Dose: 100 mg Duloxetine HCl (Cymbalta) 60 mg PO DAILY [facility] Last Admin: 12/05/17 09:03 Dose: 60 mg Enoxaparin Sodium (Lovenox) 40 mg SC DAILY [facility] PRN Reason: Protocol Last Admin: 12/05/17 09:04 Dose: 40 mg Gabapentin (Neurontin) 300 mg PO TID [facility] Last Admin: 12/05/17 16:39 Dose: 300 mg Gemfibrozil (Lopid) 600 mg PO BID [facility] Last Admin: 12/05/17 16:39 Dose: 600 mg Cefepime HCl 2 gm/ Sodium (Chloride) 100 mls @ 100 mls/hr IVPB Q12 [facility] PRN Reason: Protocol Stop: 12/10/17 21:00 Last Admin: 12/05/17 21:22 Dose: 100 mls/hr Vancomycin HCl 1 gm/ Sodium (Chloride) 250 mls @ 166.667 mls/hr IVPB Q12 [facility] PRN Reason: Protocol Last Admin: 12/04/17 17:31 Dose: Not Given Piperacillin Sod/Tazobactam (Sod 3.375 gm/ Sodium Chloride) 100 mls @ 100 mls/ hr IVPB Q8 [facility] PRN Reason: Protocol Last Admin: 12/06/17 00:06 Dose: 100 mls/hr Insulin Detemir (Levemir) 40 units SC HS [facility] Last Admin: 12/05/17 21:57 Dose: 40 u Insulin Human Lispro (Humalog) 0 units SC ACHS [facility] PRN Reason: Protocol Last Admin: 12/05/17 21:58 Dose: Not Given Insulin Human Lispro (Humalog) 12 units SC AC [facility] Losartan Potassium (Cozaar) 50 mg PO Q12H [facility] Last Admin: 12/05/17 12:30 Dose: Not Given Magnesium Hydroxide (Milk Of Magnesia) 15 ml PO DAILY [facility] Last Admin: 12/05/17 09:04 Dose: Not Given Methadone HCl (Methadone) 150 mg PO DAILY [facility] Last Admin: 12/05/17 09:19 Dose: 150 mg Multivitamins/Minerals (Therapeutic-M Tab) 1 tab PO DAILY [facility] Last Admin: 12/05/17 09:02 Dose: 1 tab Nystatin (Nystop Topical Powder) 1 applic TOP TID [facility] Last Admin: 12/05/17 16:40 Dose: Not Given Ondansetron HCl (Zofran Inj) 4 mg IVP Q4 PRN PRN Reason: Nausea/Vomiting Last Admin: 12/03/17 06:57 Dose: 4 mg Probenecid (Probenecid) 500 mg PO DAILY [facility] Last Admin: 12/05/17 09:02 Dose: 500 mg Silver Sulfadiazine (Silvadene 1% 20 Gm) 1 ea TOP DAILY [facility] Last Admin: 12/05/17 09:02 Dose: Not Given - Labs Labs: 12/05/17 10:14 12/05/17 20:00 - Constitutional Appears: Well, Non-toxic, No Acute Distress - Head Exam Head Exam: ATRAUMATIC, NORMOCEPHALIC - Extremities Exam Additional comments: RLE focused exam: Vascular: DP/PT 2/4. Capillary refill <3 seconds to all 4 digits, temp gradient is warm to warm from proximal to distal, minimal edema at the third digit surgical site. Neuro: Gross sensation intact, protective sensation diminished Derm: Sutures intact to surgical incision site and skin edges well coapted. No clinical signs of infection, no signs of wound dehiscence, no drainage, no tunneling, no malodor, no erythema. Ortho: Right 3rd digit amputation, left above knee amputation, mild tenderness to palpation around surgical incision WNL given postoperative status, tenderness to palpation to dorsal aspect of first and second digits. - Neurological Exam Neurological Exam: Alert, Awake, Oriented x3 - Psychiatric Exam Psychiatric exam: Normal Affect, Normal Mood Assessment and Plan - Assessment and Plan (Free Text) Assessment: 42yo male 4 days s/p right 3rd digit amputation. Plan: Patient seen and evaluated Discussed with Dr. Rose Afebrile overnight- 98.2 (12/06/17) Absent leukocytosis Surgical site dressed with Telfa, DSD, WILNER Continue IV abx per ID recommendation CXR- B/L pneumonia Podiatry will continue to follow while in house
[2017-12-06] MEDS: Insulin Lispro (humaLOG) 100 Units/ml Inj SC SCH ×6 (08:16→22:35)
[2017-12-06] MEDS: Enoxaparin 40 mg Syringe SC SCH (08:18)
[2017-12-06] MEDS: Multivitamin With Minerals Tab PO SCH (08:19)
[2017-12-06] MEDS: Amylase/Lipase/Protease 5,000 Units ECC PO SCH ×3 (08:19→17:15)
[2017-12-06] MEDS: Cefepime 2 GM in Sodium Chloride 0.9% 100 ML IVPB SCH ×2 (08:27→21:33)
--- NOTE | 2017-12-06 12:42 | CP.PCM.PN ---
Subjective - Date & Time of Evaluation Date of Evaluation: 12/06/17 Time of Evaluation: 09:00 - Subjective Subjective: less cough less sob no fever Objective - Vital Signs/Intake and Output Vital Signs (last 24 hours): Temp Pulse Resp BP Pulse Ox 98 F 92 H 18 135/84 93 L 12/06/17 09:13 12/06/17 09:13 12/06/17 09:13 12/06/17 09:13 12/06/17 09:13 - Medications Medications: Current Medications Acetaminophen (Tylenol 325mg Tab) 650 mg PO Q6 PRN PRN Reason: Pain, Mild (1-3) Acetaminophen (Tylenol 325mg Tab) 650 mg PO Q6 PRN PRN Reason: Fever >100.4 F Last Admin: 12/03/17 09:59 Dose: 650 mg Albuterol/Ipratropium (Duoneb 3 Mg/0.5 Mg (3 Ml) Ud) 3 ml INH RQID [facility] Last Admin: 12/06/17 11:26 Dose: 3 ml Allopurinol (Zyloprim) 300 mg PO DAILY [facility] Last Admin: 12/06/17 08:20 Dose: 300 mg Amlodipine Besylate (Norvasc) 5 mg PO DAILY [facility] Last Admin: 12/06/17 08:24 Dose: 5 mg Amylase (Pancrease 75112 U-5000 U-[id number] U) 5,000 unit PO TID [facility] Last Admin: 12/06/17 08:19 Dose: 5,000 unit Bacitracin (Bacitracin Oint) 1 applic TOP DAILY [facility] Last Admin: 12/05/17 09:01 Dose: Not Given Docusate Sodium (Colace) 100 mg PO BID [facility] Last Admin: 12/06/17 08:27 Dose: 100 mg Duloxetine HCl (Cymbalta) 60 mg PO DAILY [facility] Last Admin: 12/06/17 08:26 Dose: 60 mg Enoxaparin Sodium (Lovenox) 40 mg SC DAILY [facility] PRN Reason: Protocol Last Admin: 12/06/17 08:18 Dose: 40 mg Gabapentin (Neurontin) 300 mg PO TID [facility] Last Admin: 12/06/17 08:18 Dose: 300 mg Gemfibrozil (Lopid) 600 mg PO BID [facility] Last Admin: 12/06/17 08:26 Dose: 600 mg Cefepime HCl 2 gm/ Sodium (Chloride) 100 mls @ 100 mls/hr IVPB Q12 [facility] PRN Reason: Protocol Stop: 12/10/17 21:00 Last Admin: 12/06/17 08:27 Dose: 100 mls/hr Vancomycin HCl 1 gm/ Sodium (Chloride) 250 mls @ 166.667 mls/hr IVPB Q12 [facility] PRN Reason: Protocol Last Admin: 12/04/17 17:31 Dose: Not Given Piperacillin Sod/Tazobactam (Sod 3.375 gm/ Sodium Chloride) 100 mls @ 100 mls/ hr IVPB Q8 [facility] PRN Reason: Protocol Last Admin: 12/06/17 08:25 Dose: 100 mls/hr Insulin Detemir (Levemir) 40 units SC HS [facility] Last Admin: 12/05/17 21:57 Dose: 40 u Insulin Human Lispro (Humalog) 0 units SC ACHS [facility] PRN Reason: Protocol Last Admin: 12/05/17 21:58 Dose: Not Given Insulin Human Lispro (Humalog) 12 units SC AC [facility] Last Admin: 12/06/17 08:16 Dose: 12 u Losartan Potassium (Cozaar) 50 mg PO Q12H [facility] Last Admin: 12/05/17 12:30 Dose: Not Given Magnesium Hydroxide (Milk Of Magnesia) 15 ml PO DAILY [facility] Last Admin: 12/05/17 09:04 Dose: Not Given Methadone HCl (Methadone) 150 mg PO DAILY [facility] Last Admin: 12/06/17 09:00 Dose: 150 mg Multivitamins/Minerals (Therapeutic-M Tab) 1 tab PO DAILY [facility] Last Admin: 12/06/17 08:19 Dose: 1 tab Nystatin (Nystop Topical Powder) 1 applic TOP TID [facility] Last Admin: 12/05/17 16:40 Dose: Not Given Ondansetron HCl (Zofran Inj) 4 mg IVP Q4 PRN PRN Reason: Nausea/Vomiting Last Admin: 12/03/17 06:57 Dose: 4 mg Probenecid (Probenecid) 500 mg PO DAILY [facility] Last Admin: 12/06/17 08:19 Dose: 500 mg Silver Sulfadiazine (Silvadene 1% 20 Gm) 1 ea TOP DAILY [facility] Last Admin: 12/05/17 09:02 Dose: Not Given - Labs Labs: 12/05/17 10:14 12/05/17 20:00 - Constitutional Appears: Non-toxic, Chronically Ill - Head Exam Head Exam: NORMOCEPHALIC - Eye Exam Eye Exam: absent: Scleral icterus - ENT Exam ENT Exam: Mucous Membranes Dry - Neck Exam Neck Exam: absent: Lymphadenopathy - Respiratory Exam Respiratory Exam: Decreased Breath Sounds - Cardiovascular Exam Cardiovascular Exam: REGULAR RHYTHM - GI/Abdominal Exam GI & Abdominal Exam: Distended - Rectal Exam Rectal Exam: Deferred - Exam Exam: NORMAL INSPECTION - Extremities Exam Additional comments: +AKA wound right foot dry - Back Exam Back Exam: absent: CVA tenderness (L), CVA tenderness (R) Assessment and Plan (1) Osteomyelitis Status: Acute - Assessment and Plan (Free Text) Assessment: pneumonia post op fever resolved iv rx in progress picc to be removed
--- NOTE | 2017-12-06 13:36 | CP.PCM.PN ---
Subjective - Date & Time of Evaluation Date of Evaluation: 12/06/17 Time of Evaluation: 11:40 - Subjective Subjective: F/U PNA Cough with yellowish phlegm, chest congestion Objective - Vital Signs/Intake and Output Vital Signs (last 24 hours): Temp Pulse Resp BP Pulse Ox 98 F 92 H 18 135/84 93 L 12/06/17 09:13 12/06/17 09:13 12/06/17 09:13 12/06/17 09:13 12/06/17 09:13 - Medications Medications: Current Medications Acetaminophen (Tylenol 325mg Tab) 650 mg PO Q6 PRN PRN Reason: Pain, Mild (1-3) Acetaminophen (Tylenol 325mg Tab) 650 mg PO Q6 PRN PRN Reason: Fever >100.4 F Last Admin: 12/03/17 09:59 Dose: 650 mg Albuterol/Ipratropium (Duoneb 3 Mg/0.5 Mg (3 Ml) Ud) 3 ml INH RQID [facility] Last Admin: 12/06/17 11:26 Dose: 3 ml Allopurinol (Zyloprim) 300 mg PO DAILY [facility] Last Admin: 12/06/17 08:20 Dose: 300 mg Amlodipine Besylate (Norvasc) 5 mg PO DAILY [facility] Last Admin: 12/06/17 08:24 Dose: 5 mg Amylase (Pancrease 34758 U-5000 U-[id number] U) 5,000 unit PO TID [facility] Last Admin: 12/06/17 13:24 Dose: 5,000 unit Bacitracin (Bacitracin Oint) 1 applic TOP DAILY [facility] Last Admin: 12/05/17 09:01 Dose: Not Given Docusate Sodium (Colace) 100 mg PO BID [facility] Last Admin: 12/06/17 08:27 Dose: 100 mg Duloxetine HCl (Cymbalta) 60 mg PO DAILY [facility] Last Admin: 12/06/17 08:26 Dose: 60 mg Enoxaparin Sodium (Lovenox) 40 mg SC DAILY [facility] PRN Reason: Protocol Last Admin: 12/06/17 08:18 Dose: 40 mg Gabapentin (Neurontin) 300 mg PO TID [facility] Last Admin: 12/06/17 13:24 Dose: 300 mg Gemfibrozil (Lopid) 600 mg PO BID [facility] Last Admin: 12/06/17 08:26 Dose: 600 mg Cefepime HCl 2 gm/ Sodium (Chloride) 100 mls @ 100 mls/hr IVPB Q12 [facility] PRN Reason: Protocol Stop: 12/10/17 21:00 Last Admin: 12/06/17 08:27 Dose: 100 mls/hr Vancomycin HCl 1 gm/ Sodium (Chloride) 250 mls @ 166.667 mls/hr IVPB Q12 [facility] PRN Reason: Protocol Last Admin: 12/04/17 17:31 Dose: Not Given Piperacillin Sod/Tazobactam (Sod 3.375 gm/ Sodium Chloride) 100 mls @ 100 mls/ hr IVPB Q8 [facility] PRN Reason: Protocol Last Admin: 12/06/17 08:25 Dose: 100 mls/hr Insulin Detemir (Levemir) 40 units SC HS [facility] Last Admin: 12/05/17 21:57 Dose: 40 u Insulin Human Lispro (Humalog) 0 units SC ACHS [facility] PRN Reason: Protocol Last Admin: 12/06/17 13:20 Dose: Not Given Insulin Human Lispro (Humalog) 12 units SC AC [facility] Last Admin: 12/06/17 13:22 Dose: 12 u Losartan Potassium (Cozaar) 50 mg PO Q12H [facility] Last Admin: 12/05/17 12:30 Dose: Not Given Magnesium Hydroxide (Milk Of Magnesia) 15 ml PO DAILY [facility] Last Admin: 12/05/17 09:04 Dose: Not Given Methadone HCl (Methadone) 150 mg PO DAILY [facility] Last Admin: 12/06/17 09:00 Dose: 150 mg Multivitamins/Minerals (Therapeutic-M Tab) 1 tab PO DAILY [facility] Last Admin: 12/06/17 08:19 Dose: 1 tab Nystatin (Nystop Topical Powder) 1 applic TOP TID [facility] Last Admin: 12/05/17 16:40 Dose: Not Given Ondansetron HCl (Zofran Inj) 4 mg IVP Q4 PRN PRN Reason: Nausea/Vomiting Last Admin: 12/03/17 06:57 Dose: 4 mg Probenecid (Probenecid) 500 mg PO DAILY [facility] Last Admin: 12/06/17 08:19 Dose: 500 mg Silver Sulfadiazine (Silvadene 1% 20 Gm) 1 ea TOP DAILY [facility] Last Admin: 12/05/17 09:02 Dose: Not Given - Labs Labs: 12/05/17 10:14 12/05/17 20:00 - Constitutional Appears: No Acute Distress - Head Exam Head Exam: NORMAL INSPECTION - Eye Exam Eye Exam: PERRL - ENT Exam ENT Exam: Normal Exam - Neck Exam Neck Exam: Normal Inspection - Respiratory Exam Respiratory Exam: Rhonchi - Cardiovascular Exam Cardiovascular Exam: REGULAR RHYTHM - GI/Abdominal Exam GI & Abdominal Exam: Soft, Normal Bowel Sounds Additional comments: obese - Extremities Exam Additional comments: partial amputation 3th toe , L AKA - Neurological Exam Neurological Exam: Alert, Oriented x3 Additional comments: no focal motor deficit - Psychiatric Exam Psychiatric exam: Anxious - Skin Skin Exam: Warm Assessment and Plan (1) HCAP (healthcare-associated pneumonia) Status: Acute (2) Mediastinal lymphadenopathy Status: Acute - Assessment and Plan (Free Text) Plan: Continue Duo Neb, Cefepime , Zosyn, Vanco , f/u sputum C-S, f/u CXR,Patient is s/p amputation 3th digit R foot , treated for OM
[2017-12-06] MEDS: Magnesium Hydroxide Susp 30 ml UD PO SCH (17:16)
[2017-12-06] MEDS: Bacitracin OINT 15GM TOP SCH (17:16)
[2017-12-06] MEDS: Silver Sulfadiazine 1% Cream (20 gm) TOP SCH (17:17)
--- NOTE | 2017-12-06 20:29 | PN ---
DATE: 12/06/2017 ENDOCRINOLOGY FOLLOWUP NOTE LOCATION: Room 658. This is a 42-year-old male with recent uncontrolled type 2 insulin-requiring diabetes, now being followed closely for metabolic management. He has ongoing IV antibiotics for left lower extremity osteomyelitis as noted. His glycemic levels are fluctuating but improved, and the glucose values overnight have ranged from 90 to 148 and 174 mg/dL. So at this time, we will continue the same basal and bolus insulin regimen to allow for dose will equilibration and keep him on the Humalog given as 14 units subcu t.i.d. before meals as ordered. We will continue the Levemir given as basal insulin at 40 units subcu at bedtime daily as given. We will titrate incrementally as indicated to optimize metabolic control. We will follow and advised accordingly. Gaye Llamas MD
[2017-12-06] MEDS: Insulin Detemir 100 Units/ml Inj SC SCH (22:37)
[2017-12-07] MEDS: Piperacillin/Tazobact 3.375 GM in Sodium Chloride 0.9% 100 ML IVPB SCH ×3 (01:26→17:19)
--- NOTE | 2017-12-07 07:15 | PCM.RRT ---
<Fracisco Lee - Last Filed: 12/07/17 07:07> RADIATION MONITOR Nurse Assessment - Situation RADIATION MONITOR Responder Arrival Time: 11:30 RADIATION MONITOR Reason for Call: Tachycardia - Respiratory Oxygen Delivery Method: Nasal Cannula Received Nebulizer Treatments: No Was the Patient Ventilated with Bag/Mask 100% O2?: No Secretions Suctioned?: No Was the Patient Intubated?: No Was the Patient Placed on a Ventilator?: No - Diagnostic Test Ordered EKG: Yes I.Reason for RADIATION MONITOR - A) Acute Change in Patient: Subjective: 42 y/o man w/ pmh IDDM2. CVA, HTN, HLD admitted for osteomyelitis s/p right foot 3rd digit amputation had RADIATION MONITOR called this morning for tachycardia. Patient found to have SVT on EKG. Patient denies chest pain or SOB. Patient was given adenosine 6 mg IV and SVT converted to sinus rhythm. Patient to be transferred to Tele for closer monitoring. - Neurological Status (Select all that apply): Alert, Responsive, Oriented, Verbal, Follows Commands - Respiratory Oxygen Delivery Method: Nasal Cannula @L/min - Constitutional Appears: Non-toxic, No Acute Distress - Head Head Exam: ATRAUMATIC, NORMAL INSPECTION, NORMOCEPHALIC - Eyes Eye Exam: Normal appearance - Respiratory Exam Respiratory Exam: Clear to Ausculation Bilateral. absent: Accessory Muscle Use , Decreased Breath Sounds, Rales, Rhonchi, Wheezes, Respiratory Distress - Cardiovascular Exam Cardiovascular Exam: Tachycardia - Neurological Exam Neurological Exam: Alert, Awake, Oriented x3 - Extremities Exam Additional comments: s/p right foot 3rd digit amputation, Hx of left AKA Plan - Assessment of Findings&Treatment Plan 42 y/o man w/ [facility] IDDM2. CVA, HTN, HLD admitted for osteomyelitis s/p right foot 3rd digit amputation had RADIATION MONITOR called this morning for tachycardia. Patient converted after administration of adenosine 6 mg IV. Patient to be transferred to Tele. <Jenaro Duenas - Last Filed: 12/07/17 20:00> RADIATION MONITOR Nurse Assessment - Vital Signs Vital Signs: Rapid Response Vital Sign Blood Pressure 139/101 Pulse Rate 98 Respiratory Rate 12 Oxygen Saturation 95 - Vital Signs at end of RADIATION MONITOR Vital Signs at end of RADIATION MONITOR: Rapid Response End Vital Sign Blood Pressure 133/82 Pulse Rate 97 Respiratory Rate 15 O2 Sat by Pulse Oximetry 97 Attending/Attestation - Attestation I have personally seen and examined this patient.: Yes I have fully participated in the care of the patient.: Yes I have reviewed all pertinent clinical information, including history, physical exam and plan: Yes Notes (Text): 12/07/17 19:53 I saw and examined this patient shoulder to shoulder to Dr Lee. [facility] assessment and plan represent my direct input. Patient with narrow complex tachycardia 150s/min. He is awake, alert, oriented, no chest pain. A&P #. SVT - Adenosine 6mg given and the SVT converted to a NSR The Patient did suffer mild anxiety post Adenosine infusion, which later ceased The Patient was transferred to telemetry for cardiac monitoring Jenaro Duenas MD
[2017-12-07] MEDS: Albuterol-Ipratrop 3 mg / 0.5 (3 ml) UD INH SCH ×4 (08:00→19:04)
[2017-12-07] MEDS: Bacitracin OINT 15GM TOP SCH (08:33)
[2017-12-07] MEDS: Insulin Lispro (humaLOG) 100 Units/ml Inj SC SCH ×7 (08:34→22:36)
[2017-12-07] MEDS: Enoxaparin 40 mg Syringe SC SCH (08:37)
[2017-12-07] MEDS: Cefepime 2 GM in Sodium Chloride 0.9% 100 ML IVPB SCH ×2 (08:38→20:53)
[2017-12-07] MEDS: Amylase/Lipase/Protease 5,000 Units ECC PO SCH ×3 (08:39→17:19)
[2017-12-07] MEDS: Silver Sulfadiazine 1% Cream (20 gm) TOP SCH (08:39)
[2017-12-07] MEDS: Multivitamin With Minerals Tab PO SCH (08:39)
[2017-12-07] MEDS: Magnesium Hydroxide Susp 30 ml UD PO SCH (08:43)
--- NOTE | 2017-12-07 11:46 | PN ---
DATE: 12/07/2017 SUBJECTIVE: The patient was seen and examined. Interim events noted. The patient was examined during [employer]. The patient had [employer] called today morning for tachycardia. The patient felt sick but denied any chest pain or shortness of breath. Pulse 59, . PHYSICAL EXAMINATION: GENERAL: The patient is in no acute distress. VITAL SIGNS: Stable. HEART: S1, S2, normal and regular. LUNGS: Good bilateral air exchange. ABDOMEN: Soft, nontender. No organomegaly. No fluids. Bowel sounds are present and normal. EXTREMITIES: The patient is status post amputation. No calf swelling. No tenderness. No acute ischemia. CENTRAL NERVOUS SYSTEM: Essentially unchanged. DIAGNOSTIC DATA: Available diagnostic data reviewed. The patient had [employer] with heart rate of 140. ASSESSMENT: We will transfer the patient to progressive care unit with telemetry monitoring. PLAN: As ordered. Case and plan discussed with the patient. Rojelio Lentz MD
--- NOTE | 2017-12-07 13:31 | PN ---
DATE: 12/07/2017 ENDO FOLLOWUP NOTE LOCATION: In ICU, Room 431. This is a 42-year-old male with recent uncontrolled type 2 insulin-requiring diabetes, now being followed closely for metabolic management. His oral intake has remained quite variable at this time with extremes of glycemic fluctuations as noted overnight. He has ongoing IV antibiotics for right lower extremity osteomyelitis and underwent a recent right third digit amputation for underlying peripheral arterial disease and vasculopathy. His glycemic levels have ranged today from 89 to 118 and 256 mg/dL. His chemistries have been near optimal as noted. BUN is 43, sodium 141, potassium 6.2, chloride 103, CO2 of 26, glucose 206, and creatinine 1.3. So at this time, we will continue the same basal and bolus insulin regimen to allow for dose equilibration and keep him on the Humalog given as 12 units subcu t.i.d. before meals to start today as ordered. We will continue also the long-acting basal insulin given as Levemir at 40 units subcu at bedtime daily as given. We will continue the low-dose correction scale using Humalog insulin as ordered. We will follow and advised accordingly. Gaye Llamas MD
--- NOTE | 2017-12-07 13:34 | CP.PCM.PN ---
Subjective - Date & Time of Evaluation Date of Evaluation: 12/07/17 Time of Evaluation: 13:32 - Subjective Subjective: 42 y/o male seen and evaluated in ICU today, 5 days s/p R foot 3rd digit partial amputation. Denies any events overnight but per chart, pt found to have elevated HR and underwent OFFICE COPY SELECTOR. States he feels ok right now and has been asleep the last few hours. Admits to pain in the right foot at the surgical site. States his dressings have remained intact. Denies F/C/N/V/CP/SOB at this time Objective - Vital Signs/Intake and Output Vital Signs (last 24 hours): Temp Pulse Resp BP Pulse Ox 98.1 F 78 20 130/85 96 12/07/17 00:42 12/07/17 10:00 12/07/17 00:42 12/07/17 10:00 12/07/17 00:42 - Medications Medications: Current Medications Acetaminophen (Tylenol 325mg Tab) 650 mg PO Q6 PRN PRN Reason: Pain, Mild (1-3) Acetaminophen (Tylenol 325mg Tab) 650 mg PO Q6 PRN PRN Reason: Fever >100.4 F Last Admin: 12/03/17 09:59 Dose: 650 mg Albuterol/Ipratropium (Duoneb 3 Mg/0.5 Mg (3 Ml) Ud) 3 ml INH RQID [facility] Last Admin: 12/07/17 11:20 Dose: Not Given Allopurinol (Zyloprim) 300 mg PO DAILY [facility] Last Admin: 12/07/17 08:39 Dose: 300 mg Amlodipine Besylate (Norvasc) 5 mg PO DAILY [facility] Last Admin: 12/07/17 10:00 Dose: 5 mg Amylase (Pancrease 49360 U-5000 U-36913 U) 5,000 unit PO TID [facility] Last Admin: 12/07/17 13:06 Dose: 5,000 unit Bacitracin (Bacitracin Oint) 1 applic TOP DAILY [facility] Last Admin: 12/07/17 08:33 Dose: Not Given Docusate Sodium (Colace) 100 mg PO BID [facility] Last Admin: 12/07/17 08:33 Dose: 100 mg Duloxetine HCl (Cymbalta) 60 mg PO DAILY [facility] Last Admin: 12/07/17 08:34 Dose: 60 mg Enoxaparin Sodium (Lovenox) 40 mg SC DAILY [facility] PRN Reason: Protocol Last Admin: 12/07/17 08:37 Dose: 40 mg Gabapentin (Neurontin) 300 mg PO TID [facility] Last Admin: 12/07/17 13:06 Dose: 300 mg Gemfibrozil (Lopid) 600 mg PO BID [facility] Last Admin: 12/07/17 08:35 Dose: 600 mg Cefepime HCl 2 gm/ Sodium (Chloride) 100 mls @ 100 mls/hr IVPB Q12 [facility] PRN Reason: Protocol Stop: 12/10/17 21:00 Last Admin: 12/07/17 08:38 Dose: 100 mls/hr Vancomycin HCl 1 gm/ Sodium (Chloride) 250 mls @ 166.667 mls/hr IVPB Q12 [facility] PRN Reason: Protocol Last Admin: 12/04/17 17:31 Dose: Not Given Piperacillin Sod/Tazobactam (Sod 3.375 gm/ Sodium Chloride) 100 mls @ 100 mls/ hr IVPB Q8 [facility] PRN Reason: Protocol Last Admin: 12/07/17 10:00 Dose: 100 mls/hr Insulin Detemir (Levemir) 40 units SC HS [facility] Last Admin: 12/06/17 22:37 Dose: 40 u Insulin Human Lispro (Humalog) 0 units SC ACHS [facility] PRN Reason: Protocol Last Admin: 12/07/17 13:05 Dose: Not Given Insulin Human Lispro (Humalog) 12 units SC AC [facility] Last Admin: 12/07/17 13:06 Dose: 12 u Losartan Potassium (Cozaar) 50 mg PO Q12H [facility] Last Admin: 12/05/17 12:30 Dose: Not Given Magnesium Hydroxide (Milk Of Magnesia) 15 ml PO DAILY [facility] Last Admin: 12/07/17 08:43 Dose: 15 ml Methadone HCl (Methadone) 150 mg PO DAILY [facility] Last Admin: 12/07/17 08:44 Dose: 150 mg Multivitamins/Minerals (Therapeutic-M Tab) 1 tab PO DAILY [facility] Last Admin: 12/07/17 08:39 Dose: 1 tab Nystatin (Nystop Topical Powder) 1 applic TOP TID [facility] Last Admin: 12/07/17 13:06 Dose: Not Given Ondansetron HCl (Zofran Inj) 4 mg IVP Q4 PRN PRN Reason: Nausea/Vomiting Last Admin: 12/03/17 06:57 Dose: 4 mg Probenecid (Probenecid) 500 mg PO DAILY [facility] Last Admin: 12/07/17 08:39 Dose: 500 mg Silver Sulfadiazine (Silvadene 1% 20 Gm) 1 ea TOP DAILY [facility] Last Admin: 12/07/17 08:39 Dose: Not Given - Labs Labs: 12/05/17 10:14 12/05/17 20:00 - Constitutional Appears: Well, Non-toxic, No Acute Distress - Extremities Exam Additional comments: RLE focused exam: Vascular: DP/PT 2/4. Capillary refill <3 seconds to all 4 digits, temp gradient is warm to warm from proximal to distal, minimal edema at the third digit surgical site. Neuro: Gross sensation intact, protective sensation diminished Derm: Sutures intact to surgical incision site at right foot 3rd digit amputation site with skin edges well coapted. No clinical signs of infection, no signs of wound dehiscence, no drainage, no tunneling, no malodor, no erythema. Ortho: Right 3rd digit amputation surgical site noted. Left above knee amputation. Mild tenderness to palpation around surgical incision WNL given postoperative status, tenderness to palpation to dorsal aspect of first and second digits. - Neurological Exam Neurological Exam: Alert, Awake, Oriented x3 - Psychiatric Exam Psychiatric exam: Normal Affect, Normal Mood Assessment and Plan - Assessment and Plan (Free Text) Assessment: 42 yo male 5 days s/p right foot partial 3rd digit amputation Plan: Patient seen and evaluated at bedside Discussed with Dr. Rose Afebrile overnight, absent leukocytosis Surgical site dressed with Telfa, DSD, WILNER Continue IV abx per ID recommendations CXR shows B/L pneumonia Podiatry will continue to follow while in house
--- NOTE | 2017-12-07 17:33 | CP.PCM.PN ---
Subjective - Date & Time of Evaluation Date of Evaluation: 12/07/17 Time of Evaluation: 12:20 - Subjective Subjective: F/U PNA Patient had FOOD DEMONSTRATOR earlier today for tachycardia, he was treated with adenosine 5 mg IV and converted to sinus reason. Patient was transferred to telemetry for close monitoring Open examination no acute distress no shortness of breath with O2, cough with scanty yellowish phlegm Objective - Vital Signs/Intake and Output Vital Signs (last 24 hours): Temp Pulse Resp BP Pulse Ox 98.7 F 89 13 130/85 97 12/07/17 08:00 12/07/17 14:20 12/07/17 08:00 12/07/17 10:00 12/07/17 08:00 - Medications Medications: Current Medications Acetaminophen (Tylenol 325mg Tab) 650 mg PO Q6 PRN PRN Reason: Pain, Mild (1-3) Acetaminophen (Tylenol 325mg Tab) 650 mg PO Q6 PRN PRN Reason: Fever >100.4 F Last Admin: 12/03/17 09:59 Dose: 650 mg Albuterol/Ipratropium (Duoneb 3 Mg/0.5 Mg (3 Ml) Ud) 3 ml INH RQID [facility] Last Admin: 12/07/17 15:11 Dose: 3 ml Allopurinol (Zyloprim) 300 mg PO DAILY [facility] Last Admin: 12/07/17 08:39 Dose: 300 mg Amlodipine Besylate (Norvasc) 5 mg PO DAILY [facility] Last Admin: 12/07/17 10:00 Dose: 5 mg Amylase (Pancrease 08480 U-5000 U-34458 U) 5,000 unit PO TID [facility] Last Admin: 12/07/17 17:19 Dose: 5,000 unit Bacitracin (Bacitracin Oint) 1 applic TOP DAILY [facility] Last Admin: 12/07/17 08:33 Dose: Not Given Docusate Sodium (Colace) 100 mg PO BID [facility] Last Admin: 12/07/17 17:17 Dose: 100 mg Duloxetine HCl (Cymbalta) 60 mg PO DAILY [facility] Last Admin: 12/07/17 08:34 Dose: 60 mg Gabapentin (Neurontin) 300 mg PO TID [facility] Last Admin: 12/07/17 17:19 Dose: 300 mg Gemfibrozil (Lopid) 600 mg PO BID [facility] Last Admin: 12/07/17 17:18 Dose: 600 mg Cefepime HCl 2 gm/ Sodium (Chloride) 100 mls @ 100 mls/hr IVPB Q12 [facility] PRN Reason: Protocol Stop: 12/10/17 21:00 Last Admin: 12/07/17 08:38 Dose: 100 mls/hr Vancomycin HCl 1 gm/ Sodium (Chloride) 250 mls @ 166.667 mls/hr IVPB Q12 [facility] PRN Reason: Protocol Last Admin: 12/04/17 17:31 Dose: Not Given Piperacillin Sod/Tazobactam (Sod 3.375 gm/ Sodium Chloride) 100 mls @ 100 mls/ hr IVPB Q8 [facility] PRN Reason: Protocol Last Admin: 12/07/17 17:19 Dose: 100 mls/hr Insulin Detemir (Levemir) 40 units SC HS [facility] Last Admin: 12/06/17 22:37 Dose: 40 u Insulin Human Lispro (Humalog) 0 units SC ACHS [facility] PRN Reason: Protocol Last Admin: 12/07/17 17:17 Dose: Not Given Insulin Human Lispro (Humalog) 12 units SC AC [facility] Last Admin: 12/07/17 17:18 Dose: 12 u Losartan Potassium (Cozaar) 50 mg PO Q12H [facility] Last Admin: 12/05/17 12:30 Dose: Not Given Magnesium Hydroxide (Milk Of Magnesia) 15 ml PO DAILY [facility] Last Admin: 12/07/17 08:43 Dose: 15 ml Multivitamins/Minerals (Therapeutic-M Tab) 1 tab PO DAILY [facility] Last Admin: 12/07/17 08:39 Dose: 1 tab Nystatin (Nystop Topical Powder) 1 applic TOP TID [facility] Last Admin: 12/07/17 17:19 Dose: Not Given Ondansetron HCl (Zofran Inj) 4 mg IVP Q4 PRN PRN Reason: Nausea/Vomiting Last Admin: 12/03/17 06:57 Dose: 4 mg Probenecid (Probenecid) 500 mg PO DAILY [facility] Last Admin: 12/07/17 08:39 Dose: 500 mg Silver Sulfadiazine (Silvadene 1% 20 Gm) 1 ea TOP DAILY [facility] Last Admin: 12/07/17 08:39 Dose: Not Given - Labs Labs: 12/05/17 10:14 12/05/17 20:00 - Constitutional Appears: No Acute Distress - Head Exam Head Exam: NORMAL INSPECTION - Eye Exam Eye Exam: PERRL - ENT Exam ENT Exam: Normal Exam - Neck Exam Neck Exam: Normal Inspection - Respiratory Exam Respiratory Exam: Rhonchi (scattered) - Cardiovascular Exam Cardiovascular Exam: REGULAR RHYTHM - GI/Abdominal Exam GI & Abdominal Exam: Soft, Normal Bowel Sounds Additional comments: obese - Extremities Exam Additional comments: partial amputation L 3th finger , R AKA - Back Exam Back Exam: NORMAL INSPECTION - Neurological Exam Neurological Exam: Alert, CN II-XII Intact Additional comments: no focal motor/sensory deficit - Psychiatric Exam Psychiatric exam: Anxious - Skin Skin Exam: Warm Assessment and Plan (1) HCAP (healthcare-associated pneumonia) Status: Acute (2) Mediastinal lymphadenopathy Status: Acute - Assessment and Plan (Free Text) Plan: s/p FOOD DEMONSTRATOR , on RSR now , treated for PNA , continue DuoNeb , Cefepime , Zosyn , Vanco , antibiotics given for OM L foot s/p partial 3th digit amputation, monitor Hgb
[2017-12-08] MEDS: Piperacillin/Tazobact 3.375 GM in Sodium Chloride 0.9% 100 ML IVPB SCH ×3 (01:15→17:21)
[2017-12-08 06:04] LABS: HEMOGLOBIN 7.9 g/dL (12.0-18.0); MEAN CELL VOLUME 84.8 fl (80.0-94.0); MEAN CORPUSCULAR HEMOGLOBIN 27.7 pg (27.0-31.0); MEAN CORPUSCULAR HGB CONC 32.7 g/dL (33.0-37.0); RBC 2.86 Mil/uL (4.40-5.90); RED CELL DISTRIBUTION WIDTH 15.2 % (11.5-14.5); WHITE BLOOD COUNT 5.1 K/uL (4.8-10.8)
[2017-12-08 06:38] LABS: ALB/GLOB RATIO 0.9 (1.0-2.1); ALBUMIN 3.1 g/dL (3.5-5.0); ALT/SGPT 26 U/L (21-72); AST/SGOT 38 U/L (17-59); BLOOD UREA NITROGEN 24 mg/dl (9-20); CALCIUM 8.8 mg/dL (8.4-10.2); GFR AFRICAN-AMERICAN > 60; GFR NON-AFRICAN AMERICAN > 60
[2017-12-08] MEDS: Albuterol-Ipratrop 3 mg / 0.5 (3 ml) UD INH SCH ×4 (07:45→19:06)
[2017-12-08] MEDS: Bacitracin OINT 15GM TOP SCH (08:42)
[2017-12-08] MEDS: Multivitamin With Minerals Tab PO SCH (08:45)
[2017-12-08] MEDS: Insulin Lispro (humaLOG) 100 Units/ml Inj SC SCH ×7 (08:47→21:48)
[2017-12-08] MEDS: Amylase/Lipase/Protease 5,000 Units ECC PO SCH ×3 (08:48→17:22)
[2017-12-08] MEDS: Cefepime 2 GM in Sodium Chloride 0.9% 100 ML IVPB SCH (08:48)
[2017-12-08] MEDS: Magnesium Hydroxide Susp 30 ml UD PO SCH (10:07)
--- NOTE | 2017-12-08 10:12 | CP.PCM.PN ---
Subjective - Date & Time of Evaluation Date of Evaluation: 12/08/17 Time of Evaluation: 10:10 - Subjective Subjective: 42 y/o male seen and evaluated in ICU today, 6 days s/p R foot 3rd digit partial amputation. Denies any events overnight. Says he is fed up being at the hospital. States he is being monitored for his fast heart rate. Admits to pain in the right foot at the surgical site. States his dressings have remained clean dry and intact. Denies F/C/N/V/CP/SOB at this time Objective - Vital Signs/Intake and Output Vital Signs (last 24 hours): Temp Pulse Resp BP Pulse Ox 98.3 F 74 18 154/86 H 95 12/08/17 08:00 12/08/17 08:44 12/08/17 08:00 12/08/17 08:44 12/08/17 08:00 - Medications Medications: Current Medications Acetaminophen (Tylenol 325mg Tab) 650 mg PO Q6 PRN PRN Reason: Pain, Mild (1-3) Acetaminophen (Tylenol 325mg Tab) 650 mg PO Q6 PRN PRN Reason: Fever >100.4 F Last Admin: 12/03/17 09:59 Dose: 650 mg Albuterol/Ipratropium (Duoneb 3 Mg/0.5 Mg (3 Ml) Ud) 3 ml INH RQID [facility] Last Admin: 12/07/17 19:04 Dose: 3 ml Allopurinol (Zyloprim) 300 mg PO DAILY [facility] Last Admin: 12/08/17 08:46 Dose: 300 mg Amlodipine Besylate (Norvasc) 5 mg PO DAILY [facility] Last Admin: 12/08/17 08:44 Dose: 5 mg Amylase (Pancrease 84209 U-5000 U-08317 U) 5,000 unit PO TID [facility] Last Admin: 12/08/17 08:48 Dose: 5,000 unit Bacitracin (Bacitracin Oint) 1 applic TOP DAILY [facility] Last Admin: 12/08/17 08:42 Dose: 1 applic Docusate Sodium (Colace) 100 mg PO BID [facility] Last Admin: 12/08/17 08:42 Dose: 100 mg Duloxetine HCl (Cymbalta) 60 mg PO DAILY [facility] Last Admin: 12/08/17 08:46 Dose: 60 mg Gabapentin (Neurontin) 300 mg PO TID [facility] Last Admin: 12/08/17 08:43 Dose: 300 mg Gemfibrozil (Lopid) 600 mg PO BID [facility] Last Admin: 12/08/17 08:43 Dose: 600 mg Vancomycin HCl 1 gm/ Sodium (Chloride) 250 mls @ 166.667 mls/hr IVPB Q12 [facility] PRN Reason: Protocol Last Admin: 12/04/17 17:31 Dose: Not Given Piperacillin Sod/Tazobactam (Sod 3.375 gm/ Sodium Chloride) 100 mls @ 100 mls/ hr IVPB Q8 [facility] PRN Reason: Protocol Last Admin: 12/08/17 08:52 Dose: 100 mls/hr Insulin Detemir (Levemir) 40 units SC HS [facility] Last Admin: 12/06/17 22:37 Dose: 40 u Insulin Human Lispro (Humalog) 0 units SC ACHS [facility] PRN Reason: Protocol Last Admin: 12/08/17 08:47 Dose: Not Given Insulin Human Lispro (Humalog) 10 units SC AC [facility] Last Admin: 12/08/17 10:07 Dose: Not Given Losartan Potassium (Cozaar) 50 mg PO Q12H [facility] Last Admin: 12/05/17 12:30 Dose: Not Given Magnesium Hydroxide (Milk Of Magnesia) 15 ml PO DAILY [facility] Last Admin: 12/08/17 10:07 Dose: Not Given Methadone HCl (Methadone) 150 mg PO DAILY [facility] Last Admin: 12/08/17 10:05 Dose: 150 mg Multivitamins/Minerals (Therapeutic-M Tab) 1 tab PO DAILY [facility] Last Admin: 12/08/17 08:45 Dose: 1 tab Nystatin (Nystop Topical Powder) 1 applic TOP TID [facility] Last Admin: 12/08/17 08:44 Dose: 1 applic Ondansetron HCl (Zofran Inj) 4 mg IVP Q4 PRN PRN Reason: Nausea/Vomiting Last Admin: 12/03/17 06:57 Dose: 4 mg Probenecid (Probenecid) 500 mg PO DAILY [facility] Last Admin: 12/08/17 08:48 Dose: 500 mg Silver Sulfadiazine (Silvadene 1% 20 Gm) 1 ea TOP DAILY [facility] Last Admin: 12/07/17 08:39 Dose: Not Given - Labs Labs: 12/08/17 05:30 12/08/17 05:30 - Constitutional Appears: Well, Non-toxic, No Acute Distress - Extremities Exam Additional comments: RLE focused exam: Vascular: DP/PT 2/4. Capillary refill <3 seconds to all 4 digits, temp gradient is warm to warm from proximal to distal, minimal edema at the third digit surgical site. Neuro: Gross sensation intact, protective sensation diminished Derm: Sutures intact to surgical incision site at right foot 3rd digit amputation site with skin edges well coapted. No clinical signs of infection, no signs of wound dehiscence, no drainage, no tunneling, no malodor, no erythema. Ortho: Right 3rd digit amputation surgical site noted. Left above knee amputation. Mild tenderness to palpation around surgical incision WNL given postoperative status, tenderness to palpation to dorsal aspect of first and second digits. - Neurological Exam Neurological Exam: Alert, Awake, Oriented x3 - Psychiatric Exam Psychiatric exam: Normal Affect, Normal Mood Assessment and Plan - Assessment and Plan (Free Text) Assessment: 42 yo male 6 days s/p right foot partial 3rd digit amputation Plan: Patient seen and evaluated at bedside Discussed plan with Dr. Rose Afebrile overnight, absent leukocytosis Surgical site dressed with Telfa, DSD, and light WILNER Continue IV abx per ID Pt is stable from podiatry standpoint Sutures to be removed in next 7-14 days Podiatry will continue to follow while in house
--- NOTE | 2017-12-08 12:48 | CP.PCM.PN ---
Subjective - Date & Time of Evaluation Date of Evaluation: 12/08/17 Time of Evaluation: 10:00 - Subjective Subjective: events noted IV rx in progress Objective - Vital Signs/Intake and Output Vital Signs (last 24 hours): Temp Pulse Resp BP Pulse Ox 98.3 F 74 18 154/86 H 95 12/08/17 08:00 12/08/17 08:44 12/08/17 08:00 12/08/17 08:44 12/08/17 08:00 - Medications Medications: Current Medications Acetaminophen (Tylenol 325mg Tab) 650 mg PO Q6 PRN PRN Reason: Pain, Mild (1-3) Acetaminophen (Tylenol 325mg Tab) 650 mg PO Q6 PRN PRN Reason: Fever >100.4 F Last Admin: 12/03/17 09:59 Dose: 650 mg Albuterol/Ipratropium (Duoneb 3 Mg/0.5 Mg (3 Ml) Ud) 3 ml INH RQID [facility] Last Admin: 12/08/17 11:40 Dose: 3 ml Allopurinol (Zyloprim) 300 mg PO DAILY [facility] Last Admin: 12/08/17 08:46 Dose: 300 mg Amlodipine Besylate (Norvasc) 5 mg PO DAILY [facility] Last Admin: 12/08/17 08:44 Dose: 5 mg Amylase (Pancrease 22809 U-5000 U-84256 U) 5,000 unit PO TID [facility] Last Admin: 12/08/17 08:48 Dose: 5,000 unit Bacitracin (Bacitracin Oint) 1 applic TOP DAILY [facility] Last Admin: 12/08/17 08:42 Dose: 1 applic Docusate Sodium (Colace) 100 mg PO BID [facility] Last Admin: 12/08/17 08:42 Dose: 100 mg Duloxetine HCl (Cymbalta) 60 mg PO DAILY [facility] Last Admin: 12/08/17 08:46 Dose: 60 mg Gabapentin (Neurontin) 300 mg PO TID [facility] Last Admin: 12/08/17 08:43 Dose: 300 mg Gemfibrozil (Lopid) 600 mg PO BID [facility] Last Admin: 12/08/17 08:43 Dose: 600 mg Vancomycin HCl 1 gm/ Sodium (Chloride) 250 mls @ 166.667 mls/hr IVPB Q12 [facility] PRN Reason: Protocol Last Admin: 12/04/17 17:31 Dose: Not Given Piperacillin Sod/Tazobactam (Sod 3.375 gm/ Sodium Chloride) 100 mls @ 100 mls/ hr IVPB Q8 [facility] PRN Reason: Protocol Last Admin: 12/08/17 08:52 Dose: 100 mls/hr Insulin Detemir (Levemir) 40 units SC HS [facility] Last Admin: 12/06/17 22:37 Dose: 40 u Insulin Human Lispro (Humalog) 0 units SC ACHS [facility] PRN Reason: Protocol Last Admin: 12/08/17 08:47 Dose: Not Given Insulin Human Lispro (Humalog) 10 units SC AC [facility] Last Admin: 12/08/17 10:07 Dose: Not Given Losartan Potassium (Cozaar) 50 mg PO Q12H [facility] Last Admin: 12/05/17 12:30 Dose: Not Given Magnesium Hydroxide (Milk Of Magnesia) 15 ml PO DAILY [facility] Last Admin: 12/08/17 10:07 Dose: Not Given Methadone HCl (Methadone) 150 mg PO DAILY [facility] Last Admin: 12/08/17 10:05 Dose: 150 mg Multivitamins/Minerals (Therapeutic-M Tab) 1 tab PO DAILY [facility] Last Admin: 12/08/17 08:45 Dose: 1 tab Nystatin (Nystop Topical Powder) 1 applic TOP TID [facility] Last Admin: 12/08/17 08:44 Dose: 1 applic Ondansetron HCl (Zofran Inj) 4 mg IVP Q4 PRN PRN Reason: Nausea/Vomiting Last Admin: 12/03/17 06:57 Dose: 4 mg Probenecid (Probenecid) 500 mg PO DAILY [facility] Last Admin: 12/08/17 08:48 Dose: 500 mg Silver Sulfadiazine (Silvadene 1% 20 Gm) 1 ea TOP DAILY [facility] Last Admin: 12/07/17 08:39 Dose: Not Given - Labs Labs: 12/08/17 05:30 12/08/17 05:30 - Constitutional Appears: Non-toxic, Chronically Ill - Head Exam Head Exam: NORMOCEPHALIC - Eye Exam Eye Exam: PERRL - ENT Exam ENT Exam: Mucous Membranes Dry - Neck Exam Neck Exam: absent: Lymphadenopathy - Respiratory Exam Respiratory Exam: Decreased Breath Sounds - Cardiovascular Exam Cardiovascular Exam: REGULAR RHYTHM - GI/Abdominal Exam GI & Abdominal Exam: Distended - Rectal Exam Rectal Exam: Deferred - Exam Exam: NORMAL INSPECTION - Extremities Exam Extremities Exam: Pedal Edema Additional comments: Vascular: DP/PT 2/4. Capillary refill <3 seconds to all 4 digits, temp gradient is warm to warm from proximal to distal, minimal edema at the third digit surgical site. Neuro: Gross sensation intact, protective sensation diminished Derm: Sutures intact to surgical incision site at right foot 3rd digit amputation site with skin edges well coapted. No clinical signs of infection, no signs of wound dehiscence, no drainage, no tunneling, no malodor, no erythema. Ortho: Right 3rd digit amputation surgical site noted. Left above knee amputation. Mild tenderness to palpation around surgical incision WNL given postoperative status, tenderness to palpation to dorsal aspect of first and second digits. - Back Exam Back Exam: absent: CVA tenderness (L), CVA tenderness (R) - Neurological Exam Neurological Exam: Alert, Awake - Psychiatric Exam Psychiatric exam: Normal Mood - Skin Skin Exam: Dry Assessment and Plan (1) Osteomyelitis Status: Acute - Assessment and Plan (Free Text) Assessment: cont iv rx for pneumonia repeat bood cultures pending
[2017-12-08] MEDS: Silver Sulfadiazine 1% Cream (20 gm) TOP SCH (12:58)
--- NOTE | 2017-12-08 14:36 | PN ---
DATE: 12/08/2017 SUBJECTIVE: The patient is seen and examined. Interim events noted. Consults noted and appreciated. Pulmonary followup and intervention noted and appreciated. The patient remains in progressive care unit on telemetry monitoring. Patient complains of something . No chest pain, no shortness of breath. PHYSICAL EXAMINATION: GENERAL: The patient is in no acute distress. VITAL SIGNS: Stable. HEART: S1, S2, normal and regular. LUNGS: Good bilateral air exchange. ABDOMEN: Soft, nontender. EXTREMITIES: The patient is status post amputation. FISCAL ASSISTANT: Exam is essentially unchanged. DIAGNOSTIC DATA: Available diagnostic data reviewed. Telemetry monitoring does not show any significant arrhythmias. The patient is in sinus rhythm. ASSESSMENT AND PLAN: Overall, the patient is clinically stable. Plan as ordered. Rojelio Lentz MD
--- NOTE | 2017-12-08 15:40 | CP.PCM.PN ---
Subjective - Date & Time of Evaluation Date of Evaluation: 12/08/17 Time of Evaluation: 12:00 - Subjective Subjective: F/U PNA Patient is seen in SCU , no SOB , less cough with scanty yellowish flegm Objective - Vital Signs/Intake and Output Vital Signs (last 24 hours): Temp Pulse Resp BP Pulse Ox 97.7 F 80 18 150/93 H 100 12/08/17 13:00 12/08/17 13:00 12/08/17 13:00 12/08/17 13:00 12/08/17 13:00 Intake and Output: 12/08/17 12/08/17 06:59 18:59 Output Total 900 Balance -900 - Medications Medications: Current Medications Acetaminophen (Tylenol 325mg Tab) 650 mg PO Q6 PRN PRN Reason: Pain, Mild (1-3) Acetaminophen (Tylenol 325mg Tab) 650 mg PO Q6 PRN PRN Reason: Fever >100.4 F Last Admin: 12/03/17 09:59 Dose: 650 mg Albuterol/Ipratropium (Duoneb 3 Mg/0.5 Mg (3 Ml) Ud) 3 ml INH RQID [facility] Last Admin: 12/08/17 15:08 Dose: Not Given Allopurinol (Zyloprim) 300 mg PO DAILY [facility] Last Admin: 12/08/17 08:46 Dose: 300 mg Amlodipine Besylate (Norvasc) 5 mg PO DAILY [facility] Last Admin: 12/08/17 08:44 Dose: 5 mg Amylase (Pancrease 91141 U-5000 [id number] U) 5,000 unit PO TID [facility] Last Admin: 12/08/17 12:53 Dose: 5,000 unit Bacitracin (Bacitracin Oint) 1 applic TOP DAILY [facility] Last Admin: 12/08/17 08:42 Dose: 1 applic Docusate Sodium (Colace) 100 mg PO BID [facility] Last Admin: 12/08/17 08:42 Dose: 100 mg Duloxetine HCl (Cymbalta) 60 mg PO DAILY [facility] Last Admin: 12/08/17 08:46 Dose: 60 mg Gabapentin (Neurontin) 300 mg PO TID [facility] Last Admin: 12/08/17 12:54 Dose: 300 mg Gemfibrozil (Lopid) 600 mg PO BID [facility] Last Admin: 12/08/17 08:43 Dose: 600 mg Vancomycin HCl 1 gm/ Sodium (Chloride) 250 mls @ 166.667 mls/hr IVPB Q12 [facility] PRN Reason: Protocol Last Admin: 12/04/17 17:31 Dose: Not Given Piperacillin Sod/Tazobactam (Sod 3.375 gm/ Sodium Chloride) 100 mls @ 100 mls/ hr IVPB Q8 [facility] PRN Reason: Protocol Last Admin: 12/08/17 08:52 Dose: 100 mls/hr Insulin Detemir (Levemir) 40 units SC HS [facility] Last Admin: 12/06/17 22:37 Dose: 40 u Insulin Human Lispro (Humalog) 0 units SC ACHS [facility] PRN Reason: Protocol Last Admin: 12/08/17 12:49 Dose: Not Given Insulin Human Lispro (Humalog) 10 units SC AC [facility] Last Admin: 12/08/17 12:51 Dose: 10 unit Losartan Potassium (Cozaar) 50 mg PO Q12H [facility] Last Admin: 12/05/17 12:30 Dose: Not Given Magnesium Hydroxide (Milk Of Magnesia) 15 ml PO DAILY [facility] Last Admin: 12/08/17 10:07 Dose: Not Given Methadone HCl (Methadone) 150 mg PO DAILY [facility] Last Admin: 12/08/17 10:05 Dose: 150 mg Multivitamins/Minerals (Therapeutic-M Tab) 1 tab PO DAILY [facility] Last Admin: 12/08/17 08:45 Dose: 1 tab Nystatin (Nystop Topical Powder) 1 applic TOP TID [facility] Last Admin: 12/08/17 12:57 Dose: 1 applic Ondansetron HCl (Zofran Inj) 4 mg IVP Q4 PRN PRN Reason: Nausea/Vomiting Last Admin: 12/03/17 06:57 Dose: 4 mg Probenecid (Probenecid) 500 mg PO DAILY [facility] Last Admin: 12/08/17 08:48 Dose: 500 mg Silver Sulfadiazine (Silvadene 1% 20 Gm) 1 ea TOP DAILY [facility] Last Admin: 12/08/17 12:58 Dose: Not Given - Labs Labs: 12/08/17 05:30 12/08/17 05:30 - Constitutional Appears: No Acute Distress - Head Exam Head Exam: NORMAL INSPECTION - Eye Exam Eye Exam: PERRL - ENT Exam ENT Exam: Normal Exam - Neck Exam Neck Exam: Normal Inspection - Respiratory Exam Respiratory Exam: Decreased Breath Sounds (at bases) - Cardiovascular Exam Cardiovascular Exam: REGULAR RHYTHM - GI/Abdominal Exam GI & Abdominal Exam: Soft, Normal Bowel Sounds Additional comments: obese - Extremities Exam Additional comments: partial amputation R foot 3rd digit , R AKA - Back Exam Back Exam: NORMAL INSPECTION - Neurological Exam Neurological Exam: Alert, CN II-XII Intact Additional comments: no focal motor/sensory deficit - Psychiatric Exam Psychiatric exam: Normal Mood - Skin Skin Exam: Warm Assessment and Plan (1) HCAP (healthcare-associated pneumonia) Status: Acute (2) Mediastinal lymphadenopathy Status: Acute - Assessment and Plan (Free Text) Plan: continue Duoneb , Zosyn, Vanco , f/u CXR in am Patient is treated for OM L foot
[2017-12-08] MEDS: Insulin Detemir 100 Units/ml Inj SC SCH (21:48)
[2017-12-09] MEDS: Piperacillin/Tazobact 3.375 GM in Sodium Chloride 0.9% 100 ML IVPB SCH ×3 (01:15→17:30)
[2017-12-09] MEDS ORDERED: Dextrose 50% SYRINGE Inj (50 ml) IVP ONE (05:16)
[2017-12-09 06:09] LABS: ALB/GLOB RATIO 0.8 (1.0-2.1); ALBUMIN 3.1 g/dL (3.5-5.0); ALT/SGPT 25 U/L (21-72); AST/SGOT 34 U/L (17-59); BLOOD UREA NITROGEN 16 mg/dl (9-20); GFR AFRICAN-AMERICAN > 60; GFR NON-AFRICAN AMERICAN > 60
--- NOTE | 2017-12-09 06:24 | CP.PCM.PN ---
Subjective - Date & Time of Evaluation Date of Evaluation: 12/09/17 Time of Evaluation: 06:22 - Subjective Subjective: Podiatry progress note for attending, Dr. Rose 42 y/o male seen and evaluated at bedside 7 days s/p partial 3rd digit amputation of the right foot. Patient is resting comfortably in bed, and in no acute distress. Patient denies pain at this time. Patient has been transferred from ICU to Telemetry after a single episode of SVT on 12/07/17. Patient denies new pedal complaints. Patient denies N/V/F/SOB/chills. Objective - Vital Signs/Intake and Output Vital Signs (last 24 hours): Temp Pulse Resp BP Pulse Ox 98.2 F 79 18 168/97 H 95 12/09/17 04:57 12/09/17 04:57 12/09/17 04:57 12/09/17 04:57 12/09/17 04:57 Intake and Output: 12/08/17 12/09/17 18:59 06:59 Output Total 900 Balance -900 - Medications Medications: Current Medications Acetaminophen (Tylenol 325mg Tab) 650 mg PO Q6 PRN PRN Reason: Pain, Mild (1-3) Acetaminophen (Tylenol 325mg Tab) 650 mg PO Q6 PRN PRN Reason: Fever >100.4 F Last Admin: 12/03/17 09:59 Dose: 650 mg Albuterol/Ipratropium (Duoneb 3 Mg/0.5 Mg (3 Ml) Ud) 3 ml INH RQID [facility] Last Admin: 12/08/17 19:06 Dose: Not Given Allopurinol (Zyloprim) 300 mg PO DAILY [facility] Last Admin: 12/08/17 08:46 Dose: 300 mg Amlodipine Besylate (Norvasc) 5 mg PO DAILY [facility] Last Admin: 12/08/17 08:44 Dose: 5 mg Amylase (Pancrease 25728 U-5000 [id number] U) 5,000 unit PO TID [facility] Last Admin: 12/08/17 17:22 Dose: 5,000 unit Bacitracin (Bacitracin Oint) 1 applic TOP DAILY [facility] Last Admin: 12/08/17 08:42 Dose: 1 applic Docusate Sodium (Colace) 100 mg PO BID [facility] Last Admin: 12/08/17 17:23 Dose: 100 mg Duloxetine HCl (Cymbalta) 60 mg PO DAILY [facility] Last Admin: 12/08/17 08:46 Dose: 60 mg Gabapentin (Neurontin) 300 mg PO TID [facility] Last Admin: 12/08/17 17:22 Dose: 300 mg Gemfibrozil (Lopid) 600 mg PO BID [facility] Last Admin: 12/08/17 17:21 Dose: 600 mg Vancomycin HCl 1 gm/ Sodium (Chloride) 250 mls @ 166.667 mls/hr IVPB Q12 [facility] PRN Reason: Protocol Last Admin: 12/04/17 17:31 Dose: Not Given Piperacillin Sod/Tazobactam (Sod 3.375 gm/ Sodium Chloride) 100 mls @ 100 mls/ hr IVPB Q8 [facility] PRN Reason: Protocol Last Admin: 12/09/17 01:15 Dose: 100 mls/hr Insulin Detemir (Levemir) 40 units SC HS [facility] Last Admin: 12/08/17 21:48 Dose: 40 u Insulin Human Lispro (Humalog) 0 units SC ACHS [facility] PRN Reason: Protocol Last Admin: 12/08/17 21:48 Dose: Not Given Insulin Human Lispro (Humalog) 10 units SC AC [facility] Last Admin: 12/08/17 17:23 Dose: 10 unit Losartan Potassium (Cozaar) 50 mg PO Q12H [facility] Last Admin: 12/05/17 12:30 Dose: Not Given Magnesium Hydroxide (Milk Of Magnesia) 15 ml PO DAILY [facility] Last Admin: 12/08/17 10:07 Dose: Not Given Methadone HCl (Methadone) 150 mg PO DAILY [facility] Last Admin: 12/08/17 10:05 Dose: 150 mg Multivitamins/Minerals (Therapeutic-M Tab) 1 tab PO DAILY [facility] Last Admin: 12/08/17 08:45 Dose: 1 tab Nystatin (Nystop Topical Powder) 1 applic TOP TID [facility] Last Admin: 12/08/17 17:22 Dose: 1 applic Ondansetron HCl (Zofran Inj) 4 mg IVP Q4 PRN PRN Reason: Nausea/Vomiting Last Admin: 12/03/17 06:57 Dose: 4 mg Probenecid (Probenecid) 500 mg PO DAILY [facility] Last Admin: 12/08/17 08:48 Dose: 500 mg Silver Sulfadiazine (Silvadene 1% 20 Gm) 1 ea TOP DAILY [facility] Last Admin: 12/08/17 12:58 Dose: Not Given - Labs Labs: 12/08/17 05:30 12/09/17 04:20 - Constitutional Appears: Well, Non-toxic, No Acute Distress - Head Exam Head Exam: ATRAUMATIC, NORMOCEPHALIC - Extremities Exam Additional comments: RLE focused exam: VASC: DP and PT 2/4. Capillary refill <3 seconds to all 4 digits, temp gradient is warm to warm from proximal to distal, minimal edema at the third digit surgical site. NEURO: Gross sensation intact, protective sensation diminished DERM: sutures are intact at the surgical site and well-coapted, no malodor, no drainage, no wound dehiscence, no clinical signs of infection noted, no erythema ORTHO: minimal pain on palpation to the 3rd digit amputation site, left above knee amputation - Neurological Exam Neurological Exam: Alert, Awake, Oriented x3 - Psychiatric Exam Psychiatric exam: Normal Affect, Normal Mood Assessment and Plan - Assessment and Plan (Free Text) Assessment: 42 yo male 7 days s/p right foot partial 3rd digit amputation Plan: Patient seen and evaluated at bedside Plan discussed with attending, Dr. Rose Charts, labs and vitals reviewed- WBC- 5.1, patient afebrile Wound dressed with Tefla, 4X4, ish and 2 inch WILNER Sutures to be removed in 7-14 days Patient is stable from podiatry standpoint Podiatry will continue to follow patient while in-house
[2017-12-09] MEDS: Insulin Lispro (humaLOG) 100 Units/ml Inj SC SCH ×7 (06:47→23:24)
[2017-12-09] MEDS: Albuterol-Ipratrop 3 mg / 0.5 (3 ml) UD INH SCH ×4 (07:34→19:06)
--- NOTE | 2017-12-09 07:56 | PN ---
DATE: 12/08/2017 sinus tachycardia. called in, and he was transferred to ICU for closer hemodynamic monitoring and has improved clinically overnight as noted. . We will continue overnight basal insulin given as Levemir at 40 units subcu. . Gaye Llamas MD
[2017-12-09] MEDS: Amylase/Lipase/Protease 5,000 Units ECC PO SCH ×3 (09:35→17:49)
[2017-12-09] MEDS: Multivitamin With Minerals Tab PO SCH (09:35)
[2017-12-09] MEDS: Bacitracin OINT 15GM TOP SCH (09:37)
[2017-12-09] MEDS: Silver Sulfadiazine 1% Cream (20 gm) TOP SCH (09:37)
[2017-12-09] MEDS: Magnesium Hydroxide Susp 30 ml UD PO SCH (09:39)
[2017-12-09 10:22] LABS: HEMOGLOBIN 8.9 g/dL (12.0-18.0); MEAN CELL VOLUME 83.2 fl (80.0-94.0); MEAN CORPUSCULAR HEMOGLOBIN 27.7 pg (27.0-31.0); MEAN CORPUSCULAR HGB CONC 33.3 g/dL (33.0-37.0); RBC 3.2 Mil/uL (4.40-5.90); RED CELL DISTRIBUTION WIDTH 14.7 % (11.5-14.5); WHITE BLOOD COUNT 5.8 K/uL (4.8-10.8)
--- NOTE | 2017-12-09 12:06 | PN ---
DATE: 12/09/2017 SUBJECTIVE: The patient is seen and examined. Interim events noted. Consults noted and appreciated. The patient remains in progressive care unit on telemetry monitoring. Feels much better. No chest pain. No shortness of breath. No palpitation. Pain is adequately controlled. PHYSICAL EXAMINATION: GENERAL: The patient is in no acute distress. VITAL SIGNS: Stable. HEART: S1, S2, normal and regular. LUNGS: Good bilateral air exchange. ABDOMEN: Soft, nontender. EXTREMITY: The patient is status post amputation. No calf swelling. No tenderness. No acute ischemia. 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 DIAGNOSTIC DATA: Available diagnostic data reviewed. Telemetry monitoring does not show significant arrhythmias. Overall, the patient's general medical condition is stable. Plan as ordered. Rojelio Lentz MD
--- NOTE | 2017-12-09 13:17 | RAD ---
HISTORY: f/u COMPARISON: CT angiography of the pulmonary arteries performed 12/05/2017 TECHNIQUE: Chest PA and lateral FINDINGS: LUNGS: Interval decrease in patchy bilateral infiltrates PLEURA: No significant pleural effusion identified. No pneumothorax apparent. CARDIOVASCULAR: Normal. OSSEOUS STRUCTURES: No significant abnormalities. VISUALIZED UPPER ABDOMEN: Normal. OTHER FINDINGS: Left upper extremity PICC no longer visualized. IMPRESSION: Interval decrease in patchy bilateral infiltrates. Left upper extremity PICC no longer visualized.
[2017-12-09 14:07] LABS: IRON 29 ug/dL (49-181)
[2017-12-09 14:17] LABS: % IRON SATURATION 14 % (20-55); TOTAL IRON BINDING CAPACITY 210 ug/dL (250-450)
--- NOTE | 2017-12-09 16:01 | CARD ---
APPROVED REPORT EXAM: Two-dimensional and M-mode echocardiogram with Doppler and color Doppler. Other Information Quality : FairRhythm : NSR Technically limited study due to body habitus. INDICATION Abnormal EKG/Arrhythmia 2D DIMENSIONS IVSd1.05 (0.7-1.1cm)LVDd5.03 (3.9-5.9cm) LVOT Diameter2.73 (1.8-2.4cm)PWd1.19 (0.7-1.1cm) IVSs1.85 (0.8-1.2cm)LVDs3.33 (2.5-4.0cm) FS (%) 33.8 %PWs1.34 (0.8-1.2cm) M-Mode DIMENSIONS Left Atrium (MM)4.16 (2.5-4.0cm)IVSd1.05 (0.7-1.1cm) Aortic Root3.32 (2.2-3.7cm)LVDd6.32 (4.0-5.6cm) Aortic Cusp Exc.2.27 (1.5-2.0cm)PWd1.15 (0.7-1.1cm) IVSs1.75 cmFS (%) 50 % LVDs3.18 (2.0-3.8cm)PWs1.96 cm Mitral Valve MV E Szcisyiq58.7cm/sMV DECEL [id number] A Gexwxbbp37.8cm/s MV NYP48kvW/A ratio1.4MVA (PHT)3.63cm2 TDI Lateral E' Peak V15.73cm/sMedial E' Peak V12.55cm/sE/Lateral E'6.3 E/Medial E'7.9 LEFT VENTRICLE The left ventricle is grossly normal size. The left ventricle is not well visualized. Due to the poor quality of the echocardiogram, an assessment of left ventricular ejection fraction is only estmiated on gross visualization which is near normal. Poor acoustic windows precludes comments. The left ventricular diastolic function is normal. RIGHT VENTRICLE Poor acoustic windows precludes comments. Poor acoustic windows precludes comments. ATRIA Poor acoustic windows precludes comments. Poor acoustic windows precludes comments. AORTIC VALVE Poor acoustic windows precludes visualization and any comments. Poor acoustic windows precludes visualization and any comments. Poor acoustic windows precludes visualization and any comments. MITRAL VALVE Poor acoustic windows precludes visualization and any comments. Poor acoustic windows precludes visualization and any comments. Poor acoustic windows precludes visualization and any comments. TRICUSPID VALVE Poor acoustic windows precludes visualization and any comments. Poor acoustic windows precludes visualization and any comments. PULMONIC VALVE Poor acoustic windows precludes visualization and any comments. Poor acoustic windows precludes visualization and any comments. GREAT VESSELS Poor acoustic windows precludes visualization and any comments. Poor acoustic windows precludes visualization and any comments. PERICARDIAL EFFUSION Poor acoustic windows precludes visualization and any comments. <Conclusion> Due to the poor quality of the echocardiogram, an assessment of left ventricular ejection fraction is only estmiated on gross visualization which is near normal. The left ventricular diastolic function is normal. Poor acoustic windows precludes visualization and commenting on any structure of valves or wall motion.
--- NOTE | 2017-12-09 20:08 | CP.PCM.PN ---
Subjective - Date & Time of Evaluation Date of Evaluation: 12/09/17 Time of Evaluation: 10:40 - Subjective Subjective: F/U HCAP No SOB, less cough, yellowish phlegms Objective - Vital Signs/Intake and Output Vital Signs (last 24 hours): Temp Pulse Resp BP Pulse Ox 98.1 F 80 17 188/94 H 98 12/09/17 16:09 12/09/17 16:09 12/09/17 16:09 12/09/17 16:09 12/09/17 16:09 - Medications Medications: Current Medications Acetaminophen (Tylenol 325mg Tab) 650 mg PO Q6 PRN PRN Reason: Pain, Mild (1-3) Acetaminophen (Tylenol 325mg Tab) 650 mg PO Q6 PRN PRN Reason: Fever >100.4 F Last Admin: 12/03/17 09:59 Dose: 650 mg Albuterol/Ipratropium (Duoneb 3 Mg/0.5 Mg (3 Ml) Ud) 3 ml INH RQID [facility] Last Admin: 12/09/17 19:06 Dose: 3 ml Allopurinol (Zyloprim) 300 mg PO DAILY [facility] Last Admin: 12/09/17 09:35 Dose: 300 mg Amlodipine Besylate (Norvasc) 5 mg PO DAILY [facility] Last Admin: 12/09/17 09:34 Dose: 5 mg Amylase (Pancrease 95706 U-5000 U-[id number] U) 5,000 unit PO TID [facility] Last Admin: 12/09/17 17:49 Dose: 5,000 unit Bacitracin (Bacitracin Oint) 1 applic TOP DAILY [facility] Last Admin: 12/09/17 09:37 Dose: 1 applic Docusate Sodium (Colace) 100 mg PO BID [facility] Last Admin: 12/09/17 17:48 Dose: 100 mg Duloxetine HCl (Cymbalta) 60 mg PO DAILY [facility] Last Admin: 12/09/17 09:35 Dose: 60 mg Gabapentin (Neurontin) 300 mg PO TID [facility] Last Admin: 12/09/17 17:49 Dose: 300 mg Gemfibrozil (Lopid) 600 mg PO BID [facility] Last Admin: 12/09/17 17:48 Dose: 600 mg Vancomycin HCl 1 gm/ Sodium (Chloride) 250 mls @ 166.667 mls/hr IVPB Q12 [facility] PRN Reason: Protocol Last Admin: 12/04/17 17:31 Dose: Not Given Piperacillin Sod/Tazobactam (Sod 3.375 gm/ Sodium Chloride) 100 mls @ 100 mls/ hr IVPB Q8 [facility] PRN Reason: Protocol Last Admin: 12/09/17 09:35 Dose: 100 mls/hr Insulin Detemir (Levemir) 30 units SC HS [facility] Insulin Human Lispro (Humalog) 0 units SC ACHS [facility] PRN Reason: Protocol Last Admin: 12/09/17 17:50 Dose: Not Given Insulin Human Lispro (Humalog) 6 units SC AC [facility] Last Admin: 12/09/17 17:49 Dose: 6 units Losartan Potassium (Cozaar) 100 mg PO DAILY [facility] Magnesium Hydroxide (Milk Of Magnesia) 15 ml PO DAILY [facility] Last Admin: 12/09/17 09:39 Dose: Not Given Methadone HCl (Methadone) 150 mg PO DAILY [facility] Last Admin: 12/09/17 09:41 Dose: 150 mg Multivitamins/Minerals (Therapeutic-M Tab) 1 tab PO DAILY [facility] Last Admin: 12/09/17 09:35 Dose: 1 tab Nystatin (Nystop Topical Powder) 1 applic TOP TID [facility] Last Admin: 12/09/17 17:59 Dose: 1 applic Ondansetron HCl (Zofran Inj) 4 mg IVP Q4 PRN PRN Reason: Nausea/Vomiting Last Admin: 12/03/17 06:57 Dose: 4 mg Probenecid (Probenecid) 500 mg PO DAILY [facility] Last Admin: 12/09/17 09:35 Dose: 500 mg Silver Sulfadiazine (Silvadene 1% 20 Gm) 1 ea TOP DAILY [facility] Last Admin: 12/09/17 09:37 Dose: 1 applic - Labs Labs: 12/09/17 10:12 12/09/17 04:20 - Constitutional Appears: No Acute Distress - Head Exam Head Exam: NORMAL INSPECTION - Eye Exam Eye Exam: PERRL - ENT Exam ENT Exam: Normal Exam - Neck Exam Neck Exam: Normal Inspection - Respiratory Exam Respiratory Exam: Decreased Breath Sounds (at bases) - Cardiovascular Exam Cardiovascular Exam: REGULAR RHYTHM - GI/Abdominal Exam GI & Abdominal Exam: Soft, Normal Bowel Sounds Additional comments: obese - Extremities Exam Additional comments: Partial amputation R foot 3rd digit, L AKA - Back Exam Back Exam: NORMAL INSPECTION - Neurological Exam Neurological Exam: Alert, CN II-XII Intact Additional comments: No focal motor/sensory deficit. - Psychiatric Exam Psychiatric exam: Normal Mood - Skin Skin Exam: Warm Assessment and Plan (1) HCAP (healthcare-associated pneumonia) Status: Acute (2) Mediastinal lymphadenopathy Status: Acute - Assessment and Plan (Free Text) Plan: Continue Vanco, Zosyn, Duoneb, f/u CXR. Pt is Tx for OM R foot.
--- NOTE | 2017-12-09 23:10 | PN ---
DATE: 12/09/2017 ENDO FOLLOWUP NOTE LOCATION: Room 414. SUBJECTIVE: This is a 42-year-old male with recent uncontrolled type 2 insulin-requiring diabetes, now being followed closely for metabolic management. LABORATORY DATA: His glycemic levels are fluctuating but improved, and the latest glucose levels have ranged from 91 to 95 and 205 mg/dL. 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 His chemistry shows a BUN of 16, sodium 143, potassium 4.1, chloride 106, CO2 of 27, glucose 66, and creatinine 0.7. ASSESSMENT AND PLAN: So at this time, we will modify once again his basal and bolus insulin regimen to allow for dose equilibration especially with the variability of his oral intake at this time. We will lower the Humalog down to 6 units subcu t.i.d. before meals to start today as ordered. We will also lower the basal insulin with Levemir to be given as 13 units subcu at bedtime daily to start tonight. We will continue the low-dose correction scale using Humalog insulin as given. We will obtain serial chemistries and supplement accordingly as needed. We will follow with you. Gaye Llamas MD
[2017-12-09] MEDS: Insulin Detemir 100 Units/ml Inj SC SCH (23:26)
[2017-12-10] MEDS: Piperacillin/Tazobact 3.375 GM in Sodium Chloride 0.9% 100 ML IVPB SCH ×3 (00:54→16:34)
[2017-12-10] MEDS: Albuterol-Ipratrop 3 mg / 0.5 (3 ml) UD INH SCH ×4 (08:16→19:14)
--- NOTE | 2017-12-10 08:18 | CP.PCM.PN ---
<Khalida Cobos - Last Filed: 12/10/17 15:19> Subjective - Date & Time of Evaluation Date of Evaluation: 12/10/17 Time of Evaluation: 07:20 - Subjective Subjective: Pt seen/examined with Dr. Lentz this morning. No acute events overnight; cough improved. Objective - Vital Signs/Intake and Output Vital Signs (last 24 hours): Temp Pulse Resp BP Pulse Ox 97.7 F 80 16 166/95 H 93 L 12/10/17 00:16 12/10/17 05:00 12/10/17 05:00 12/10/17 05:00 12/10/17 05:00 - Medications Medications: Current Medications Acetaminophen (Tylenol 325mg Tab) 650 mg PO Q6 PRN PRN Reason: Pain, Mild (1-3) Acetaminophen (Tylenol 325mg Tab) 650 mg PO Q6 PRN PRN Reason: Fever >100.4 F Last Admin: 12/03/17 09:59 Dose: 650 mg Albuterol/Ipratropium (Duoneb 3 Mg/0.5 Mg (3 Ml) Ud) 3 ml INH RQID [facility] Last Admin: 12/09/17 19:06 Dose: 3 ml Allopurinol (Zyloprim) 300 mg PO DAILY [facility] Last Admin: 12/09/17 09:35 Dose: 300 mg Amlodipine Besylate (Norvasc) 5 mg PO DAILY [facility] Last Admin: 12/09/17 09:34 Dose: 5 mg Amylase (Pancrease 24574 U-5000 U-13629 U) 5,000 unit PO TID [facility] Last Admin: 12/09/17 17:49 Dose: 5,000 unit Bacitracin (Bacitracin Oint) 1 applic TOP DAILY [facility] Last Admin: 12/09/17 09:37 Dose: 1 applic Docusate Sodium (Colace) 100 mg PO BID [facility] Last Admin: 12/09/17 17:48 Dose: 100 mg Duloxetine HCl (Cymbalta) 60 mg PO DAILY [facility] Last Admin: 12/09/17 09:35 Dose: 60 mg Gabapentin (Neurontin) 300 mg PO TID [facility] Last Admin: 12/09/17 17:49 Dose: 300 mg Gemfibrozil (Lopid) 600 mg PO BID [facility] Last Admin: 12/09/17 17:48 Dose: 600 mg Vancomycin HCl 1 gm/ Sodium (Chloride) 250 mls @ 166.667 mls/hr IVPB Q12 [facility] PRN Reason: Protocol Last Admin: 12/04/17 17:31 Dose: Not Given Piperacillin Sod/Tazobactam (Sod 3.375 gm/ Sodium Chloride) 100 mls @ 100 mls/ hr IVPB Q8 [facility] PRN Reason: Protocol Last Admin: 12/10/17 00:54 Dose: 100 mls/hr Insulin Detemir (Levemir) 30 units SC HS [facility] Last Admin: 12/09/17 23:26 Dose: Not Given Insulin Human Lispro (Humalog) 0 units SC ACHS [facility] PRN Reason: Protocol Last Admin: 12/09/17 23:24 Dose: Not Given Insulin Human Lispro (Humalog) 6 units SC AC [facility] Last Admin: 12/09/17 17:49 Dose: 6 units Losartan Potassium (Cozaar) 100 mg PO DAILY [facility] Magnesium Hydroxide (Milk Of Magnesia) 15 ml PO DAILY [facility] Last Admin: 12/09/17 09:39 Dose: Not Given Methadone HCl (Methadone) 150 mg PO DAILY [facility] Last Admin: 12/09/17 09:41 Dose: 150 mg Multivitamins/Minerals (Therapeutic-M Tab) 1 tab PO DAILY [facility] Last Admin: 12/09/17 09:35 Dose: 1 tab Nystatin (Nystop Topical Powder) 1 applic TOP TID [facility] Last Admin: 12/09/17 17:59 Dose: 1 applic Ondansetron HCl (Zofran Inj) 4 mg IVP Q4 PRN PRN Reason: Nausea/Vomiting Last Admin: 12/03/17 06:57 Dose: 4 mg Probenecid (Probenecid) 500 mg PO DAILY [facility] Last Admin: 12/09/17 09:35 Dose: 500 mg Silver Sulfadiazine (Silvadene 1% 20 Gm) 1 ea TOP DAILY [facility] Last Admin: 12/09/17 09:37 Dose: 1 applic - Labs Labs: 12/09/17 10:12 12/09/17 04:20 - Constitutional Appears: No Acute Distress - Respiratory Exam Respiratory Exam: NORMAL BREATHING PATTERN. absent: Respiratory Distress Additional comments: good air movement - Cardiovascular Exam Cardiovascular Exam: REGULAR RHYTHM - GI/Abdominal Exam GI & Abdominal Exam: Soft Additional comments: obese - Extremities Exam Additional comments: left AKA right extemity- no edema; distal portion of extremity in dressing - Neurological Exam Neurological Exam: Alert, Awake Assessment and Plan - Assessment and Plan (Free Text) Assessment: 42 yr old M POD # 8 s/p amputation of 3rd digit-right foot for osteomylitis with PMHx including IDDM type 2, CVA, HTN, HLD, hx of osteomyelitis s/p left AKA , methadone dependance. Patient has bilateral pneumonia. He has remained afebrile and without leukocytosis. Plan: -Continue present management -ID on board: continue IV antibiotics -Podiatry on board, will follow recommendations -Endocrinology on board, will follow recommendations -Pulmonology on board, will follow recommendations -sputum culture: few gram positive cocci -New PT/OT orders placed <Rojelio Lentz K - Last Filed: 12/10/17 16:38> Objective - Vital Signs/Intake and Output Vital Signs (last 24 hours): Temp Pulse Resp BP Pulse Ox 98.2 F 90 18 149/83 96 12/10/17 16:30 12/10/17 16:30 12/10/17 16:30 12/10/17 16:30 12/10/17 16:30 - Medications Medications: Current Medications Acetaminophen (Tylenol 325mg Tab) 650 mg PO Q6 PRN PRN Reason: Pain, Mild (1-3) Acetaminophen (Tylenol 325mg Tab) 650 mg PO Q6 PRN PRN Reason: Fever >100.4 F Last Admin: 12/03/17 09:59 Dose: 650 mg Albuterol/Ipratropium (Duoneb 3 Mg/0.5 Mg (3 Ml) Ud) 3 ml INH RQID [facility] Last Admin: 12/10/17 15:15 Dose: Not Given Allopurinol (Zyloprim) 300 mg PO DAILY [facility] Last Admin: 12/10/17 09:09 Dose: 300 mg Amlodipine Besylate (Norvasc) 10 mg PO DAILY [facility] Amylase (Pancrease 52166 U-5000 U-90019 U) 5,000 unit PO TID [facility] Last Admin: 12/10/17 16:22 Dose: 5,000 unit Bacitracin (Bacitracin Oint) 1 applic TOP DAILY [facility] Last Admin: 12/10/17 09:08 Dose: 1 applic Clonidine HCl (Catapres) 0.1 mg PO BID PRN PRN Reason: htn Docusate Sodium (Colace) 100 mg PO BID [facility] Last Admin: 12/10/17 16:22 Dose: 100 mg Duloxetine HCl (Cymbalta) 60 mg PO DAILY [facility] Last Admin: 12/10/17 09:08 Dose: 60 mg Gabapentin (Neurontin) 300 mg PO TID [facility] Last Admin: 12/10/17 16:22 Dose: 300 mg Gemfibrozil (Lopid) 600 mg PO BID [facility] Last Admin: 12/10/17 16:22 Dose: 600 mg Vancomycin HCl 1 gm/ Sodium (Chloride) 250 mls @ 166.667 mls/hr IVPB Q12 [facility] PRN Reason: Protocol Last Admin: 12/04/17 17:31 Dose: Not Given Piperacillin Sod/Tazobactam (Sod 3.375 gm/ Sodium Chloride) 100 mls @ 100 mls/ hr IVPB Q8 [facility] PRN Reason: Protocol Last Admin: 12/10/17 16:34 Dose: 100 mls/hr Insulin Detemir (Levemir) 30 units SC HS [facility] Last Admin: 12/09/17 23:26 Dose: Not Given Insulin Human Lispro (Humalog) 0 units SC ACHS [facility] PRN Reason: Protocol Last Admin: 12/10/17 16:16 Dose: Not Given Insulin Human Lispro (Humalog) 6 units SC AC [facility] Last Admin: 12/10/17 16:25 Dose: 6 units Losartan Potassium (Cozaar) 100 mg PO DAILY [facility] Last Admin: 12/10/17 09:11 Dose: 100 mg Magnesium Hydroxide (Milk Of Magnesia) 15 ml PO DAILY [facility] Last Admin: 12/10/17 15:52 Dose: 15 ml Methadone HCl (Methadone) 150 mg PO DAILY [facility] Last Admin: 12/10/17 10:28 Dose: 150 mg Multivitamins/Minerals (Therapeutic-M Tab) 1 tab PO DAILY [facility] Last Admin: 12/10/17 09:08 Dose: 1 tab Nystatin (Nystop Topical Powder) 1 applic TOP TID [facility] Last Admin: 12/10/17 16:24 Dose: 1 applic Ondansetron HCl (Zofran Inj) 4 mg IVP Q4 PRN PRN Reason: Nausea/Vomiting Last Admin: 12/03/17 06:57 Dose: 4 mg Probenecid (Probenecid) 500 mg PO DAILY [facility] Last Admin: 12/10/17 09:09 Dose: 500 mg Silver Sulfadiazine (Silvadene 1% 20 Gm) 1 ea TOP DAILY [facility] Last Admin: 12/10/17 09:08 Dose: 1 applic - Labs Labs: 12/09/17 10:12 12/09/17 04:20 Assessment and Plan - Assessment and Plan (Free Text) Plan: Patient was personally seen and examined by me in rounds with residents. Available labs and diagnostic data reviewed. Case, Patient's condition and management plan discussed with residents in rounds. Agree with resident's progress note. Plan: As ordered.
--- NOTE | 2017-12-10 08:20 | CP.PCM.PN ---
Subjective - Date & Time of Evaluation Date of Evaluation: 12/10/17 Time of Evaluation: :18 - Subjective Subjective: Podiatry progress note for attending Dr. Rose, 42 y/o male seen and evaluated at bedside for 8 day s/p partial 3rd digit amputation on the right foot. Patient was resting comfortably in bed, and in no acute distress. Patient reports he is waiting for physical therapy to come evaluate him. Patient complains of minimal pain to the surgical site, however, denies F/N/V/SOB/chills. Objective - Vital Signs/Intake and Output Vital Signs (last 24 hours): Temp Pulse Resp BP Pulse Ox 97.7 F 80 16 166/95 H 93 L 12/10/17 00:16 12/10/17 05:00 12/10/17 05:00 12/10/17 05:00 12/10/17 05:00 - Medications Medications: Current Medications Acetaminophen (Tylenol 325mg Tab) 650 mg PO Q6 PRN PRN Reason: Pain, Mild (1-3) Acetaminophen (Tylenol 325mg Tab) 650 mg PO Q6 PRN PRN Reason: Fever >100.4 F Last Admin: 12/03/17 09:59 Dose: 650 mg Albuterol/Ipratropium (Duoneb 3 Mg/0.5 Mg (3 Ml) Ud) 3 ml INH RQID [facility] Last Admin: 12/10/17 08:16 Dose: Not Given Allopurinol (Zyloprim) 300 mg PO DAILY [facility] Last Admin: 12/09/17 09:35 Dose: 300 mg Amlodipine Besylate (Norvasc) 5 mg PO DAILY [facility] Last Admin: 12/09/17 09:34 Dose: 5 mg Amylase (Pancrease 15052 U-5000 U-28020 U) 5,000 unit PO TID [facility] Last Admin: 12/09/17 17:49 Dose: 5,000 unit Bacitracin (Bacitracin Oint) 1 applic TOP DAILY [facility] Last Admin: 12/09/17 09:37 Dose: 1 applic Docusate Sodium (Colace) 100 mg PO BID [facility] Last Admin: 12/09/17 17:48 Dose: 100 mg Duloxetine HCl (Cymbalta) 60 mg PO DAILY [facility] Last Admin: 12/09/17 09:35 Dose: 60 mg Gabapentin (Neurontin) 300 mg PO TID [facility] Last Admin: 12/09/17 17:49 Dose: 300 mg Gemfibrozil (Lopid) 600 mg PO BID [facility] Last Admin: 12/09/17 17:48 Dose: 600 mg Vancomycin HCl 1 gm/ Sodium (Chloride) 250 mls @ 166.667 mls/hr IVPB Q12 [facility] PRN Reason: Protocol Last Admin: 12/04/17 17:31 Dose: Not Given Piperacillin Sod/Tazobactam (Sod 3.375 gm/ Sodium Chloride) 100 mls @ 100 mls/ hr IVPB Q8 [facility] PRN Reason: Protocol Last Admin: 12/10/17 00:54 Dose: 100 mls/hr Insulin Detemir (Levemir) 30 units SC HS [facility] Last Admin: 12/09/17 23:26 Dose: Not Given Insulin Human Lispro (Humalog) 0 units SC ACHS [facility] PRN Reason: Protocol Last Admin: 12/09/17 23:24 Dose: Not Given Insulin Human Lispro (Humalog) 6 units SC AC [facility] Last Admin: 12/09/17 17:49 Dose: 6 units Losartan Potassium (Cozaar) 100 mg PO DAILY [facility] Magnesium Hydroxide (Milk Of Magnesia) 15 ml PO DAILY [facility] Last Admin: 12/09/17 09:39 Dose: Not Given Methadone HCl (Methadone) 150 mg PO DAILY [facility] Last Admin: 12/09/17 09:41 Dose: 150 mg Multivitamins/Minerals (Therapeutic-M Tab) 1 tab PO DAILY [facility] Last Admin: 12/09/17 09:35 Dose: 1 tab Nystatin (Nystop Topical Powder) 1 applic TOP TID [facility] Last Admin: 12/09/17 17:59 Dose: 1 applic Ondansetron HCl (Zofran Inj) 4 mg IVP Q4 PRN PRN Reason: Nausea/Vomiting Last Admin: 12/03/17 06:57 Dose: 4 mg Probenecid (Probenecid) 500 mg PO DAILY [facility] Last Admin: 12/09/17 09:35 Dose: 500 mg Silver Sulfadiazine (Silvadene 1% 20 Gm) 1 ea TOP DAILY [facility] Last Admin: 12/09/17 09:37 Dose: 1 applic - Labs Labs: 12/09/17 10:12 12/09/17 04:20 - Constitutional Appears: Well, Non-toxic, No Acute Distress - Head Exam Head Exam: ATRAUMATIC, NORMOCEPHALIC - Extremities Exam Additional comments: Right Lower Extremity Exam: VASC: DP and PT 2/4, CFT less than 3 seconds X 4, TG warm to cool proximal to distal, improving edema noted to the surgical site NEURO: gross sensation intact, protective sensation diminished DERM: sutures to the surgical site are intact, no dehiscence, no drainage, no malodor, no erythema,no fluctuance, minimal edema, no clinical signs of infection MSK: pain on palpation to the 3rd digit amputation site - Neurological Exam Neurological Exam: Alert, Awake, Oriented x3 - Psychiatric Exam Psychiatric exam: Normal Affect, Normal Mood Assessment and Plan - Assessment and Plan (Free Text) Assessment: 42 y/o male 8 days s/p partial 3rd digit amputation Plan: Patient seen and evaluated at bedside Plan discussed with attending, Dr. Rose Charts, labs and vitals reviewed- WBC- 5.8, patient afebrile Wound dressed with Tefla, 4X4, ish and 2 inch WILNER Sutures to be removed in 7-14 days Patient is stable from podiatry standpoint Patient dressing will be change QOD Podiatry will continue to follow patient while in-house -Kat Grider, PGY1
[2017-12-10] MEDS: Insulin Lispro (humaLOG) 100 Units/ml Inj SC SCH ×7 (08:46→22:33)
[2017-12-10] MEDS: Multivitamin With Minerals Tab PO SCH (09:08)
[2017-12-10] MEDS: Silver Sulfadiazine 1% Cream (20 gm) TOP SCH (09:08)
[2017-12-10] MEDS: Bacitracin OINT 15GM TOP SCH (09:08)
[2017-12-10] MEDS: Amylase/Lipase/Protease 5,000 Units ECC PO SCH ×3 (09:09→16:22)
[2017-12-10] MEDS: Magnesium Hydroxide Susp 30 ml UD PO SCH ×2 (09:12→15:52)
--- NOTE | 2017-12-10 09:22 | RAD ---
PROCEDURE: CHEST RADIOGRAPH, 1 VIEW HISTORY: PNA COMPARISON: None available. FINDINGS: LUNGS: Bilateral reticulonodular infiltrates are appreciated at the right greater than left, suspicious for interstitial process such as atypical pneumonitis. No significant interval change identified. PLEURA: No pneumothorax or pleural fluid seen. CARDIOVASCULAR: Normal. OSSEOUS STRUCTURES: No significant abnormalities. VISUALIZED UPPER ABDOMEN: Normal. OTHER FINDINGS: None. IMPRESSION: Stable bilateral reticulonodular infiltrates somewhat greater the right than left. Continued clinical and radiographic monitor advised.
--- NOTE | 2017-12-10 11:36 | CP.PCM.PN ---
Subjective - Date & Time of Evaluation Date of Evaluation: 12/10/17 Time of Evaluation: 09:00 - Subjective Subjective: vanco renewed await cultures dr kimball on board Objective - Vital Signs/Intake and Output Vital Signs (last 24 hours): Temp Pulse Resp BP Pulse Ox 97.5 F L 75 18 179/85 H 96 12/10/17 08:33 12/10/17 09:11 12/10/17 08:33 12/10/17 09:11 12/10/17 08:33 - Medications Medications: Current Medications Acetaminophen (Tylenol 325mg Tab) 650 mg PO Q6 PRN PRN Reason: Pain, Mild (1-3) Acetaminophen (Tylenol 325mg Tab) 650 mg PO Q6 PRN PRN Reason: Fever >100.4 F Last Admin: 12/03/17 09:59 Dose: 650 mg Albuterol/Ipratropium (Duoneb 3 Mg/0.5 Mg (3 Ml) Ud) 3 ml INH RQID [facility] Last Admin: 12/10/17 08:16 Dose: Not Given Allopurinol (Zyloprim) 300 mg PO DAILY [facility] Last Admin: 12/10/17 09:09 Dose: 300 mg Amlodipine Besylate (Norvasc) 5 mg PO DAILY [facility] Last Admin: 12/10/17 09:10 Dose: 5 mg Amylase (Pancrease 13732 U-5000 U-87917 U) 5,000 unit PO TID [facility] Last Admin: 12/10/17 09:09 Dose: 5,000 unit Bacitracin (Bacitracin Oint) 1 applic TOP DAILY [facility] Last Admin: 12/10/17 09:08 Dose: 1 applic Docusate Sodium (Colace) 100 mg PO BID [facility] Last Admin: 12/10/17 09:08 Dose: 100 mg Duloxetine HCl (Cymbalta) 60 mg PO DAILY [facility] Last Admin: 12/10/17 09:08 Dose: 60 mg Gabapentin (Neurontin) 300 mg PO TID [facility] Last Admin: 12/10/17 09:09 Dose: 300 mg Gemfibrozil (Lopid) 600 mg PO BID [facility] Last Admin: 12/10/17 09:09 Dose: 600 mg Vancomycin HCl 1 gm/ Sodium (Chloride) 250 mls @ 166.667 mls/hr IVPB Q12 [facility] PRN Reason: Protocol Last Admin: 12/04/17 17:31 Dose: Not Given Piperacillin Sod/Tazobactam (Sod 3.375 gm/ Sodium Chloride) 100 mls @ 100 mls/ hr IVPB Q8 [facility] PRN Reason: Protocol Last Admin: 12/10/17 09:13 Dose: 100 mls/hr Insulin Detemir (Levemir) 30 units SC HS [facility] Last Admin: 12/09/17 23:26 Dose: Not Given Insulin Human Lispro (Humalog) 0 units SC ACHS [facility] PRN Reason: Protocol Last Admin: 12/10/17 08:46 Dose: Not Given Insulin Human Lispro (Humalog) 6 units SC AC [facility] Last Admin: 12/10/17 09:11 Dose: 6 units Losartan Potassium (Cozaar) 100 mg PO DAILY [facility] Last Admin: 12/10/17 09:11 Dose: 100 mg Magnesium Hydroxide (Milk Of Magnesia) 15 ml PO DAILY [facility] Last Admin: 12/10/17 09:12 Dose: Not Given Methadone HCl (Methadone) 150 mg PO DAILY [facility] Last Admin: 12/10/17 10:28 Dose: 150 mg Multivitamins/Minerals (Therapeutic-M Tab) 1 tab PO DAILY [facility] Last Admin: 12/10/17 09:08 Dose: 1 tab Nystatin (Nystop Topical Powder) 1 applic TOP TID [facility] Last Admin: 12/10/17 09:25 Dose: 1 applic Ondansetron HCl (Zofran Inj) 4 mg IVP Q4 PRN PRN Reason: Nausea/Vomiting Last Admin: 12/03/17 06:57 Dose: 4 mg Probenecid (Probenecid) 500 mg PO DAILY [facility] Last Admin: 12/10/17 09:09 Dose: 500 mg Silver Sulfadiazine (Silvadene 1% 20 Gm) 1 ea TOP DAILY [facility] Last Admin: 12/10/17 09:08 Dose: 1 applic - Labs Labs: 12/09/17 10:12 12/09/17 04:20 Assessment and Plan (1) Osteomyelitis Status: Acute
--- NOTE | 2017-12-10 14:00 | PN ---
DATE: 12/10/2017 ENDO FOLLOWUP NOTE LOCATION: In room 414. SUBJECTIVE: This is a 42-year-old male with recent uncontrolled type 2 insulin-requiring diabetes, currently receiving IV antibiotic management for lower extremity osteomyelitis and a recent right third toe amputation and is now being followed closely for metabolic management. His glycemic levels have been on the low side of normal as noted overnight and today's glucose levels have ranged from 91 to 154 mg/dL. PLAN OF MANAGEMENT: So at this time, we will most continue the modified basal and bolus insulin regimen as given with Humalog to be given only down to 6 units subcu t.i.d. before meals to start today. We will also lower the Levemir to 30 units subcu at bedtime daily as ordered. We will continue the low-dose correction scale using Humalog insulin as given. We will titrate incrementally as indicated to optimize metabolic control. We will follow and advise accordingly. Gaye Llamas MD
--- NOTE | 2017-12-10 14:17 | CP.PCM.PN ---
Subjective - Date & Time of Evaluation Date of Evaluation: 12/10/17 Time of Evaluation: 10:40 - Subjective Subjective: F/U HCAP Cough with scanty yellowish phlegms, no SOB. Objective - Vital Signs/Intake and Output Vital Signs (last 24 hours): Temp Pulse Resp BP Pulse Ox 98.3 F 80 18 189/97 H 98 12/10/17 12:02 12/10/17 12:02 12/10/17 12:02 12/10/17 12:02 12/10/17 12:02 - Medications Medications: Current Medications Acetaminophen (Tylenol 325mg Tab) 650 mg PO Q6 PRN PRN Reason: Pain, Mild (1-3) Acetaminophen (Tylenol 325mg Tab) 650 mg PO Q6 PRN PRN Reason: Fever >100.4 F Last Admin: 12/03/17 09:59 Dose: 650 mg Albuterol/Ipratropium (Duoneb 3 Mg/0.5 Mg (3 Ml) Ud) 3 ml INH RQID [facility] Last Admin: 12/10/17 11:46 Dose: 3 ml Allopurinol (Zyloprim) 300 mg PO DAILY [facility] Last Admin: 12/10/17 09:09 Dose: 300 mg Amlodipine Besylate (Norvasc) 5 mg PO DAILY [facility] Last Admin: 12/10/17 09:10 Dose: 5 mg Amylase (Pancrease 26832 U-5000 U-81179 U) 5,000 unit PO TID [facility] Last Admin: 12/10/17 13:10 Dose: 5,000 unit Bacitracin (Bacitracin Oint) 1 applic TOP DAILY [facility] Last Admin: 12/10/17 09:08 Dose: 1 applic Docusate Sodium (Colace) 100 mg PO BID [facility] Last Admin: 12/10/17 09:08 Dose: 100 mg Duloxetine HCl (Cymbalta) 60 mg PO DAILY [facility] Last Admin: 12/10/17 09:08 Dose: 60 mg Gabapentin (Neurontin) 300 mg PO TID [facility] Last Admin: 12/10/17 13:10 Dose: 300 mg Gemfibrozil (Lopid) 600 mg PO BID [facility] Last Admin: 12/10/17 09:09 Dose: 600 mg Vancomycin HCl 1 gm/ Sodium ([facility]) 250 mls @ 166.667 mls/hr IVPB Q12 [facility] PRN Reason: Protocol Last Admin: 12/04/17 17:31 Dose: Not Given Piperacillin Sod/Tazobactam (Sod 3.375 gm/ Sodium Chloride) 100 mls @ 100 mls/ hr IVPB Q8 [facility] PRN Reason: Protocol Last Admin: 12/10/17 09:13 Dose: 100 mls/hr Insulin Detemir (Levemir) 30 units SC HS [facility] Last Admin: 12/09/17 23:26 Dose: Not Given Insulin Human Lispro (Humalog) 0 units SC ACHS [facility] PRN Reason: Protocol Last Admin: 12/10/17 13:07 Dose: Not Given Insulin Human Lispro (Humalog) 6 units SC AC [facility] Last Admin: 12/10/17 13:12 Dose: 6 units Losartan Potassium (Cozaar) 100 mg PO DAILY [facility] Last Admin: 12/10/17 09:11 Dose: 100 mg Magnesium Hydroxide (Milk Of Magnesia) 15 ml PO DAILY [facility] Last Admin: 12/10/17 09:12 Dose: Not Given Methadone HCl (Methadone) 150 mg PO DAILY [facility] Last Admin: 12/10/17 10:28 Dose: 150 mg Multivitamins/Minerals (Therapeutic-M Tab) 1 tab PO DAILY [facility] Last Admin: 12/10/17 09:08 Dose: 1 tab Nystatin (Nystop Topical Powder) 1 applic TOP TID [facility] Last Admin: 12/10/17 13:18 Dose: 1 applic Ondansetron HCl (Zofran Inj) 4 mg IVP Q4 PRN PRN Reason: Nausea/Vomiting Last Admin: 12/03/17 06:57 Dose: 4 mg Probenecid (Probenecid) 500 mg PO DAILY [facility] Last Admin: 12/10/17 09:09 Dose: 500 mg Silver Sulfadiazine (Silvadene 1% 20 Gm) 1 ea TOP DAILY [facility] Last Admin: 12/10/17 09:08 Dose: 1 applic - Labs Labs: 12/09/17 10:12 12/09/17 04:20 - Constitutional Appears: No Acute Distress - Head Exam Head Exam: NORMAL INSPECTION - Eye Exam Eye Exam: PERRL - ENT Exam ENT Exam: Normal Exam - Neck Exam Neck Exam: Normal Inspection - Respiratory Exam Respiratory Exam: Decreased Breath Sounds (at bases), Rhonchi (few at bases) - Cardiovascular Exam Cardiovascular Exam: REGULAR RHYTHM - GI/Abdominal Exam GI & Abdominal Exam: Soft, Normal Bowel Sounds Additional comments: Obese - Extremities Exam Additional comments: Partial amputation R foot 3rd digit, L AKA - Back Exam Back Exam: NORMAL INSPECTION - Neurological Exam Neurological Exam: Alert, CN II-XII Intact Additional comments: No focal motor/sensory deficit. - Psychiatric Exam Psychiatric exam: Normal Mood - Skin Skin Exam: Warm Assessment and Plan (1) HCAP (healthcare-associated pneumonia) Status: Acute (2) Mediastinal lymphadenopathy Status: Acute - Assessment and Plan (Free Text) Plan: Stable b/l infiltrate, R>L, f/u CT Chest.
--- NOTE | 2017-12-10 14:30 | CARD ---
APPROVED REPORT EKG Measurement Heart [id number] <Conclusion> Supraventricular tachycardia Otherwise normal ECG
--- NOTE | 2017-12-10 17:56 | CT ---
PROCEDURE: CT Chest without contrast HISTORY: cough wheezing COMPARISON: None. TECHNIQUE: Contiguous axial images were obtained through the chest without intravenous contrast enhancement. Sagittal and coronal reconstructions were performed. Radiation dose (DLP): 761 mGy-cm. This CT exam was performed using one or more of the following dose reduction techniques: Automated exposure control, adjustment of the mA and/or kV according to patient size, and/or use of iterative reconstruction technique. FINDINGS: LUNGS: Patchy reticulonodular infiltrates predominantly in a bibasilar distribution. Visualized airway clear. MEDIASTINUM: Unremarkable thoracic aorta. No aneurysm. Normal sized heart. Main pulmonary artery unremarkable. No vascular congestion. Small shotty mediastinal lymph nodes. PLEURA: No pleural fluid. No pneumothorax. BONES: No fracture. No destructive lesion. UPPER ABDOMEN: Grossly unremarkable. OTHER FINDINGS: None. IMPRESSION: Patchy reticulonodular infiltrates, predominantly in a bibasilar distribution, likely infectious/inflammatory in etiology. Small shotty mediastinal lymph nodes are likely reactive.
[2017-12-10] MEDS: Insulin Detemir 100 Units/ml Inj SC SCH (22:34)
[2017-12-11] MEDS: Piperacillin/Tazobact 3.375 GM in Sodium Chloride 0.9% 100 ML IVPB SCH ×3 (00:50→17:21)
[2017-12-11] MEDS: Albuterol-Ipratrop 3 mg / 0.5 (3 ml) UD INH SCH ×4 (07:39→19:39)
[2017-12-11] MEDS: Insulin Lispro (humaLOG) 100 Units/ml Inj SC SCH ×7 (07:41→23:14)
[2017-12-11] MEDS: Amylase/Lipase/Protease 5,000 Units ECC PO SCH ×3 (09:37→18:20)
[2017-12-11] MEDS: Multivitamin With Minerals Tab PO SCH (09:37)
[2017-12-11] MEDS: Bacitracin OINT 15GM TOP SCH (09:37)
[2017-12-11] MEDS: Magnesium Hydroxide Susp 30 ml UD PO SCH (09:37)
[2017-12-11] MEDS: Silver Sulfadiazine 1% Cream (20 gm) TOP SCH (09:38)
--- NOTE | 2017-12-11 14:35 | PN ---
DATE: 12/11/2017 SUBJECTIVE: The patient is seen and examined. Interim events noted. The patient remains in progressive care unit, on telemetry monitoring. The patient feels okay, sleeping, arousable. No specific complaint. No chest pain. No shortness of breath. PHYSICAL EXAMINATION: GENERAL: The patient is in no acute distress. VITAL SIGNS: Stable. HEART: S1 and S2, normal and regular. LUNGS: Good bilateral air exchange. ABDOMEN: Soft, nontender. EXTREMITIES: The patient is status post amputation. COUGAR HUNTER: Exam is essentially unchanged. Diagnostic data: Available diagnostic data reviewed. Telemetry monitoring does not reveal significant arrhythmias. ASSESSMENT AND PLAN: Overall, the patient's general medical condition is stable. Plan as ordered. Rojelio Lentz MD
[2017-12-11] MEDS: Insulin Detemir 100 Units/ml Inj SC SCH (23:14)
[2017-12-12] MEDS: Piperacillin/Tazobact 3.375 GM in Sodium Chloride 0.9% 100 ML IVPB SCH ×3 (00:59→17:42)
--- NOTE | 2017-12-12 08:18 | CP.PCM.PN ---
<Khalida Cobos - Last Filed: 12/12/17 12:23> Subjective - Date & Time of Evaluation Date of Evaluation: 12/12/17 Time of Evaluation: 07:35 - Subjective Subjective: Pt seen and evaluated with Dr. Lentz this am. No acute events overnight. Reports that he is breathing better. Worked with PT yesterday; states he will work with PT more today. Objective - Vital Signs/Intake and Output Vital Signs (last 24 hours): Temp Pulse Resp BP Pulse Ox 97.4 F L 71 18 152/90 H 95 12/12/17 05:00 12/12/17 05:00 12/12/17 05:00 12/12/17 05:00 12/12/17 05:00 - Medications Medications: Current Medications Acetaminophen (Tylenol 325mg Tab) 650 mg PO Q6 PRN PRN Reason: Pain, Mild (1-3) Acetaminophen (Tylenol 325mg Tab) 650 mg PO Q6 PRN PRN Reason: Fever >100.4 F Last Admin: 12/03/17 09:59 Dose: 650 mg Albuterol/Ipratropium (Duoneb 3 Mg/0.5 Mg (3 Ml) Ud) 3 ml INH RQID [facility] Last Admin: 12/11/17 19:39 Dose: Not Given Allopurinol (Zyloprim) 300 mg PO DAILY [facility] Last Admin: 12/11/17 09:38 Dose: 300 mg Amlodipine Besylate (Norvasc) 10 mg PO DAILY [facility] Last Admin: 12/11/17 09:39 Dose: 10 mg Amylase (Pancrease 59165 U-5000 [id number] U) 5,000 unit PO TID [facility] Last Admin: 12/11/17 18:20 Dose: 5,000 unit Bacitracin (Bacitracin Oint) 1 applic TOP DAILY [facility] Last Admin: 12/11/17 09:37 Dose: 1 applic Clonidine HCl (Catapres) 0.1 mg PO Q8H [facility] Docusate Sodium (Colace) 100 mg PO BID [facility] Last Admin: 12/11/17 18:22 Dose: 100 mg Duloxetine HCl (Cymbalta) 60 mg PO DAILY [facility] Last Admin: 12/11/17 09:40 Dose: 60 mg Gabapentin (Neurontin) 300 mg PO TID [facility] Last Admin: 12/11/17 18:22 Dose: 300 mg Gemfibrozil (Lopid) 600 mg PO BID [facility] Last Admin: 12/11/17 23:13 Dose: 600 mg HCTZ/Losartan Potassium (Hyzaar 12.5 Mg-50 Mg) 2 tab PO DAILY [facility] Vancomycin HCl 1 gm/ Sodium (Chloride) 250 mls @ 166.667 mls/hr IVPB Q12 [facility] PRN Reason: Protocol Last Admin: 12/04/17 17:31 Dose: Not Given Piperacillin Sod/Tazobactam (Sod 3.375 gm/ Sodium Chloride) 100 mls @ 100 mls/ hr IVPB Q8 [facility] PRN Reason: Protocol Last Admin: 12/12/17 00:59 Dose: 100 mls/hr Insulin Detemir (Levemir) 30 units SC HS [facility] Last Admin: 12/11/17 23:14 Dose: 30 units Insulin Human Lispro (Humalog) 0 units SC ACHS [facility] PRN Reason: Protocol Last Admin: 12/11/17 23:14 Dose: Not Given Insulin Human Lispro (Humalog) 6 units SC AC [facility] Last Admin: 12/11/17 17:22 Dose: 6 units Magnesium Hydroxide (Milk Of Magnesia) 15 ml PO DAILY [facility] Last Admin: 12/11/17 09:37 Dose: 15 ml Methadone HCl (Methadone) 150 mg PO DAILY [facility] Last Admin: 12/11/17 10:39 Dose: 150 mg Multivitamins/Minerals (Therapeutic-M Tab) 1 tab PO DAILY [facility] Last Admin: 12/11/17 09:37 Dose: 1 tab Nystatin (Nystop Topical Powder) 1 applic TOP TID [facility] Last Admin: 12/11/17 18:20 Dose: 1 applic Ondansetron HCl (Zofran Inj) 4 mg IVP Q4 PRN PRN Reason: Nausea/Vomiting Last Admin: 12/03/17 06:57 Dose: 4 mg Probenecid (Probenecid) 500 mg PO DAILY [facility] Last Admin: 12/11/17 09:38 Dose: 500 mg Silver Sulfadiazine (Silvadene 1% 20 Gm) 1 ea TOP DAILY [facility] Last Admin: 12/11/17 09:38 Dose: Not Given - Labs Labs: 12/09/17 10:12 12/09/17 04:20 - Constitutional Appears: No Acute Distress - Head Exam Head Exam: ATRAUMATIC - Eye Exam Eye Exam: Normal appearance - ENT Exam ENT Exam: Mucous Membranes Moist - Respiratory Exam Respiratory Exam: NORMAL BREATHING PATTERN. absent: Respiratory Distress - Cardiovascular Exam Cardiovascular Exam: REGULAR RHYTHM - GI/Abdominal Exam GI & Abdominal Exam: Soft, Normal Bowel Sounds - Extremities Exam Additional comments: L limb AKA RLE: distal RLE wrapped in WILNER s/p amputation of third digit - Neurological Exam Neurological Exam: Alert, Awake Assessment and Plan - Assessment and Plan (Free Text) Assessment: 42 yr old M POD # 10 s/p amputation of 3rd digit-right foot for osteomylitis with PMHx including IDDM type 2, CVA, HTN, HLD, hx of osteomyelitis s/p left AKA , methadone dependance. Being treated for bilateral pneumonia. Plan: - Continue present management - ID on board: continue IV antibiotics; recs appreciated - Podiatry on board, recs appreciated - Endocrinology on board, recs appreciated - Pulmonology on board, recs appreciated - Sputum culture: few gram positive cocci - Continue PT/OT <Lentz,Rojelio K - Last Filed: 12/12/17 20:36> Objective - Vital Signs/Intake and Output Vital Signs (last 24 hours): Temp Pulse Resp BP Pulse Ox 97 F L 70 20 131/73 97 12/12/17 16:32 12/12/17 17:33 12/12/17 16:32 12/12/17 17:33 12/12/17 16:32 - Medications Medications: Current Medications Acetaminophen (Tylenol 325mg Tab) 650 mg PO Q6 PRN PRN Reason: Pain, Mild (1-3) Acetaminophen (Tylenol 325mg Tab) 650 mg PO Q6 PRN PRN Reason: Fever >100.4 F Last Admin: 12/03/17 09:59 Dose: 650 mg Albuterol/Ipratropium (Duoneb 3 Mg/0.5 Mg (3 Ml) Ud) 3 ml INH RQID [facility] Last Admin: 12/12/17 19:31 Dose: 3 ml Allopurinol (Zyloprim) 300 mg PO DAILY [facility] Last Admin: 12/12/17 09:28 Dose: 300 mg Amlodipine Besylate (Norvasc) 10 mg PO DAILY [facility] Last Admin: 12/12/17 09:29 Dose: 10 mg Amylase (Pancrease 17209 U-5000 [id number] U) 5,000 unit PO TID [facility] Last Admin: 12/12/17 17:37 Dose: 5,000 unit Bacitracin (Bacitracin Oint) 1 applic TOP DAILY [facility] Last Admin: 12/12/17 09:27 Dose: 1 applic Clonidine HCl (Catapres) 0.1 mg PO Q8H [facility] Last Admin: 12/12/17 17:33 Dose: 0.1 mg Docusate Sodium (Colace) 100 mg PO BID [facility] Last Admin: 12/12/17 17:35 Dose: 100 mg Duloxetine HCl (Cymbalta) 60 mg PO DAILY [facility] Last Admin: 12/12/17 09:27 Dose: 60 mg Gabapentin (Neurontin) 300 mg PO TID [facility] Last Admin: 12/12/17 17:36 Dose: 300 mg Gemfibrozil (Lopid) 600 mg PO BID [facility] Last Admin: 12/12/17 17:36 Dose: 600 mg HCTZ/Losartan Potassium (Hyzaar 12.5 Mg-50 Mg) 2 tab PO DAILY [facility] Last Admin: 12/12/17 09:28 Dose: 2 tab Vancomycin HCl 1 gm/ Sodium (Chloride) 250 mls @ 166.667 mls/hr IVPB Q12 [facility] PRN Reason: Protocol Last Admin: 12/04/17 17:31 Dose: Not Given Piperacillin Sod/Tazobactam (Sod 3.375 gm/ Sodium Chloride) 100 mls @ 100 mls/ hr IVPB Q8 [facility] PRN Reason: Protocol Last Admin: 12/12/17 17:42 Dose: 100 mls/hr Insulin Detemir (Levemir) 30 units SC HS [facility] Last Admin: 12/11/17 23:14 Dose: 30 units Insulin Human Lispro (Humalog) 0 units SC ACHS [facility] PRN Reason: Protocol Last Admin: 12/12/17 17:35 Dose: Not Given Insulin Human Lispro (Humalog) 6 units SC AC [facility] Last Admin: 12/12/17 17:35 Dose: 6 units Magnesium Hydroxide (Milk Of Magnesia) 15 ml PO DAILY [facility] Last Admin: 12/12/17 09:28 Dose: 15 ml Methadone HCl (Methadone) 150 mg PO DAILY [facility] Last Admin: 12/12/17 10:53 Dose: 150 mg Metoprolol Tartrate (Lopressor) 25 mg PO BID@0900,2100 [facility] Last Admin: 12/12/17 14:29 Dose: 25 mg Multivitamins/Minerals (Therapeutic-M Tab) 1 tab PO DAILY [facility] Last Admin: 12/12/17 09:27 Dose: 1 tab Nystatin (Nystop Topical Powder) 1 applic TOP TID [facility] Last Admin: 12/12/17 17:36 Dose: 1 applic Ondansetron HCl (Zofran Inj) 4 mg IVP Q4 PRN PRN Reason: Nausea/Vomiting Last Admin: 12/03/17 06:57 Dose: 4 mg Probenecid (Probenecid) 500 mg PO DAILY [facility] Last Admin: 12/12/17 09:28 Dose: 500 mg Silver Sulfadiazine (Silvadene 1% 20 Gm) 1 ea TOP DAILY [facility] Last Admin: 12/12/17 09:27 Dose: 1 applic - Labs Labs: 12/12/17 14:05 12/12/17 14:05 Assessment and Plan - Assessment and Plan (Free Text) Plan: Patient was personally seen and examined by me in rounds with residents. Available labs and diagnostic data reviewed. Case, Patient's condition and management plan discussed with residents in rounds. Agree with resident's progress note. Plan: As ordered.
[2017-12-12] MEDS: Albuterol-Ipratrop 3 mg / 0.5 (3 ml) UD INH SCH ×4 (08:34→19:31)
--- NOTE | 2017-12-12 09:19 | CP.PCM.PN ---
Subjective - Date & Time of Evaluation Date of Evaluation: 12/12/17 Time of Evaluation: 09:17 - Subjective Subjective: Podiatry progress note for attending Dr. Rose, 42 y/o male seen and evaluated at bedside for 10 day s/p partial 3rd digit amputation on the right foot. Patient was resting comfortably in bed, and in no acute distress. Patient denies any new trauma. Patient complains of minimal pain to the surgical site, however, denies F/N/V/SOB/chills. Objective - Vital Signs/Intake and Output Vital Signs (last 24 hours): Temp Pulse Resp BP Pulse Ox 98.0 F 79 20 143/70 96 12/12/17 08:17 12/12/17 08:17 12/12/17 08:17 12/12/17 08:17 12/12/17 08:17 - Medications Medications: Current Medications Acetaminophen (Tylenol 325mg Tab) 650 mg PO Q6 PRN PRN Reason: Pain, Mild (1-3) Acetaminophen (Tylenol 325mg Tab) 650 mg PO Q6 PRN PRN Reason: Fever >100.4 F Last Admin: 12/03/17 09:59 Dose: 650 mg Albuterol/Ipratropium (Duoneb 3 Mg/0.5 Mg (3 Ml) Ud) 3 ml INH RQID [facility] Last Admin: 12/11/17 19:39 Dose: Not Given Allopurinol (Zyloprim) 300 mg PO DAILY [facility] Last Admin: 12/11/17 09:38 Dose: 300 mg Amlodipine Besylate (Norvasc) 10 mg PO DAILY [facility] Last Admin: 12/11/17 09:39 Dose: 10 mg Amylase (Pancrease 94589 U-5000 [id number] U) 5,000 unit PO TID [facility] Last Admin: 12/11/17 18:20 Dose: 5,000 unit Bacitracin (Bacitracin Oint) 1 applic TOP DAILY [facility] Last Admin: 12/11/17 09:37 Dose: 1 applic Clonidine HCl (Catapres) 0.1 mg PO Q8H [facility] Docusate Sodium (Colace) 100 mg PO BID [facility] Last Admin: 12/11/17 18:22 Dose: 100 mg Duloxetine HCl (Cymbalta) 60 mg PO DAILY [facility] Last Admin: 12/11/17 09:40 Dose: 60 mg Gabapentin (Neurontin) 300 mg PO TID [facility] Last Admin: 12/11/17 18:22 Dose: 300 mg Gemfibrozil (Lopid) 600 mg PO BID [facility] Last Admin: 12/11/17 23:13 Dose: 600 mg HCTZ/Losartan Potassium (Hyzaar 12.5 Mg-50 Mg) 2 tab PO DAILY [facility] Vancomycin HCl 1 gm/ Sodium (Chloride) 250 mls @ 166.667 mls/hr IVPB Q12 [facility] PRN Reason: Protocol Last Admin: 12/04/17 17:31 Dose: Not Given Piperacillin Sod/Tazobactam (Sod 3.375 gm/ Sodium Chloride) 100 mls @ 100 mls/ hr IVPB Q8 [facility] PRN Reason: Protocol Last Admin: 12/12/17 00:59 Dose: 100 mls/hr Insulin Detemir (Levemir) 30 units SC HS [facility] Last Admin: 12/11/17 23:14 Dose: 30 units Insulin Human Lispro (Humalog) 0 units SC ACHS [facility] PRN Reason: Protocol Last Admin: 12/11/17 23:14 Dose: Not Given Insulin Human Lispro (Humalog) 6 units SC AC [facility] Last Admin: 12/11/17 17:22 Dose: 6 units Magnesium Hydroxide (Milk Of Magnesia) 15 ml PO DAILY [facility] Last Admin: 12/11/17 09:37 Dose: 15 ml Methadone HCl (Methadone) 150 mg PO DAILY [facility] Last Admin: 12/11/17 10:39 Dose: 150 mg Multivitamins/Minerals (Therapeutic-M Tab) 1 tab PO DAILY [facility] Last Admin: 12/11/17 09:37 Dose: 1 tab Nystatin (Nystop Topical Powder) 1 applic TOP TID [facility] Last Admin: 12/11/17 18:20 Dose: 1 applic Ondansetron HCl (Zofran Inj) 4 mg IVP Q4 PRN PRN Reason: Nausea/Vomiting Last Admin: 12/03/17 06:57 Dose: 4 mg Probenecid (Probenecid) 500 mg PO DAILY [facility] Last Admin: 12/11/17 09:38 Dose: 500 mg Silver Sulfadiazine (Silvadene 1% 20 Gm) 1 ea TOP DAILY [facility] Last Admin: 12/11/17 09:38 Dose: Not Given - Labs Labs: 12/09/17 10:12 12/09/17 04:20 - Constitutional Appears: Well, Non-toxic, No Acute Distress - Head Exam Head Exam: ATRAUMATIC, NORMOCEPHALIC - Extremities Exam Additional comments: Right Lower Extremity Exam: VASC: DP and PT 2/4, CFT less than 3 seconds X 4, TG warm to cool proximal to distal, improving edema noted to the surgical site NEURO: gross sensation intact, protective sensation diminished DERM: sutures to the surgical site are intact, no dehiscence, no drainage, no malodor, no erythema,no fluctuance, minimal edema, no clinical signs of infection, ecchymosis noted to the lateral aspect of the second digit MSK: pain on palpation to the 3rd digit amputation site, pain to the lateral aspect of the 2nd digit - Neurological Exam Neurological Exam: Alert, Awake, Oriented x3 - Psychiatric Exam Psychiatric exam: Normal Affect, Normal Mood Assessment and Plan - Assessment and Plan (Free Text) Assessment: 42 y/o male 10 days s/p partial 3rd digit amputation Plan: Patient seen and evaluated at bedside Plan discussed with attending, Dr. Rose Charts, labs and vitals reviewed- WBC- 5.8, patient afebrile Wound dressed with Tefla, 4X4, ish and 2 inch WILNER Sutures to be removed in 7-14 days Patient is stable from podiatry standpoint Patient dressing will be change QOD Podiatry will continue to follow patient while in-house
[2017-12-12] MEDS: Silver Sulfadiazine 1% Cream (20 gm) TOP SCH (09:27)
[2017-12-12] MEDS: Multivitamin With Minerals Tab PO SCH (09:27)
[2017-12-12] MEDS: Bacitracin OINT 15GM TOP SCH (09:27)
[2017-12-12] MEDS: HCTZ/Losartan 12.5/50 Tab PO SCH (09:28)
[2017-12-12] MEDS: Magnesium Hydroxide Susp 30 ml UD PO SCH (09:28)
[2017-12-12] MEDS: Amylase/Lipase/Protease 5,000 Units ECC PO SCH ×3 (09:29→17:37)
[2017-12-12] MEDS: Insulin Lispro (humaLOG) 100 Units/ml Inj SC SCH ×7 (09:31→22:14)
--- NOTE | 2017-12-12 10:32 | PN ---
DATE: 12/11/2017 ENDO FOLLOWUP NOTE LOCATION: In room 414. SUBJECTIVE: This is a 42-year-old male with recent uncontrolled type 2 insulin-requiring diabetes, now being followed closely for metabolic management. He has ongoing IV antibiotics for lower extremity osteomyelitis as noted. His glycemic levels are fluctuating, but much improved overnight with the glucose levels ranging from 104 to 109 and 172 mg/dL. PLAN: So at this time, we will continue the modified basal and bolus insulin regimen to allow for dose equilibration and keep him on the Humalog given as 6 units subcu t.i.d. before meals as ordered. We will continue the Levemir given as 30 units subcu at bedtime daily as given. We will titrate incrementally as indicated to optimize metabolic control. We will obtain serial chemistries and supplement accordingly needed. We will follow. Gaye Llamas MD
[2017-12-12 14:27] LABS: HEMOGLOBIN 9.3 g/dL (12.0-18.0); MEAN CELL VOLUME 84.5 fl (80.0-94.0); MEAN CORPUSCULAR HEMOGLOBIN 27.5 pg (27.0-31.0); MEAN CORPUSCULAR HGB CONC 32.6 g/dL (33.0-37.0); RBC 3.39 Mil/uL (4.40-5.90); RED CELL DISTRIBUTION WIDTH 14.7 % (11.5-14.5); WHITE BLOOD COUNT 6.9 K/uL (4.8-10.8)
[2017-12-12 15:05] LABS: ALB/GLOB RATIO 0.8 (1.0-2.1); ALBUMIN 3.1 g/dL (3.5-5.0); ALT/SGPT 25 U/L (21-72); AST/SGOT 49 U/L (17-59); BLOOD UREA NITROGEN 16 mg/dl (9-20); CALCIUM 8.8 mg/dL (8.4-10.2); GFR AFRICAN-AMERICAN > 60; GFR NON-AFRICAN AMERICAN > 60
--- NOTE | 2017-12-12 17:38 | CP.PCM.PN ---
Subjective - Date & Time of Evaluation Date of Evaluation: 12/12/17 Time of Evaluation: 14:00 - Subjective Subjective: F/U HCAP no SOB , no cough Objective - Vital Signs/Intake and Output Vital Signs (last 24 hours): Temp Pulse Resp BP Pulse Ox 97 F L 70 20 131/73 97 12/12/17 16:32 12/12/17 17:33 12/12/17 16:32 12/12/17 17:33 12/12/17 16:32 - Medications Medications: Current Medications Acetaminophen (Tylenol 325mg Tab) 650 mg PO Q6 PRN PRN Reason: Pain, Mild (1-3) Acetaminophen (Tylenol 325mg Tab) 650 mg PO Q6 PRN PRN Reason: Fever >100.4 F Last Admin: 12/03/17 09:59 Dose: 650 mg Albuterol/Ipratropium (Duoneb 3 Mg/0.5 Mg (3 Ml) Ud) 3 ml INH RQID [facility] Last Admin: 12/12/17 15:13 Dose: 3 ml Allopurinol (Zyloprim) 300 mg PO DAILY [facility] Last Admin: 12/12/17 09:28 Dose: 300 mg Amlodipine Besylate (Norvasc) 10 mg PO DAILY [facility] Last Admin: 12/12/17 09:29 Dose: 10 mg Amylase (Pancrease 95931 U-5000 U-[id number] U) 5,000 unit PO TID [facility] Last Admin: 12/12/17 17:37 Dose: 5,000 unit Bacitracin (Bacitracin Oint) 1 applic TOP DAILY [facility] Last Admin: 12/12/17 09:27 Dose: 1 applic Clonidine HCl (Catapres) 0.1 mg PO Q8H [facility] Last Admin: 12/12/17 17:33 Dose: 0.1 mg Docusate Sodium (Colace) 100 mg PO BID [facility] Last Admin: 12/12/17 17:35 Dose: 100 mg Duloxetine HCl (Cymbalta) 60 mg PO DAILY [facility] Last Admin: 12/12/17 09:27 Dose: 60 mg Gabapentin (Neurontin) 300 mg PO TID [facility] Last Admin: 12/12/17 17:36 Dose: 300 mg Gemfibrozil (Lopid) 600 mg PO BID [facility] Last Admin: 12/12/17 17:36 Dose: 600 mg HCTZ/Losartan Potassium (Hyzaar 12.5 Mg-50 Mg) 2 tab PO DAILY [facility] Last Admin: 12/12/17 09:28 Dose: 2 tab Vancomycin HCl 1 gm/ Sodium (Chloride) 250 mls @ 166.667 mls/hr IVPB Q12 [facility] PRN Reason: Protocol Last Admin: 12/04/17 17:31 Dose: Not Given Piperacillin Sod/Tazobactam (Sod 3.375 gm/ Sodium Chloride) 100 mls @ 100 mls/ hr IVPB Q8 [facility] PRN Reason: Protocol Last Admin: 12/12/17 09:33 Dose: 100 mls/hr Insulin Detemir (Levemir) 30 units SC HS [facility] Last Admin: 12/11/17 23:14 Dose: 30 units Insulin Human Lispro (Humalog) 0 units SC ACHS [facility] PRN Reason: Protocol Last Admin: 12/12/17 17:35 Dose: Not Given Insulin Human Lispro (Humalog) 6 units SC AC [facility] Last Admin: 12/12/17 17:35 Dose: 6 units Magnesium Hydroxide (Milk Of Magnesia) 15 ml PO DAILY [facility] Last Admin: 12/12/17 09:28 Dose: 15 ml Methadone HCl (Methadone) 150 mg PO DAILY [facility] Last Admin: 12/12/17 10:53 Dose: 150 mg Metoprolol Tartrate (Lopressor) 25 mg PO BID@0900,2100 [facility] Last Admin: 12/12/17 14:29 Dose: 25 mg Multivitamins/Minerals (Therapeutic-M Tab) 1 tab PO DAILY [facility] Last Admin: 12/12/17 09:27 Dose: 1 tab Nystatin (Nystop Topical Powder) 1 applic TOP TID [facility] Last Admin: 12/12/17 17:36 Dose: 1 applic Ondansetron HCl (Zofran Inj) 4 mg IVP Q4 PRN PRN Reason: Nausea/Vomiting Last Admin: 12/03/17 06:57 Dose: 4 mg Probenecid (Probenecid) 500 mg PO DAILY [facility] Last Admin: 12/12/17 09:28 Dose: 500 mg Silver Sulfadiazine (Silvadene 1% 20 Gm) 1 ea TOP DAILY [facility] Last Admin: 12/12/17 09:27 Dose: 1 applic - Labs Labs: 12/12/17 14:05 12/12/17 14:05 - Constitutional Appears: No Acute Distress - Head Exam Head Exam: NORMAL INSPECTION - Eye Exam Eye Exam: PERRL - ENT Exam ENT Exam: Normal Exam - Neck Exam Neck Exam: Normal Inspection - Respiratory Exam Respiratory Exam: Decreased Breath Sounds (at bases), Rhonchi (few scattered at bases) - Cardiovascular Exam Cardiovascular Exam: REGULAR RHYTHM - GI/Abdominal Exam GI & Abdominal Exam: Soft, Normal Bowel Sounds Additional comments: Obese - Extremities Exam Additional comments: Partial amputation R foot 3rd digit, L AKA - Back Exam Back Exam: NORMAL INSPECTION - Neurological Exam Neurological Exam: Alert, CN II-XII Intact Additional comments: No focal motor/sensory deficit. - Psychiatric Exam Psychiatric exam: Normal Mood - Skin Skin Exam: Warm Assessment and Plan (1) HCAP (healthcare-associated pneumonia) Status: Acute (2) Mediastinal lymphadenopathy Status: Acute - Assessment and Plan (Free Text) Plan: continue Dewayne Mata Vanco for Tx OM R foot
--- NOTE | 2017-12-12 20:44 | PN ---
DATE: 12/12/2017 ENDOCRINOLOGY FOLLOWUP NOTE LOCATION: Room 659. This is a 42-year-old male with recent uncontrolled type 2 insulin-requiring diabetes, now with improved metabolic profile as noted, thereof. He is also receiving IV antibiotic management for right lower extremity osteomyelitis with the recent third toe amputation as noted. His glucose levels today have ranged from 107 to 113 mg/dL. His latest chemistry showed a BUN of 16, sodium 143, potassium 4.1, chloride 106, CO2 of 27, glucose 66, and creatinine 0.7. So at this time, we will continue the same basal and bolus insulin regimen to allow for dose equilibration and continue the Humalog given as 6 units t.i.d. before meals as ordered. We will continue also the Levemir given as 30 units subcu at bedtime daily as given. We will titrate incremental as indicated to optimize metabolic control. We will follow up with you. Gaye Llamas MD
[2017-12-12] MEDS: Insulin Detemir 100 Units/ml Inj SC SCH (22:17)
[2017-12-13] MEDS: Piperacillin/Tazobact 3.375 GM in Sodium Chloride 0.9% 100 ML IVPB SCH ×3 (00:45→17:26)
[2017-12-13] MEDS: Albuterol-Ipratrop 3 mg / 0.5 (3 ml) UD INH SCH ×4 (07:15→19:03)
[2017-12-13] MEDS: Insulin Lispro (humaLOG) 100 Units/ml Inj SC SCH ×7 (07:59→22:22)
[2017-12-13] MEDS: Bacitracin OINT 15GM TOP SCH (09:24)
[2017-12-13] MEDS: Amylase/Lipase/Protease 5,000 Units ECC PO SCH ×3 (09:25→17:14)
[2017-12-13] MEDS: HCTZ/Losartan 12.5/50 Tab PO SCH (09:25)
[2017-12-13] MEDS: Multivitamin With Minerals Tab PO SCH (09:26)
[2017-12-13] MEDS: Magnesium Hydroxide Susp 30 ml UD PO SCH (09:26)
[2017-12-13] MEDS: Silver Sulfadiazine 1% Cream (20 gm) TOP SCH (09:30)
[2017-12-13 09:57] LABS: BASO % 0.8 % (0.0-2.0); EOS # 0.1 K/uL (0.0-0.7); EOS % 2.2 % (0.0-4.0); HEMOGLOBIN 10.1 g/dL (12.0-18.0); LYMPH # 1.7 K/uL (1.0-4.3); LYMPH % 26.1 % (20.0-40.0); MEAN CELL VOLUME 84.5 fl (80.0-94.0); MEAN CORPUSCULAR HEMOGLOBIN 27.6 pg (27.0-31.0); MEAN CORPUSCULAR HGB CONC 32.7 g/dL (33.0-37.0); MEAN PLATELET VOLUME 7.8 fl (7.2-11.7); MONO # 0.3 K/uL (0.0-0.8); MONO % 4.8 % (0.0-10.0); NEUT # 4.2 K/uL (1.8-7.0); NEUT % 66.1 % (50.0-75.0); NRBC % 0.1 % (0.0-0.0); RBC 3.65 Mil/uL (4.40-5.90); RED CELL DISTRIBUTION WIDTH 14.7 % (11.5-14.5); WHITE BLOOD COUNT 6.4 K/uL (4.8-10.8)
[2017-12-13 10:19] LABS: B-TYPE NATRIURETIC PEPTIDE 381 pg/ml (0-450)
[2017-12-13 10:28] LABS: ALB/GLOB RATIO 0.9 (1.0-2.1); ALBUMIN 3.4 g/dL (3.5-5.0); ALT/SGPT 22 U/L (21-72); AST/SGOT 33 U/L (17-59); BLOOD UREA NITROGEN 19 mg/dl (9-20); CALCIUM 9.4 mg/dL (8.4-10.2); GFR AFRICAN-AMERICAN > 60; GFR NON-AFRICAN AMERICAN > 60
--- NOTE | 2017-12-13 12:06 | RAD ---
HISTORY: f/u COMPARISON: CT chest dated 12/10/2017. FINDINGS: LUNGS: Decreased conspicuity of bilateral reticulonodular infiltrates. PLEURA: No significant pleural effusion identified, no pneumothorax apparent. CARDIOVASCULAR: Normal. OSSEOUS STRUCTURES: Unchanged. VISUALIZED UPPER ABDOMEN: Normal. OTHER FINDINGS: None. IMPRESSION: Decreased conspicuity of bilateral reticulonodular infiltrate.
--- NOTE | 2017-12-13 12:24 | PN ---
DATE: 12/13/2017 SUBJECTIVE: The patient is seen and examined. Interim events noted. Consults noted and appreciated. The patient remains in regular medical floor. Feels okay. Pain is adequately controlled. No chest pain. No shortness of breath. No new complaints. PHYSICAL EXAMINATION: GENERAL: The patient is in no acute distress. VITAL SIGNS: Stable. HEART: S1 and S2, normal and regular. LUNGS: Good bilateral air exchange. ABDOMEN: Soft and nontender. EXTREMITIES: No edema. No calf swelling. No tenderness. No acute ischemia. The patient is status post amputation. The patient's site is clean. DIAGNOSTIC DATA: Available diagnostic data reviewed. PLAN: Overall, the patient's general medical condition is stable. Plan as ordered. Rojelio Lentz MD
--- NOTE | 2017-12-13 13:25 | CP.PCM.PN ---
Subjective - Date & Time of Evaluation Date of Evaluation: 12/13/17 Time of Evaluation: 09:00 - Subjective Subjective: afeb on iv antibiotics rx in progress dr kimball on board Objective - Vital Signs/Intake and Output Vital Signs (last 24 hours): Temp Pulse Resp BP Pulse Ox 97.9 F 62 20 174/86 H 95 12/13/17 08:31 12/13/17 08:31 12/13/17 08:31 12/13/17 08:31 12/13/17 08:31 - Medications Medications: Current Medications Acetaminophen (Tylenol 325mg Tab) 650 mg PO Q6 PRN PRN Reason: Pain, Mild (1-3) Acetaminophen (Tylenol 325mg Tab) 650 mg PO Q6 PRN PRN Reason: Fever >100.4 F Last Admin: 12/03/17 09:59 Dose: 650 mg Albuterol/Ipratropium (Duoneb 3 Mg/0.5 Mg (3 Ml) Ud) 3 ml INH RQID [facility] Last Admin: 12/13/17 11:31 Dose: 3 ml Allopurinol (Zyloprim) 300 mg PO DAILY [facility] Last Admin: 12/13/17 09:25 Dose: 300 mg Amlodipine Besylate (Norvasc) 10 mg PO DAILY [facility] Last Admin: 12/13/17 09:25 Dose: 10 mg Amylase (Pancrease 27091 U-5000 U-[id number] U) 5,000 unit PO TID [facility] Last Admin: 12/13/17 12:44 Dose: 5,000 unit Bacitracin (Bacitracin Oint) 1 applic TOP DAILY [facility] Last Admin: 12/13/17 09:24 Dose: 1 applic Clonidine HCl (Catapres) 0.1 mg PO Q8H [facility] Last Admin: 12/13/17 09:24 Dose: 0.1 mg Docusate Sodium (Colace) 100 mg PO BID [facility] Last Admin: 12/13/17 09:27 Dose: 100 mg Duloxetine HCl (Cymbalta) 60 mg PO DAILY [facility] Last Admin: 12/13/17 09:27 Dose: 60 mg Gabapentin (Neurontin) 300 mg PO TID [facility] Last Admin: 12/13/17 12:45 Dose: 300 mg Gemfibrozil (Lopid) 600 mg PO BID [facility] Last Admin: 12/13/17 09:26 Dose: 600 mg HCTZ/Losartan Potassium (Hyzaar 12.5 Mg-50 Mg) 2 tab PO DAILY [facility] Last Admin: 12/13/17 09:25 Dose: 2 tab Vancomycin HCl 1 gm/ Sodium (Chloride) 250 mls @ 166.667 mls/hr IVPB Q12 [facility] PRN Reason: Protocol Last Admin: 12/04/17 17:31 Dose: Not Given Piperacillin Sod/Tazobactam (Sod 3.375 gm/ Sodium Chloride) 100 mls @ 100 mls/ hr IVPB Q8 [facility] PRN Reason: Protocol Last Admin: 12/13/17 09:30 Dose: 100 mls/hr Insulin Detemir (Levemir) 30 units SC HS [facility] Last Admin: 12/12/17 22:17 Dose: 30 units Insulin Human Lispro (Humalog) 0 units SC ACHS [facility] PRN Reason: Protocol Last Admin: 12/13/17 12:26 Dose: Not Given Insulin Human Lispro (Humalog) 6 units SC AC [facility] Last Admin: 12/13/17 12:45 Dose: 6 units Magnesium Hydroxide (Milk Of Magnesia) 15 ml PO DAILY [facility] Last Admin: 12/13/17 09:26 Dose: 15 ml Methadone HCl (Methadone) 150 mg PO DAILY [facility] Last Admin: 12/13/17 09:23 Dose: 150 mg Metoprolol Tartrate (Lopressor) 25 mg PO BID@0900,2100 [facility] Last Admin: 12/13/17 09:25 Dose: 25 mg Multivitamins/Minerals (Therapeutic-M Tab) 1 tab PO DAILY [facility] Last Admin: 12/13/17 09:26 Dose: 1 tab Nystatin (Nystop Topical Powder) 1 applic TOP TID [facility] Last Admin: 12/13/17 12:44 Dose: 1 applic Ondansetron HCl (Zofran Inj) 4 mg IVP Q4 PRN PRN Reason: Nausea/Vomiting Last Admin: 12/03/17 06:57 Dose: 4 mg Probenecid (Probenecid) 500 mg PO DAILY [facility] Last Admin: 12/13/17 09:27 Dose: 500 mg Silver Sulfadiazine (Silvadene 1% 20 Gm) 1 ea TOP DAILY [facility] Last Admin: 12/13/17 09:30 Dose: 1 applic - Labs Labs: 12/13/17 09:48 12/13/17 09:48 - Constitutional Appears: Non-toxic, Chronically Ill - Head Exam Head Exam: NORMOCEPHALIC - Eye Exam Eye Exam: PERRL - ENT Exam ENT Exam: Mucous Membranes Dry - Neck Exam Neck Exam: absent: Lymphadenopathy - Respiratory Exam Respiratory Exam: Decreased Breath Sounds - Cardiovascular Exam Cardiovascular Exam: REGULAR RHYTHM - GI/Abdominal Exam GI & Abdominal Exam: Distended - Rectal Exam Rectal Exam: Deferred - Exam Exam: NORMAL INSPECTION - Extremities Exam Extremities Exam: absent: Pedal Edema Additional comments: a,p site healing - Back Exam Back Exam: absent: CVA tenderness (L), CVA tenderness (R) Assessment and Plan (1) Osteomyelitis Status: Acute - Assessment and Plan (Free Text) Assessment: s/p amp post op fever pneumonia improving rx in progress as per Dr Kimball
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
--- NOTE | 2017-12-13 20:13 | PN ---
DATE: 12/13/2017 LOCATION: In room 659. SUBJECTIVE: This is a 42-year-old male with recent uncontrolled type 2 insulin-requiring diabetes, now being followed closely for metabolic management. He has still ongoing IV antibiotic management for underlying right foot osteomyelitis with the recent third toe amputation undertaken thereof. His glycemic levels are fluctuating, but much improved at this time and the glucose values have ranged from 93 to 163 and 189 mg/dL. His latest chemistry showed a BUN of 19, sodium 140, potassium 4.5, chloride 100, CO2 of 29, glucose 138, and creatinine 0.9. ASSESSMENT AND PLAN: So at this time, we will continue the same basal and bolus insulin regimen as ordered with Humalog given as six units subcutaneously t.i.d. before meals as given. We will continue the basal insulin with Levemir given as 30 units subcutaneously at bedtime daily as ordered. We will continue also the low-dose correction scale using Humalog insulin as given. We will titrate incrementally as indicated to optimize metabolic control. We will follow. Gaye Llamas MD
[2017-12-13] MEDS: Insulin Detemir 100 Units/ml Inj SC SCH (22:21)
--- NOTE | 2017-12-13 23:42 | CP.PCM.PN ---
Subjective - Date & Time of Evaluation Date of Evaluation: 12/13/17 Time of Evaluation: 15:00 - Subjective Subjective: F/U HCAP no SOB , no HARRIS, occasional cough in the morning with scanty amount of flegm Objective - Vital Signs/Intake and Output Vital Signs (last 24 hours): Temp Pulse Resp BP Pulse Ox 97.4 F L 64 18 143/75 98 12/13/17 16:31 12/13/17 22:20 12/13/17 16:31 12/13/17 22:20 12/13/17 16:31 - Medications Medications: Current Medications Acetaminophen (Tylenol 325mg Tab) 650 mg PO Q6 PRN PRN Reason: Pain, Mild (1-3) Acetaminophen (Tylenol 325mg Tab) 650 mg PO Q6 PRN PRN Reason: Fever >100.4 F Last Admin: 12/03/17 09:59 Dose: 650 mg Albuterol/Ipratropium (Duoneb 3 Mg/0.5 Mg (3 Ml) Ud) 3 ml INH RQID [facility] Last Admin: 12/13/17 19:03 Dose: 3 ml Allopurinol (Zyloprim) 300 mg PO DAILY [facility] Last Admin: 12/13/17 09:25 Dose: 300 mg Amlodipine Besylate (Norvasc) 10 mg PO DAILY [facility] Last Admin: 12/13/17 09:25 Dose: 10 mg Amylase (Pancrease 22662 U-5000 U-26814 U) 5,000 unit PO TID [facility] Last Admin: 12/13/17 17:14 Dose: 5,000 unit Bacitracin (Bacitracin Oint) 1 applic TOP DAILY [facility] Last Admin: 12/13/17 09:24 Dose: 1 applic Clonidine HCl (Catapres) 0.1 mg PO Q8H [facility] Last Admin: 12/13/17 17:09 Dose: 0.1 mg Docusate Sodium (Colace) 100 mg PO BID [facility] Last Admin: 12/13/17 17:09 Dose: 100 mg Duloxetine HCl (Cymbalta) 60 mg PO DAILY [facility] Last Admin: 12/13/17 09:27 Dose: 60 mg Gabapentin (Neurontin) 300 mg PO TID [facility] Last Admin: 12/13/17 17:14 Dose: 300 mg Gemfibrozil (Lopid) 600 mg PO BID [facility] Last Admin: 12/13/17 17:14 Dose: 600 mg HCTZ/Losartan Potassium (Hyzaar 12.5 Mg-50 Mg) 2 tab PO DAILY [facility] Last Admin: 12/13/17 09:25 Dose: 2 tab Vancomycin HCl 1 gm/ Sodium (Chloride) 250 mls @ 166.667 mls/hr IVPB Q12 [facility] PRN Reason: Protocol Last Admin: 12/04/17 17:31 Dose: Not Given Piperacillin Sod/Tazobactam (Sod 3.375 gm/ Sodium Chloride) 100 mls @ 100 mls/ hr IVPB Q8 [facility] PRN Reason: Protocol Last Admin: 12/13/17 17:26 Dose: 100 mls/hr Insulin Detemir (Levemir) 30 units SC HS [facility] Last Admin: 12/13/17 22:21 Dose: 30 units Insulin Human Lispro (Humalog) 0 units SC ACHS [facility] PRN Reason: Protocol Last Admin: 12/13/17 22:22 Dose: Not Given Insulin Human Lispro (Humalog) 6 units SC AC [facility] Last Admin: 12/13/17 17:10 Dose: 6 units Magnesium Hydroxide (Milk Of Magnesia) 15 ml PO DAILY [facility] Last Admin: 12/13/17 09:26 Dose: 15 ml Methadone HCl (Methadone) 150 mg PO DAILY [facility] Last Admin: 12/13/17 09:23 Dose: 150 mg Metoprolol Tartrate (Lopressor) 25 mg PO BID@0900,2100 [facility] Last Admin: 12/13/17 22:20 Dose: 25 mg Multivitamins/Minerals (Therapeutic-M Tab) 1 tab PO DAILY [facility] Last Admin: 12/13/17 09:26 Dose: 1 tab Nystatin (Nystop Topical Powder) 1 applic TOP TID [facility] Last Admin: 12/13/17 17:14 Dose: 1 applic Ondansetron HCl (Zofran Inj) 4 mg IVP Q4 PRN PRN Reason: Nausea/Vomiting Last Admin: 12/03/17 06:57 Dose: 4 mg Probenecid (Probenecid) 500 mg PO DAILY [facility] Last Admin: 12/13/17 09:27 Dose: 500 mg Silver Sulfadiazine (Silvadene 1% 20 Gm) 1 ea TOP DAILY [facility] Last Admin: 12/13/17 09:30 Dose: 1 applic - Labs Labs: 12/13/17 09:48 07/06/18 09:48 - Constitutional Appears: No Acute Distress - Head Exam Head Exam: NORMAL INSPECTION - Eye Exam Eye Exam: PERRL - ENT Exam ENT Exam: Normal Exam - Neck Exam Neck Exam: Normal Inspection - Respiratory Exam Respiratory Exam: Decreased Breath Sounds (at bases) - Cardiovascular Exam Cardiovascular Exam: REGULAR RHYTHM - GI/Abdominal Exam GI & Abdominal Exam: Soft, Normal Bowel Sounds Additional comments: Obese - Extremities Exam Additional comments: Partial amputation R foot 3rd digit, L AKA - Back Exam Back Exam: NORMAL INSPECTION - Neurological Exam Neurological Exam: Alert, CN II-XII Intact Additional comments: No focal motor/sensory deficit. - Psychiatric Exam Psychiatric exam: Normal Mood - Skin Skin Exam: Warm Assessment and Plan (1) HCAP (healthcare-associated pneumonia) Status: Acute (2) Mediastinal lymphadenopathy Status: Acute - Assessment and Plan (Free Text) Plan: CXR decreased B/L reticulonodular infiltrates, continue DuoNeb, Patient on Zosyn, Vanco for Tx of OM R foot
[2017-12-14] MEDS: Piperacillin/Tazobact 3.375 GM in Sodium Chloride 0.9% 100 ML IVPB SCH ×3 (01:08→17:21)
[2017-12-14] MEDS: Albuterol-Ipratrop 3 mg / 0.5 (3 ml) UD INH SCH ×4 (07:16→19:57)
[2017-12-14] MEDS: Insulin Lispro (humaLOG) 100 Units/ml Inj SC SCH ×8 (10:00→22:20)
[2017-12-14] MEDS: HCTZ/Losartan 12.5/50 Tab PO SCH (11:01)
[2017-12-14] MEDS: Amylase/Lipase/Protease 5,000 Units ECC PO SCH ×3 (11:03→17:11)
[2017-12-14] MEDS: Multivitamin With Minerals Tab PO SCH (11:03)
[2017-12-14] MEDS: Magnesium Hydroxide Susp 30 ml UD PO SCH (12:23)
--- NOTE | 2017-12-14 13:27 | PN ---
DATE: 12/14/2017 SUBJECTIVE: The patient is seen and examined. Interim events noted. Consults noted and appreciated. The patient remains in regular medical floor, feels better. No coughing. No chest pain. No shortness of breath. No fever. PHYSICAL EXAMINATION: GENERAL: The patient is in no acute distress. VITAL SIGNS: Stable. HEART: S1 and S2, normal and regular. LUNGS: Good bilateral air exchange. No rales or rhonchi. ABDOMEN: Soft, nontender. EXTREMITIES: The patient is status post amputation. No calf swelling. No tenderness. No acute ischemia. 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 DIAGNOSTIC DATA: The available diagnostic data reviewed. Overall, the patient's general medical condition is stable. Plan as ordered. Rojelio Lentz MD
--- NOTE | 2017-12-14 14:46 | CP.PCM.PN ---
Subjective - Date & Time of Evaluation Date of Evaluation: 12/14/17 Time of Evaluation: 14:44 - Subjective Subjective: Podiatry progress note for attending Dr. Rose, 42 y/o male patient seen and evaluated at bedside 12 day s/p right 3rd digit partial amputation. Patient was resting comfortably in bed, and in no acute distress. Patient is AAO X 3. Patient denies any new trauma. Patient denies any other pedal complains. Patient denies any pain to the surgical site, Patient denies F/N/V/SOB/chills. Objective - Vital Signs/Intake and Output Vital Signs (last 24 hours): Temp Pulse Resp BP Pulse Ox 97.4 F L 64 20 167/79 H 96 12/14/17 08:24 12/14/17 11:03 12/14/17 08:24 12/14/17 11:03 12/14/17 08:24 - Medications Medications: Current Medications Acetaminophen (Tylenol 325mg Tab) 650 mg PO Q6 PRN PRN Reason: Pain, Mild (1-3) Acetaminophen (Tylenol 325mg Tab) 650 mg PO Q6 PRN PRN Reason: Fever >100.4 F Last Admin: 12/03/17 09:59 Dose: 650 mg Albuterol/Ipratropium (Duoneb 3 Mg/0.5 Mg (3 Ml) Ud) 3 ml INH RQID [facility] Last Admin: 12/14/17 11:11 Dose: 3 ml Allopurinol (Zyloprim) 300 mg PO DAILY [facility] Last Admin: 12/14/17 11:04 Dose: 300 mg Amlodipine Besylate (Norvasc) 10 mg PO DAILY [facility] Last Admin: 12/14/17 11:03 Dose: 10 mg Amylase (Pancrease 01148 U-5000 U-85351 U) 5,000 unit PO TID [facility] Last Admin: 12/14/17 14:39 Dose: 5,000 unit Bacitracin (Bacitracin Oint) 1 applic TOP DAILY [facility] Last Admin: 12/13/17 09:24 Dose: 1 applic Clonidine HCl (Catapres) 0.1 mg PO Q8H [facility] Last Admin: 12/14/17 10:59 Dose: 0.1 mg Docusate Sodium (Colace) 100 mg PO BID [facility] Last Admin: 12/14/17 10:59 Dose: 100 mg Duloxetine HCl (Cymbalta) 60 mg PO DAILY [facility] Last Admin: 12/14/17 11:00 Dose: 60 mg Gabapentin (Neurontin) 300 mg PO TID [facility] Last Admin: 12/14/17 14:39 Dose: 300 mg Gemfibrozil (Lopid) 600 mg PO BID [facility] Last Admin: 12/14/17 11:01 Dose: 600 mg HCTZ/Losartan Potassium (Hyzaar 12.5 Mg-50 Mg) 2 tab PO DAILY [facility] Last Admin: 12/14/17 11:01 Dose: 2 tab Vancomycin HCl 1 gm/ Sodium (Chloride) 250 mls @ 166.667 mls/hr IVPB Q12 [facility] PRN Reason: Protocol Last Admin: 12/04/17 17:31 Dose: Not Given Piperacillin Sod/Tazobactam (Sod 3.375 gm/ Sodium Chloride) 100 mls @ 100 mls/ hr IVPB Q8 [facility] PRN Reason: Protocol Last Admin: 12/14/17 11:04 Dose: 100 mls/hr Insulin Detemir (Levemir) 30 units SC HS [facility] Last Admin: 12/13/17 22:21 Dose: 30 units Insulin Human Lispro (Humalog) 0 units SC ACHS [facility] PRN Reason: Protocol Last Admin: 12/14/17 14:36 Dose: Not Given Insulin Human Lispro (Humalog) 6 units SC AC [facility] Last Admin: 12/14/17 14:38 Dose: 6 units Magnesium Hydroxide (Milk Of Magnesia) 15 ml PO DAILY [facility] Last Admin: 12/14/17 12:23 Dose: 15 ml Methadone HCl (Methadone) 150 mg PO DAILY [facility] Last Admin: 12/14/17 11:01 Dose: 150 mg Metoprolol Tartrate (Lopressor) 25 mg PO BID@0900,2100 [facility] Last Admin: 12/14/17 11:01 Dose: 25 mg Multivitamins/Minerals (Therapeutic-M Tab) 1 tab PO DAILY [facility] Last Admin: 12/14/17 11:03 Dose: 1 tab Nystatin (Nystop Topical Powder) 1 applic TOP TID [facility] Last Admin: 12/14/17 14:40 Dose: Not Given Ondansetron HCl (Zofran Inj) 4 mg IVP Q4 PRN PRN Reason: Nausea/Vomiting Last Admin: 12/03/17 06:57 Dose: 4 mg Probenecid (Probenecid) 500 mg PO DAILY [facility] Last Admin: 12/14/17 11:03 Dose: 500 mg Silver Sulfadiazine (Silvadene 1% 20 Gm) 1 ea TOP DAILY [facility] Last Admin: 12/13/17 09:30 Dose: 1 applic - Labs Labs: 12/13/17 09:48 12/13/17 09:48 - Constitutional Appears: Well, Non-toxic, No Acute Distress - Head Exam Head Exam: ATRAUMATIC, NORMOCEPHALIC - Extremities Exam Additional comments: Right Lower Extremity focused Exam: Vasc: DP/PT 2/4, cap refill l< 3 seconds in all digits, Temp. gradient warm to cool proximal to distal, no edema noted to the surgical site Neuro: gross sensation intact, protective sensation diminished DERM: Surgical site looks dry and clean. sutures to the surgical site are intact , no dehiscence, no drainage, no malodor, no erythema,no fluctuance, no edema, no clinical signs of infection. MSK: pain on palpation to the 3rd digit amputation site, pain to the lateral aspect of the 2nd digit. - Neurological Exam Neurological Exam: Alert, Awake, Oriented x3 - Psychiatric Exam Psychiatric exam: Normal Affect, Normal Mood Assessment and Plan - Assessment and Plan (Free Text) Assessment: 42 y/o male 10 days s/p partial 3rd digit amputation Plan: Patient seen and evaluated at bedside Plan discussed with attending, Dr. Rose Charts, labs and vitals reviewed- WBC- 6.4, patient afebrile Wound dressed with Tefla, 4X4 and 2 inch WILNER Sutures kept intact. Patient tolerated the dressing well. Patient is stable from podiatry standpoint Patient dressing will be change QOD Podiatry will continue to follow patient in-house
--- NOTE | 2017-12-14 15:09 | CP.PCM.PN ---
Subjective - Date & Time of Evaluation Date of Evaluation: 12/14/17 Time of Evaluation: 12:00 - Subjective Subjective: F/U HCAP no SOB , no HARRIS , no cough Objective - Vital Signs/Intake and Output Vital Signs (last 24 hours): Temp Pulse Resp BP Pulse Ox 97.4 F L 64 20 167/79 H 96 12/14/17 08:24 12/14/17 11:03 12/14/17 08:24 12/14/17 11:03 12/14/17 08:24 - Medications Medications: Current Medications Acetaminophen (Tylenol 325mg Tab) 650 mg PO Q6 PRN PRN Reason: Pain, Mild (1-3) Acetaminophen (Tylenol 325mg Tab) 650 mg PO Q6 PRN PRN Reason: Fever >100.4 F Last Admin: 12/03/17 09:59 Dose: 650 mg Albuterol/Ipratropium (Duoneb 3 Mg/0.5 Mg (3 Ml) Ud) 3 ml INH RQID [facility] Last Admin: 12/14/17 11:11 Dose: 3 ml Allopurinol (Zyloprim) 300 mg PO DAILY [facility] Last Admin: 12/14/17 11:04 Dose: 300 mg Amlodipine Besylate (Norvasc) 10 mg PO DAILY [facility] Last Admin: 12/14/17 11:03 Dose: 10 mg Amylase (Pancrease 88606 U-5000 U-17179 U) 5,000 unit PO TID [facility] Last Admin: 12/14/17 14:39 Dose: 5,000 unit Bacitracin (Bacitracin Oint) 1 applic TOP DAILY [facility] Last Admin: 12/13/17 09:24 Dose: 1 applic Clonidine HCl (Catapres) 0.1 mg PO Q8H [facility] Last Admin: 12/14/17 10:59 Dose: 0.1 mg Docusate Sodium (Colace) 100 mg PO BID [facility] Last Admin: 12/14/17 10:59 Dose: 100 mg Duloxetine HCl (Cymbalta) 60 mg PO DAILY [facility] Last Admin: 12/14/17 11:00 Dose: 60 mg Gabapentin (Neurontin) 300 mg PO TID [facility] Last Admin: 12/14/17 14:39 Dose: 300 mg Gemfibrozil (Lopid) 600 mg PO BID [facility] Last Admin: 07/07/18 11:01 Dose: 600 mg HCTZ/Losartan Potassium (Hyzaar 12.5 Mg-50 Mg) 2 tab PO DAILY [facility] Last Admin: 12/14/17 11:01 Dose: 2 tab Vancomycin HCl 1 gm/ Sodium (Chloride) 250 mls @ 166.667 mls/hr IVPB Q12 [facility] PRN Reason: Protocol Last Admin: 12/04/17 17:31 Dose: Not Given Piperacillin Sod/Tazobactam (Sod 3.375 gm/ Sodium Chloride) 100 mls @ 100 mls/ hr IVPB Q8 [facility] PRN Reason: Protocol Last Admin: 12/14/17 11:04 Dose: 100 mls/hr Insulin Detemir (Levemir) 30 units SC HS [facility] Last Admin: 12/13/17 22:21 Dose: 30 units Insulin Human Lispro (Humalog) 0 units SC ACHS [facility] PRN Reason: Protocol Last Admin: 12/14/17 14:36 Dose: Not Given Insulin Human Lispro (Humalog) 6 units SC AC [facility] Last Admin: 12/14/17 14:38 Dose: 6 units Magnesium Hydroxide (Milk Of Magnesia) 15 ml PO DAILY [facility] Last Admin: 12/14/17 12:23 Dose: 15 ml Methadone HCl (Methadone) 150 mg PO DAILY [facility] Last Admin: 12/14/17 11:01 Dose: 150 mg Metoprolol Tartrate (Lopressor) 25 mg PO BID@0900,2100 [facility] Last Admin: 12/14/17 11:01 Dose: 25 mg Multivitamins/Minerals (Therapeutic-M Tab) 1 tab PO DAILY [facility] Last Admin: 12/14/17 11:03 Dose: 1 tab Nystatin (Nystop Topical Powder) 1 applic TOP TID [facility] Last Admin: 12/14/17 14:40 Dose: Not Given Ondansetron HCl (Zofran Inj) 4 mg IVP Q4 PRN PRN Reason: Nausea/Vomiting Last Admin: 12/03/17 06:57 Dose: 4 mg Probenecid (Probenecid) 500 mg PO DAILY [facility] Last Admin: 12/14/17 11:03 Dose: 500 mg Silver Sulfadiazine (Silvadene 1% 20 Gm) 1 ea TOP DAILY [facility] Last Admin: 12/13/17 09:30 Dose: 1 applic - Labs Labs: 12/13/17 09:48 12/13/17 09:48 - Constitutional Appears: No Acute Distress - Head Exam Head Exam: NORMAL INSPECTION - Eye Exam Eye Exam: PERRL - ENT Exam ENT Exam: Normal Exam - Neck Exam Neck Exam: Normal Inspection - Respiratory Exam Respiratory Exam: Decreased Breath Sounds (at bases) - Cardiovascular Exam Cardiovascular Exam: REGULAR RHYTHM - GI/Abdominal Exam GI & Abdominal Exam: Soft, Normal Bowel Sounds Additional comments: Obese. - Extremities Exam Additional comments: Partial amputation R foot 3rd digit. L AKA - Back Exam Back Exam: NORMAL INSPECTION - Neurological Exam Neurological Exam: Alert, CN II-XII Intact Additional comments: No focal motor/sensory deficit. - Psychiatric Exam Psychiatric exam: Normal Mood - Skin Skin Exam: Warm Assessment and Plan (1) HCAP (healthcare-associated pneumonia) Status: Acute (2) Mediastinal lymphadenopathy Status: Acute - Assessment and Plan (Free Text) Plan: DERIK boykin , Adolfo, Patient on Zosyn, Vanco for OM R foot
--- NOTE | 2017-12-14 15:09 | PN ---
DATE: 12/14/2017 ENDO FOLLOWUP NOTE LOCATION: In room 659. SUBJECTIVE: This is a 42-year-old male with recent uncontrolled type 2 insulin-requiring diabetes, now being followed closely for metabolic management. He underwent a recent third toe amputation for underlying severe gangrene and peripheral arterial vasculopathy. He has ongoing IV antibiotic management for underlying osteomyelitis. His glycemic levels are fluctuating, but much improved at this time and the glucose values have ranged from 133 to 142, 252 mg/dL. His latest chemistry showed a BUN of 19, sodium 140, potassium 4.5, chloride 100, CO2 of 29, glucose 138 and creatinine 0.9. ASSESSMENT AND PLAN: So at this time, we will continue the same basal and bolus insulin regimen to allow for dose equilibration and keep him on the Humalog given as 6 units subcutaneously t.i.d. before meals as ordered. We will continue the Levemir given as 30 units subcutaneously at bedtime daily as given. We will titrate incrementally as indicated to optimize metabolic control. We will obtain serial chemistries and supplement accordingly needed. We will follow. Gaye Llamas MD
[2017-12-14] MEDS: Bacitracin OINT 15GM TOP SCH (17:41)
[2017-12-14] MEDS: Silver Sulfadiazine 1% Cream (20 gm) TOP SCH (17:42)
[2017-12-14] MEDS: Enoxaparin 40 mg Syringe SC SCH (22:14)
[2017-12-14] MEDS: Insulin Detemir 100 Units/ml Inj SC SCH (22:19)
[2017-12-15] MEDS: Piperacillin/Tazobact 3.375 GM in Sodium Chloride 0.9% 100 ML IVPB SCH ×3 (00:30→17:33)
[2017-12-15] MEDS: Insulin Lispro (humaLOG) 100 Units/ml Inj SC SCH ×6 (06:34→17:31)
[2017-12-15] MEDS: Albuterol-Ipratrop 3 mg / 0.5 (3 ml) UD INH SCH ×4 (07:50→20:26)
[2017-12-15] MEDS: HCTZ/Losartan 12.5/50 Tab PO SCH (09:19)
[2017-12-15] MEDS: Amylase/Lipase/Protease 5,000 Units ECC PO SCH ×3 (09:20→17:32)
[2017-12-15] MEDS: Enoxaparin 40 mg Syringe SC SCH (09:20)
[2017-12-15] MEDS: Multivitamin With Minerals Tab PO SCH (09:21)
--- NOTE | 2017-12-15 11:47 | CP.PCM.PN ---
Subjective - Date & Time of Evaluation Date of Evaluation: 12/15/17 Time of Evaluation: 09:00 - Subjective Subjective: 42 y/o male patient seen and evaluated at bedside 12 day s/p right 3rd digit partial amputation. Patient was resting comfortably in bed, and in no acute distress. Patient is AAO X 3. Objective - Vital Signs/Intake and Output Vital Signs (last 24 hours): Temp Pulse Resp BP Pulse Ox 97.8 F 67 20 126/69 95 12/15/17 08:18 12/15/17 09:20 12/15/17 08:18 12/15/17 09:20 12/15/17 08:18 - Medications Medications: Current Medications Acetaminophen (Tylenol 325mg Tab) 650 mg PO Q6 PRN PRN Reason: Pain, Mild (1-3) Acetaminophen (Tylenol 325mg Tab) 650 mg PO Q6 PRN PRN Reason: Fever >100.4 F Last Admin: 12/03/17 09:59 Dose: 650 mg Albuterol/Ipratropium (Duoneb 3 Mg/0.5 Mg (3 Ml) Ud) 3 ml INH RQID [facility] Last Admin: 12/15/17 07:50 Dose: 3 ml Allopurinol (Zyloprim) 300 mg PO DAILY [facility] Last Admin: 12/15/17 09:21 Dose: 300 mg Amlodipine Besylate (Norvasc) 10 mg PO DAILY [facility] Last Admin: 12/15/17 09:20 Dose: 10 mg Amylase (Pancrease 18035 U-5000 U-96503 U) 5,000 unit PO TID [facility] Last Admin: 12/15/17 09:20 Dose: 5,000 unit Bacitracin (Bacitracin Oint) 1 applic TOP DAILY [facility] Last Admin: 12/13/17 09:24 Dose: 1 applic Clonidine HCl (Catapres) 0.1 mg PO Q8H [facility] Last Admin: 12/15/17 09:17 Dose: Not Given Docusate Sodium (Colace) 100 mg PO BID [facility] Last Admin: 12/15/17 09:17 Dose: 100 mg Enoxaparin Sodium (Lovenox) 40 mg SC DAILY [facility] PRN Reason: Protocol Last Admin: 12/15/17 09:20 Dose: 40 mg Gabapentin (Neurontin) 300 mg PO TID [facility] Last Admin: 12/15/17 09:20 Dose: 300 mg Gemfibrozil (Lopid) 600 mg PO BID [facility] Last Admin: 12/15/17 09:19 Dose: 600 mg HCTZ/Losartan Potassium (Hyzaar 12.5 Mg-50 Mg) 2 tab PO DAILY [facility] Last Admin: 12/15/17 09:19 Dose: 2 tab Vancomycin HCl 1 gm/ Sodium (Chloride) 250 mls @ 166.667 mls/hr IVPB Q12 [facility] PRN Reason: Protocol Last Admin: 12/04/17 17:31 Dose: Not Given Piperacillin Sod/Tazobactam (Sod 3.375 gm/ Sodium Chloride) 100 mls @ 100 mls/ hr IVPB Q8 [facility] PRN Reason: Protocol Last Admin: 12/15/17 09:21 Dose: 100 mls/hr Insulin Detemir (Levemir) 30 units SC HS [facility] Last Admin: 12/14/17 22:19 Dose: 30 units Insulin Human Lispro (Humalog) 0 units SC ACHS [facility] PRN Reason: Protocol Last Admin: 12/15/17 06:34 Dose: Not Given Insulin Human Lispro (Humalog) 8 units SC AC [facility] Magnesium Hydroxide (Milk Of Magnesia) 15 ml PO DAILY [facility] Last Admin: 12/14/17 12:23 Dose: 15 ml Methadone HCl (Methadone) 150 mg PO DAILY [facility] Methadone HCl (Methadone) 150 mg PO DAILY [facility] Metoprolol Tartrate (Lopressor) 25 mg PO BID@0900,2100 [facility] Last Admin: 12/15/17 09:19 Dose: 25 mg Multivitamins/Minerals (Therapeutic-M Tab) 1 tab PO DAILY [facility] Last Admin: 12/15/17 09:21 Dose: 1 tab Ondansetron HCl (Zofran Inj) 4 mg IVP Q4 PRN PRN Reason: Nausea/Vomiting Last Admin: 12/03/17 06:57 Dose: 4 mg Probenecid (Probenecid) 500 mg PO DAILY [facility] Last Admin: 12/15/17 09:21 Dose: 500 mg Silver Sulfadiazine (Silvadene 1% 20 Gm) 1 ea TOP DAILY [facility] Last Admin: 12/13/17 09:30 Dose: 1 applic - Labs Labs: 12/13/17 09:48 12/13/17 09:48 - Constitutional Appears: Non-toxic, Chronically Ill - Head Exam Head Exam: NORMOCEPHALIC - Eye Exam Eye Exam: absent: Scleral icterus - ENT Exam ENT Exam: Mucous Membranes Dry - Neck Exam Neck Exam: absent: Lymphadenopathy - Respiratory Exam Respiratory Exam: Decreased Breath Sounds - Cardiovascular Exam Cardiovascular Exam: REGULAR RHYTHM - GI/Abdominal Exam GI & Abdominal Exam: Distended - Rectal Exam Rectal Exam: Deferred - Exam Exam: NORMAL INSPECTION - Extremities Exam Extremities Exam: absent: Pedal Edema Assessment and Plan (1) Osteomyelitis Status: Acute - Assessment and Plan (Free Text) Assessment: cont rx folllow up cxr
--- NOTE | 2017-12-15 13:02 | PN ---
DATE: 12/15/2017 SUBJECTIVE: The patient seen and examined. Interim events noted. Consults noted and appreciated. The patient remains in regular medical floor. The patient states feeling okay. Denies any chest pain, shortness of breath, or foot pain, but does complain about physical therapy. PHYSICAL EXAMINATION: GENERAL: The patient is in no acute distress. VITAL SIGNS: Stable. HEART: S1 and S2, normal and regular. LUNGS: Good bilateral air exchange. ABDOMEN: Soft and nontender. EXTREMITIES: No edema. No calf swelling. No tenderness. No acute ischemia. The patient is status post amputation. Surgical site looks clean. DIAGNOSTIC DATA: Available diagnostic data reviewed. ASSESSMENT AND PLAN: Overall, the patient is medically stable. Plan as ordered. Rojelio Lentz MD
--- NOTE | 2017-12-15 15:40 | PN ---
DATE: 12/15/2017 ENDO FOLLOWUP NOTE LOCATION: In room 659. This is a 42-year-old male with recent uncontrolled type 2 insulin-requiring diabetes, currently undergoing IV antibiotic management for underlying osteomyelitis and recent partial amputation, third digit, and is now also being followed closely for metabolic management. His glycemic levels are much improved at this time but still fluctuating episodically as noted with the glucose values overnight ranging from 200-240 mg/dL. So at this time, we will actually modify his basal and bolus insulin regimen and increase the Humalog to 8 units subcu t.i.d. before meals to start at lunchtime today as ordered. We will continue the low-dose correction scale using Humalog insulin as given to obviate hypoglycemia, and detailed orders have been given. We will also continue the basal insulin given as Levemir at 30 units subcu at bedtime daily as ordered. We will titrate incrementally as indicated to optimize metabolic control. We will follow. Gaye Llamas MD
[2017-12-15] MEDS: Magnesium Hydroxide Susp 30 ml UD PO SCH (17:40)
[2017-12-15] MEDS: Bacitracin OINT 15GM TOP SCH (17:41)
[2017-12-15] MEDS: Silver Sulfadiazine 1% Cream (20 gm) TOP SCH (17:41)
[2017-12-15] MEDS: Insulin Detemir 100 Units/ml Inj SC SCH (22:04)
[2017-12-16] MEDS: Piperacillin/Tazobact 3.375 GM in Sodium Chloride 0.9% 100 ML IVPB SCH ×3 (00:36→17:05)
[2017-12-16 06:29] LABS: HEMOGLOBIN 9.8 g/dL (12.0-18.0); MEAN CELL VOLUME 84.2 fl (80.0-94.0); MEAN CORPUSCULAR HEMOGLOBIN 27.6 pg (27.0-31.0); MEAN CORPUSCULAR HGB CONC 32.7 g/dL (33.0-37.0); RBC 3.54 Mil/uL (4.40-5.90); RED CELL DISTRIBUTION WIDTH 15.1 % (11.5-14.5); WHITE BLOOD COUNT 6.1 K/uL (4.8-10.8)
[2017-12-16] MEDS: Insulin Lispro (humaLOG) 100 Units/ml Inj SC SCH ×7 (06:38→21:58)
[2017-12-16 07:05] LABS: ALBUMIN 3.6 g/dL (3.5-5.0); ALT/SGPT 21 U/L (21-72); AST/SGOT 21 U/L (17-59); BLOOD UREA NITROGEN 29 mg/dl (9-20); CALCIUM 9.5 mg/dL (8.4-10.2); GFR AFRICAN-AMERICAN > 60; GFR NON-AFRICAN AMERICAN > 60
[2017-12-16] MEDS: Albuterol-Ipratrop 3 mg / 0.5 (3 ml) UD INH SCH (07:25)
[2017-12-16] MEDS: Multivitamin With Minerals Tab PO SCH (09:57)
[2017-12-16] MEDS: Enoxaparin 40 mg Syringe SC SCH (09:58)
[2017-12-16] MEDS: Amylase/Lipase/Protease 5,000 Units ECC PO SCH ×3 (09:59→17:07)
[2017-12-16] MEDS: Bacitracin OINT 15GM TOP SCH (10:04)
[2017-12-16] MEDS: HCTZ/Losartan 12.5/50 Tab PO SCH (10:07)
[2017-12-16] MEDS: Silver Sulfadiazine 1% Cream (20 gm) TOP SCH (10:08)
[2017-12-16] MEDS: Magnesium Hydroxide Susp 30 ml UD PO SCH (10:15)
--- NOTE | 2017-12-16 14:55 | PN ---
DATE: 12/16/2017 SUBJECTIVE: The patient remains in regular medical floor. The patient is sleeping. No new complaints. PHYSICAL EXAMINATION: GENERAL: The patient is in no acute distress. VITAL SIGNS: Stable. Physical exam is essentially unchanged. DIAGNOSTIC DATA: Available diagnostic data reviewed. ASSESSMENT AND PLAN: Overall, the patient's general medical condition is stable. Plan as ordered. Rojelio Lentz MD
--- NOTE | 2017-12-16 16:47 | PN ---
DATE: 12/16/2017 ENDO FOLLOWUP NOTE LOCATION: In room 659. SUBJECTIVE: This is a 42-year-old male with recent uncontrolled type 2 insulin-requiring diabetes with extremes of glycemic fluctuations related to the variability of his oral intake and is now being followed closely for metabolic management. His glucose levels are fluctuating, but improved and have ranged from 100 at bedtime last night to 257 early this morning and 272 at noontime today as noted. His chemistry showed a BUN of 29, sodium 138, potassium 4.9, chloride 100, CO2 of 28, glucose 181, and creatinine 1.1. ASSESSMENT AND PLAN: So at this time, we will continue the same basal and bolus insulin regimen to allow for dose equilibration and keep him on the Humalog given as units subcutaneously t.i.d. before meals as ordered. We will continue the basal insulin given as Levemir at 30 units subcutaneously at bedtime daily as given. We will obtain serial chemistries and supplement accordingly as needed. We will follow. Gaye Llamas MD
--- NOTE | 2017-12-16 17:59 | CP.PCM.PN ---
Subjective - Date & Time of Evaluation Date of Evaluation: 12/16/17 Time of Evaluation: 17:57 - Subjective Subjective: Podiatry progress note for attending Dr. Rose, 42 y/o male patient seen and evaluated at bedside 14 day s/p right 3rd digit partial amputation. Patient was resting comfortably in bed, and in no acute distress. Patient is AAO X 3. Patient denies any new trauma. Patient denies any other pedal complains. Patient denies any pain to the surgical site, Patient denies F/N/V/SOB/chills. Objective - Vital Signs/Intake and Output Vital Signs (last 24 hours): Temp Pulse Resp BP Pulse Ox 97.9 F 69 20 101/63 95 12/16/17 16:47 12/16/17 16:47 12/16/17 16:47 12/16/17 16:47 12/16/17 16:47 - Medications Medications: Current Medications Acetaminophen (Tylenol 325mg Tab) 650 mg PO Q6 PRN PRN Reason: Pain, Mild (1-3) Acetaminophen (Tylenol 325mg Tab) 650 mg PO Q6 PRN PRN Reason: Fever >100.4 F Last Admin: 12/03/17 09:59 Dose: 650 mg Allopurinol (Zyloprim) 300 mg PO DAILY [facility] Last Admin: 12/16/17 09:57 Dose: 300 mg Amlodipine Besylate (Norvasc) 10 mg PO DAILY [facility] Last Admin: 12/16/17 09:58 Dose: 10 mg Amylase (Pancrease 68855 U-5000 U-03504 U) 5,000 unit PO TID [facility] Last Admin: 12/16/17 17:07 Dose: 5,000 unit Bacitracin (Bacitracin Oint) 1 applic TOP DAILY [facility] Last Admin: 12/16/17 10:04 Dose: 1 applic Clonidine HCl (Catapres) 0.1 mg PO Q8H [facility] Last Admin: 12/16/17 17:01 Dose: Not Given Docusate Sodium (Colace) 100 mg PO BID [facility] Last Admin: 12/16/17 17:06 Dose: 100 mg Enoxaparin Sodium (Lovenox) 40 mg SC DAILY [facility] PRN Reason: Protocol Last Admin: 12/16/17 09:58 Dose: 40 mg Gabapentin (Neurontin) 300 mg PO TID [facility] Last Admin: 12/16/17 17:07 Dose: 300 mg Gemfibrozil (Lopid) 600 mg PO BID [facility] Last Admin: 12/16/17 17:07 Dose: 600 mg HCTZ/Losartan Potassium (Hyzaar 12.5 Mg-50 Mg) 2 tab PO DAILY [facility] Last Admin: 12/16/17 10:07 Dose: 2 tab Vancomycin HCl 1 gm/ Sodium (Chloride) 250 mls @ 166.667 mls/hr IVPB Q12 [facility] PRN Reason: Protocol Last Admin: 12/04/17 17:31 Dose: Not Given Piperacillin Sod/Tazobactam (Sod 3.375 gm/ Sodium Chloride) 100 mls @ 100 mls/ hr IVPB Q8 [facility] PRN Reason: Protocol Last Admin: 12/16/17 17:05 Dose: 100 mls/hr Insulin Detemir (Levemir) 30 units SC HS [facility] Last Admin: 12/15/17 22:04 Dose: Not Given Insulin Human Lispro (Humalog) 0 units SC ACHS [facility] PRN Reason: Protocol Last Admin: 12/16/17 17:04 Dose: Not Given Insulin Human Lispro (Humalog) 6 units SC AC [facility] Last Admin: 12/16/17 17:06 Dose: 6 units Magnesium Hydroxide (Milk Of Magnesia) 15 ml PO DAILY [facility] Last Admin: 12/16/17 10:15 Dose: 15 ml Methadone HCl (Methadone) 150 mg PO DAILY [facility] Last Admin: 12/16/17 09:55 Dose: 150 mg Metoprolol Tartrate (Lopressor) 25 mg PO BID@0900,2100 [facility] Last Admin: 12/16/17 09:57 Dose: 25 mg Multivitamins/Minerals (Therapeutic-M Tab) 1 tab PO DAILY [facility] Last Admin: 12/16/17 09:57 Dose: 1 tab Ondansetron HCl (Zofran Inj) 4 mg IVP Q4 PRN PRN Reason: Nausea/Vomiting Last Admin: 12/03/17 06:57 Dose: 4 mg Probenecid (Probenecid) 500 mg PO DAILY [facility] Last Admin: 12/16/17 09:57 Dose: 500 mg Silver Sulfadiazine (Silvadene 1% 20 Gm) 1 ea TOP DAILY [facility] Last Admin: 12/16/17 10:08 Dose: 1 applic - Labs Labs: 12/16/17 06:00 12/16/17 06:00 - Constitutional Appears: Well, Non-toxic, No Acute Distress - Head Exam Head Exam: ATRAUMATIC, NORMOCEPHALIC - Extremities Exam Additional comments: Right Lower Extremity focused Exam: Vasc: DP/PT 2/4, CFT less than 3 seconds in all digits, Temp. gradient warm to cool proximal to distal, no edema noted to the surgical site Neuro: gross sensation intact, protective sensation diminished DERM: Surgical site looks dry and clean. sutures to the surgical site are intact , no dehiscence, no drainage, no malodor, no erythema,no fluctuance, no edema, no clinical signs of infection. MSK: pain on palpation to the 3rd digit amputation site, pain to the lateral aspect of the 2nd digit. - Neurological Exam Neurological Exam: Alert, Awake, Oriented x3 - Psychiatric Exam Psychiatric exam: Normal Affect, Normal Mood Assessment and Plan - Assessment and Plan (Free Text) Assessment: 42 y/o male 14 days s/p partial 3rd digit amputation Plan: Patient seen and evaluated at bedside Plan discussed with attending, Dr. Rose Charts, labs and vitals reviewed- WBC- 6.1, patient afebrile Wound dressed with Tefla, 4X4 and 2 inch WILNER Sutures kept intact. Patient tolerated the dressing well. Patient is stable from podiatry standpoint Patient dressing will be change QOD Podiatry will continue to follow patient in-house
[2017-12-16] MEDS: Insulin Detemir 100 Units/ml Inj SC SCH (21:57)
[2017-12-17] MEDS: Piperacillin/Tazobact 3.375 GM in Sodium Chloride 0.9% 100 ML IVPB SCH ×3 (01:23→17:09)
--- NOTE | 2017-12-17 08:37 | CP.PCM.PN ---
<Khalida Cobos - Last Filed: 12/17/17 12:19> Subjective - Date & Time of Evaluation Date of Evaluation: 12/17/17 Time of Evaluation: 07:45 - Subjective Subjective: Pt seen this am, no acute events overnight. Participated in PT yesterday. Objective - Vital Signs/Intake and Output Vital Signs (last 24 hours): Temp Pulse Resp BP Pulse Ox 97.4 F L 58 L 19 132/82 97 12/17/17 08:11 12/17/17 08:11 12/17/17 08:11 12/17/17 08:11 12/17/17 08:11 - Medications Medications: Current Medications Acetaminophen (Tylenol 325mg Tab) 650 mg PO Q6 PRN PRN Reason: Pain, Mild (1-3) Acetaminophen (Tylenol 325mg Tab) 650 mg PO Q6 PRN PRN Reason: Fever >100.4 F Last Admin: 12/03/17 09:59 Dose: 650 mg Allopurinol (Zyloprim) 300 mg PO DAILY [facility] Last Admin: 12/16/17 09:57 Dose: 300 mg Amlodipine Besylate (Norvasc) 10 mg PO DAILY [facility] Last Admin: 12/16/17 09:58 Dose: 10 mg Amylase (Pancrease 13466 U-5000 U-98902 U) 5,000 unit PO TID [facility] Last Admin: 12/16/17 17:07 Dose: 5,000 unit Bacitracin (Bacitracin Oint) 1 applic TOP DAILY [facility] Last Admin: 12/16/17 10:04 Dose: 1 applic Clonidine HCl (Catapres) 0.1 mg PO Q8H [facility] Last Admin: 12/17/17 00:20 Dose: Not Given Docusate Sodium (Colace) 100 mg PO BID [facility] Last Admin: 12/16/17 17:06 Dose: 100 mg Enoxaparin Sodium (Lovenox) 40 mg SC DAILY [facility] PRN Reason: Protocol Last Admin: 12/16/17 09:58 Dose: 40 mg Gabapentin (Neurontin) 300 mg PO TID [facility] Last Admin: 12/16/17 17:07 Dose: 300 mg Gemfibrozil (Lopid) 600 mg PO BID [facility] Last Admin: 12/16/17 17:07 Dose: 600 mg HCTZ/Losartan Potassium (Hyzaar 12.5 Mg-50 Mg) 2 tab PO DAILY [facility] Last Admin: 12/16/17 10:07 Dose: 2 tab Vancomycin HCl 1 gm/ Sodium (Chloride) 250 mls @ 166.667 mls/hr IVPB Q12 [facility] PRN Reason: Protocol Last Admin: 12/04/17 17:31 Dose: Not Given Piperacillin Sod/Tazobactam (Sod 3.375 gm/ Sodium Chloride) 100 mls @ 100 mls/ hr IVPB Q8 [facility] PRN Reason: Protocol Last Admin: 12/17/17 01:23 Dose: 100 mls/hr Insulin Detemir (Levemir) 30 units SC HS [facility] Last Admin: 12/16/17 21:57 Dose: 30 units Insulin Human Lispro (Humalog) 0 units SC ACHS [facility] PRN Reason: Protocol Last Admin: 12/16/17 21:58 Dose: Not Given Insulin Human Lispro (Humalog) 6 units SC AC [facility] Last Admin: 12/16/17 17:06 Dose: 6 units Magnesium Hydroxide (Milk Of Magnesia) 15 ml PO DAILY [facility] Last Admin: 12/16/17 10:15 Dose: 15 ml Methadone HCl (Methadone) 150 mg PO DAILY [facility] Last Admin: 12/16/17 09:55 Dose: 150 mg Metoprolol Tartrate (Lopressor) 25 mg PO BID@0900,2100 [facility] Last Admin: 12/16/17 21:57 Dose: 25 mg Multivitamins/Minerals (Therapeutic-M Tab) 1 tab PO DAILY [facility] Last Admin: 12/16/17 09:57 Dose: 1 tab Ondansetron HCl (Zofran Inj) 4 mg IVP Q4 PRN PRN Reason: Nausea/Vomiting Last Admin: 12/03/17 06:57 Dose: 4 mg Probenecid (Probenecid) 500 mg PO DAILY [facility] Last Admin: 12/16/17 09:57 Dose: 500 mg Silver Sulfadiazine (Silvadene 1% 20 Gm) 1 ea TOP DAILY [facility] Last Admin: 12/16/17 10:08 Dose: 1 applic - Labs Labs: 12/16/17 06:00 12/16/17 06:00 - Constitutional Appears: No Acute Distress - Head Exam Head Exam: NORMAL INSPECTION - Eye Exam Eye Exam: Normal appearance - Respiratory Exam Respiratory Exam: NORMAL BREATHING PATTERN. absent: Respiratory Distress - Cardiovascular Exam Cardiovascular Exam: REGULAR RHYTHM - GI/Abdominal Exam Additional comments: obese - Extremities Exam Additional comments: L limb AKA RLE: distal RLE s/p amputation of third digit, dressing in place - Skin Skin Exam: Normal Color Assessment and Plan - Assessment and Plan (Free Text) Assessment: 42 yr old M POD # 15 s/p amputation of 3rd digit-right foot for osteomylitis. PMHx includes IDDM type 2, CVA, HTN, HLD, hx of osteomyelitis s/p left AKA, methadone dependance. Pt also treated for b/l pneumonia. Plan: - ID consult: 5 more days Augmentin 875 mg PO BID as per Dr. Newman - Podiatry: Wound dressed with Tefla, 4X4 and 2 inch WILNER. Sutures kept intact. Patient is stable from podiatry standpoint. Patient dressing will be changed every other day. - Pt is medically optimized for discharge; pending case management. - Continue medications for HTN and IDDM as present. <Lentz,Rojelio K - Last Filed: 12/19/17 20:02> Objective - Vital Signs/Intake and Output Vital Signs (last 24 hours): Temp Pulse Resp BP Pulse Ox 98.2 F 63 20 97/65 L 96 12/19/17 16:04 12/19/17 16:04 12/19/17 16:04 12/19/17 16:22 12/19/17 16:04 - Medications Medications: Current Medications Acetaminophen (Tylenol 325mg Tab) 650 mg PO Q6 PRN PRN Reason: Pain, Mild (1-3) Acetaminophen (Tylenol 325mg Tab) 650 mg PO Q6 PRN PRN Reason: Fever >100.4 F Last Admin: 12/03/17 09:59 Dose: 650 mg Allopurinol (Zyloprim) 300 mg PO DAILY [facility] Last Admin: 12/19/17 08:44 Dose: 300 mg Amlodipine Besylate (Norvasc) 10 mg PO DAILY [facility] Last Admin: 12/19/17 08:44 Dose: 10 mg Amylase (Pancrease 27954 U-5000 U-91063 U) 5,000 unit PO TID [facility] Last Admin: 12/19/17 16:27 Dose: 5,000 unit Bacitracin (Bacitracin Oint) 1 applic TOP DAILY [facility] Last Admin: 12/19/17 08:45 Dose: 1 applic Clonidine HCl (Catapres) 0.1 mg PO Q8H [facility] Last Admin: 12/19/17 16:22 Dose: Not Given Docusate Sodium (Colace) 100 mg PO BID [facility] Last Admin: 12/19/17 16:27 Dose: 100 mg Enoxaparin Sodium (Lovenox) 40 mg SC DAILY [facility] PRN Reason: Protocol Last Admin: 12/19/17 16:27 Dose: 40 mg Gabapentin (Neurontin) 300 mg PO TID [facility] Last Admin: 12/19/17 16:27 Dose: 300 mg Gemfibrozil (Lopid) 600 mg PO BID [facility] Last Admin: 12/19/17 16:27 Dose: 600 mg HCTZ/Losartan Potassium (Hyzaar 12.5 Mg-50 Mg) 2 tab PO DAILY [facility] Last Admin: 12/19/17 08:44 Dose: 2 tab Vancomycin HCl 1 gm/ Sodium (Chloride) 250 mls @ 166.667 mls/hr IVPB Q12 [facility] PRN Reason: Protocol Last Admin: 12/04/17 17:31 Dose: Not Given Piperacillin Sod/Tazobactam (Sod 3.375 gm/ Sodium Chloride) 100 mls @ 100 mls/ hr IVPB Q8 [facility] PRN Reason: Protocol Last Admin: 12/19/17 16:26 Dose: 100 mls/hr Insulin Detemir (Levemir) 40 units SC HS [facility] Insulin Human Lispro (Humalog) 0 units SC ACHS [facility] PRN Reason: Protocol Last Admin: 12/19/17 16:23 Dose: Not Given Insulin Human Lispro (Humalog) 10 units SC AC [facility] Last Admin: 12/19/17 16:28 Dose: 10 units Magnesium Hydroxide (Milk Of Magnesia) 15 ml PO DAILY [facility] Last Admin: 12/19/17 08:52 Dose: Not Given Methadone HCl (Methadone) 150 mg PO DAILY [facility] Last Admin: 12/19/17 08:42 Dose: 150 mg Metoprolol Tartrate (Lopressor) 25 mg PO BID@0900,2100 [facility] Last Admin: 12/19/17 08:45 Dose: 25 mg Multivitamins/Minerals (Therapeutic-M Tab) 1 tab PO DAILY [facility] Last Admin: 12/19/17 08:46 Dose: 1 tab Ondansetron HCl (Zofran Inj) 4 mg IVP Q4 PRN PRN Reason: Nausea/Vomiting Last Admin: 12/03/17 06:57 Dose: 4 mg Probenecid (Probenecid) 500 mg PO DAILY [facility] Last Admin: 12/19/17 08:44 Dose: 500 mg Silver Sulfadiazine (Silvadene 1% 20 Gm) 1 ea TOP DAILY [facility] Last Admin: 12/19/17 08:45 Dose: 1 applic - Labs Labs: 12/19/17 05:30 12/19/17 05:30 Assessment and Plan - Assessment and Plan (Free Text) Plan: Patient was personally seen and examined by me in rounds with residents. Available labs and diagnostic data reviewed. Case, Patient's condition and management plan discussed with residents in rounds. Agree with resident's progress note. Plan: As ordered.
[2017-12-17] MEDS: Bacitracin OINT 15GM TOP SCH (09:18)
[2017-12-17] MEDS: Insulin Lispro (humaLOG) 100 Units/ml Inj SC SCH ×7 (09:19→21:48)
[2017-12-17] MEDS: HCTZ/Losartan 12.5/50 Tab PO SCH (09:20)
[2017-12-17] MEDS: Enoxaparin 40 mg Syringe SC SCH (09:21)
[2017-12-17] MEDS: Amylase/Lipase/Protease 5,000 Units ECC PO SCH ×3 (09:23→17:11)
[2017-12-17] MEDS: Multivitamin With Minerals Tab PO SCH (09:23)
[2017-12-17] MEDS: Magnesium Hydroxide Susp 30 ml UD PO SCH (09:27)
--- NOTE | 2017-12-17 11:47 | CP.PCM.PCO ---
Assessment & Plan - Assessment and Plan (Free Text) Assessment: patient s/p 15 day course of Zosyn iv and will be discharged on Augmentin 875 mg po bid for 5 more days as per recommendation
--- NOTE | 2017-12-17 12:32 | CP.PCM.PN ---
Subjective - Date & Time of Evaluation Date of Evaluation: 12/17/17 Time of Evaluation: 07:00 - Subjective Subjective: patient s/p 15 day course of Zosyn iv and will be discharged on Augmentin 875 mg po bid for 5 more days Objective - Vital Signs/Intake and Output Vital Signs (last 24 hours): Temp Pulse Resp BP Pulse Ox 97.4 F L 58 L 19 132/82 97 12/17/17 08:11 12/17/17 09:22 12/17/17 08:11 12/17/17 09:22 12/17/17 08:11 - Medications Medications: Current Medications Acetaminophen (Tylenol 325mg Tab) 650 mg PO Q6 PRN PRN Reason: Pain, Mild (1-3) Acetaminophen (Tylenol 325mg Tab) 650 mg PO Q6 PRN PRN Reason: Fever >100.4 F Last Admin: 12/03/17 09:59 Dose: 650 mg Allopurinol (Zyloprim) 300 mg PO DAILY [facility] Last Admin: 12/17/17 09:23 Dose: 300 mg Amlodipine Besylate (Norvasc) 10 mg PO DAILY [facility] Last Admin: 12/17/17 09:22 Dose: 10 mg Amylase (Pancrease 10030 U-5000 U-88182 U) 5,000 unit PO TID [facility] Last Admin: 12/17/17 09:23 Dose: 5,000 unit Bacitracin (Bacitracin Oint) 1 applic TOP DAILY [facility] Last Admin: 12/17/17 09:18 Dose: 1 applic Clonidine HCl (Catapres) 0.1 mg PO Q8H [facility] Last Admin: 12/17/17 09:18 Dose: Not Given Docusate Sodium (Colace) 100 mg PO BID [facility] Last Admin: 12/17/17 09:19 Dose: 100 mg Enoxaparin Sodium (Lovenox) 40 mg SC DAILY [facility] PRN Reason: Protocol Last Admin: 12/17/17 09:21 Dose: 40 mg Gabapentin (Neurontin) 300 mg PO TID [facility] Last Admin: 12/16/17 17:07 Dose: 300 mg Gemfibrozil (Lopid) 600 mg PO BID [facility] Last Admin: 12/17/17 09:20 Dose: 600 mg HCTZ/Losartan Potassium (Hyzaar 12.5 Mg-50 Mg) 2 tab PO DAILY [facility] Last Admin: 12/17/17 09:20 Dose: 2 tab Vancomycin HCl 1 gm/ Sodium (Chloride) 250 mls @ 166.667 mls/hr IVPB Q12 [facility] PRN Reason: Protocol Last Admin: 12/04/17 17:31 Dose: Not Given Piperacillin Sod/Tazobactam (Sod 3.375 gm/ Sodium Chloride) 100 mls @ 100 mls/ hr IVPB Q8 [facility] PRN Reason: Protocol Last Admin: 12/17/17 09:30 Dose: 100 mls/hr Insulin Detemir (Levemir) 30 units SC HS [facility] Last Admin: 12/16/17 21:57 Dose: 30 units Insulin Human Lispro (Humalog) 0 units SC ACHS [facility] PRN Reason: Protocol Last Admin: 12/17/17 09:19 Dose: Not Given Insulin Human Lispro (Humalog) 6 units SC AC [facility] Last Admin: 12/17/17 09:19 Dose: 6 units Magnesium Hydroxide (Milk Of Magnesia) 15 ml PO DAILY [facility] Last Admin: 12/17/17 09:27 Dose: 15 ml Methadone HCl (Methadone) 150 mg PO DAILY [facility] Last Admin: 12/17/17 10:32 Dose: 150 mg Metoprolol Tartrate (Lopressor) 25 mg PO BID@0900,2100 [facility] Last Admin: 12/17/17 09:21 Dose: Not Given Multivitamins/Minerals (Therapeutic-M Tab) 1 tab PO DAILY [facility] Last Admin: 12/17/17 09:23 Dose: 1 tab Ondansetron HCl (Zofran Inj) 4 mg IVP Q4 PRN PRN Reason: Nausea/Vomiting Last Admin: 12/03/17 06:57 Dose: 4 mg Probenecid (Probenecid) 500 mg PO DAILY [facility] Last Admin: 12/17/17 09:23 Dose: 500 mg Silver Sulfadiazine (Silvadene 1% 20 Gm) 1 ea TOP DAILY [facility] Last Admin: 12/16/17 10:08 Dose: 1 applic - Labs Labs: 12/16/17 06:00 12/16/17 06:00 - Constitutional Appears: Non-toxic - Head Exam Head Exam: NORMOCEPHALIC - Eye Exam Eye Exam: PERRL - ENT Exam ENT Exam: Mucous Membranes Dry - Neck Exam Neck Exam: absent: Lymphadenopathy - Respiratory Exam Respiratory Exam: Decreased Breath Sounds, Rhonchi - Cardiovascular Exam Cardiovascular Exam: REGULAR RHYTHM, +S1, +S2 - GI/Abdominal Exam GI & Abdominal Exam: Distended, Soft - Rectal Exam Rectal Exam: Deferred Assessment and Plan (1) Osteomyelitis Status: Acute - Assessment and Plan (Free Text) Assessment: as per recommendation
[2017-12-17] MEDS: Silver Sulfadiazine 1% Cream (20 gm) TOP SCH (12:39)
--- NOTE | 2017-12-17 21:08 | PN ---
DATE: 12/17/2017 ENDO FOLLOWUP NOTE LOCATION: Room 659. SUBJECTIVE: This is a 42-year-old male with recent uncontrolled type 2 insulin-requiring diabetes, now being followed closely for metabolic management. LABORATORY DATA: His glycemic levels are fluctuating but improved, and the glucose values have ranged from 160 to 189 and 282 mg/dL. His latest chemistry showed a BUN of 29, sodium 138, potassium 4.9, chloride 100, CO2 of 28, glucose 181, and creatinine 1.1. ASSESSMENT AND PLAN: So at this time, we will modify once again his basal and bolus insulin regimen and increase the Humalog to 8 units subcu t.i.d. before meals to start today. We will also titrate and increase his basal insulin with Levemir to be given as 34 units subcu at bedtime daily to start tonight. We will titrate incrementally as indicated to optimize metabolic control. We will obtain serial chemistries and supplement accordingly as needed. We will follow with you. Gaye Llamas MD
[2017-12-17] MEDS ORDERED: Insulin Detemir 100 Units/ml Inj SC SCH (22:00)
[2017-12-18] MEDS: Piperacillin/Tazobact 3.375 GM in Sodium Chloride 0.9% 100 ML IVPB SCH ×3 (00:24→17:44)
--- NOTE | 2017-12-18 08:32 | CP.PCM.PN ---
<Khalida Cobos - Last Filed: 12/18/17 11:58> Subjective - Date & Time of Evaluation Date of Evaluation: 12/18/17 Time of Evaluation: 08:20 - Subjective Subjective: Pt examined this am with Dr. Lentz; explained to patient that he is medically stable, and that his placement is pending case management/social work. Pt appeared irritated/anxious regarding discharge. Did not offer additional new complaints. He has 2 police officers in the room. Objective - Vital Signs/Intake and Output Vital Signs (last 24 hours): Temp Pulse Resp BP Pulse Ox 97.5 F L 63 19 156/76 H 95 12/18/17 08:23 12/18/17 08:23 12/18/17 08:23 12/18/17 08:23 12/18/17 08:23 - Medications Medications: Current Medications Acetaminophen (Tylenol 325mg Tab) 650 mg PO Q6 PRN PRN Reason: Pain, Mild (1-3) Acetaminophen (Tylenol 325mg Tab) 650 mg PO Q6 PRN PRN Reason: Fever >100.4 F Last Admin: 12/03/17 09:59 Dose: 650 mg Allopurinol (Zyloprim) 300 mg PO DAILY [facility] Last Admin: 12/17/17 09:23 Dose: 300 mg Amlodipine Besylate (Norvasc) 10 mg PO DAILY [facility] Last Admin: 12/17/17 09:22 Dose: 10 mg Amylase (Pancrease 89362 U-5000 U-11464 U) 5,000 unit PO TID [facility] Last Admin: 12/17/17 17:11 Dose: 5,000 unit Bacitracin (Bacitracin Oint) 1 applic TOP DAILY [facility] Last Admin: 12/17/17 09:18 Dose: 1 applic Clonidine HCl (Catapres) 0.1 mg PO Q8H [facility] Last Admin: 12/18/17 00:14 Dose: Not Given Docusate Sodium (Colace) 100 mg PO BID [facility] Last Admin: 12/17/17 17:10 Dose: 100 mg Gabapentin (Neurontin) 300 mg PO TID [facility] Last Admin: 12/17/17 17:11 Dose: 300 mg Gemfibrozil (Lopid) 600 mg PO BID [facility] Last Admin: 12/17/17 17:10 Dose: 600 mg HCTZ/Losartan Potassium (Hyzaar 12.5 Mg-50 Mg) 2 tab PO DAILY [facility] Last Admin: 12/17/17 09:20 Dose: 2 tab Vancomycin HCl 1 gm/ Sodium (Chloride) 250 mls @ 166.667 mls/hr IVPB Q12 [facility] PRN Reason: Protocol Last Admin: 12/04/17 17:31 Dose: Not Given Piperacillin Sod/Tazobactam (Sod 3.375 gm/ Sodium Chloride) 100 mls @ 100 mls/ hr IVPB Q8 [facility] PRN Reason: Protocol Last Admin: 12/18/17 00:24 Dose: 100 mls/hr Insulin Detemir (Levemir) 34 units SC HS [facility] Last Admin: 12/17/17 21:46 Dose: 34 u Insulin Human Lispro (Humalog) 0 units SC ACHS [facility] PRN Reason: Protocol Last Admin: 12/17/17 21:48 Dose: Not Given Insulin Human Lispro (Humalog) 8 units SC AC [facility] Last Admin: 12/17/17 17:11 Dose: 8 u Magnesium Hydroxide (Milk Of Magnesia) 15 ml PO DAILY [facility] Last Admin: 12/17/17 09:27 Dose: 15 ml Methadone HCl (Methadone) 150 mg PO DAILY [facility] Last Admin: 12/17/17 10:32 Dose: 150 mg Metoprolol Tartrate (Lopressor) 25 mg PO BID@0900,2100 [facility] Last Admin: 12/17/17 21:48 Dose: 25 mg Multivitamins/Minerals (Therapeutic-M Tab) 1 tab PO DAILY [facility] Last Admin: 12/17/17 09:23 Dose: 1 tab Ondansetron HCl (Zofran Inj) 4 mg IVP Q4 PRN PRN Reason: Nausea/Vomiting Last Admin: 12/03/17 06:57 Dose: 4 mg Probenecid (Probenecid) 500 mg PO DAILY [facility] Last Admin: 12/17/17 09:23 Dose: 500 mg Silver Sulfadiazine (Silvadene 1% 20 Gm) 1 ea TOP DAILY [facility] Last Admin: 12/17/17 12:39 Dose: 1 applic - Labs Labs: 12/16/17 06:00 12/16/17 06:00 - Constitutional Appears: No Acute Distress - Head Exam Head Exam: NORMOCEPHALIC - Eye Exam Eye Exam: Normal appearance - Respiratory Exam Respiratory Exam: Clear to Ausculation Bilateral, NORMAL BREATHING PATTERN. absent: Respiratory Distress - Cardiovascular Exam Cardiovascular Exam: REGULAR RHYTHM, +S1, +S2 - GI/Abdominal Exam GI & Abdominal Exam: Soft, Normal Bowel Sounds - Extremities Exam Extremities Exam: absent: Calf Tenderness Additional comments: Left limb AKA distal RLE in dressing: clean, dry, intact - Neurological Exam Neurological Exam: Alert, Awake, Oriented x3 - Psychiatric Exam Psychiatric exam: Agitated, Anxious Assessment and Plan - Assessment and Plan (Free Text) Assessment: 42 yr old M POD # 16 s/p amputation of 3rd digit-right foot for osteomylitis. PMHx includes IDDM type 2, CVA, HTN, HLD, hx of osteomyelitis s/p left AKA, methadone dependance. Pt was also treated for b/l pneumonia. Plan: - ID consult: 4 more days Augmentin 875 mg PO BID as per Dr. Newman - Podiatry: Wound dressed with Tefla, 4X4 and 2 inch WILNER. Sutures kept intact. Patient is stable from podiatry standpoint. Patient dressing will be changed every other day. - Pt placement pending case management. - Continue medications for HTN and IDDM as present. <Rojelio Lentz K - Last Filed: 12/19/17 20:08> Objective - Vital Signs/Intake and Output Vital Signs (last 24 hours): Temp Pulse Resp BP Pulse Ox 98.2 F 63 20 97/65 L 96 12/19/17 16:04 12/19/17 16:04 12/19/17 16:04 12/19/17 16:22 12/19/17 16:04 - Medications Medications: Current Medications Acetaminophen (Tylenol 325mg Tab) 650 mg PO Q6 PRN PRN Reason: Pain, Mild (1-3) Acetaminophen (Tylenol 325mg Tab) 650 mg PO Q6 PRN PRN Reason: Fever >100.4 F Last Admin: 12/03/17 09:59 Dose: 650 mg Allopurinol (Zyloprim) 300 mg PO DAILY [facility] Last Admin: 12/19/17 08:44 Dose: 300 mg Amlodipine Besylate (Norvasc) 10 mg PO DAILY [facility] Last Admin: 12/19/17 08:44 Dose: 10 mg Amylase (Pancrease 51607 U-5000 U-80990 U) 5,000 unit PO TID [facility] Last Admin: 12/19/17 16:27 Dose: 5,000 unit Bacitracin (Bacitracin Oint) 1 applic TOP DAILY [facility] Last Admin: 12/19/17 08:45 Dose: 1 applic Clonidine HCl (Catapres) 0.1 mg PO Q8H [facility] Last Admin: 12/19/17 16:22 Dose: Not Given Docusate Sodium (Colace) 100 mg PO BID [facility] Last Admin: 12/19/17 16:27 Dose: 100 mg Enoxaparin Sodium (Lovenox) 40 mg SC DAILY [facility] PRN Reason: Protocol Last Admin: 12/19/17 16:27 Dose: 40 mg Gabapentin (Neurontin) 300 mg PO TID [facility] Last Admin: 12/19/17 16:27 Dose: 300 mg Gemfibrozil (Lopid) 600 mg PO BID [facility] Last Admin: 12/19/17 16:27 Dose: 600 mg HCTZ/Losartan Potassium (Hyzaar 12.5 Mg-50 Mg) 2 tab PO DAILY [facility] Last Admin: 12/19/17 08:44 Dose: 2 tab Vancomycin HCl 1 gm/ Sodium (Chloride) 250 mls @ 166.667 mls/hr IVPB Q12 [facility] PRN Reason: Protocol Last Admin: 12/04/17 17:31 Dose: Not Given Piperacillin Sod/Tazobactam (Sod 3.375 gm/ Sodium Chloride) 100 mls @ 100 mls/ hr IVPB Q8 [facility] PRN Reason: Protocol Last Admin: 12/19/17 16:26 Dose: 100 mls/hr Insulin Detemir (Levemir) 40 units SC HS [facility] Insulin Human Lispro (Humalog) 0 units SC ACHS [facility] PRN Reason: Protocol Last Admin: 12/19/17 16:23 Dose: Not Given Insulin Human Lispro (Humalog) 10 units SC AC [facility] Last Admin: 12/19/17 16:28 Dose: 10 units Magnesium Hydroxide (Milk Of Magnesia) 15 ml PO DAILY [facility] Last Admin: 12/19/17 08:52 Dose: Not Given Methadone HCl (Methadone) 150 mg PO DAILY [facility] Last Admin: 12/19/17 08:42 Dose: 150 mg Metoprolol Tartrate (Lopressor) 25 mg PO BID@0900,2100 [facility] Last Admin: 12/19/17 08:45 Dose: 25 mg Multivitamins/Minerals (Therapeutic-M Tab) 1 tab PO DAILY [facility] Last Admin: 12/19/17 08:46 Dose: 1 tab Ondansetron HCl (Zofran Inj) 4 mg IVP Q4 PRN PRN Reason: Nausea/Vomiting Last Admin: 12/03/17 06:57 Dose: 4 mg Probenecid (Probenecid) 500 mg PO DAILY [facility] Last Admin: 12/19/17 08:44 Dose: 500 mg Silver Sulfadiazine (Silvadene 1% 20 Gm) 1 ea TOP DAILY [facility] Last Admin: 12/19/17 08:45 Dose: 1 applic - Labs Labs: 12/19/17 05:30 12/19/17 05:30 Assessment and Plan - Assessment and Plan (Free Text) Plan: Patient was personally seen and examined by me in rounds with residents. Available labs and diagnostic data reviewed. Case, Patient's condition and management plan discussed with residents in rounds. Agree with resident's progress note. Plan: As ordered.
[2017-12-18] MEDS: Bacitracin OINT 15GM TOP SCH (09:15)
[2017-12-18] MEDS: Insulin Lispro (humaLOG) 100 Units/ml Inj SC SCH ×7 (09:17→21:50)
[2017-12-18] MEDS: HCTZ/Losartan 12.5/50 Tab PO SCH (09:18)
[2017-12-18] MEDS: Magnesium Hydroxide Susp 30 ml UD PO SCH (09:19)
[2017-12-18] MEDS: Amylase/Lipase/Protease 5,000 Units ECC PO SCH ×3 (09:20→17:40)
[2017-12-18] MEDS: Silver Sulfadiazine 1% Cream (20 gm) TOP SCH (09:21)
[2017-12-18] MEDS: Multivitamin With Minerals Tab PO SCH (09:21)
--- NOTE | 2017-12-18 12:34 | CP.PCM.PN ---
Subjective - Date & Time of Evaluation Date of Evaluation: 12/18/17 Time of Evaluation: 09:00 - Subjective Subjective: afebrile alert fearful of going to halfway NAD Objective - Vital Signs/Intake and Output Vital Signs (last 24 hours): Temp Pulse Resp BP Pulse Ox 97.5 F L 87 19 139/65 95 12/18/17 08:23 12/18/17 09:20 12/18/17 08:23 12/18/17 09:20 12/18/17 08:23 - Medications Medications: Current Medications Acetaminophen (Tylenol 325mg Tab) 650 mg PO Q6 PRN PRN Reason: Pain, Mild (1-3) Acetaminophen (Tylenol 325mg Tab) 650 mg PO Q6 PRN PRN Reason: Fever >100.4 F Last Admin: 12/03/17 09:59 Dose: 650 mg Allopurinol (Zyloprim) 300 mg PO DAILY [facility] Last Admin: 12/18/17 09:21 Dose: 300 mg Amlodipine Besylate (Norvasc) 10 mg PO DAILY [facility] Last Admin: 12/18/17 09:20 Dose: 10 mg Amylase (Pancrease 06868 U-5000 [id number] U) 5,000 unit PO TID [facility] Last Admin: 12/18/17 09:20 Dose: 5,000 unit Bacitracin (Bacitracin Oint) 1 applic TOP DAILY [facility] Last Admin: 12/18/17 09:15 Dose: 1 applic Clonidine HCl (Catapres) 0.1 mg PO Q8H [facility] Last Admin: 12/18/17 09:15 Dose: Not Given Docusate Sodium (Colace) 100 mg PO BID [facility] Last Admin: 12/18/17 09:16 Dose: 100 mg Gabapentin (Neurontin) 300 mg PO TID [facility] Last Admin: 12/18/17 09:20 Dose: 300 mg Gemfibrozil (Lopid) 600 mg PO BID [facility] Last Admin: 12/18/17 09:18 Dose: 600 mg HCTZ/Losartan Potassium (Hyzaar 12.5 Mg-50 Mg) 2 tab PO DAILY [facility] Last Admin: 12/18/17 09:18 Dose: 2 tab Vancomycin HCl 1 gm/ Sodium (Chloride) 250 mls @ 166.667 mls/hr IVPB Q12 [facility] PRN Reason: Protocol Last Admin: 12/04/17 17:31 Dose: Not Given Piperacillin Sod/Tazobactam (Sod 3.375 gm/ Sodium Chloride) 100 mls @ 100 mls/ hr IVPB Q8 [facility] PRN Reason: Protocol Last Admin: 12/18/17 09:21 Dose: 100 mls/hr Insulin Detemir (Levemir) 34 units SC HS [facility] Last Admin: 12/17/17 21:46 Dose: 34 u Insulin Human Lispro (Humalog) 0 units SC ACHS [facility] PRN Reason: Protocol Last Admin: 12/18/17 09:17 Dose: Not Given Insulin Human Lispro (Humalog) 8 units SC AC [facility] Last Admin: 12/18/17 09:17 Dose: 8 u Magnesium Hydroxide (Milk Of Magnesia) 15 ml PO DAILY [facility] Last Admin: 12/18/17 09:19 Dose: 15 ml Methadone HCl (Methadone) 150 mg PO DAILY [facility] Last Admin: 12/18/17 09:31 Dose: 150 mg Metoprolol Tartrate (Lopressor) 25 mg PO BID@0900,2100 [facility] Last Admin: 12/18/17 09:18 Dose: 25 mg Multivitamins/Minerals (Therapeutic-M Tab) 1 tab PO DAILY [facility] Last Admin: 12/18/17 09:21 Dose: 1 tab Ondansetron HCl (Zofran Inj) 4 mg IVP Q4 PRN PRN Reason: Nausea/Vomiting Last Admin: 12/03/17 06:57 Dose: 4 mg Probenecid (Probenecid) 500 mg PO DAILY [facility] Last Admin: 12/18/17 09:20 Dose: 500 mg Silver Sulfadiazine (Silvadene 1% 20 Gm) 1 ea TOP DAILY [facility] Last Admin: 12/18/17 09:21 Dose: 1 applic - Labs Labs: 12/16/17 06:00 12/16/17 06:00 - Constitutional Appears: Non-toxic, Chronically Ill - Head Exam Head Exam: NORMOCEPHALIC - Eye Exam Eye Exam: PERRL - ENT Exam ENT Exam: Mucous Membranes Dry - Neck Exam Neck Exam: absent: Lymphadenopathy, Thyromegaly - Respiratory Exam Respiratory Exam: Decreased Breath Sounds - Cardiovascular Exam Cardiovascular Exam: REGULAR RHYTHM - GI/Abdominal Exam GI & Abdominal Exam: Distended, Soft - Rectal Exam Rectal Exam: Deferred - Exam Exam: NORMAL INSPECTION - Extremities Exam Extremities Exam: Pedal Edema - Back Exam Back Exam: absent: CVA tenderness (L), CVA tenderness (R) Assessment and Plan (1) Osteomyelitis Status: Acute - Assessment and Plan (Free Text) Assessment: d/c on augmentin follow up CXR
[2017-12-18] MEDS ORDERED: Insulin Detemir 100 Units/ml Inj SC SCH (13:15)
--- NOTE | 2017-12-18 17:34 | CP.PCM.PN ---
Subjective - Date & Time of Evaluation Date of Evaluation: 12/18/17 Time of Evaluation: 17:31 - Subjective Subjective: Podiatry progress note for attending Dr. Rose, 42 y/o male patient seen and evaluated at bedside 16 days s/p right 3rd digit partial amputation. Patient was resting comfortably in bed, and in no acute distress. Patient is AAO X 3. Patient denies any new trauma. Patient denies any other pedal complains. Patient denies any pain to the surgical site, Patient denies F/N/V/SOB/chills. Objective - Vital Signs/Intake and Output Vital Signs (last 24 hours): Temp Pulse Resp BP Pulse Ox 97.3 F L 68 19 108/67 95 12/18/17 15:58 12/18/17 15:59 12/18/17 15:58 12/18/17 15:59 12/18/17 15:58 Intake and Output: 12/18/17 12/18/17 06:59 18:59 Intake Total 100 Balance 100 - Medications Medications: Current Medications Acetaminophen (Tylenol 325mg Tab) 650 mg PO Q6 PRN PRN Reason: Pain, Mild (1-3) Acetaminophen (Tylenol 325mg Tab) 650 mg PO Q6 PRN PRN Reason: Fever >100.4 F Last Admin: 12/03/17 09:59 Dose: 650 mg Allopurinol (Zyloprim) 300 mg PO DAILY [facility] Last Admin: 12/18/17 09:21 Dose: 300 mg Amlodipine Besylate (Norvasc) 10 mg PO DAILY [facility] Last Admin: 12/18/17 09:20 Dose: 10 mg Amylase (Pancrease 44664 U-5000 U-[id number] U) 5,000 unit PO TID [facility] Last Admin: 12/18/17 12:51 Dose: 5,000 unit Bacitracin (Bacitracin Oint) 1 applic TOP DAILY [facility] Last Admin: 12/18/17 09:15 Dose: 1 applic Clonidine HCl (Catapres) 0.1 mg PO Q8H [facility] Last Admin: 12/18/17 15:59 Dose: Not Given Docusate Sodium (Colace) 100 mg PO BID [facility] Last Admin: 12/18/17 09:16 Dose: 100 mg Gabapentin (Neurontin) 300 mg PO TID [facility] Last Admin: 12/18/17 12:51 Dose: 300 mg Gemfibrozil (Lopid) 600 mg PO BID [facility] Last Admin: 12/18/17 09:18 Dose: 600 mg HCTZ/Losartan Potassium (Hyzaar 12.5 Mg-50 Mg) 2 tab PO DAILY [facility] Last Admin: 12/18/17 09:18 Dose: 2 tab Vancomycin HCl 1 gm/ Sodium (Chloride) 250 mls @ 166.667 mls/hr IVPB Q12 [facility] PRN Reason: Protocol Last Admin: 12/04/17 17:31 Dose: Not Given Piperacillin Sod/Tazobactam (Sod 3.375 gm/ Sodium Chloride) 100 mls @ 100 mls/ hr IVPB Q8 [facility] PRN Reason: Protocol Last Admin: 12/18/17 09:21 Dose: 100 mls/hr Insulin Detemir (Levemir) 36 units SC HS [facility] Insulin Human Lispro (Humalog) 0 units SC ACHS [facility] PRN Reason: Protocol Last Admin: 12/18/17 12:52 Dose: Not Given Insulin Human Lispro (Humalog) 8 units SC AC [facility] Last Admin: 12/18/17 12:51 Dose: 8 u Magnesium Hydroxide (Milk Of Magnesia) 15 ml PO DAILY [facility] Last Admin: 12/18/17 09:19 Dose: 15 ml Methadone HCl (Methadone) 150 mg PO DAILY [facility] Last Admin: 12/18/17 09:31 Dose: 150 mg Metoprolol Tartrate (Lopressor) 25 mg PO BID@0900,2100 [facility] Last Admin: 12/18/17 09:18 Dose: 25 mg Multivitamins/Minerals (Therapeutic-M Tab) 1 tab PO DAILY [facility] Last Admin: 12/18/17 09:21 Dose: 1 tab Ondansetron HCl (Zofran Inj) 4 mg IVP Q4 PRN PRN Reason: Nausea/Vomiting Last Admin: 12/03/17 06:57 Dose: 4 mg Probenecid (Probenecid) 500 mg PO DAILY [facility] Last Admin: 12/18/17 09:20 Dose: 500 mg Silver Sulfadiazine (Silvadene 1% 20 Gm) 1 ea TOP DAILY [facility] Last Admin: 12/18/17 09:21 Dose: 1 applic - Labs Labs: 12/16/17 06:00 12/16/17 06:00 - Constitutional Appears: Well, Non-toxic, No Acute Distress - Head Exam Head Exam: ATRAUMATIC, NORMOCEPHALIC - Extremities Exam Additional comments: Right Lower Extremity focused Exam: Vasc: DP/PT 2/4, CFT less than 3 seconds in all digits, Temp. gradient warm to cool proximal to distal, no edema noted to the surgical site Neuro: gross sensation intact, protective sensation diminished DERM: Surgical site looks dry and clean. sutures to the surgical site are intact , no dehiscence, no drainage, no malodor, no erythema,no fluctuance, no edema, no clinical signs of infection. Dorsal medial hyperkeratotic lesion noted at the PIPJ, no open lesions, no clinical signs of infection MSK: pain on palpation to the 3rd digit amputation site, pain to the lateral aspect of the 2nd digit. - Neurological Exam Neurological Exam: Alert, Awake, Oriented x3 - Psychiatric Exam Psychiatric exam: Normal Affect, Normal Mood - Skin Skin Exam: Normal Color Assessment and Plan - Assessment and Plan (Free Text) Assessment: 42 y/o male 16 days s/p partial 3rd digit amputation Plan: Patient seen and evaluated at bedside Plan discussed with attending, Dr. Rose Charts, labs and vitals reviewed- patient afebrile Wound dressed with Telfa, 4X4 and 2 inch WILNER Sutures kept intact Patient tolerated the dressing well Podiatry plan: Patient is stable from podiatry standpoint As per case management, patient pending discharge to a correctional facility where proper wound care management can take place Patient dressing will be changed QOD Podiatry will continue to follow patient in-house
--- NOTE | 2017-12-18 18:04 | PN ---
DATE: 12/18/2017 ENDO FOLLOWUP NOTE LOCATION: In room 659. SUBJECTIVE: This is a 42-year-old male with recent uncontrolled type 2 insulin-requiring diabetes, now being followed closely for metabolic management. His glycemic levels are fluctuating, but improved and the latest glucose levels have ranged from 184 to 201 and 236 mg/dL. His latest chemistries showed a BUN of 29, sodium 138, potassium 4.9, chloride 100, CO2 of 28, glucose 181, and creatinine 1.1. PLAN OF MANAGEMENT: So at this time we will modify once again his basal and bolus insulin regimen and increase the Levemir to 36 units subcu at bedtime daily to start tonight. We will continue the low-dose correction scale using Humalog insulin as given. We will also continue the Humalog given as 8 units subcu t.i.d. before meals as ordered. We will titrate incrementally as indicated to optimize metabolic control. We will obtain serial chemistries and supplement accordingly as needed. We will follow. Gaye Llamas MD
[2017-12-19] MEDS: Piperacillin/Tazobact 3.375 GM in Sodium Chloride 0.9% 100 ML IVPB SCH ×3 (00:25→16:26)
[2017-12-19 06:01] LABS: BASO # 0.1 K/uL (0.0-0.2); EOS # 0.1 K/uL (0.0-0.7); EOS % 2.1 % (0.0-4.0); HEMOGLOBIN 10.5 g/dL (12.0-18.0); LYMPH # 2.1 K/uL (1.0-4.3); LYMPH % 32.1 % (20.0-40.0); MEAN CORPUSCULAR HEMOGLOBIN 28.1 pg (27.0-31.0); MEAN CORPUSCULAR HGB CONC 33.5 g/dL (33.0-37.0); MEAN PLATELET VOLUME 8.5 fl (7.2-11.7); MONO # 0.5 K/uL (0.0-0.8); MONO % 7.2 % (0.0-10.0); NEUT # 3.7 K/uL (1.8-7.0); NEUT % 57.6 % (50.0-75.0); NRBC % 0.1 % (0.0-0.0); RBC 3.73 Mil/uL (4.40-5.90); RED CELL DISTRIBUTION WIDTH 15.1 % (11.5-14.5); WHITE BLOOD COUNT 6.4 K/uL (4.8-10.8)
[2017-12-19 06:13] LABS: ALB/GLOB RATIO 0.9 (1.0-2.1); ALBUMIN 3.6 g/dL (3.5-5.0); ALT/SGPT 23 U/L (21-72); AST/SGOT 25 U/L (17-59); BLOOD UREA NITROGEN 33 mg/dl (9-20); CALCIUM 9.8 mg/dL (8.4-10.2); GFR AFRICAN-AMERICAN > 60; GFR NON-AFRICAN AMERICAN > 60
[2017-12-19] MEDS: Insulin Lispro (humaLOG) 100 Units/ml Inj SC SCH ×7 (06:58→21:45)
[2017-12-19] MEDS: Amylase/Lipase/Protease 5,000 Units ECC PO SCH ×3 (08:44→16:27)
[2017-12-19] MEDS: HCTZ/Losartan 12.5/50 Tab PO SCH (08:44)
[2017-12-19] MEDS: Silver Sulfadiazine 1% Cream (20 gm) TOP SCH (08:45)
[2017-12-19] MEDS: Bacitracin OINT 15GM TOP SCH (08:45)
[2017-12-19] MEDS: Multivitamin With Minerals Tab PO SCH (08:46)
[2017-12-19] MEDS: Magnesium Hydroxide Susp 30 ml UD PO SCH (08:52)
[2017-12-19] MEDS ORDERED: Sod Polystyrene Sulf 15 gm/60 ml Susp PO ONE (11:39)
--- NOTE | 2017-12-19 12:52 | RAD ---
Date of service: 12/19/2017 HISTORY: f/u pna COMPARISON: 12/13/2017 FINDINGS: LUNGS: No active pulmonary disease. PLEURA: No significant pleural effusion identified, no pneumothorax apparent. CARDIOVASCULAR: Normal. OSSEOUS STRUCTURES: No significant abnormalities. VISUALIZED UPPER ABDOMEN: Normal. OTHER FINDINGS: None. IMPRESSION: No active disease. No significant interval change compared to the prior examination(s).
--- NOTE | 2017-12-19 14:35 | PN ---
DATE: 12/19/2017 SUBJECTIVE: The patient is seen and examined. Interim events noted. Consults noted and appreciated. Podiatry and Infectious Disease followup and interventions noted and appreciated. The patient remains in regular medical floor. The patient feels okay. Pain is adequately . PHYSICAL EXAMINATION: GENERAL: The patient is in no acute distress. VITAL SIGNS: Stable. HEART: S1 and S2, normal and regular. LUNGS: Good bilateral . Rojelio Lentz MD
[2017-12-19] MEDS: Enoxaparin 40 mg Syringe SC SCH (16:27)
--- NOTE | 2017-12-19 19:20 | PN ---
DATE: 12/19/2017 ENDO FOLLOWUP NOTE LOCATION: In room 659. SUBJECTIVE: This is a 42-year-old male with recent uncontrolled type 2 insulin-requiring diabetes, now being followed closely for metabolic management. His glycemic levels are once again fluctuating at this time and are ranging from 232 to 379 mg/dL. It was 229 at bedtime last night. The chemistry showed a BUN of 33, sodium 138, potassium 5.3, chloride 100, CO2 of 28, glucose 228, and creatinine 1.1. He has ongoing IV antibiotic management for underlying lower extremity osteomyelitis as noted. PLAN OF MANAGEMENT: So at this time, we will modify once again his basal and bolus insulin regimen to optimize metabolic control. We will increase his Humalog to 10 units subcu t.i.d. before meals, to start at dinnertime today as ordered. We will also increase the Levemir to 40 units subcu at bedtime daily, to start tonight. We will titrate incrementally as indicated to optimize metabolic control. We will obtain serial chemistries and supplement accordingly as needed. We will follow with you. Gaye Llmaas MD
[2017-12-19] MEDS: Insulin Detemir 100 Units/ml Inj SC SCH (21:45)
[2017-12-20] MEDS: Piperacillin/Tazobact 3.375 GM in Sodium Chloride 0.9% 100 ML IVPB SCH ×3 (00:26→16:56)
[2017-12-20] MEDS: Enoxaparin 40 mg Syringe SC SCH (09:23)
[2017-12-20] MEDS: Amylase/Lipase/Protease 5,000 Units ECC PO SCH ×3 (09:23→16:58)
[2017-12-20] MEDS: HCTZ/Losartan 12.5/50 Tab PO SCH (09:24)
[2017-12-20] MEDS: Insulin Lispro (humaLOG) 100 Units/ml Inj SC SCH ×7 (09:24→22:00)
[2017-12-20] MEDS: Multivitamin With Minerals Tab PO SCH (09:25)
[2017-12-20] MEDS: Silver Sulfadiazine 1% Cream (20 gm) TOP SCH (09:25)
[2017-12-20] MEDS: Magnesium Hydroxide Susp 30 ml UD PO SCH (09:25)
[2017-12-20] MEDS: Bacitracin OINT 15GM TOP SCH (09:25)
--- NOTE | 2017-12-20 11:53 | CP.PCM.PN ---
Subjective - Date & Time of Evaluation Date of Evaluation: 12/20/17 Time of Evaluation: 09:00 - Subjective Subjective: improving Objective - Vital Signs/Intake and Output Vital Signs (last 24 hours): Temp Pulse Resp BP Pulse Ox 98.1 F 55 L 20 106/67 98 12/20/17 08:27 12/20/17 08:27 12/20/17 08:27 12/20/17 08:27 12/20/17 08:27 - Medications Medications: Current Medications Acetaminophen (Tylenol 325mg Tab) 650 mg PO Q6 PRN PRN Reason: Pain, Mild (1-3) Acetaminophen (Tylenol 325mg Tab) 650 mg PO Q6 PRN PRN Reason: Fever >100.4 F Last Admin: 12/03/17 09:59 Dose: 650 mg Allopurinol (Zyloprim) 300 mg PO DAILY [facility] Last Admin: 12/20/17 09:24 Dose: 300 mg Amlodipine Besylate (Norvasc) 10 mg PO DAILY [facility] Last Admin: 12/20/17 09:25 Dose: 10 mg Amylase (Pancrease 95417 U-5000 U-[id number] U) 5,000 unit PO TID [facility] Last Admin: 12/20/17 09:23 Dose: 5,000 unit Bacitracin (Bacitracin Oint) 1 applic TOP DAILY [facility] Last Admin: 12/20/17 09:25 Dose: 1 applic Clonidine HCl (Catapres) 0.1 mg PO Q8H [facility] Last Admin: 12/20/17 09:23 Dose: Not Given Docusate Sodium (Colace) 100 mg PO BID [facility] Last Admin: 12/20/17 09:23 Dose: 100 mg Enoxaparin Sodium (Lovenox) 40 mg SC DAILY [facility] PRN Reason: Protocol Last Admin: 12/20/17 09:23 Dose: 40 mg Gabapentin (Neurontin) 300 mg PO TID [facility] Last Admin: 12/20/17 09:24 Dose: 300 mg Gemfibrozil (Lopid) 600 mg PO BID [facility] Last Admin: 12/20/17 09:25 Dose: 600 mg HCTZ/Losartan Potassium (Hyzaar 12.5 Mg-50 Mg) 2 tab PO DAILY [facility] Last Admin: 12/20/17 09:24 Dose: 2 tab Vancomycin HCl 1 gm/ Sodium (Chloride) 250 mls @ 166.667 mls/hr IVPB Q12 [facility] PRN Reason: Protocol Last Admin: 12/04/17 17:31 Dose: Not Given Piperacillin Sod/Tazobactam (Sod 3.375 gm/ Sodium Chloride) 100 mls @ 100 mls/ hr IVPB Q8 [facility] PRN Reason: Protocol Last Admin: 12/20/17 09:22 Dose: 100 mls/hr Insulin Detemir (Levemir) 40 units SC HS [facility] Last Admin: 12/19/17 21:45 Dose: 40 unit Insulin Human Lispro (Humalog) 0 units SC ACHS [facility] PRN Reason: Protocol Last Admin: 12/20/17 09:24 Dose: Not Given Insulin Human Lispro (Humalog) 10 units SC AC [facility] Last Admin: 12/20/17 09:24 Dose: 10 units Magnesium Hydroxide (Milk Of Magnesia) 15 ml PO DAILY [facility] Last Admin: 12/20/17 09:25 Dose: Not Given Methadone HCl (Methadone) 150 mg PO DAILY [facility] Last Admin: 12/20/17 09:50 Dose: 150 mg Metoprolol Tartrate (Lopressor) 25 mg PO BID@0900,2100 [facility] Last Admin: 12/20/17 09:23 Dose: 25 mg Multivitamins/Minerals (Therapeutic-M Tab) 1 tab PO DAILY [facility] Last Admin: 12/20/17 09:25 Dose: 1 tab Ondansetron HCl (Zofran Inj) 4 mg IVP Q4 PRN PRN Reason: Nausea/Vomiting Last Admin: 12/03/17 06:57 Dose: 4 mg Probenecid (Probenecid) 500 mg PO DAILY [facility] Last Admin: 12/20/17 09:22 Dose: 500 mg Silver Sulfadiazine (Silvadene 1% 20 Gm) 1 ea TOP DAILY [facility] Last Admin: 12/20/17 09:25 Dose: Not Given - Labs Labs: 12/19/17 05:30 12/19/17 05:30 - Constitutional Appears: Non-toxic, Chronically Ill - Head Exam Head Exam: NORMOCEPHALIC - Eye Exam Eye Exam: PERRL - ENT Exam ENT Exam: Mucous Membranes Dry - Neck Exam Neck Exam: absent: Lymphadenopathy - Respiratory Exam Respiratory Exam: Decreased Breath Sounds - Cardiovascular Exam Cardiovascular Exam: REGULAR RHYTHM - GI/Abdominal Exam GI & Abdominal Exam: Distended - Rectal Exam Rectal Exam: Deferred - Exam Exam: NORMAL INSPECTION Assessment and Plan (1) Osteomyelitis Status: Acute - Assessment and Plan (Free Text) Assessment: d/c iv rx in am cont wound care
[2017-12-20 13:10] LABS: MEAN CELL VOLUME 83.8 fl (80.0-94.0); MEAN CORPUSCULAR HEMOGLOBIN 27.6 pg (27.0-31.0); MEAN CORPUSCULAR HGB CONC 32.9 g/dL (33.0-37.0); RBC 3.99 Mil/uL (4.40-5.90); RED CELL DISTRIBUTION WIDTH 15.1 % (11.5-14.5); WHITE BLOOD COUNT 7.3 K/uL (4.8-10.8)
[2017-12-20 13:24] LABS: ALB/GLOB RATIO 0.9 (1.0-2.1); ALBUMIN 3.8 g/dL (3.5-5.0); ALT/SGPT 20 U/L (21-72); AST/SGOT 36 U/L (17-59); BLOOD UREA NITROGEN 38 mg/dl (9-20); CALCIUM 9.8 mg/dL (8.4-10.2); GFR AFRICAN-AMERICAN > 60; GFR NON-AFRICAN AMERICAN > 60
--- NOTE | 2017-12-20 13:37 | CP.PCM.PN ---
<Khalida Cobos - Last Filed: 12/20/17 13:47> Subjective - Date & Time of Evaluation Date of Evaluation: 12/20/17 Time of Evaluation: 07:50 - Subjective Subjective: Pt examined this am with Dr. Lentz; pt dressed in own clothes, appears comfortable, but anxious about discharge planning. Did not offer additional new complaints. He has 2 police officers in the room. Objective - Vital Signs/Intake and Output Vital Signs (last 24 hours): Temp Pulse Resp BP Pulse Ox 98.1 F 55 L 20 106/67 98 12/20/17 08:27 12/20/17 08:27 12/20/17 08:27 12/20/17 08:27 12/20/17 08:27 - Medications Medications: Current Medications Acetaminophen (Tylenol 325mg Tab) 650 mg PO Q6 PRN PRN Reason: Pain, Mild (1-3) Acetaminophen (Tylenol 325mg Tab) 650 mg PO Q6 PRN PRN Reason: Fever >100.4 F Last Admin: 12/03/17 09:59 Dose: 650 mg Allopurinol (Zyloprim) 300 mg PO DAILY [facility] Last Admin: 12/20/17 09:24 Dose: 300 mg Amlodipine Besylate (Norvasc) 10 mg PO DAILY [facility] Last Admin: 12/20/17 09:25 Dose: 10 mg Amylase (Pancrease 39519 U-5000 U-[id number] U) 5,000 unit PO TID [facility] Last Admin: 12/20/17 13:10 Dose: 5,000 unit Bacitracin (Bacitracin Oint) 1 applic TOP DAILY [facility] Last Admin: 12/20/17 09:25 Dose: 1 applic Clonidine HCl (Catapres) 0.1 mg PO Q8H [facility] Last Admin: 12/20/17 09:23 Dose: Not Given Docusate Sodium (Colace) 100 mg PO BID [facility] Last Admin: 12/20/17 09:23 Dose: 100 mg Enoxaparin Sodium (Lovenox) 40 mg SC DAILY [facility] PRN Reason: Protocol Last Admin: 12/20/17 09:23 Dose: 40 mg Gabapentin (Neurontin) 300 mg PO TID [facility] Last Admin: 12/20/17 13:10 Dose: 300 mg Gemfibrozil (Lopid) 600 mg PO BID [facility] Last Admin: 12/20/17 09:25 Dose: 600 mg HCTZ/Losartan Potassium (Hyzaar 12.5 Mg-50 Mg) 2 tab PO DAILY [facility] Last Admin: 12/20/17 09:24 Dose: 2 tab Vancomycin HCl 1 gm/ Sodium (Chloride) 250 mls @ 166.667 mls/hr IVPB Q12 [facility] PRN Reason: Protocol Last Admin: 12/04/17 17:31 Dose: Not Given Piperacillin Sod/Tazobactam (Sod 3.375 gm/ Sodium Chloride) 100 mls @ 100 mls/ hr IVPB Q8 [facility] PRN Reason: Protocol Last Admin: 12/20/17 09:22 Dose: 100 mls/hr Insulin Detemir (Levemir) 40 units SC HS [facility] Last Admin: 12/19/17 21:45 Dose: 40 unit Insulin Human Lispro (Humalog) 0 units SC ACHS [facility] PRN Reason: Protocol Last Admin: 12/20/17 13:06 Dose: Not Given Insulin Human Lispro (Humalog) 10 units SC AC [facility] Last Admin: 12/20/17 13:08 Dose: 10 units Magnesium Hydroxide (Milk Of Magnesia) 15 ml PO DAILY [facility] Last Admin: 12/20/17 09:25 Dose: Not Given Methadone HCl (Methadone) 150 mg PO DAILY [facility] Last Admin: 12/20/17 09:50 Dose: 150 mg Metoprolol Tartrate (Lopressor) 25 mg PO BID@0900,2100 [facility] Last Admin: 12/20/17 09:23 Dose: 25 mg Multivitamins/Minerals (Therapeutic-M Tab) 1 tab PO DAILY [facility] Last Admin: 12/20/17 09:25 Dose: 1 tab Ondansetron HCl (Zofran Inj) 4 mg IVP Q4 PRN PRN Reason: Nausea/Vomiting Last Admin: 12/03/17 06:57 Dose: 4 mg Probenecid (Probenecid) 500 mg PO DAILY [facility] Last Admin: 12/20/17 09:22 Dose: 500 mg Silver Sulfadiazine (Silvadene 1% 20 Gm) 1 ea TOP DAILY [facility] Last Admin: 12/20/17 09:25 Dose: Not Given - Labs Labs: 12/20/17 13:01 12/20/17 13:01 - Constitutional Appears: No Acute Distress - Eye Exam Eye Exam: Normal appearance - Respiratory Exam Respiratory Exam: NORMAL BREATHING PATTERN. absent: Respiratory Distress Additional comments: good air movement - Cardiovascular Exam Cardiovascular Exam: REGULAR RHYTHM - Extremities Exam Additional comments: LLE AKA RLE: in dressing, clean dry - Neurological Exam Neurological Exam: Alert, Awake, Oriented x3 Assessment and Plan - Assessment and Plan (Free Text) Assessment: 42 yr old M POD s/p amputation of 3rd digit-right foot for osteomylitis > 2 weeks ago. PMHx includes IDDM type 2, CVA, HTN, HLD, hx of osteomyelitis s/p left AKA, methadone dependance. Pt was also treated for b/l pneumonia. Pt is under arrest and has 2 officers with him at all times. Plan: - ID consult: d/c antibiotics tomorrow morning - Podiatry: Wound dressed with Tefla, 4X4 and 2 inch WILNER. Patient is stable from podiatry standpoint. - Pt placement pending case managemen- patient pending discharge to a correctional facility where proper wound care management can take place - Continue medications for HTN and IDDM as present. <Rojelio Lentz K - Last Filed: 12/21/17 08:47> Objective - Vital Signs/Intake and Output Vital Signs (last 24 hours): Temp Pulse Resp BP Pulse Ox 98.1 F 70 19 121/69 96 12/21/17 01:00 12/21/17 01:00 12/21/17 01:00 12/21/17 01:00 12/21/17 01:00 - Medications Medications: Current Medications Acetaminophen (Tylenol 325mg Tab) 650 mg PO Q6 PRN PRN Reason: Pain, Mild (1-3) Acetaminophen (Tylenol 325mg Tab) 650 mg PO Q6 PRN PRN Reason: Fever >100.4 F Last Admin: 12/03/17 09:59 Dose: 650 mg Allopurinol (Zyloprim) 300 mg PO DAILY [facility] Last Admin: 12/20/17 09:24 Dose: 300 mg Amlodipine Besylate (Norvasc) 10 mg PO DAILY [facility] Last Admin: 12/20/17 09:25 Dose: 10 mg Amylase (Pancrease 06902 U-5000 [id number] U) 5,000 unit PO TID [facility] Last Admin: 12/20/17 16:58 Dose: 5,000 unit Bacitracin (Bacitracin Oint) 1 applic TOP DAILY [facility] Last Admin: 12/20/17 09:25 Dose: 1 applic Clonidine HCl (Catapres) 0.1 mg PO Q8H [facility] Last Admin: 12/20/17 23:30 Dose: Not Given Docusate Sodium (Colace) 100 mg PO BID [facility] Last Admin: 12/20/17 16:57 Dose: 100 mg Enoxaparin Sodium (Lovenox) 40 mg SC DAILY [facility] PRN Reason: Protocol Last Admin: 12/20/17 09:23 Dose: 40 mg Gabapentin (Neurontin) 300 mg PO TID [facility] Last Admin: 12/20/17 16:57 Dose: 300 mg Gemfibrozil (Lopid) 600 mg PO BID [facility] Last Admin: 12/20/17 16:57 Dose: 600 mg HCTZ/Losartan Potassium (Hyzaar 12.5 Mg-50 Mg) 2 tab PO DAILY [facility] Last Admin: 12/20/17 09:24 Dose: 2 tab Vancomycin HCl 1 gm/ Sodium (Chloride) 250 mls @ 166.667 mls/hr IVPB Q12 [facility] PRN Reason: Protocol Last Admin: 12/04/17 17:31 Dose: Not Given Piperacillin Sod/Tazobactam (Sod 3.375 gm/ Sodium Chloride) 100 mls @ 100 mls/ hr IVPB Q8 [facility] PRN Reason: Protocol Last Admin: 12/21/17 00:14 Dose: 100 mls/hr Insulin Detemir (Levemir) 40 units SC HS [facility] Last Admin: 12/20/17 21:48 Dose: 40 unit Insulin Human Lispro (Humalog) 0 units SC ACHS [facility] PRN Reason: Protocol Last Admin: 12/20/17 22:00 Dose: Not Given Insulin Human Lispro (Humalog) 10 units SC AC [facility] Last Admin: 12/20/17 16:56 Dose: 10 units Magnesium Hydroxide (Milk Of Magnesia) 15 ml PO DAILY [facility] Last Admin: 12/20/17 09:25 Dose: Not Given Methadone HCl (Methadone) 150 mg PO DAILY [facility] Last Admin: 12/20/17 09:50 Dose: 150 mg Metoprolol Tartrate (Lopressor) 25 mg PO BID@0900,2100 [facility] Last Admin: 12/20/17 21:49 Dose: 25 mg Multivitamins/Minerals (Therapeutic-M Tab) 1 tab PO DAILY [facility] Last Admin: 12/20/17 09:25 Dose: 1 tab Ondansetron HCl (Zofran Inj) 4 mg IVP Q4 PRN PRN Reason: Nausea/Vomiting Last Admin: 12/03/17 06:57 Dose: 4 mg Probenecid (Probenecid) 500 mg PO DAILY [facility] Last Admin: 12/20/17 09:22 Dose: 500 mg Silver Sulfadiazine (Silvadene 1% 20 Gm) 1 ea TOP DAILY [facility] Last Admin: 12/20/17 09:25 Dose: Not Given - Labs Labs: 12/20/17 13:01 12/20/17 13:01 Assessment and Plan - Assessment and Plan (Free Text) Plan: Patient was personally seen and examined by me in rounds with residents. Available labs and diagnostic data reviewed. Case, Patient's condition and management plan discussed with residents in rounds. Agree with resident's progress note. Plan: As ordered.
[2017-12-20] MEDS ORDERED: Sod Polystyrene Sulf 15 gm/60 ml Susp PO ONE (13:45)
--- NOTE | 2017-12-20 13:56 | PN ---
DATE: 12/20/2017 ENDO FOLLOWUP NOTE LOCATION: In room 659. SUBJECTIVE: This is a 42-year-old male with recent uncontrolled type 2 insulin-requiring diabetes, currently receiving IV antibiotics for lower extremity osteomyelitis and is being followed closely for metabolic management. His glycemic levels are fluctuating as noted overnight and have ranged from 211 to 220 and 262 mg/dL. His latest chemistry showed a BUN of 33, sodium 138, potassium 5.3, chloride 100, CO2 of 28, glucose 228, and creatinine 1.1. ASSESSMENT AND PLAN: So at this time, we will continue the modified basal and bolus insulin regimen undertaken with Humalog given as 10 units subcutaneously t.i.d. before meals as ordered. We will also continue the Levemir given as 40 units subcutaneously at bedtime daily as given. We will obtain serial chemistries and supplement accordingly needed. We will follow. Gaye Llamas MD
--- NOTE | 2017-12-20 17:44 | CP.PCM.PN ---
Subjective - Date & Time of Evaluation Date of Evaluation: 12/20/17 Time of Evaluation: 17:42 - Subjective Subjective: Podiatry progress note for attending Dr. Rose, 42 y/o male patient seen and evaluated at bedside 18 days s/p right 3rd digit partial amputation. Patient was resting comfortably in bed, and in no acute distress. Patient is AAO X 3. Patient denies any new trauma. Patient denies any other pedal complains. Patient complains of pain today due to accessive ambulation. Patient denies F/N/V/SOB/chills. Objective - Vital Signs/Intake and Output Vital Signs (last 24 hours): Temp Pulse Resp BP Pulse Ox 98 F 63 20 103/68 95 12/20/17 16:24 12/20/17 16:24 12/20/17 16:24 12/20/17 16:32 12/20/17 16:24 - Medications Medications: Current Medications Acetaminophen (Tylenol 325mg Tab) 650 mg PO Q6 PRN PRN Reason: Pain, Mild (1-3) Acetaminophen (Tylenol 325mg Tab) 650 mg PO Q6 PRN PRN Reason: Fever >100.4 F Last Admin: 12/03/17 09:59 Dose: 650 mg Allopurinol (Zyloprim) 300 mg PO DAILY [facility] Last Admin: 12/20/17 09:24 Dose: 300 mg Amlodipine Besylate (Norvasc) 10 mg PO DAILY [facility] Last Admin: 12/20/17 09:25 Dose: 10 mg Amylase (Pancrease 83144 U-5000 U-47066 U) 5,000 unit PO TID [facility] Last Admin: 12/20/17 16:58 Dose: 5,000 unit Bacitracin (Bacitracin Oint) 1 applic TOP DAILY [facility] Last Admin: 12/20/17 09:25 Dose: 1 applic Clonidine HCl (Catapres) 0.1 mg PO Q8H [facility] Last Admin: 12/20/17 16:32 Dose: Not Given Docusate Sodium (Colace) 100 mg PO BID [facility] Last Admin: 12/20/17 16:57 Dose: 100 mg Enoxaparin Sodium (Lovenox) 40 mg SC DAILY [facility] PRN Reason: Protocol Last Admin: 12/20/17 09:23 Dose: 40 mg Gabapentin (Neurontin) 300 mg PO TID [facility] Last Admin: 12/20/17 16:57 Dose: 300 mg Gemfibrozil (Lopid) 600 mg PO BID [facility] Last Admin: 12/20/17 16:57 Dose: 600 mg HCTZ/Losartan Potassium (Hyzaar 12.5 Mg-50 Mg) 2 tab PO DAILY [facility] Last Admin: 12/20/17 09:24 Dose: 2 tab Vancomycin HCl 1 gm/ Sodium (Chloride) 250 mls @ 166.667 mls/hr IVPB Q12 [facility] PRN Reason: Protocol Last Admin: 12/04/17 17:31 Dose: Not Given Piperacillin Sod/Tazobactam (Sod 3.375 gm/ Sodium Chloride) 100 mls @ 100 mls/ hr IVPB Q8 [facility] PRN Reason: Protocol Last Admin: 12/20/17 16:56 Dose: 100 mls/hr Insulin Detemir (Levemir) 40 units SC HS [facility] Last Admin: 12/19/17 21:45 Dose: 40 unit Insulin Human Lispro (Humalog) 0 units SC ACHS [facility] PRN Reason: Protocol Last Admin: 12/20/17 16:45 Dose: Not Given Insulin Human Lispro (Humalog) 10 units SC AC [facility] Last Admin: 12/20/17 16:56 Dose: 10 units Magnesium Hydroxide (Milk Of Magnesia) 15 ml PO DAILY [facility] Last Admin: 12/20/17 09:25 Dose: Not Given Methadone HCl (Methadone) 150 mg PO DAILY [facility] Last Admin: 12/20/17 09:50 Dose: 150 mg Metoprolol Tartrate (Lopressor) 25 mg PO BID@0900,2100 [facility] Last Admin: 12/20/17 09:23 Dose: 25 mg Multivitamins/Minerals (Therapeutic-M Tab) 1 tab PO DAILY [facility] Last Admin: 12/20/17 09:25 Dose: 1 tab Ondansetron HCl (Zofran Inj) 4 mg IVP Q4 PRN PRN Reason: Nausea/Vomiting Last Admin: 12/03/17 06:57 Dose: 4 mg Probenecid (Probenecid) 500 mg PO DAILY [facility] Last Admin: 12/20/17 09:22 Dose: 500 mg Silver Sulfadiazine (Silvadene 1% 20 Gm) 1 ea TOP DAILY [facility] Last Admin: 12/20/17 09:25 Dose: Not Given - Labs Labs: 12/20/17 13:01 12/20/17 13:01 - Constitutional Appears: Well, Non-toxic, No Acute Distress - Head Exam Head Exam: ATRAUMATIC, NORMOCEPHALIC - Extremities Exam Additional comments: Right Lower Extremity focused Exam: Vasc: DP/PT 2/4, CFT less than 3 seconds in all digits, Temp. gradient warm to cool proximal to distal, no edema noted to the surgical site Neuro: gross sensation intact, protective sensation diminished DERM: Surgical site looks dry and clean. sutures to the surgical site are intact , no dehiscence, no drainage, no malodor, no erythema,no fluctuance, no edema, no clinical signs of infection. Dorsal medial hyperkeratotic lesion noted at the PIPJ, no open lesions, no clinical signs of infection MSK: pain on palpation to the 3rd digit amputation site, pain to the lateral aspect of the 2nd digit. - Neurological Exam Neurological Exam: Alert, Awake, Oriented x3 - Psychiatric Exam Psychiatric exam: Normal Affect, Normal Mood Assessment and Plan - Assessment and Plan (Free Text) Assessment: 42 y/o male 18 days s/p partial 3rd digit amputation Plan: Patient seen and evaluated at bedside Plan discussed with attending, Dr. Rose Charts, labs and vitals reviewed- patient afebrile Wound dressed with gauze, paper tape and 4 inch WILNER Sutures kept intact Patient tolerated the dressing well Podiatry plan: Patient is stable from podiatry standpoint As per case management, patient pending discharge to a correctional facility where proper wound care management can take place Patient dressing will be changed QOD Podiatry will continue to follow patient in-house
[2017-12-20] MEDS: Insulin Detemir 100 Units/ml Inj SC SCH (21:48)
[2017-12-21] MEDS: Piperacillin/Tazobact 3.375 GM in Sodium Chloride 0.9% 100 ML IVPB SCH ×3 (00:14→17:44)
[2017-12-21] MEDS: Insulin Lispro (humaLOG) 100 Units/ml Inj SC SCH ×7 (08:30→22:00)
[2017-12-21] MEDS: Multivitamin With Minerals Tab PO SCH (09:32)
[2017-12-21] MEDS: Amylase/Lipase/Protease 5,000 Units ECC PO SCH ×3 (09:32→17:46)
[2017-12-21] MEDS: HCTZ/Losartan 12.5/50 Tab PO SCH (09:35)
[2017-12-21] MEDS: Enoxaparin 40 mg Syringe SC SCH (09:35)
[2017-12-21] MEDS: Magnesium Hydroxide Susp 30 ml UD PO SCH (09:45)
[2017-12-21] MEDS: Silver Sulfadiazine 1% Cream (20 gm) TOP SCH (09:45)
[2017-12-21] MEDS: Bacitracin OINT 15GM TOP SCH (09:46)
--- NOTE | 2017-12-21 10:29 | PN ---
DATE: 12/21/2017 SUBJECTIVE: The patient is seen and examined. Interim events noted. Consults noted and appreciated. Gastroenterology followup and interventions noted and appreciated. The patient remains in regular medical floor. Feels much better, tolerated food well. No chest pain or shortness of breath. No abdominal pain or constipation. No diarrhea. PHYSICAL EXAMINATION: GENERAL: The patient is in no acute distress. VITAL SIGNS: Stable. HEART: S1 and S2, normal and regular. LUNGS: Good bilateral air exchange. ABDOMEN: Soft and nontender. No organomegaly. No fluid. Bowel sounds are plus and normal. No guarding. No rigidity. No rebound. EXTREMITIES: No edema. No calf swelling. No tenderness. No acute ischemia. 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 DIAGNOSTIC DATA: Available diagnostic data reviewed. ASSESSMENT AND PLAN: Overall, the patient's general medical condition is stable. We will discharge the patient home today. The patient will be followed up by primary care physician 00:58 medical. Case and plan also discussed with the patient about her OUTDOOR ADVENTURE GUIDES. Followup necessity because of normal CAT scan, which the patient understood. Rojelio Lentz MD
[2017-12-21 10:40] LABS: BLOOD UREA NITROGEN 37 mg/dl (9-20); CALCIUM 9.2 mg/dL (8.4-10.2); GFR AFRICAN-AMERICAN > 60; GFR NON-AFRICAN AMERICAN > 60
--- NOTE | 2017-12-21 10:56 | CP.PCM.PN ---
Subjective - Date & Time of Evaluation Date of Evaluation: 12/21/17 Time of Evaluation: 10:54 - Subjective Subjective: Podiatry progress note: Dr. Rose, 42 year old male patient seen and evaluated at bedside 19 days s/p right 3rd digit partial amputation. Patient was resting comfortably in bed, and in no acute distress. Patient is AAOx3 and appears in NAD. Patient denies any other pedal complains. Patient denies F/N/V/SOB/chills. Objective - Vital Signs/Intake and Output Vital Signs (last 24 hours): Temp Pulse Resp BP Pulse Ox 97.6 F 66 20 153/73 H 99 12/21/17 08:55 12/21/17 09:35 12/21/17 08:55 12/21/17 09:35 12/21/17 08:55 - Medications Medications: Current Medications Acetaminophen (Tylenol 325mg Tab) 650 mg PO Q6 PRN PRN Reason: Pain, Mild (1-3) Acetaminophen (Tylenol 325mg Tab) 650 mg PO Q6 PRN PRN Reason: Fever >100.4 F Last Admin: 12/03/17 09:59 Dose: 650 mg Allopurinol (Zyloprim) 300 mg PO DAILY [facility] Last Admin: 12/21/17 09:32 Dose: 300 mg Amlodipine Besylate (Norvasc) 10 mg PO DAILY [facility] Last Admin: 12/21/17 09:34 Dose: 10 mg Amylase (Pancrease 31705 U-5000 U-[id number] U) 5,000 unit PO TID [facility] Last Admin: 12/21/17 09:32 Dose: 5,000 unit Bacitracin (Bacitracin Oint) 1 applic TOP DAILY [facility] Last Admin: 12/21/17 09:46 Dose: 1 applic Clonidine HCl (Catapres) 0.1 mg PO Q8H [facility] Last Admin: 12/21/17 09:32 Dose: 0.1 mg Docusate Sodium (Colace) 100 mg PO BID [facility] Last Admin: 12/21/17 09:34 Dose: 100 mg Enoxaparin Sodium (Lovenox) 40 mg SC DAILY [facility] PRN Reason: Protocol Last Admin: 12/21/17 09:35 Dose: 40 mg Gabapentin (Neurontin) 300 mg PO TID [facility] Last Admin: 12/21/17 09:35 Dose: 300 mg Gemfibrozil (Lopid) 600 mg PO BID [facility] Last Admin: 12/20/17 16:57 Dose: 600 mg HCTZ/Losartan Potassium (Hyzaar 12.5 Mg-50 Mg) 2 tab PO DAILY [facility] Last Admin: 12/21/17 09:35 Dose: 2 tab Vancomycin HCl 1 gm/ Sodium (Chloride) 250 mls @ 166.667 mls/hr IVPB Q12 [facility] PRN Reason: Protocol Last Admin: 12/04/17 17:31 Dose: Not Given Piperacillin Sod/Tazobactam (Sod 3.375 gm/ Sodium Chloride) 100 mls @ 100 mls/ hr IVPB Q8 [facility] PRN Reason: Protocol Last Admin: 12/21/17 09:39 Dose: 100 mls/hr Insulin Detemir (Levemir) 40 units SC HS [facility] Last Admin: 12/20/17 21:48 Dose: 40 unit Insulin Human Lispro (Humalog) 0 units SC ACHS [facility] PRN Reason: Protocol Last Admin: 12/21/17 08:31 Dose: Not Given Insulin Human Lispro (Humalog) 10 units SC AC [facility]PL[facility] BY [facility] Last Admin: 12/21/17 08:30 Dose: 10 units Magnesium Hydroxide (Milk Of Magnesia) 15 ml PO DAILY [facility] Last Admin: 12/21/17 09:45 Dose: Not Given Methadone HCl (Methadone) 150 mg PO DAILY [facility] Last Admin: 12/21/17 09:36 Dose: 150 mg Metoprolol Tartrate (Lopressor) 25 mg PO BID@0900,2100 [facility] Last Admin: 12/21/17 09:35 Dose: 25 mg Multivitamins/Minerals (Therapeutic-M Tab) 1 tab PO DAILY [facility] Last Admin: 12/21/17 09:32 Dose: 1 tab Ondansetron HCl (Zofran Inj) 4 mg IVP Q4 PRN PRN Reason: Nausea/Vomiting Last Admin: 12/03/17 06:57 Dose: 4 mg Probenecid (Probenecid) 500 mg PO DAILY [facility] Last Admin: 12/21/17 09:35 Dose: 500 mg Silver Sulfadiazine (Silvadene 1% 20 Gm) 1 ea TOP DAILY [facility] Last Admin: 12/21/17 09:45 Dose: Not Given - Labs Labs: 12/20/17 13:01 12/21/17 09:50 - Constitutional Appears: Well, Non-toxic, No Acute Distress - Extremities Exam Additional comments: Right Lower Extremity focused Exam: Vasc: DP/PT 2/4, CFT less than 3 seconds in all digits, Temp. gradient warm to cool proximal to distal, no edema noted to the surgical site Neuro: gross sensation intact, protective sensation diminished DERM: Surgical site looks dry and clean. sutures to the surgical site are intact , no dehiscence, no drainage, no malodor, no erythema,no fluctuance, no edema, no clinical signs of infection. Dorsal medial hyperkeratotic lesion noted at the PIPJ, no open lesions, no clinical signs of infection MSK: pain on palpation to the 3rd digit amputation site, pain to the lateral aspect of the 2nd digit. - Neurological Exam Neurological Exam: Alert, Awake, Oriented x3 - Psychiatric Exam Psychiatric exam: Normal Affect, Normal Mood Assessment and Plan - Assessment and Plan (Free Text) Assessment: 42 year old male 19 days s/p partial 3rd digit amputation Plan: Patient seen and evaluated at bedside Plan discussed with attending, Dr. Rose Charts, labs and vitals reviewed- patient afebrile Wound dressed with gauze, paper tape and 4 inch WILNER Sutures kept intact Patient tolerated the dressing well Podiatry plan: Patient is stable from podiatry standpoint As per case management, patient pending discharge to a correctional facility where proper wound care management can take place Patient dressing will be changed QOD Podiatry will continue to follow patient in-house
[2017-12-21] MEDS ORDERED: Sod Polystyrene Sulf 15 gm/60 ml Susp PO ONE (14:00)
[2017-12-21] MEDS: Insulin Detemir 100 Units/ml Inj SC SCH (21:55)
[2017-12-22] MEDS: Amylase/Lipase/Protease 5,000 Units ECC PO SCH ×3 (08:35→16:42)
[2017-12-22] MEDS: Bacitracin OINT 15GM TOP SCH (08:36)
[2017-12-22] MEDS: Insulin Lispro (humaLOG) 100 Units/ml Inj SC SCH ×7 (08:37→21:49)
[2017-12-22] MEDS: Magnesium Hydroxide Susp 30 ml UD PO SCH (08:38)
[2017-12-22] MEDS: HCTZ/Losartan 12.5/50 Tab PO SCH (08:39)
[2017-12-22] MEDS: Enoxaparin 40 mg Syringe SC SCH (08:39)
[2017-12-22] MEDS: Multivitamin With Minerals Tab PO SCH (08:39)
[2017-12-22] MEDS: Silver Sulfadiazine 1% Cream (20 gm) TOP SCH (08:40)
--- NOTE | 2017-12-22 11:58 | CP.PCM.PN ---
Subjective - Date & Time of Evaluation Date of Evaluation: 12/22/17 Time of Evaluation: 07:00 - Subjective Subjective: seen and evaluated at bedside 19 days s/p right 3rd digit partial amputation. Objective - Vital Signs/Intake and Output Vital Signs (last 24 hours): Temp Pulse Resp BP Pulse Ox 97.5 F L 62 19 157/84 H 96 12/22/17 09:00 12/22/17 09:00 12/22/17 09:00 12/22/17 09:00 12/22/17 09:00 - Medications Medications: Current Medications Acetaminophen (Tylenol 325mg Tab) 650 mg PO Q6 PRN PRN Reason: Pain, Mild (1-3) Acetaminophen (Tylenol 325mg Tab) 650 mg PO Q6 PRN PRN Reason: Fever >100.4 F Last Admin: 12/03/17 09:59 Dose: 650 mg Allopurinol (Zyloprim) 300 mg PO DAILY [facility] Last Admin: 12/22/17 08:38 Dose: 300 mg Amlodipine Besylate (Norvasc) 10 mg PO DAILY [facility] Last Admin: 12/22/17 08:38 Dose: 10 mg Amylase (Pancrease 31644 U-5000 U-16714 U) 5,000 unit PO TID [facility] Last Admin: 12/22/17 08:35 Dose: 5,000 unit Bacitracin (Bacitracin Oint) 1 applic TOP DAILY [facility] Last Admin: 12/22/17 08:36 Dose: 1 applic Clonidine HCl (Catapres) 0.1 mg PO Q8H [facility] Last Admin: 12/22/17 08:35 Dose: 0.1 mg Docusate Sodium (Colace) 100 mg PO BID [facility] Last Admin: 12/22/17 08:36 Dose: 100 mg Gabapentin (Neurontin) 300 mg PO TID [facility] Last Admin: 12/22/17 08:38 Dose: 300 mg Gemfibrozil (Lopid) 600 mg PO BID [facility] Last Admin: 12/22/17 08:35 Dose: 600 mg HCTZ/Losartan Potassium (Hyzaar 12.5 Mg-50 Mg) 2 tab PO DAILY [facility] Last Admin: 12/22/17 08:39 Dose: 2 tab Vancomycin HCl 1 gm/ Sodium (Chloride) 250 mls @ 166.667 mls/hr IVPB Q12 [facility] PRN Reason: Protocol Last Admin: 12/04/17 17:31 Dose: Not Given Insulin Detemir (Levemir) 44 units SC HS [facility] Insulin Human Lispro (Humalog) 0 units SC ACHS [facility] PRN Reason: Protocol Last Admin: 12/22/17 08:37 Dose: Not Given Insulin Human Lispro (Humalog) 12 units SC AC [facility] Last Admin: 12/22/17 08:37 Dose: 12 units Magnesium Hydroxide (Milk Of Magnesia) 15 ml PO DAILY [facility] Last Admin: 12/22/17 08:38 Dose: Not Given Methadone HCl (Methadone) 150 mg PO DAILY [facility] Last Admin: 12/22/17 09:15 Dose: 150 mg Metoprolol Tartrate (Lopressor) 25 mg PO BID@0900,2100 [facility] Last Admin: 12/22/17 08:39 Dose: 25 mg Multivitamins/Minerals (Therapeutic-M Tab) 1 tab PO DAILY [facility] Last Admin: 12/22/17 08:39 Dose: 1 tab Ondansetron HCl (Zofran Inj) 4 mg IVP Q4 PRN PRN Reason: Nausea/Vomiting Last Admin: 12/03/17 06:57 Dose: 4 mg Probenecid (Probenecid) 500 mg PO DAILY [facility] Last Admin: 12/22/17 08:39 Dose: 500 mg Silver Sulfadiazine (Silvadene 1% 20 Gm) 1 ea TOP DAILY [facility] Last Admin: 12/22/17 08:40 Dose: Not Given - Labs Labs: 12/20/17 13:01 12/21/17 09:50 - Constitutional Appears: Non-toxic, Chronically Ill - Head Exam Head Exam: NORMOCEPHALIC - Eye Exam Eye Exam: PERRL - ENT Exam ENT Exam: Mucous Membranes Dry - Neck Exam Neck Exam: absent: Lymphadenopathy - Respiratory Exam Respiratory Exam: Decreased Breath Sounds - Cardiovascular Exam Cardiovascular Exam: REGULAR RHYTHM - GI/Abdominal Exam GI & Abdominal Exam: Distended Assessment and Plan (1) Osteomyelitis Status: Acute - Assessment and Plan (Free Text) Assessment: seen and evaluated at bedside 19 days s/p right 3rd digit partial amputation. wound clean and dry
--- NOTE | 2017-12-22 12:02 | PN ---
DATE: 12/22/2017 ENDO FOLLOWUP NOTE SUBJECTIVE: This is a 42-year-old male with recent uncontrolled type 2 insulin-requiring diabetes now with higher glycemic fluctuations in the last 48 hours and glucose levels have ranged from 242 to 301 mg/dL. His latest chemistry showed a BUN of 37, sodium 136, potassium 5.5, chloride 101, CO2 of 27, glucose 266, and creatinine 1.2. So at this time, he is undergoing IV antibiotic management for lower extremity osteomyelitis as noted. Moreover, we will modify once again his basal and bolus insulin regimen and increase the Humalog to 12 units subcu t.i.d. before meals to start today. We will also increase the basal insulin with Levemir to be given at 44 units subcu at bedtime daily to start tonight. We will continue the low dose correction scale using Humalog insulin as given. We will obtain serial chemistries and supplement accordingly as needed. We will follow up with you. Gaye Llamas MD
--- NOTE | 2017-12-22 13:06 | PN ---
DATE: 12/22/2017 SUBJECTIVE: The patient seen and examined. Interim events noted. The patient remains in regular medical floor with police protection. The patient is sleeping, arousable. No specific new complaints. PHYSICAL EXAMINATION: GENERAL: The patient is in no acute distress. VITAL SIGNS: Stable. HEART: S1 and S2 normal. Regular. LUNGS: Good bilateral air exchange. ABDOMEN: Soft, nontender. EXTREMITIES: The patient is status post amputation. No edema. No calf swelling. No tenderness. No acute ischemia. Surgical site is clean. 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 DIAGNOSTIC DATA: Podiatry followup and interventions noted and appreciated. ASSESSMENT AND PLAN: Overall the patient is clinically stable. Plan as ordered. Rojelio Lentz MD
[2017-12-22 13:08] LABS: BLOOD UREA NITROGEN 40 mg/dl (9-20); CALCIUM 9.2 mg/dL (8.4-10.2); GFR AFRICAN-AMERICAN > 60; GFR NON-AFRICAN AMERICAN > 60
[2017-12-22] MEDS: Insulin Detemir 100 Units/ml Inj SC SCH (21:49)
--- NOTE | 2017-12-23 06:27 | CP.PCM.PN ---
Subjective - Date & Time of Evaluation Date of Evaluation: 12/23/17 Time of Evaluation: 06:23 - Subjective Subjective: Podiatry progress note for attending Dr. Rose, 42 year old male patient seen and evaluated at bedside 21 days s/p right 3rd digit partial amputation. Patient was resting comfortably in bed and in no acute distress. Patient is AAOx3. Patient denies any other pedal complains. Patient denies any overnight F/N/V/SOB/chills. Patient denies any overnight acute events. Objective - Vital Signs/Intake and Output Vital Signs (last 24 hours): Temp Pulse Resp BP Pulse Ox 98.9 F 70 19 110/65 96 12/23/17 00:00 12/23/17 00:08 12/23/17 00:00 12/23/17 00:08 12/23/17 00:00 - Medications Medications: Current Medications Acetaminophen (Tylenol 325mg Tab) 650 mg PO Q6 PRN PRN Reason: Pain, Mild (1-3) Acetaminophen (Tylenol 325mg Tab) 650 mg PO Q6 PRN PRN Reason: Fever >100.4 F Last Admin: 12/03/17 09:59 Dose: 650 mg Allopurinol (Zyloprim) 300 mg PO DAILY [facility] Last Admin: 12/22/17 08:38 Dose: 300 mg Amlodipine Besylate (Norvasc) 10 mg PO DAILY [facility] Last Admin: 12/22/17 08:38 Dose: 10 mg Amylase (Pancrease 79405 U-5000 U-[id number] U) 5,000 unit PO TID [facility] Last Admin: 12/22/17 16:42 Dose: 5,000 unit Bacitracin (Bacitracin Oint) 1 applic TOP DAILY [facility] Last Admin: 12/22/17 08:36 Dose: 1 applic Clonidine HCl (Catapres) 0.1 mg PO Q8H [facility] Last Admin: 12/23/17 00:08 Dose: Not Given Docusate Sodium (Colace) 100 mg PO BID [facility] Last Admin: 12/22/17 16:41 Dose: 100 mg Enoxaparin Sodium (Lovenox) 40 mg SC DAILY [facility] PRN Reason: Protocol Gabapentin (Neurontin) 300 mg PO TID [facility] Last Admin: 12/22/17 16:41 Dose: 300 mg Gemfibrozil (Lopid) 600 mg PO BID [facility] Last Admin: 12/22/17 16:42 Dose: 600 mg HCTZ/Losartan Potassium (Hyzaar 12.5 Mg-50 Mg) 2 tab PO DAILY [facility] Last Admin: 12/22/17 08:39 Dose: 2 tab Vancomycin HCl 1 gm/ Sodium (Chloride) 250 mls @ 166.667 mls/hr IVPB Q12 [facility] PRN Reason: Protocol Last Admin: 12/04/17 17:31 Dose: Not Given Insulin Detemir (Levemir) 44 units SC HS [facility] Last Admin: 12/22/17 21:49 Dose: 44 u Insulin Human Lispro (Humalog) 0 units SC ACHS [facility] PRN Reason: Protocol Last Admin: 12/22/17 21:49 Dose: Not Given Insulin Human Lispro (Humalog) 14 units SC AC [facility] Magnesium Hydroxide (Milk Of Magnesia) 15 ml PO DAILY [facility] Last Admin: 12/22/17 08:38 Dose: Not Given Methadone HCl (Methadone) 150 mg PO DAILY [facility] Last Admin: 12/22/17 09:15 Dose: 150 mg Metoprolol Tartrate (Lopressor) 25 mg PO BID@0900,2100 [facility] Last Admin: 12/22/17 21:49 Dose: 25 mg Multivitamins/Minerals (Therapeutic-M Tab) 1 tab PO DAILY [facility] Last Admin: 12/22/17 08:39 Dose: 1 tab Ondansetron HCl (Zofran Inj) 4 mg IVP Q4 PRN PRN Reason: Nausea/Vomiting Last Admin: 12/03/17 06:57 Dose: 4 mg Probenecid (Probenecid) 500 mg PO DAILY [facility] Last Admin: 12/22/17 08:39 Dose: 500 mg Silver Sulfadiazine (Silvadene 1% 20 Gm) 1 ea TOP DAILY [facility] Last Admin: 12/22/17 08:40 Dose: Not Given - Labs Labs: 12/20/17 13:01 12/22/17 12:50 - Constitutional Appears: Well, Non-toxic, No Acute Distress - Head Exam Head Exam: ATRAUMATIC, NORMOCEPHALIC - Extremities Exam Additional comments: Right Lower Extremity focused Exam: Vasc: DP/PT 2/4, CFT less than 3 seconds in all digits, Temp. gradient warm to cool proximal to distal, no edema noted to the surgical site Neuro: gross sensation intact, protective sensation diminished DERM: Surgical site looks dry and clean. sutures to the surgical site are intact , no dehiscence, no drainage, no malodor, no erythema,no fluctuance, no edema, no clinical signs of active bacterial infection. Dorsal medial hyperkeratotic lesion noted at the PIPJ without any open lesion. MSK: Mild pain on palpation to the 3rd digit amputation site, Mild pain to the lateral aspect of the 2nd digit. - Neurological Exam Neurological Exam: Alert, Awake, Oriented x3 - Psychiatric Exam Psychiatric exam: Normal Affect, Normal Mood Assessment and Plan - Assessment and Plan (Free Text) Assessment: 42 year old male 21 days s/p partial 3rd digit amputation Plan: Patient seen and evaluated at bedside Plan discussed with attending, Dr. Rose Charts, labs and vitals reviewed- patient afebrile Wound dressed with gauze, paper tape and 4 inch WILNER Sutures kept intact Patient tolerated the dressing well Podiatry plan: Patient is stable from podiatry standpoint As per case management, patient pending discharge to a correctional facility where proper wound care management can take place Patient dressing continue to be changed QOD Podiatry will continue to follow patient in-house
[2017-12-23] MEDS: Enoxaparin 40 mg Syringe SC SCH (08:42)
[2017-12-23] MEDS: Bacitracin OINT 15GM TOP SCH (08:44)
[2017-12-23] MEDS: Insulin Lispro (humaLOG) 100 Units/ml Inj SC SCH ×7 (08:45→22:30)
[2017-12-23] MEDS: Amylase/Lipase/Protease 5,000 Units ECC PO SCH ×3 (08:50→17:44)
[2017-12-23] MEDS: HCTZ/Losartan 12.5/50 Tab PO SCH (08:51)
[2017-12-23] MEDS: Magnesium Hydroxide Susp 30 ml UD PO SCH (08:52)
[2017-12-23] MEDS: Multivitamin With Minerals Tab PO SCH (08:53)
[2017-12-23] MEDS: Silver Sulfadiazine 1% Cream (20 gm) TOP SCH (08:54)
--- NOTE | 2017-12-23 09:19 | PN ---
DATE: 12/21/2017 ENDO FOLLOWUP NOTE LOCATION: Room 659. This is a 42-year-old male with recent uncontrolled type 2 insulin-requiring diabetes now being followed closely for metabolic management. His glycemic levels are fluctuating, but much improved at this time and the glucose levels have ranged from 211 to 220 mg/dL. His latest chemistry showed a BUN of 33, sodium 138, potassium 5.3, chloride 100, CO2 of 28, glucose 228 and creatinine 1.1. So at this time, we will continue the same modified basal and bolus insulin regimen as given with Humalog given as 10 units subcu t.i.d. before meals as ordered. We will continue the Levemir given as 40 units subcu at bedtime daily as given. We will titrate incrementally as indicated to optimize metabolic control. We will follow and advise accordingly. Gaye Llamas MD
--- NOTE | 2017-12-23 10:56 | PN ---
DATE: 09/23/2017 SUBJECTIVE: The patient seen and examined. Interim events noted. The patient remains in regular medical floor with police protection. The patient feels okay. Denies any specific complaints. No chest pain or shortness of breath. Podiatry followup and interventions noted and appreciated. PHYSICAL EXAMINATION: GENERAL: The patient is in no acute distress. VITAL SIGNS: Stable. HEART: S1 and S2. Normal and regular. LUNGS: Good bilateral air exchange. ABDOMEN: Soft, nontender. EXTREMITIES: The patient is status post amputation. Surgical site amputation is clean. No edema. No calf swelling. No tenderness. No acute ischemia. 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 DIAGNOSTIC DATA: Available diagnostic data reviewed. Potassium level is 5.2. ASSESSMENT AND PLAN: Overall, the patient's general medical condition is stable. Plan as ordered. Rojelio Lentz MD
--- NOTE | 2017-12-23 20:06 | PN ---
DATE: 12/23/2017 ENDO FOLLOWUP NOTE. LOCATION: In room 659. SUBJECTIVE: This is a 42-year-old male with underlying osteomyelitis of the lower extremities, currently receiving IV antibiotic management, is being followed closely also for metabolic management. His glycemic levels are fluctuating but improved, and the glucose levels overnight have ranged from 135 to 219 and 245 mg/dL. His latest chemistry showed a BUN of 40, sodium 138, potassium 5.2, chloride 104, CO2 of 26, glucose 277, and creatinine 1.3. PLAN: So, at this time, we will continue the same basal and bolus insulin regimen to allow for and keep him on the Humalog given 14 units subcu t.i.d. before meals to start today. We will also modify his basal insulin and increase the Levemir to 44 units subcu at bedtime daily to start tonight. We will titrate incrementally as indicated to optimize metabolic control. We will obtain serial chemistries and supplement accordingly as needed. We will follow. Gaye Llamas MD
[2017-12-23] MEDS: Insulin Detemir 100 Units/ml Inj SC SCH (22:35)
[2017-12-24] MEDS: Insulin Lispro (humaLOG) 100 Units/ml Inj SC SCH ×7 (08:59→22:30)
[2017-12-24] MEDS: Multivitamin With Minerals Tab PO SCH (09:00)
[2017-12-24] MEDS: Amylase/Lipase/Protease 5,000 Units ECC PO SCH ×3 (09:00→17:15)
[2017-12-24] MEDS: HCTZ/Losartan 12.5/50 Tab PO SCH (09:00)
[2017-12-24] MEDS: Magnesium Hydroxide Susp 30 ml UD PO SCH (09:01)
[2017-12-24] MEDS: Enoxaparin 40 mg Syringe SC SCH (09:02)
[2017-12-24] MEDS: Bacitracin OINT 15GM TOP SCH (09:02)
[2017-12-24] MEDS: Silver Sulfadiazine 1% Cream (20 gm) TOP SCH (09:03)
--- NOTE | 2017-12-24 10:42 | PN ---
DATE: 12/24/2017 SUBJECTIVE: The patient is seen and examined. Interim events noted. The patient remains in regular medical floor with police protection. The patient is sleepy and arousable. No specific issue reported. PHYSICAL EXAMINATION: GENERAL: The patient is in no acute distress. VITAL SIGNS: Stable. Physical exam is essentially unchanged. LABORATORY DATA: Available diagnostic data reviewed. Endocrinology followup and intervention noted and appreciated. ASSESSMENT AND PLAN: Overall, the patient's general medical condition is stable. The patient is awaiting discharge intervention. Plan as ordered. Rojelio Lentz MD
--- NOTE | 2017-12-24 19:28 | PN ---
DATE: 12/24/2017 ENDO FOLLOWUP NOTE LOCATION: In room 663. SUBJECTIVE: This is a 42-year-old male with recent uncontrolled type 2 insulin-requiring diabetes with marked hyperglycemic accelerations, currently on a higher dose regimen as modified thereof and is currently undergoing IV antibiotic management for osteomyelitis in the lower extremities. His glycemic levels today have improved overnight and have ranged from 92 to 135 and 178 mg/dL. ASSESSMENT AND PLAN: So at this time, we will continue the modified basal and bolus insulin regimen to allow for dose equilibration and keep him on the Humalog given as 14 units subcutaneously t.i.d. before meals as ordered. We will also continue the basal insulin given as Levemir at 44 units subcutaneously at bedtime daily as given. We will continue the low-dose correction scale using Humalog insulin as given. We will obtain serial chemistries and supplement accordingly as needed. We will follow. Gaye Llamas MD
[2017-12-24] MEDS: Insulin Detemir 100 Units/ml Inj SC SCH (22:59)
--- NOTE | 2017-12-25 07:57 | CP.PCM.PN ---
Subjective - Date & Time of Evaluation Date of Evaluation: 12/25/17 Time of Evaluation: 07:55 - Subjective Subjective: Podiatry progress note for attending Dr. Rose, 42 year old male patient seen and evaluated at bedside 23 days s/p right 3rd digit partial amputation. Patient was resting comfortably in bed and in no acute distress. Patient is AAOx3. Patient denies any other pedal complains. Patient denies any overnight N/V/F/C/SOB/CP/pain to posterior calf. Denies any acute events overnight. Objective - Vital Signs/Intake and Output Vital Signs (last 24 hours): Temp Pulse Resp BP Pulse Ox 97.7 F 68 18 120/70 98 12/25/17 00:10 12/25/17 00:10 12/25/17 00:10 12/25/17 00:10 12/25/17 00:10 - Medications Medications: Current Medications Acetaminophen (Tylenol 325mg Tab) 650 mg PO Q6 PRN PRN Reason: Pain, Mild (1-3) Acetaminophen (Tylenol 325mg Tab) 650 mg PO Q6 PRN PRN Reason: Fever >100.4 F Last Admin: 12/03/17 09:59 Dose: 650 mg Allopurinol (Zyloprim) 300 mg PO DAILY [facility] Last Admin: 12/24/17 09:00 Dose: 300 mg Amlodipine Besylate (Norvasc) 10 mg PO DAILY [facility] Last Admin: 12/24/17 09:01 Dose: 10 mg Amylase (Pancrease 15488 U-5000 U-[id number] U) 5,000 unit PO TID [facility] Last Admin: 12/24/17 17:15 Dose: 5,000 unit Bacitracin (Bacitracin Oint) 1 applic TOP DAILY [facility] Last Admin: 12/24/17 09:02 Dose: 1 applic Clonidine HCl (Catapres) 0.1 mg PO Q8H [facility] Last Admin: 12/25/17 00:00 Dose: Not Given Docusate Sodium (Colace) 100 mg PO BID [facility] Last Admin: 12/24/17 17:15 Dose: 100 mg Enoxaparin Sodium (Lovenox) 40 mg SC DAILY [facility] PRN Reason: Protocol Last Admin: 12/24/17 09:02 Dose: 40 mg Gabapentin (Neurontin) 300 mg PO TID [facility] Last Admin: 12/24/17 17:15 Dose: 300 mg Gemfibrozil (Lopid) 600 mg PO BID [facility] Last Admin: 12/24/17 17:14 Dose: 600 mg HCTZ/Losartan Potassium (Hyzaar 12.5 Mg-50 Mg) 2 tab PO DAILY [facility] Last Admin: 12/24/17 09:00 Dose: 2 tab Insulin Detemir (Levemir) 44 units SC HS [facility] Last Admin: 12/24/17 22:59 Dose: 44 u Insulin Human Lispro (Humalog) 0 units SC ACHS [facility] PRN Reason: Protocol Last Admin: 12/24/17 22:30 Dose: Not Given Insulin Human Lispro (Humalog) 14 units SC AC [facility] Last Admin: 12/24/17 17:15 Dose: 14 units Magnesium Hydroxide (Milk Of Magnesia) 15 ml PO DAILY [facility] Last Admin: 12/24/17 09:01 Dose: Not Given Methadone HCl (Methadone) 150 mg PO DAILY [facility] Last Admin: 12/24/17 08:56 Dose: 150 mg Metoprolol Tartrate (Lopressor) 25 mg PO BID@0900,2100 [facility] Last Admin: 12/24/17 22:06 Dose: 25 mg Multivitamins/Minerals (Therapeutic-M Tab) 1 tab PO DAILY [facility] Last Admin: 12/24/17 09:00 Dose: 1 tab Ondansetron HCl (Zofran Inj) 4 mg IVP Q4 PRN PRN Reason: Nausea/Vomiting Last Admin: 12/03/17 06:57 Dose: 4 mg Probenecid (Probenecid) 500 mg PO DAILY [facility] Last Admin: 12/24/17 09:00 Dose: 500 mg Silver Sulfadiazine (Silvadene 1% 20 Gm) 1 ea TOP DAILY [facility] Last Admin: 12/24/17 09:03 Dose: Not Given - Labs Labs: 12/20/17 13:01 12/22/17 12:50 - Constitutional Appears: Well, Non-toxic, No Acute Distress - Head Exam Head Exam: ATRAUMATIC, NORMOCEPHALIC - Back Exam Additional comments: Right Lower Extremity focused Exam: Vasc: DP/PT 2/4, CFT less than 3 seconds in all digits, Temp. gradient warm to cool proximal to distal, no edema noted to the surgical site Neuro: gross sensation intact, protective sensation diminished DERM: Surgical site dry and clean. sutures to the surgical site are intact, no dehiscence, no drainage, no malodor, no erythema,no fluctuance, no edema, no clinical signs of active bacterial infection. Dorsal medial hyperkeratotic lesion noted at the PIPJ, scabbed over. MSK: Mild pain on palpation to the 3rd digit amputation site, Mild pain to the lateral aspect of the 2nd digit. - Neurological Exam Neurological Exam: Alert, Awake, Oriented x3 - Psychiatric Exam Psychiatric exam: Normal Affect, Normal Mood Assessment and Plan - Assessment and Plan (Free Text) Assessment: 42 year old male 23 days s/p partial 3rd digit amputation Plan: Patient seen and evaluated at bedside Plan discussed with attending, Dr. Rose Charts, labs and vitals reviewed- patient afebrile Wound dressed with gauze, paper tape and 4 inch WILNER Sutures kept intact, will remove on date of discharge Patient tolerated the dressing well Podiatry plan: Patient is stable from podiatry standpoint As per case management, patient pending discharge to a correctional facility where proper wound care management can take place Patient dressing continue to be changed QOD Podiatry will continue to follow patient in-house
--- NOTE | 2017-12-25 08:04 | CP.PCM.PN ---
<Macy Barrett - Last Filed: 12/25/17 14:10> Subjective - Date & Time of Evaluation Date of Evaluation: 12/25/17 Time of Evaluation: 08:01 - Subjective Subjective: No acute overnight events. Pt is seen and examined this morning. Sleeping, no concerns at this time. 2 police officers present by bedside. Objective - Vital Signs/Intake and Output Vital Signs (last 24 hours): Temp Pulse Resp BP Pulse Ox 97.7 F 68 18 120/70 98 12/25/17 00:10 12/25/17 00:10 12/25/17 00:10 12/25/17 00:10 12/25/17 00:10 - Medications Medications: Current Medications Acetaminophen (Tylenol 325mg Tab) 650 mg PO Q6 PRN PRN Reason: Pain, Mild (1-3) Acetaminophen (Tylenol 325mg Tab) 650 mg PO Q6 PRN PRN Reason: Fever >100.4 F Last Admin: 12/03/17 09:59 Dose: 650 mg Allopurinol (Zyloprim) 300 mg PO DAILY [facility] Last Admin: 12/24/17 09:00 Dose: 300 mg Amlodipine Besylate (Norvasc) 10 mg PO DAILY [facility] Last Admin: 12/24/17 09:01 Dose: 10 mg Amylase (Pancrease 26369 U-5000 U-[id number] U) 5,000 unit PO TID [facility] Last Admin: 12/24/17 17:15 Dose: 5,000 unit Bacitracin (Bacitracin Oint) 1 applic TOP DAILY [facility] Last Admin: 12/24/17 09:02 Dose: 1 applic Clonidine HCl (Catapres) 0.1 mg PO Q8H [facility] Last Admin: 12/25/17 00:00 Dose: Not Given Docusate Sodium (Colace) 100 mg PO BID [facility] Last Admin: 12/24/17 17:15 Dose: 100 mg Enoxaparin Sodium (Lovenox) 40 mg SC DAILY [facility] PRN Reason: Protocol Last Admin: 12/24/17 09:02 Dose: 40 mg Gabapentin (Neurontin) 300 mg PO TID [facility] Last Admin: 12/24/17 17:15 Dose: 300 mg Gemfibrozil (Lopid) 600 mg PO BID [facility] Last Admin: 12/24/17 17:14 Dose: 600 mg HCTZ/Losartan Potassium (Hyzaar 12.5 Mg-50 Mg) 2 tab PO DAILY [facility] Last Admin: 12/24/17 09:00 Dose: 2 tab Insulin Detemir (Levemir) 44 units SC HS [facility] Last Admin: 12/24/17 22:59 Dose: 44 u Insulin Human Lispro (Humalog) 0 units SC ACHS [facility] PRN Reason: Protocol Last Admin: 12/24/17 22:30 Dose: Not Given Insulin Human Lispro (Humalog) 14 units SC AC [facility] Last Admin: 12/24/17 17:15 Dose: 14 units Magnesium Hydroxide (Milk Of Magnesia) 15 ml PO DAILY [facility] Last Admin: 12/24/17 09:01 Dose: Not Given Methadone HCl (Methadone) 150 mg PO DAILY [facility] Last Admin: 12/24/17 08:56 Dose: 150 mg Metoprolol Tartrate (Lopressor) 25 mg PO BID@0900,2100 [facility] Last Admin: 12/24/17 22:06 Dose: 25 mg Multivitamins/Minerals (Therapeutic-M Tab) 1 tab PO DAILY [facility] Last Admin: 12/24/17 09:00 Dose: 1 tab Ondansetron HCl (Zofran Inj) 4 mg IVP Q4 PRN PRN Reason: Nausea/Vomiting Last Admin: 12/03/17 06:57 Dose: 4 mg Probenecid (Probenecid) 500 mg PO DAILY [facility] Last Admin: 12/24/17 09:00 Dose: 500 mg Silver Sulfadiazine (Silvadene 1% 20 Gm) 1 ea TOP DAILY [facility] Last Admin: 12/24/17 09:03 Dose: Not Given - Labs Labs: 12/20/17 13:01 12/22/17 12:50 - Constitutional Appears: No Acute Distress - Head Exam Head Exam: NORMAL INSPECTION - ENT Exam ENT Exam: Mucous Membranes Moist - Respiratory Exam Respiratory Exam: Clear to Ausculation Bilateral. absent: Wheezes - Cardiovascular Exam Cardiovascular Exam: REGULAR RHYTHM, +S1, +S2 - GI/Abdominal Exam GI & Abdominal Exam: Soft, Normal Bowel Sounds. absent: Tenderness - Extremities Exam Additional comments: LLE amputated RLE in wound cover - Neurological Exam Neurological Exam: Alert, Awake Assessment and Plan (1) Osteomyelitis Status: Resolved (2) DM2 (diabetes mellitus, type 2) Status: Chronic (3) Hypertension Status: Chronic - Assessment and Plan (Free Text) Assessment: Assessment/Plan: 42 YO Male with PMHx of IDDM, CVA, HTN, HLD is admitted for osteomylitis. -blood work reviewed and VS stable -s/p IV abx for osteomylities -plan as ordered -awaiting discharge intervention and placement Pt seen and examined with Dr. Lentz <Rojelio Lentz - Last Filed: 12/25/17 14:26> Objective - Vital Signs/Intake and Output Vital Signs (last 24 hours): Temp Pulse Resp BP Pulse Ox 97.8 F 77 20 126/66 95 12/25/17 08:20 12/25/17 09:04 12/25/17 08:20 12/25/17 09:04 12/25/17 08:20 - Medications Medications: Current Medications Acetaminophen (Tylenol 325mg Tab) 650 mg PO Q6 PRN PRN Reason: Pain, Mild (1-3) Acetaminophen (Tylenol 325mg Tab) 650 mg PO Q6 PRN PRN Reason: Fever >100.4 F Last Admin: 12/03/17 09:59 Dose: 650 mg Allopurinol (Zyloprim) 300 mg PO DAILY [facility] Last Admin: 12/25/17 08:59 Dose: 300 mg Amlodipine Besylate (Norvasc) 10 mg PO DAILY [facility] Last Admin: 12/25/17 09:04 Dose: 10 mg Amylase (Pancrease 89471 U-5000 U-[id number] U) 5,000 unit PO TID [facility] Last Admin: 12/25/17 12:25 Dose: 5,000 unit Bacitracin (Bacitracin Oint) 1 applic TOP DAILY [facility] Last Admin: 12/25/17 08:54 Dose: Not Given Clonidine HCl (Catapres) 0.1 mg PO Q8H [facility] Last Admin: 12/25/17 09:04 Dose: Not Given Docusate Sodium (Colace) 100 mg PO BID [facility] Last Admin: 12/25/17 08:55 Dose: 100 mg Enoxaparin Sodium (Lovenox) 40 mg SC DAILY [facility] PRN Reason: Protocol Last Admin: 12/25/17 08:54 Dose: 40 mg Gabapentin (Neurontin) 300 mg PO TID [facility] Last Admin: 12/25/17 12:25 Dose: 300 mg Gemfibrozil (Lopid) 600 mg PO BID [facility] Last Admin: 12/25/17 08:59 Dose: 600 mg HCTZ/Losartan Potassium (Hyzaar 12.5 Mg-50 Mg) 2 tab PO DAILY [facility] Last Admin: 12/25/17 08:59 Dose: 2 tab Insulin Detemir (Levemir) 44 units SC HS [facility] Last Admin: 12/24/17 22:59 Dose: 44 u Insulin Human Lispro (Humalog) 0 units SC ACHS [facility] PRN Reason: Protocol Last Admin: 12/25/17 12:23 Dose: Not Given Insulin Human Lispro (Humalog) 14 units SC AC [facility] Last Admin: 12/25/17 12:24 Dose: 14 units Magnesium Hydroxide (Milk Of Magnesia) 15 ml PO DAILY [facility] Last Admin: 12/25/17 09:04 Dose: Not Given Methadone HCl (Methadone) 150 mg PO DAILY [facility] Last Admin: 12/25/17 08:55 Dose: 150 mg Metoprolol Tartrate (Lopressor) 25 mg PO BID@0900,2100 [facility] Last Admin: 12/25/17 08:59 Dose: 25 mg Multivitamins/Minerals (Therapeutic-M Tab) 1 tab PO DAILY [facility] Last Admin: 12/25/17 08:58 Dose: 1 tab Ondansetron HCl (Zofran Inj) 4 mg IVP Q4 PRN PRN Reason: Nausea/Vomiting Last Admin: 12/03/17 06:57 Dose: 4 mg Probenecid (Probenecid) 500 mg PO DAILY [facility] Last Admin: 12/25/17 08:58 Dose: 500 mg Silver Sulfadiazine (Silvadene 1% 20 Gm) 1 ea TOP DAILY [facility] Last Admin: 12/25/17 09:06 Dose: Not Given - Labs Labs: 12/20/17 13:01 12/22/17 12:50 Assessment and Plan - Assessment and Plan (Free Text) Assessment: Patient was personally seen and examined by me in rounds with residents. Available labs and diagnostic data reviewed. Case, Patient's condition and management plan discussed with residents in rounds. Agree with resident's progress note. Plan: As ordered.
[2017-12-25] MEDS: Enoxaparin 40 mg Syringe SC SCH (08:54)
[2017-12-25] MEDS: Bacitracin OINT 15GM TOP SCH (08:54)
[2017-12-25] MEDS: Insulin Lispro (humaLOG) 100 Units/ml Inj SC SCH ×7 (08:56→23:20)
[2017-12-25] MEDS: Amylase/Lipase/Protease 5,000 Units ECC PO SCH ×3 (08:58→16:23)
[2017-12-25] MEDS: Multivitamin With Minerals Tab PO SCH (08:58)
[2017-12-25] MEDS: HCTZ/Losartan 12.5/50 Tab PO SCH (08:59)
[2017-12-25] MEDS: Magnesium Hydroxide Susp 30 ml UD PO SCH (09:04)
[2017-12-25] MEDS: Silver Sulfadiazine 1% Cream (20 gm) TOP SCH (09:06)
--- NOTE | 2017-12-25 22:43 | PN ---
DATE: 12/25/2017 ENDO FOLLOWUP NOTE LOCATION: Room 663. SUBJECTIVE: This is a 42-year-old male with recent uncontrolled type 2 insulin-requiring diabetes, now being followed closely for metabolic management. His oral intake has been variable as noted with the nursing staff. His glycemic levels are fluctuating, but much improved at this time, and the latest glucose levels have ranged from 92 to 167 and 178 mg/dL. ASSESSMENT AND PLAN: So at this time, we will continue the same basal and bolus insulin regimen to allow for dose equilibration and keep him on the same dose of the Humalog given as 14 units subcu t.i.d. before meals as ordered. We will continue the Levemir given as 44 units subcu at bedtime daily as given. We will continue the low-dose correction scale using Humalog insulin as given to obviate hypoglycemia and detailed orders have been given. We will titrate incrementally as indicated to optimize metabolic control. We will obtain serial chemistries and supplement accordingly as needed. We will follow. Gaye Llamas MD
[2017-12-25] MEDS: Insulin Detemir 100 Units/ml Inj SC SCH (23:19)
[2017-12-26 06:39] LABS: BASO % 0.4 % (0.0-2.0); EOS # 0.2 K/uL (0.0-0.7); EOS % 2.5 % (0.0-4.0); HEMOGLOBIN 9.3 g/dL (12.0-18.0); LYMPH # 1.9 K/uL (1.0-4.3); LYMPH % 26.7 % (20.0-40.0); MEAN CELL VOLUME 84.3 fl (80.0-94.0); MEAN CORPUSCULAR HEMOGLOBIN 28.1 pg (27.0-31.0); MEAN CORPUSCULAR HGB CONC 33.4 g/dL (33.0-37.0); MEAN PLATELET VOLUME 9.1 fl (7.2-11.7); MONO # 0.6 K/uL (0.0-0.8); MONO % 8.5 % (0.0-10.0); NEUT # 4.3 K/uL (1.8-7.0); NEUT % 61.9 % (50.0-75.0); RBC 3.31 Mil/uL (4.40-5.90); RED CELL DISTRIBUTION WIDTH 15.4 % (11.5-14.5); WHITE BLOOD COUNT 6.9 K/uL (4.8-10.8)
[2017-12-26 06:42] LABS: BLOOD UREA NITROGEN 48 mg/dl (9-20); CALCIUM 9.2 mg/dL (8.4-10.2); GFR AFRICAN-AMERICAN > 60; GFR NON-AFRICAN AMERICAN > 60
--- NOTE | 2017-12-26 08:02 | CP.PCM.PN ---
<Macy Barrett - Last Filed: 12/26/17 12:48> Subjective - Date & Time of Evaluation Date of Evaluation: 12/26/17 Time of Evaluation: 08:00 - Subjective Subjective: No acute overnight events. Pt seen lying comfortably in bed. 2 police officers present by bedside. Objective - Vital Signs/Intake and Output Vital Signs (last 24 hours): Temp Pulse Resp BP Pulse Ox 97.9 F 65 20 135/81 97 12/26/17 07:35 12/26/17 07:35 12/26/17 07:35 12/26/17 07:35 12/26/17 07:35 - Medications Medications: Current Medications Acetaminophen (Tylenol 325mg Tab) 650 mg PO Q6 PRN PRN Reason: Pain, Mild (1-3) Acetaminophen (Tylenol 325mg Tab) 650 mg PO Q6 PRN PRN Reason: Fever >100.4 F Last Admin: 12/03/17 09:59 Dose: 650 mg Allopurinol (Zyloprim) 300 mg PO DAILY [facility] Last Admin: 12/25/17 08:59 Dose: 300 mg Amlodipine Besylate (Norvasc) 10 mg PO DAILY [facility] Last Admin: 12/25/17 09:04 Dose: 10 mg Amylase (Pancrease 90925 U-5000 U-99449 U) 5,000 unit PO TID [facility] Last Admin: 12/25/17 16:23 Dose: 5,000 unit Bacitracin (Bacitracin Oint) 1 applic TOP DAILY [facility] Last Admin: 12/25/17 08:54 Dose: Not Given Clonidine HCl (Catapres) 0.1 mg PO Q8H [facility] Last Admin: 12/25/17 23:26 Dose: 0.1 mg Docusate Sodium (Colace) 100 mg PO BID [facility] Last Admin: 12/25/17 16:20 Dose: 100 mg Enoxaparin Sodium (Lovenox) 40 mg SC DAILY [facility] PRN Reason: Protocol Last Admin: 12/25/17 08:54 Dose: 40 mg Gabapentin (Neurontin) 300 mg PO TID [facility] Last Admin: 12/25/17 16:23 Dose: 300 mg Gemfibrozil (Lopid) 600 mg PO BID [facility] Last Admin: 12/25/17 08:59 Dose: 600 mg HCTZ/Losartan Potassium (Hyzaar 12.5 Mg-50 Mg) 2 tab PO DAILY [facility] Last Admin: 12/25/17 08:59 Dose: 2 tab Insulin Detemir (Levemir) 44 units SC HS [facility] Last Admin: 12/25/17 23:19 Dose: 44 u Insulin Human Lispro (Humalog) 0 units SC ACHS [facility] PRN Reason: Protocol Last Admin: 12/25/17 23:20 Dose: Not Given Insulin Human Lispro (Humalog) 14 units SC AC [facility] Last Admin: 12/25/17 16:22 Dose: 14 units Magnesium Hydroxide (Milk Of Magnesia) 15 ml PO DAILY [facility] Last Admin: 12/25/17 09:04 Dose: Not Given Methadone HCl (Methadone) 150 mg PO DAILY [facility] Last Admin: 12/25/17 08:55 Dose: 150 mg Metoprolol Tartrate (Lopressor) 25 mg PO BID@0900,2100 [facility] Last Admin: 12/25/17 21:26 Dose: 25 mg Multivitamins/Minerals (Therapeutic-M Tab) 1 tab PO DAILY [facility] Last Admin: 12/25/17 08:58 Dose: 1 tab Ondansetron HCl (Zofran Inj) 4 mg IVP Q4 PRN PRN Reason: Nausea/Vomiting Last Admin: 12/03/17 06:57 Dose: 4 mg Probenecid (Probenecid) 500 mg PO DAILY [facility] Last Admin: 12/25/17 08:58 Dose: 500 mg Silver Sulfadiazine (Silvadene 1% 20 Gm) 1 ea TOP DAILY [facility] Last Admin: 12/25/17 09:06 Dose: Not Given - Labs Labs: 12/26/17 05:30 12/26/17 05:30 - Constitutional Appears: No Acute Distress - ENT Exam ENT Exam: Mucous Membranes Moist - Extremities Exam Extremities Exam: Normal Inspection. absent: Calf Tenderness, Pedal Edema Additional comments: LLE amputated RLE in wound cover Assessment and Plan (1) Osteomyelitis Status: Resolved (2) DM2 (diabetes mellitus, type 2) Status: Chronic (3) Hypertension Status: Chronic - Assessment and Plan (Free Text) Assessment: Assessment/Plan: 42 YO Male with PMHx of IDDM, CVA, HTN, HLD is admitted for osteomylitis. -blood work reviewed and VS stable -s/p IV abx for osteomylities -plan as ordered -awaiting discharge intervention and placement Pt seen and examined with Dr. Lentz <Rojelio Lentz - Last Filed: 12/29/17 19:25> Objective - Vital Signs/Intake and Output Vital Signs (last 24 hours): Temp Pulse Resp BP Pulse Ox 98.1 F 63 20 148/94 H 100 12/27/17 07:58 12/27/17 08:42 12/27/17 07:58 12/27/17 08:42 12/27/17 07:58 - Labs Labs: 12/26/17 05:30 12/26/17 05:30 Assessment and Plan - Assessment and Plan (Free Text) Assessment: Patient was personally seen and examined by me in rounds with residents. Available labs and diagnostic data reviewed. Case, Patient's condition and management plan discussed with residents in rounds. Agree with resident's progress note. Plan: As ordered.
[2017-12-26] MEDS: Bacitracin OINT 15GM TOP SCH (09:03)
[2017-12-26] MEDS: Magnesium Hydroxide Susp 30 ml UD PO SCH (09:04)
[2017-12-26] MEDS: Insulin Lispro (humaLOG) 100 Units/ml Inj SC SCH ×7 (09:08→22:44)
[2017-12-26] MEDS: Amylase/Lipase/Protease 5,000 Units ECC PO SCH ×3 (09:09→16:12)
[2017-12-26] MEDS: Enoxaparin 40 mg Syringe SC SCH (09:09)
[2017-12-26] MEDS: Multivitamin With Minerals Tab PO SCH (09:10)
[2017-12-26] MEDS: Silver Sulfadiazine 1% Cream (20 gm) TOP SCH (09:10)
[2017-12-26] MEDS: HCTZ/Losartan 12.5/50 Tab PO SCH (09:13)
[2017-12-26] MEDS: Insulin Detemir 100 Units/ml Inj SC SCH (22:45)
--- NOTE | 2017-12-27 01:16 | PN ---
DATE: 12/26/2017 LOCATION: Room 663. SUBJECTIVE: This is a 42-year-old male with recent uncontrolled type 2 insulin-requiring diabetes, now being followed closely for metabolic management. His glycemic levels are fluctuating but much improved at this time, and the glucose levels have ranged from 107 to 170 and 246 mg/dL. His latest chemistry showed a BUN of 48, sodium 136, potassium 4.7, chloride 102, CO2 of 26, glucose 240, and creatinine 1.1. He has still ongoing IV antibiotic management for underlying lower extremity osteomyelitis. So at this time, we will continue the same basal and bolus insulin drug combination as given. We will continue the Levemir given as 44 units subcu at bedtime daily as ordered. We will also continue the Humalog given as 14 units subcu t.i.d. before meals as ordered. We will titrate incrementally as indicated to optimize metabolic control. We will obtain serial chemistries and supplement accordingly needed. We will follow. Gaye Llamas MD
[2017-12-27 05:45] VITALS: O2SAT 100
--- NOTE | 2017-12-27 07:28 | CP.PCM.PN ---
Subjective - Date & Time of Evaluation Date of Evaluation: 12/27/17 Time of Evaluation: 07:27 - Subjective Subjective: Podiatry progress note for attending Dr. Rose, 42 year old male patient seen and evaluated at bedside 21 days s/p right 3rd digit partial amputation. Patient was resting comfortably in bed and in no acute distress. Patient is AAOx3. Patient denies any other pedal complaint at this time. Patient denies any overnight F/N/V/SOB/chills. Patient denies any overnight acute events. Objective - Vital Signs/Intake and Output Vital Signs (last 24 hours): Temp Pulse Resp BP Pulse Ox 97.7 F 61 19 109/59 L 100 12/27/17 04:00 12/27/17 04:00 12/27/17 04:00 12/27/17 04:00 12/27/17 04:00 - Medications Medications: Current Medications Acetaminophen (Tylenol 325mg Tab) 650 mg PO Q6 PRN PRN Reason: Pain, Mild (1-3) Acetaminophen (Tylenol 325mg Tab) 650 mg PO Q6 PRN PRN Reason: Fever >100.4 F Last Admin: 12/03/17 09:59 Dose: 650 mg Allopurinol (Zyloprim) 300 mg PO DAILY [facility] Last Admin: 12/26/17 09:10 Dose: 300 mg Amlodipine Besylate (Norvasc) 10 mg PO DAILY [facility] Last Admin: 12/26/17 12:11 Dose: 10 mg Amylase (Pancrease 69595 U-5000 U-22745 U) 5,000 unit PO TID [facility] Last Admin: 12/26/17 16:12 Dose: 5,000 unit Bacitracin (Bacitracin Oint) 1 applic TOP DAILY [facility] Last Admin: 12/26/17 09:03 Dose: Not Given Clonidine HCl (Catapres) 0.1 mg PO Q8H [facility] Last Admin: 12/26/17 22:51 Dose: Not Given Docusate Sodium (Colace) 100 mg PO BID [facility] Last Admin: 12/26/17 16:11 Dose: 100 mg Enoxaparin Sodium (Lovenox) 40 mg SC DAILY [facility] PRN Reason: Protocol Last Admin: 12/26/17 09:09 Dose: 40 mg Gabapentin (Neurontin) 300 mg PO TID [facility] Last Admin: 12/26/17 16:12 Dose: 300 mg Gemfibrozil (Lopid) 600 mg PO BID [facility] Last Admin: 12/26/17 16:12 Dose: 600 mg HCTZ/Losartan Potassium (Hyzaar 12.5 Mg-50 Mg) 2 tab PO DAILY [facility] Last Admin: 12/26/17 09:13 Dose: 2 tab Insulin Detemir (Levemir) 44 units SC HS [facility] Last Admin: 12/26/17 22:45 Dose: 44 u Insulin Human Lispro (Humalog) 0 units SC ACHS [facility] PRN Reason: Protocol Last Admin: 12/26/17 22:44 Dose: Not Given Insulin Human Lispro (Humalog) 14 units SC AC [facility] Last Admin: 12/26/17 16:12 Dose: 14 units Magnesium Hydroxide (Milk Of Magnesia) 15 ml PO DAILY [facility] Last Admin: 12/26/17 09:04 Dose: Not Given Methadone HCl (Methadone) 150 mg PO DAILY [facility] Last Admin: 12/26/17 09:50 Dose: 150 mg Metoprolol Tartrate (Lopressor) 25 mg PO BID@0900,2100 [facility] Last Admin: 12/26/17 20:50 Dose: 25 mg Multivitamins/Minerals (Therapeutic-M Tab) 1 tab PO DAILY [facility] Last Admin: 12/26/17 09:10 Dose: 1 tab Ondansetron HCl (Zofran Inj) 4 mg IVP Q4 PRN PRN Reason: Nausea/Vomiting Last Admin: 12/03/17 06:57 Dose: 4 mg Probenecid (Probenecid) 500 mg PO DAILY [facility] Last Admin: 12/26/17 09:10 Dose: 500 mg Silver Sulfadiazine (Silvadene 1% 20 Gm) 1 ea TOP DAILY [facility] Last Admin: 12/26/17 09:10 Dose: Not Given - Labs Labs: 12/26/17 05:30 12/26/17 05:30 - Constitutional Appears: Well, Non-toxic, No Acute Distress - Head Exam Head Exam: ATRAUMATIC, NORMOCEPHALIC - Extremities Exam Additional comments: Right Lower Extremity focused Exam: Vasc: DP/PT 2/4, CFT less than 3 seconds in all digits, Temp. gradient warm to cool proximal to distal, no edema noted to the surgical site Neuro: gross sensation intact, protective sensation diminished DERM: Surgical site looks dry and clean. sutures to the surgical site are intact , no dehiscence, no drainage, no malodor, no erythema,no fluctuance, no edema, no clinical signs of active bacterial infection. Dorsal medial remnant of hyperkeratotic lesion noted at the right 2nd PIPJ without any open lesion. MSK: Mild pain on palpation to the 3rd digit amputation site, Mild pain to the lateral aspect of the 2nd digit. - Neurological Exam Neurological Exam: Alert, Awake, Oriented x3 - Psychiatric Exam Psychiatric exam: Normal Affect, Normal Mood Assessment and Plan - Assessment and Plan (Free Text) Assessment: 42 year old male 25 days s/p partial right 3rd digit amputation Plan: Patient seen and evaluated at bedside Plan discussed with attending, Dr. Rose Charts, labs and vitals reviewed- patient afebrile Sutures removed using sterile 11 blade and sterile pickup Wound and medial side of the 3rd toe dressed with betadine gauze, paper tape and 4 inch WILNER Patient tolerated the suture removal well with no complications Spoke to his showcase maker about the arrangement for discharging him to his correctional facility. Patient well be discharged today to his correctional facility by his primary team. Patient instructed to remove the dressing after 48 hours and then to cover the wound site with band aid. Patient instructed to use the surgical shoe whenever he is ambulating. Patient instructed to go to the ED in case there is any redness, hotness or swelling at the wound site or in his foot overall. Patient expressed verbal understanding. Patient to follow up in the podiatry clinic.
[2017-12-27 07:59] VITALS: BP 148/94; PULSE 63; RESP 20; TEMP 98.1
[2017-12-27] MEDS: Magnesium Hydroxide Susp 30 ml UD PO SCH (08:36)
[2017-12-27] MEDS: Amylase/Lipase/Protease 5,000 Units ECC PO SCH (08:37)
[2017-12-27] MEDS: Bacitracin OINT 15GM TOP SCH (08:37)
[2017-12-27] MEDS: Insulin Lispro (humaLOG) 100 Units/ml Inj SC SCH ×4 (08:38→12:46)
[2017-12-27] MEDS: HCTZ/Losartan 12.5/50 Tab PO SCH (08:38)
[2017-12-27] MEDS: Enoxaparin 40 mg Syringe SC SCH (08:42)
[2017-12-27] MEDS: Multivitamin With Minerals Tab PO SCH (08:42)
[2017-12-27] MEDS: Silver Sulfadiazine 1% Cream (20 gm) TOP SCH (08:42)
--- NOTE | 2017-12-27 11:47 | CP.PCM.DIS ---
Provider - Provider Date of Admission: 11/28/17 23:26 Attending physician: Rojelio Lentz MD Time Spent in preparation of Discharge (in minutes): 20 Diagnosis - Discharge Diagnosis (1) Osteomyelitis Status: Resolved (2) DM2 (diabetes mellitus, type 2) Status: Chronic (3) Hypertension Status: Chronic Hospital Course - Lab Results Lab Results: Micro Results 12/08/17 16:50 Naris MRSA Culture (Admit) - Final MRSA NOT DETECTED 12/03/17 11:37 Blood-Venous Blood Culture - Final NO GROWTH AFTER 5 DAYS 12/03/17 11:37 Blood-Venous Gram Stain - Final TEST NOT PERFORMED 12/04/17 23:00 Sputum Gram Stain - Final 12/04/17 23:00 Sputum Sputum Culture - Final NORMAL ORAL KYLEE 12/03/17 11:37 Blood-Thru Central Line Blood Culture - Final Bacillus Species 12/03/17 11:37 Blood-Thru Central Line Gram Stain - Final 11/28/17 19:35 Blood Blood Culture - Final NO GROWTH AFTER 5 DAYS 11/28/17 19:35 Blood Gram Stain - Final TEST NOT PERFORMED 11/28/17 19:20 Blood Blood Culture - Final NO GROWTH AFTER 5 DAYS 11/28/17 19:20 Blood Gram Stain - Final TEST NOT PERFORMED 11/29/17 20:09 Urine Urine Culture - Final No Growth (<1,000 CFU/ML) Most Recent Lab Values WBC 6.9 K/uL (4.8-10.8) 12/26/17 05:30 RBC 3.31 Mil/uL (4.40-5.90) L 12/26/17 05:30 Hgb 9.3 g/dL (12.0-18.0) L 12/26/17 05:30 Hct 27.9 % (35.0-51.0) L 12/26/17 05:30 MCV 84.3 fl (80.0-94.0) 12/26/17 05:30 MCH 28.1 pg (27.0-31.0) 12/26/17 05:30 MCHC 33.4 g/dL (33.0-37.0) 12/26/17 05:30 RDW 15.4 % (11.5-14.5) H 12/26/17 05:30 Plt Count 213 K/uL (130-400) D 12/26/17 05:30 MPV 9.1 fl (7.2-11.7) 12/26/17 05:30 Neut % (Auto) 61.9 % (50.0-75.0) 12/26/17 05:30 Lymph % (Auto) 26.7 % (20.0-40.0) 12/26/17 05:30 [place] % (Auto) 8.5 % (0.0-10.0) 12/26/17 05:30 Eos % (Auto) 2.5 % (0.0-4.0) 12/26/17 05:30 Baso % (Auto) 0.4 % (0.0-2.0) 12/26/17 05:30 Neut # (Auto) 4.3 K/uL (1.8-7.0) 12/26/17 05:30 Lymph # (Auto) 1.9 K/uL (1.0-4.3) 12/26/17 05:30 [place] # (Auto) 0.6 K/uL (0.0-0.8) 12/26/17 05:30 Eos # (Auto) 0.2 K/uL (0.0-0.7) 12/26/17 05:30 Baso # (Auto) 0.0 K/uL (0.0-0.2) 12/26/17 05:30 pO2 54 mm/Hg (30-55) 11/28/17 19:28 VBG pH 7.38 (7.32-7.43) 11/28/17 19: VBG pCO2 41 mmHg (40-60) 11/28/17 19: VBG HCO3 24.0 mmol/L 11/28/17 19:28 VBG Total CO2 25.6 mmol/L (22-28) 11/28/17 19:28 VBG O2 Sat (Calc) 91.2 % (40-65) H 11/28/17 19: VBG Base Excess -0.8 mmol/L (0.0-2.0) L 11/28/17 19: VBG Potassium 4.4 mmol/L (3.6-5.2) 11/28/17 19: Sodium 136.0 mmol/L (132-148) 11/28/17 19:28 Chloride 104.0 mmol/L (98-107) 11/28/17 19:28 Glucose 258 mg/dL (75-110) H 11/28/17 19:28 Lactate 1.6 mmol/L (0.7-2.1) 11/28/17 19:28 FiO2 21.0 % 11/28/17 19:28 Sodium 136 mmol/l (132-148) 12/26/17 05:30 Potassium 4.7 MMOL/L (3.6-5.0) 12/26/17 05:30 Chloride 102 mmol/L (98-107) 12/26/17 05:30 Carbon Dioxide 26 mmol/L (22-30) 12/26/17 05:30 Anion Gap 13 (10-20) 12/26/17 05:30 BUN 48 mg/dl (9-20) H 12/26/17 05:30 Creatinine 1.1 mg/dl (0.8-1.5) 12/26/17 05:30 Est GFR ( Amer) > 60 12/26/17 05:30 Est GFR (Non-Af Amer) > 60 12/26/17 05:30 POC Glucose (mg/dL) 154 mg/dL (65-110) H 12/27/17 11:07 Random Glucose 248 mg/dL (75-110) H 12/26/17 05:30 Calcium 9.2 mg/dL (8.4-10.2) 12/26/17 05:30 Iron 29 ug/dL (49-181) L 12/09/17 04:00 TIBC 210 ug/dL (250-450) L 12/09/17 04:00 % Saturation 14 % (20-55) L 12/09/17 04:00 Ferritin 153.0 ng/Ml (17.9-464) 12/05/17 12:00 Total Bilirubin 0.3 mg/dl (0.2-1.3) 12/20/17 13:01 AST 36 U/L (17-59) 12/20/17 13:01 ALT 20 U/L (21-72) L 12/20/17 13:01 Alkaline Phosphatase 147 U/L (38-126) H 12/20/17 13:01 NT-Pro-B Natriuret Pep 381 pg/ml (0-450) 12/13/17 09:48 Total Protein 8.0 G/DL (6.3-8.2) 12/20/17 13:01 Albumin 3.8 g/dL (3.5-5.0) 12/20/17 13:01 Globulin 4.2 gm/dL (2.2-3.9) H 12/20/17 13:01 Albumin/Globulin Ratio 0.9 (1.0-2.1) L 12/20/17 13:01 Vitamin B12 757 pg/mL (239-931) 12/05/17 12:00 Folate 14.4 ng/mL 12/05/17 12:00 Venous Blood Potassium 4.4 mmol/L (3.6-5.2) 11/28/17 19:28 Urine Color Yellow (YELLOW) 11/29/17 20:09 Urine Clarity Slighty-cloudy (Clear) 11/29/17 20:09 Urine pH 5.0 (5.0-8.0) 11/29/17 20:09 Ur Specific [place] 1.019 (1.003-1.030) 11/29/17 20:09 Urine Protein >=500 mg/dL (NEGATIVE) 11/29/17 20:09 Urine Glucose (UA) 150 mg/dL (Normal) 11/29/17 20:09 Urine Ketones Negative mg/dL (NEGATIVE) 11/29/17 20:09 Urine Blood Negative (NEGATIVE) 11/29/17 20:09 Urine Nitrate Negative (NEGATIVE) 11/29/17 20:09 Urine Bilirubin Negative (NEGATIVE) 11/29/17 20:09 Urine Urobilinogen 0.2-1.0 mg/dL (0.2-1.0) 11/29/17 20:09 Ur Leukocyte Esterase Small [place]/uL (Negative) 11/29/17 20:09 Urine RBC (Auto) 3 /hpf (0-3) 11/29/17 20:09 Urine Microscopic WBC 2 /hpf (0-5) 11/29/17 20:09 Ur Squamous Epith Cells 1 /hpf (0-5) 11/29/17 20:09 Vancomycin Trough < 5.0 ug/mL (5.0-10.0) L 12/23/17 05:35 - Hospital Course Hospital Course: 42 YO Male with PMHx of IDDM, CVA, HTN, HLD is admitted for osteomylitis. Pt underwent partial amputation of the right food 3rd digit, and finished course of IV abx as inpatient. Pt remains clinically stable, cleared by consultants. Will d/c patient to police custody. Discharge Exam - Head Exam Head Exam: ATRAUMATIC, NORMOCEPHALIC - Eye Exam Eye Exam: EOMI, Normal appearance - Respiratory Exam Respiratory Exam: Clear to PA & Lateral. absent: Wheezes - Cardiovascular Exam Cardiovascular Exam: REGULAR RHYTHM, +S1, +S2 - GI/Abdominal Exam GI & Abdominal Exam: Normal Bowel Sounds, Soft. absent: Tenderness - Extremities Exam Additional comments: LLE amputated RLE in wound cover - Neurological Exam Neurological exam: Alert, Oriented x3 - Psychiatric Exam Psychiatric exam: Normal Mood Discharge Plan - Follow Up Plan Condition: FAIR Disposition: RELEASED IN POLICE CUSTODY Patient education suggested?: Yes Instructions: Amputation of the Foot or Toe, Osteomyelitis (DC) Referrals: Gaye Llamas MD [Medical Doctor] - Donny Rose DPM [Staff Provider] -
--- NOTE | 2017-12-27 18:51 | PN ---
DATE: 12/27/2017 ENDO FOLLOWUP NOTE LOCATION: In room 663. SUBJECTIVE: This is a 42-year-old male with recent uncontrolled type 2 insulin-requiring diabetes, now being followed closely for metabolic management. His glycemic levels are fluctuating, but much improved at this time and the glucose levels have ranged from 111 to 154 and 157 mg/dL. ASSESSMENT AND PLAN: So at this time because of the improved oral intake, we will continue the same basal and bolus insulin regimen as given. We will continue his Levemir given as 44 units subcutaneously at bedtime daily as ordered. We will also continue the Humalog given as 14 units subcutaneously t.i.d. before meals to start today as ordered. We will obtain serial chemistries and supplement accordingly as needed. We will also encourage improved oral intake to complement the insulin requirements given accordingly. We will follow. Gaye Llamas MD
== END 2017-12-27 13:31 ==
LOC: H.ER 18:16 → H.ERHOLD 20:54 → OBSVTOIN 23:26 → H.MEDSURG1 11-29 00:15 → H.ICU/CCU 12-07 07:27 → H.TEL 12-08 13:37 → H.MEDSURG1 12-12 11:49
PROVIDERS: ADMIT Internal Medicine; ATTEND Internal Medicine
PROC: 0JBQ0ZZ Excision of Right Foot Subcutaneous Tissue and Fascia, Open Approach (ICD-10-PCS; 2017-12-02)
PROC: 0Y6T0Z1 Detachment at Right 3rd Toe, High, Open Approach (ICD-10-PCS; principal; 2017-12-02 07:45)
DX: E11.621 Type 2 diabetes mellitus with foot ulcer (principal); M86.171 Other acute osteomyelitis, right ankle and foot; J18.9 Pneumonia, unspecified organism; L97.516 Non-pressure chronic ulcer of other part of right foot with bone involvement without evidence of necrosis; R09.02 Hypoxemia; E11.51 Type 2 diabetes mellitus with diabetic peripheral angiopathy without gangrene; E11.65 Type 2 diabetes mellitus with hyperglycemia; E11.319 Type 2 diabetes mellitus with unspecified diabetic retinopathy without macular edema; F11.20 Opioid dependence, uncomplicated; J95.89 Other postprocedural complications and disorders of respiratory system, not elsewhere classified; R50.82 Postprocedural fever; E11.69 Type 2 diabetes mellitus with other specified complication; E11.42 Type 2 diabetes mellitus with diabetic polyneuropathy; I47.1 Supraventricular tachycardia; Y95 Nosocomial condition; I25.10 Atherosclerotic heart disease of native coronary artery without angina pectoris; R59.0 Localized enlarged lymph nodes; Z89.612 Acquired absence of left leg above knee; E78.5 Hyperlipidemia, unspecified; E78.00 Pure hypercholesterolemia, unspecified; J45.909 Unspecified asthma, uncomplicated; G81.91 Hemiplegia, unspecified affecting right dominant side; M19.042 Primary osteoarthritis, left hand; M19.041 Primary osteoarthritis, right hand; I10 Essential (primary) hypertension; F17.210 Nicotine dependence, cigarettes, uncomplicated; Z79.4 Long term (current) use of insulin; Z86.73 Personal history of transient ischemic attack (TIA), and cerebral infarction without residual deficits; Z88.6 Allergy status to analgesic agent

== ENCOUNTER 2018-01-18 08:42 | Emergency (ER) | payer OTHER ==
[2018-01-18 08:57] VITALS: O2SAT 100
[2018-01-18 08:58] VITALS: BMI 49.3
--- NOTE | 2018-01-18 09:34 | ED PDOC ---
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 Patient states he was admitted to the hospital for weeks and was never given any physical therapy. He reports weakness in his right leg and states he is using a wheelchair, but reports frequent falls. Patient is also complaining of pain to the right 4th and 5th toes. Patient denies any fevers. PMD: Dr. Xavier Past Medical History Reviewed: Historical Data, Nursing Documentation, Vital Signs Vital Signs: Last Vital Signs Temp 97.0 F L 01/18/18 09:27 Pulse 123 H 01/18/18 09:27 Resp 16 01/18/18 09:27 BP 176/125 H 01/18/18 09:27 Pulse Ox 100 01/18/18 09:27 - Medical History PMH: Arthritis (hands), Asthma, Bronchitis, CVA (3x), Diabetes, HTN, Hypercholesterolemia Denies: Depression, Hepatitis, Chronic Kidney Disease, Sexually Transmitted Disease - Surgical History Surgical History: Denies: Pacemaker Other surgeries: Right leg amputation, right 3rd foot digit amputation - Family History Family History: States: Diabetes, Hypertension - Immunization History Hx Tetanus Toxoid Vaccination: Yes Hx Influenza Vaccination: Yes Hx Pneumococcal Vaccination: Yes - Home Medications Home Medications: Ambulatory Orders Medication Instructions Recorded Allopurinol [Zyloprim] 300 mg PO DAILY 11/28/17 Bacitracin Ointment [Bacitracin] 30 gm TOP DAILY 11/28/17 DULoxetine [Cymbalta] 60 mg PO TID 11/28/17 Docusate [Colace] 100 mg PO BID 11/28/17 Gabapentin [Neurontin] 300 mg PO TID 11/28/17 Gemfibrozil [Lopid] 600 mg PO BID 11/28/17 Lipase/Protease/Amylase [Shruti Dr 1 cap PO TID 11/28/17 6,000 Units Capsule] Magnesium Hydroxide [Beasley' 15 ml PO DAILY 11/28/17 Milk of Magnesia] Multivitamin [Multivitamins] 1 cap PO DAILY 11/28/17 amLODIPine [Norvasc] 5 mg PO DAILY 11/28/17 HCTZ/Losartan Potassium [Hyzaar 2 tab PO DAILY tab 12/18/17 12.5 mg-50 mg] Methadone 150 mg PO DAILY #5 tab 12/18/17 Metoprolol Tartrate [Lopressor] 25 mg PO BID@0900,2100 tab 12/18/17 Probenecid 500 mg PO DAILY tab 12/18/17 cloNIDine [Catapres] 0.1 mg PO Q8H tab 12/18/17 Insulin Aspart, Recombinant 14 unit SC AC #1 12/27/17 [Novolog] Insulin Detemir [Levemir] 44 units SC HS vial 12/27/17 Acetaminophen with Codeine 1 tab PO Q6H PRN #5 tab 01/18/18 [Tylenol with Codeine No. 3 300 mg-30 mg] Nitrofurantoin Macrocrystals 100 mg PO BID #14 cap 01/18/18 [Macrobid] - Allergies Allergies/Adverse Reactions: Allergies Allergy/AdvReac Type Severity Reaction Status Date / Time morphine AdvReac ITCHING Verified 11/14/17 00:03 Review of Systems ROS Statement: Except As Marked, All Systems Reviewed And Found Negative Constitutional: Negative for: Fever Musculoskeletal: Positive for: Foot Pain (right) Neurological: Positive for: Weakness (right leg) Physical Exam - Reviewed Nursing Documentation Reviewed: Yes Vital Signs Reviewed: Yes - Physical Exam Appears: Positive for: Non-toxic, No Acute Distress Head Exam: Positive for: ATRAUMATIC, NORMAL INSPECTION, NORMOCEPHALIC Skin: Positive for: Normal Color, Warm, Dry. Negative for: Rash Eye Exam: Positive for: EOMI, Normal appearance, PERRL Neck: Positive for: Normal, Painless ROM, Supple Cardiovascular/Chest: Positive for: Regular Rate, Rhythm. Negative for: Murmur Respiratory: Positive for: Normal Breath Sounds. Negative for: Respiratory Distress Gastrointestinal/Abdominal: Positive for: Normal Exam, Soft. Negative for: Tenderness Back: Positive for: Normal Inspection. Negative for: L CVA Tenderness, R CVA Tenderness, Vertebral Tenderness Extremity: Positive for: Deformity (right 3rd foot digit amputation, no ecchymosis, no erythema; left leg amputation), Other (old superficial abrasion to right knee) Neurologic/Psych: Positive for: Alert, Oriented (x3). Negative for: Motor/ Sensory Deficits - Laboratory Results Result Diagrams: 01/18/18 10:25 01/18/18 10:25 - ECG O2 Sat by Pulse Oximetry: 100 (RA) Pulse Ox Interpretation: Normal Medical Decision Making Medical Decision Makin:25 Impression: Deconditioning and foot pain Plan: -EKG -CMP -Urine dipstick -CBC -PTT/PT -Right knee X-ray -Blood culture -Glucose, Blood, POC -Right foot x-ray -Urinalysis -Reevaluation 10:41 Date of service: 01/18/2018 PROCEDURE: Right Foot Radiographs. HISTORY: Lateral foot pain COMPARISON: Right foot radiographs dated 12/02/2017. FINDINGS: BONES: Limited evaluation of the ankle due to external device. Subtotal 3rd digit osteotomy, unchanged. No acute fracture JOINTS: Normal. SOFT TISSUES: Normal. OTHER FINDINGS: None. IMPRESSION: Prior 3rd digit subtotal osteotomy. No acute fracture. 10:42 Date of service: 01/18/2018 PROCEDURE: Right Knee Radiographs. HISTORY: Fall COMPARISON: None. FINDINGS: BONES: No acute fracture. JOINTS: Unremarkable. JOINT EFFUSION: None. OTHER FINDINGS: None. IMPRESSION: No demonstrated fracture or dislocation. PROCEDURE: Right Hip Radiographs. HISTORY: Fall COMPARISON: None. FINDINGS: BONES: No acute fracture. JOINTS: Normal. SOFT TISSUES: Normal. OTHER FINDINGS: None. IMPRESSION: No demonstrated fracture or dislocation. 11:41 Discussed case with podiatry. 14:20 Pt came to nurses station stating "I'm refusing the ultrasound. There are too many people". States he is going back to rehab on Saturday, requesting medications for foot burning. Scribe Attestation: Documented by Lencho Day, acting as a scribe for Jud Chapman MD. Provider Scribe Attestation: All medical record entries made by the Scribe were at my direction and personally dictated by me. I have reviewed the chart and agree that the record accurately reflects my personal performance of the history, physical exam, medical decision making, and the department course for this patient. I have also personally directed, reviewed, and agree with the discharge instructions and disposition. Disposition - Clinical Impression Clinical Impression: Foot pain, UTI (urinary tract infection) - Patient ED Disposition Is Patient to be Admitted: No - Disposition Referrals: Semaj Xavier DO [Non-Staff] - Other/Non [facility] provider: Dr. Xavier Disposition: Against Medical Advice Disposition Time: 14:27 Condition: UNKNOWN Prescriptions: Acetaminophen with Codeine [Tylenol with Codeine No. 3 300 mg-30 mg] 1 tab PO Q6H PRN #5 tab PRN Reason: Pain, Severe (8-10) Nitrofurantoin Macrocrystals [Macrobid] 100 mg PO BID #14 cap Instructions: Muscle and Bone Pain (DC) Forms: [facility] (Gambian)
[2018-01-18 09:35] VITALS: RESP 16; TEMP 97
[2018-01-18] MEDS ORDERED: Sodium Chloride 0.9% 1,000 ML IV STA (10:33)
--- NOTE | 2018-01-18 10:43 | RAD ---
Date of service: 01/18/2018 PROCEDURE: Right Foot Radiographs. HISTORY: Lateral foot pain COMPARISON: Right foot radiographs dated 12/02/2017. FINDINGS: BONES: Limited evaluation of the ankle due to external device. Subtotal 3rd digit osteotomy, unchanged. No acute fracture JOINTS: Normal. SOFT TISSUES: Normal. OTHER FINDINGS: None. IMPRESSION: Prior 3rd digit subtotal osteotomy. No acute fracture.
--- NOTE | 2018-01-18 10:43 | RAD ---
Date of service: 01/18/2018 PROCEDURE: Right Knee Radiographs. HISTORY: Fall COMPARISON: None. FINDINGS: BONES: No acute fracture. JOINTS: Unremarkable. JOINT EFFUSION: None. OTHER FINDINGS: None. IMPRESSION: No demonstrated fracture or dislocation.
--- NOTE | 2018-01-18 10:44 | RAD ---
PROCEDURE: Right Hip Radiographs. HISTORY: Fall COMPARISON: None. FINDINGS: BONES: No acute fracture. JOINTS: Normal. SOFT TISSUES: Normal. OTHER FINDINGS: None. IMPRESSION: No demonstrated fracture or dislocation.
[2018-01-18 10:46] LABS: BASO # 0.1 K/uL (0.0-0.2); BASO % 1.2 % (0.0-2.0); EOS # 0.1 K/uL (0.0-0.7); HEMOGLOBIN 14.7 g/dL (12.0-18.0); LYMPH # 2.7 K/uL (1.0-4.3); LYMPH % 24.9 % (20.0-40.0); MEAN CELL VOLUME 81.5 fl (80.0-94.0); MEAN CORPUSCULAR HEMOGLOBIN 28.4 pg (27.0-31.0); MEAN CORPUSCULAR HGB CONC 34.8 g/dL (33.0-37.0); MEAN PLATELET VOLUME 9.2 fl (7.2-11.7); MONO # 0.7 K/uL (0.0-0.8); MONO % 6.1 % (0.0-10.0); NEUT # 7.2 K/uL (1.8-7.0); NEUT % 66.8 % (50.0-75.0); NRBC % 0.2 % (0.0-0.0); RBC 5.2 Mil/uL (4.40-5.90); RED CELL DISTRIBUTION WIDTH 14.8 % (11.5-14.5)
[2018-01-18 10:57] LABS: PROTHROMBIN TIME 11.6 Seconds (9.8-13.1)
[2018-01-18 11:00] LABS: PARTIAL THROMBOPLASTIN TIME 33.1 Seconds (25.6-37.1)
[2018-01-18 11:04] LABS: WHITE BLOOD COUNT 10.8 K/uL (4.8-10.8)
[2018-01-18 11:10] LABS: GRANULAR CAST 5 /lpf (0-1); SQUAMOUS EPITHIAL 1 /hpf (0-5); URINE BACTERIA OCC (<OCC); URINE BILIRUBIN NEGATIVE (NEGATIVE); URINE BLOOD SMALL (NEGATIVE); URINE CLARITY SLIGHTY-CLOUDY (Clear); URINE COLOR YELLOW (YELLOW); URINE GLUCOSE (UA) NEG (Normal); URINE LEUKOCYTE ESTERASE NEG Leu/uL (Negative); URINE PROTEIN >=500 mg/dL (NEGATIVE); URINE UROBILINOGEN 0.2-1.0 mg/dL (0.2-1.0)
[2018-01-18 11:12] LABS: ALB/GLOB RATIO 1.2 (1.0-2.1); ALT/SGPT 36 U/L (21-72); AST/SGOT 24 U/L (17-59); BLOOD UREA NITROGEN 30 mg/dl (9-20); CALCIUM 9.5 mg/dL (8.4-10.2); GFR AFRICAN-AMERICAN > 60; GFR NON-AFRICAN AMERICAN > 60
[2018-01-18] MEDS ORDERED: Oxycodone/Acetaminophen 5/325 mg Tab PO STA (13:21)
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
[2018-01-18 15:18] VITALS: BP 164/78; PULSE 88
--- NOTE | 2018-01-19 19:00 | CARD ---
APPROVED REPORT Date of service: 01/18/2018 EKG Measurement Heart [id number] <Conclusion> Sinus tachycardia Otherwise normal ECG
== END 2018-01-18 14:30 | disposition left against medical advice (07) ==
LOC: H.ER 08:42
DX: N39.0 Urinary tract infection, site not specified (principal); M79.671 Pain in right foot; E11.9 Type 2 diabetes mellitus without complications; E78.00 Pure hypercholesterolemia, unspecified; F17.210 Nicotine dependence, cigarettes, uncomplicated; I10 Essential (primary) hypertension; J45.909 Unspecified asthma, uncomplicated; Z79.4 Long term (current) use of insulin; Z86.73 Personal history of transient ischemic attack (TIA), and cerebral infarction without residual deficits; Z88.5 Allergy status to narcotic agent; Z89.9 Acquired absence of limb, unspecified
CPT/HCPCS: 73502; 73562; 73630; 80053; 81003; 85025; 85610; 85651; 85730; 87040; 93005; 96360; 99284; J0696; J2270; J7030